=== PATIENT | female | born 1940 | race Caucasian/White ===

== ENCOUNTER 2017-12-04 13:19 | Inpatient (IN) ==
--- NOTE | 2017-12-04 13:42 | Emergency Department Note ---
SOB HPI - General Chief Complaint: Shortness of Breath/Dyspnea Stated Complaint: sob, htn Time Seen by Provider: 12/04/17 13:39 Source: patient, EMS Mode of arrival: EMS Limitations: no limitations - History of Present Illness This pleasant 77-year-old female comes emergency room with difficulty breathing for a couple of days that got worse. She lives in her own home with her oldest son and a significant other, Vipul Pinto, . Home health advised patient that patient be brought in after they were contacted by a friend or the patient's daughter in describing her shortness of breath. She has had some feverishness yesterday as well as some chills but no sweats. She has had a little chest pain for couple of days but has a history of palpitations. She has been coughing some. She has difficulty getting her air and feeling tight in her chest. She has a history of multiple medical illnesses and a fairly long list of medications. She has not been in the hospital for her lungs. She is not on any nebulizers at home. She is unaware of pulmonary fibrosis specifically as past history. She is a fairly good historian overall. REVIEW OF SYSTEMS: Has had some mild abdominal discomforts. No nausea or vomiting or diarrhea. She has some constipation. No hematochezia or melena. No dysuria. She has some frequency chronically. She is just getting over a recent UTI. Has chronic back pain as well as leg pains. She has a history of fibromyalgia for which she takes hydrocodone 5 or 6 pills per day she believes they are 5 mg tablets. She uses a walker and has been able to get around with her walker as normal. Has had some recent headaches and weakness. No dizziness. Has significant anxiety but no depression. Some of her concerns are regarding her home situation. Has felt quite fatigued. - Related Data Home Medications Medication Instructions Recorded Confirmed Aspirin [Adult Low Dose Aspirin EC] 81 mg PO DAILY 10/24/17 12/04/17 Levothyroxine [Synthroid] 100 mcg PO DAILY 10/24/17 12/04/17 Losartan [Cozaar] 100 mg PO DAILY 10/24/17 12/04/17 Pantoprazole Sodium 40 mg PO DAILY 10/24/17 12/04/17 Potassium Chloride [Klor-Con 10 meq PO DAILY 10/24/17 12/04/17 Sprinkle] Pravastatin [Pravachol] 20 mg PO DAILY 10/24/17 12/04/17 Propranolol [Inderal LA] 80 mg PO BID 10/24/17 12/04/17 amLODIPine [Norvasc] 10 mg PO DAILY 10/24/17 12/04/17 Apixaban [Eliquis] 2.5 mg PO BID 12/04/17 12/04/17 Cilostazol [Pletal] 50 mg PO BIDAC 12/04/17 12/04/17 HYDROcodone/ACETAMINOPHEN 1 - 2 each PO Q6HP PRN 12/04/17 12/04/17 [Hydrocodon-Acetaminophn 10-325] Torsemide [Demadex] 20 mg PO DAILY 12/04/17 12/04/17 Allergies Allergy/AdvReac Type Severity Reaction Status Date / Time levofloxacin [LEVOFLOXACIN] Allergy Unknown RASH Verified 08/26/17 11:58 Past Medical History - Past Medical History Medical history: Reports: atrial fibrillation (RECENT FLUTTER.), cancer (Breast (left-mastectomy). Skin on the left neck and skin of the left chest that was non -melanotic.), CHF, COPD (EMPHYSEMA.), coronary artery disease, fibromyalgia, hyperlipidemia, hypertension, hypothyroidism, peripheral artery disease ( ), PID, valvular heart disease (Aortic valve - replaced bovine 2003.), other ( Rheumatic fever. Atherosclerosis. CHRONIC ANTICOAGULATION. Pulmonary fibrosis. CHRONIC NARCOTICS for FM/severe MSK pains. TREMORS - on primidone.) . Denies: CVA, DM, myocardial infarction, TIA Psychiatric history: Reports: anxiety. Denies: depression Surgical history ED: Reports: angioplasty/stent (left femoral.), appendectomy, coronary bypass (CABG) (2 vessels in 2003), heart valve replacement (Aortic, TRESSA, 2004 at the same time as the CABG.), hysterectomy, tonsillectomy, other ( Right mastectomy.) Family history: Reports: other (ASHD in multiple - both parents, sister, children.) - Social History smoking status: Former smoker Exposure to secondhand smoke: Yes Alcohol use: Reports: None Drug use: Reports: none Physical Exam Limitations: no limitations General appearance: alert, in distress (mild tachypneic stress.), in no apparent distress, malaise (moderate) Head: atraumatic, normocephalic Eye: Present: EOMI ENT: normal oropharynx, mucous membranes moist Neck: Present: trachea midline. Absent: lymphadenopathy, thyromegaly Respiratory: Present: respiratory distress (RR 25-28 with some prolonged expiratory phase; 3-5 word dyspnea (due to exacerbation; or partially due to voice tremor).), accessory muscle use (mild supraclavicular and intercostal.), prolonged expiratory phase (mildly.), other (Mild crackles in bases faint, left more than right; VERY DISTANT breath sounds.) Cardiovascular: Present: regular rate, normal rhythm. Absent: systolic murmur ( history of 1/ per assistant professor of chemistry's notes.), diastolic murmur Abdominal: Present: soft, tenderness (upper abd tender multiple areas.). Absent : distention, guarding, rebound, rigidity, organomegaly, mass Extremities: Absent: pedal edema, pretibial edema, calf tenderness Neurological: Present: alert, oriented X3 Psychiatric: Present: flat affect (serious and concerned facies.) Skin: Present: warm, dry Course Vital Signs Temperature 99.5 F H 12/04/17 13:20 Pulse Rate 74 12/04/17 13:20 Respiratory Rate 27 H 12/04/17 13:20 Blood Pressure 146/99 12/04/17 13:20 Pulse Oximetry (%) 100 12/04/17 13:20 Temperature 99.5 F H 12/04/17 13:20 Pulse Rate 80 12/04/17 15:31 Respiratory Rate 21 12/04/17 15:47 Blood Pressure 180/87 12/04/17 15:31 Pulse Oximetry (%) 99 12/04/17 15:31 Shortness of Breath/Dyspnea - [facility] Narrative Medical decision making narrative: 13:23 PM Patient came in with significant shortness of breath and work of breathing. Was given a DuoNeb here which helped her quite a bit. She was able to be on room air. Labs ordered, chest x-ray, EKG, lactate, cardiac enzymes. 3:30 PM Labs came back fairly unremarkable with not an elevated white count and a normal lactate. Pro-calcitonin was also negative. Chest x-ray showed worsening pulmonary fibrosis and worsening of emphysema. Blood pressure remained in the ranges of 170-190 systolic. She became tight again with sensation of shortness of breath and was given a second albuterol. With her having tachypnea is still in the 28 range, and requiring additional nebulization , low-grade temperature, on a background of emphysema/COPD and pulmonary fibrosis, additional treatment includes Solu-Medrol IV and doxycycline IV ( azithromycin has a severe interaction with her cilostazol for QT prolongation) and likely needs admission. Will do an ABG to quantify some of her factors there. She is also on chronic narcotics for her musculoskeletal complaints which could compromise her respiratory drive significantly as well. Discussed with Dr. Taylor. Will be admitted for additional intervention/ treatment. - Lab Data Result diagrams: 12/04/17 13:46 12/04/17 13:46 Lab Results 12/04/17 12/04/17 12/04/17 Range/Units 13:46 13:46 13:46 WBC 10.8 (4.5-11.0) K/mcL RBC 4.12 (4.00-5.20) M/mcL Hgb 12.9 (12.0-15.0) g/dL Hct 39.2 (36.0-48.0) % MCV 95.1 (80.0-100.0) fL MCH 31.4 (26.0-34.0) pg MCHC 33.0 (31.0-36.0) g/dL RDW 16.2 H (11.5-14.5) % Plt Count 272 (140-440) K/mcL MPV 7.6 (7.4-10.4) fL Total Counted 100 Seg Neutrophils % 80 H (38-78) % Band Neutrophils % Not Reportable Lymphocytes % 6 L (15-49) % Monocytes % (Manual) 4 (1-12) % Eosinophils % (Manual) 10 H (0-7) % Platelet Estimate Normal (NORMAL) RBC Morphology Abnorm A (NORMAL) Anisocytosis 1+ A (NONE SEEN) D-Dimer (0.00-0.40) ug/ml VBG Lactic Acid (0.5-2.2) mmol/L Sodium 138 (133-145) mmol/L Potassium 3.8 (3.3-5.1) mmol/L Chloride 95 L (96-108) mmol/L Carbon Dioxide 28 (22-30) mmol/L Anion Gap 15.0 (8-16) BUN 10 (8-23) mg/dl Creatinine 0.8 (0.6-1.1) mg/dl GFR Calculation 71 Glucose 98 (70-105) mg/dL Calcium 9.0 (8.6-10.4) mg/dl Magnesium 2.2 (1.6-2.5) mg/dL Total Bilirubin 0.6 (0.0-1.0) mg/dL AST 12 (0-37) U/l ALT 5 (0-40) U/l Alkaline Phosphatase 209 H (39-117) U/L Total Creatine Kinase 44 (24-170) IU/L CK-MB (CK-2) 1.9 (0-2.9) ng/ml Troponin T (0-0.03) ng/ml Total Protein 7.9 (5.9-8.4) gm/dL Albumin 4.3 (3.2-5.2) gm/dL Globulin 3.6 (2.2-3.7) gm/dL Albumin/Globulin Ratio 1.2 (1.0-2.3) Procalcitonin < 0.05 (<0.10) ng/mL 12/04/17 12/04/17 12/04/17 Range/Units 13:46 13:46 14:36 WBC (4.5-11.0) K/mcL RBC (4.00-5.20) M/mcL Hgb (12.0-15.0) g/dL Hct (36.0-48.0) % MCV (80.0-100.0) fL MCH (26.0-34.0) pg MCHC (31.0-36.0) g/dL RDW (11.5-14.5) % Plt Count (140-440) K/mcL MPV (7.4-10.4) fL Total Counted Seg Neutrophils % (38-78) % Band Neutrophils % Lymphocytes % (15-49) % Monocytes % (Manual) (1-12) % Eosinophils % (Manual) (0-7) % Platelet Estimate (NORMAL) RBC Morphology (NORMAL) Anisocytosis (NONE SEEN) D-Dimer 0.74 H (0.00-0.40) ug/ml VBG Lactic Acid 1.0 (0.5-2.2) mmol/L Sodium (133-145) mmol/L Potassium (3.3-5.1) mmol/L Chloride (96-108) mmol/L Carbon Dioxide (22-30) mmol/L Anion Gap (8-16) BUN (8-23) mg/dl Creatinine (0.6-1.1) mg/dl GFR Calculation Glucose (70-105) mg/dL Calcium (8.6-10.4) mg/dl Magnesium (1.6-2.5) mg/dL Total Bilirubin (0.0-1.0) mg/dL AST (0-37) U/l ALT (0-40) U/l Alkaline Phosphatase (39-117) U/L Total Creatine Kinase (24-170) IU/L CK-MB (CK-2) (0-2.9) ng/ml Troponin T < 0.01 (0-0.03) ng/ml Total Protein (5.9-8.4) gm/dL Albumin (3.2-5.2) gm/dL Globulin (2.2-3.7) gm/dL Albumin/Globulin Ratio (1.0-2.3) Procalcitonin (<0.10) ng/mL Disposition Pt seen by EMERGENCY VETERINARY TECHNICIAN/PA only: No Clinical Impression: COPD with exacerbation, Respiratory distress, Tachypnea, Hypertension, essential, benign, DNR no code (do not resuscitate), Pulmonary fibrosis, H/O aortic valve replacement, History of atrial flutter, History of coronary artery disease, History of CHF (congestive heart failure) Fever Qualifiers: Fever type: unspecified Qualified Code(s): R50.9 - Fever, unspecified Disposition: Xfer As Outpt/Obs ([facility]) Condition: Fair Referrals: Rea Sethi MD [Primary Care Provider] -
--- NOTE | 2017-12-04 13:58 | XRay Report ---
HISTORY: Reason for Exam:sob and hypertension FINDINGS: The lungs are hyperinflated and there is pulmonary fibrosis. The fibrosis is most apparent in the lung apices. There is upward retraction of the ruby. The air trapping has become worse since 10/24/17. There is no evidence of pneumonia, mass or congestive heart failure. The heart size is normal and there is a prosthetic aortic valve. There are also clips in the left anterior mediastinum. IMPRESSION: Pulmonary fibrosis and worsening emphysema Interpreted and Authenticated by: Josh Kwon 12/04/17
[2017-12-04 14:17] LABS: Mean Cell Volume 95.1 fL (80.0-100.0); Mean Corpuscular Hemoglobin 31.4 pg (26.0-34.0); Platelet Count 272 K/mcL (140-440); RBC 4.12 M/mcL (4.00-5.20); Red Cell Distribution Width 16.2 % (11.5-14.5)
[2017-12-04 14:40] LABS: ALT/SGPT 5 U/l (0-40); Albumin 4.3 gm/dL (3.2-5.2); Albumin/Globulin Ratio 1.2 (1.0-2.3); Alkaline Phosphatase 209 U/L (39-117); Blood Urea Nitrogen 10 mg/dl (8-23); Creatine Kinase 44 IU/L (24-170); Creatine Kinase MB 1.9 ng/ml (0-2.9)
[2017-12-04 14:41] LABS: Anisocytosis 1+ (NONE SEEN); Eosinophils % (Manual) 10 % (0-7); Lymphocytes % 6 % (15-49); Monocytes % (Manual) 4 % (1-12); Platelet Estimate NORMAL (NORMAL); RBC Morphology ABNORM (NORMAL); Segmented Neutrophils % 80 % (38-78)
[2017-12-04] MEDS ORDERED: ALBUTEROL SULFATE 2.5 MG/3 ML NEBULIZER NEB ONE (15:11)
[2017-12-04] MEDS ORDERED: methylPREDNISolone SOD SUCC 125 MG/2 ML VIAL IV ONE (15:36)
[2017-12-04] MEDS ORDERED: DOXYCYCLINE 100 MG in DEXTROSE 5% IN WATER 100 ML IV ONE (15:40)
[2017-12-04] MEDS ORDERED: ACETAMINOPHEN 325 MG TABLET PO PRN (18:18)
[2017-12-04] MEDS ORDERED: NALOXONE HCL 0.4 MG/ML VIAL IV PRN (18:18)
[2017-12-04] MEDS ORDERED: ONDANSETRON 4 MG/2 ML VIAL IV PRN (18:18)
[2017-12-04] MEDS: IPRATROPIUM/ALBUTEROL 3 ML AMPUL.NEB NEB SCH ×2 (19:32→22:27)
[2017-12-04] MEDS: HYDROcodone/APAP 10/325MG TABLET PO PRN (20:06)
[2017-12-04] MEDS: DOXYCYCLINE HYCLATE 100 MG TABLET.ORL PO SCH (20:07)
[2017-12-04] MEDS: SIMVASTATIN 10 MG TABLET PO SCH (20:07)
[2017-12-04] MEDS: APIXABAN 5 MG TABLET PO SCH (20:07)
[2017-12-04] MEDS ORDERED: hydrALAZINE 20 MG/ML VIAL IV PRN (20:27)
[2017-12-04] MEDS ORDERED: PROPRANOLOL 80 MG CAP.XL.24H PO SCH (21:00)
[2017-12-04] MEDS ORDERED: METOPROLOL TARTRATE 50 MG TABLET PO SCH (21:00)
--- NOTE | 2017-12-04 21:17 | Internal Med History&Physical ---
Medical - H&P: HPI Patient information: Note initiated : 12/04/17 at 9:14 pm Service Date, if different from initiated Date: [] Patient: Valeria Negron a 77 y/o F admitted on 12/04/17 for sob, htn. Chief Complaint: [] History of present illness: Ms. Negron is a 77 year old Femael with severe empysema presents to the ER today with complaints of shortness of breath x 2 days she has cough, with very scant sputum production, she has significantly decreased effort tolerance, while at baseline she is able to walk a block with her walker. The patient notes she feels weak and tired. Her symptoms have progressed over the last 2 days. She therefore presented to the hospital for further management. The patient denies any leg swelling, usually lives in the house, patient denies any hemoptysis, denies any sick contacts, denies any runny nose or watery eyes. She has no headache, no visual changes, no changes in hearing, no difficulty in swallowing ability. she has some chest pain with deep inspiration. no nausea, no vomiting, chr abdominal discomfort, she has no bowel bladder complaints, chr gen aches from fibromyalgia, no new joint pain or skin rashes, no bleeding issues, no acute psychiatric complaints. patient in the ER was noted to be having stable vitals, but was in mild resp distress, afebrile , rr 24-28, oxygen sat dropped to 856 on minimal ambulation, c xr shows emphysema and pulmonary fibrosis, pt not aware of fibrosis. labs unremarkable Pt being admitted to the hospital for acute copd exacerbation. given steroids, duonebs and doxycycline in the er she has an extensive cardiac history, last cardiac note by dr ricks reviewed, All systems: reviewed and no additional remarkable complaints except as stated ( as per HPI) Medical - H&P: PMH Medical history: CAD s/p aortic valve replacement s/p cag HTN Atrial flutter copd/ emphysema hld PVD Family history: reviewed and not pertinent Social history: smoker, lives with significant other, 60 pack yr history ,notes quit 2 days ago no etoh reported, no recreational drug use. Medical - H&P: Meds Home Medications Medication Instructions Recorded Confirmed Type Aspirin [Adult Low Dose Aspirin EC] 81 mg PO DAILY 10/24/17 12/04/17 History Levothyroxine [Synthroid] 100 mcg PO DAILY 10/24/17 12/04/17 History Losartan [Cozaar] 100 mg PO DAILY 10/24/17 12/04/17 History Pantoprazole Sodium 40 mg PO DAILY 10/24/17 12/04/17 History Potassium Chloride [Klor-Con 10 meq PO DAILY 10/24/17 12/04/17 History Sprinkle] Pravastatin [Pravachol] 20 mg PO DAILY 10/24/17 12/04/17 History Propranolol [Inderal LA] 80 mg PO BID 10/24/17 12/04/17 History amLODIPine [Norvasc] 10 mg PO DAILY 10/24/17 12/04/17 History Apixaban [Eliquis] 2.5 mg PO BID 12/04/17 12/04/17 History Cilostazol [Pletal] 50 mg PO BIDAC 12/04/17 12/04/17 History HYDROcodone/ACETAMINOPHEN 1 - 2 each PO Q6HP PRN 12/04/17 12/04/17 History [Hydrocodon-Acetaminophn 10-325] Torsemide [Demadex] 20 mg PO DAILY 12/04/17 12/04/17 History Allergies Allergy/AdvReac Type Severity Reaction Status Date / Time levofloxacin [LEVOFLOXACIN] Allergy Mild RASH Verified 12/04/17 19:54 Medical - H&P: Exam - Constitutional Vitals: Temp Pulse Resp BP Pulse Ox 99.5 F H 82 24 H 176/79 98 12/04/17 18:20 12/04/17 19:33 12/04/17 19:33 12/04/17 18:20 12/04/17 19:33 Exam: GENERAL: in mild resp distress, Is alert and oriented x3. thin frail lady. VITAL SIGNS: Reviewed and as noted elsewhere. HEENT: Head is normocephalic and atraumatic. Extraocular muscles are intact. Pupils are equal, round, and reactive to light. Nares appeared normal. Mouth appears any without lesions. Mucous membranes are dry NECK: Normal to inspection, Supple, No lymphadenopathy or thyromegaly. LUNGS: Air entry equal on both sides, poor air entry bilaterally, yung exp wheezing, no crackles, no rhonchi noted. mild resp distress,no accessory muscle use, but unable to speak freely, HEART: Regular rate and rhythm normal, S1 and S2 heard, no Gallop, S3 or Rub Noted, No Gross murmur heard. ABDOMEN: Soft, nontender, and nondistended. Positive bowel sounds. No hepatosplenomegaly was noted. EXTREMITIES: No cyanosis, clubbing, rash, lesions or edema. NEUROLOGIC: Cranial nerves II through XII are grossly intact. Motor and Sensory System Grossly Intact PSYCHIATRIC: Normal affect, Normal Mood. Appropriate Behavior. SKIN: No ulceration or wounds noted, No jaundice, No rash noted. Medical - H&P: Reslt - Labs CBC & Chem 7: 12/04/17 13:46 12/04/17 13:46 Labs: Short CBC 12/04/17 Range/Units 13:46 WBC 10.8 (4.5-11.0) K/mcL Hgb 12.9 (12.0-15.0) g/dL Hct 39.2 (36.0-48.0) % Plt Count 272 (140-440) K/mcL BMP 12/04/17 13:46 Sodium 138 Potassium 3.8 Chloride 95 L Carbon Dioxide 28 BUN 10 Creatinine 0.8 Glucose 98 Calcium 9.0 Cardiac Enzymes 12/04/17 12/04/17 Range/Units 13:46 14:36 Total Creatine Kinase 44 (24-170) IU/L CK-MB (CK-2) 1.9 (0-2.9) ng/ml Troponin T < 0.01 (0-0.03) ng/ml Liver Function 12/04/17 Range/Units 13:46 Total Bilirubin 0.6 (0.0-1.0) mg/dL AST 12 (0-37) U/l ALT 5 (0-40) U/l Alkaline Phosphatase 209 H (39-117) U/L Albumin 4.3 (3.2-5.2) gm/dL Medical - H&P: A/P - Narrative A/P Narrative: a/P acute hypoxic hypercapenic resp failure Acute copd exacerbation. htn hld cad pvd atrial flutter tobacco abuse h/o systolic heart failure, mild lvef 52 on last echo hypothyroidism Plan admit to tele , IV steroids, duonebs, doxycyline monitor resp status, bipap if worsens pt is dnr dni Continue home medications for cardiac issues continue levothyroxine. Hold inderal for HTN, not sure if a good idea in patient with empysema, when a selective beta deion or coreg can be used. Will use coreg for now given h/o CHF dvt hep sq diet cardiac DNR/DNI code status. Medical - H&P: Qual - VTE Deep Vein Thrombosis/Pulmonary Embolism Present on Admission: No
[2017-12-04] MEDS ORDERED: CARVEDILOL 6.25 MG TABLET ONE (22:20)
[2017-12-04] MEDS: methylPREDNISolone SOD SUCC 125 MG/2 ML VIAL IV SCH (22:23)
[2017-12-04] MEDS: 0.9 % SODIUM CHLORIDE 10 ML SYRINGE IV SCH (22:23)
[2017-12-04] MEDS: CARVEDILOL 12.5 MG TABLET PO SCH (22:24)
[2017-12-05] MEDS: HYDROcodone/APAP 10/325MG TABLET PO PRN ×6 (00:09→21:13)
[2017-12-05] MEDS: IPRATROPIUM/ALBUTEROL 3 ML AMPUL.NEB NEB SCH ×5 (03:07→18:39)
[2017-12-05] MEDS: methylPREDNISolone SOD SUCC 125 MG/2 ML VIAL IV SCH ×3 (05:54→21:02)
[2017-12-05] MEDS: 0.9 % SODIUM CHLORIDE 10 ML SYRINGE IV SCH ×4 (05:54→21:03)
[2017-12-05] MEDS: PANTOPRAZOLE 40 MG TABLET PO SCH (07:06)
[2017-12-05] MEDS: CILOSTAZOL 100 MG TABLET PO SCH ×2 (07:09→17:19)
[2017-12-05] MEDS ORDERED: CARVEDILOL 12.5 MG TABLET PO SCH (08:00)
[2017-12-05] MEDS: LEVOTHYROXINE 100 MCG TABLET PO SCH (08:24)
[2017-12-05 08:38] LABS: Basophils # (Auto) 0 K/mcL (0.0-0.3); Basophils % (Auto) 0 % (0.0-2.0); Eosinophils # (Auto) 0.1 K/mcL (0.0-0.7); Eosinophils % (Auto) 1.6 % (0.0-7.0); Lymphocytes # (Auto) 0.7 K/mcL (1.5-4.8); Lymphocytes % (Auto) 8.4 % (15.5-49.0); Mean Cell Volume 95.1 fL (80.0-100.0); Mean Corpuscular Hemoglobin 31.4 pg (26.0-34.0); Monocytes # (Auto) 0.2 K/mcL (0.1-0.9); Platelet Count 252 K/mcL (140-440); RBC 3.72 M/mcL (4.00-5.20); Red Cell Distribution Width 15.7 % (11.5-14.5)
[2017-12-05 08:49] LABS: ALT/SGPT 6 U/l (0-40); Albumin 3.7 gm/dL (3.2-5.2); Albumin/Globulin Ratio 1.1 (1.0-2.3); Alkaline Phosphatase 183 U/L (39-117); Bilirubin,Direct < 0.2 mg/dL (0.0-0.3); Blood Urea Nitrogen 22 mg/dl (8-23); Gamma Glutamyl Transpeptidase 62 U/L (5-36)
[2017-12-05] MEDS: APIXABAN 5 MG TABLET PO SCH ×2 (09:03→21:02)
[2017-12-05] MEDS: ASPIRIN 81 MG TAB.CHEW PO SCH (09:04)
[2017-12-05] MEDS: POTASSIUM CHLORIDE 20 MEQ PACKET PO SCH (09:04)
[2017-12-05] MEDS: LOSARTAN 50 MG TABLET PO SCH (09:05)
[2017-12-05] MEDS: DOXYCYCLINE HYCLATE 100 MG TABLET.ORL PO SCH ×2 (09:05→21:02)
[2017-12-05] MEDS: amLODIPine 10 MG TABLET PO SCH (09:05)
[2017-12-05] MEDS: TORSEMIDE 10 MG TABLET PO SCH (09:06)
[2017-12-05] MEDS: CARVEDILOL 12.5 MG TABLET PO SCH (09:06)
[2017-12-05] MEDS ORDERED: NITROGLYCERIN 0.4 MG TAB.SUBL SL ONE ×2 (09:39→09:47)
[2017-12-05] MEDS ORDERED: NITROGLYCERIN 0.4 MG TAB.SUBL SL PRN (09:59)
[2017-12-05] MEDS ORDERED: PNEUMOCOCCAL 23-VAL P-SAC VAC 0.5 ML VIAL IM ONE (10:00)
--- NOTE | 2017-12-05 17:18 | Internal Med Progress Note ---
Medical - PN: Subj Patient information: Note initiated : 12/05/17 at 5:15 pm Service Date, if different from initiated Date: [] Patient: Valeria Negron a 77 y/o F admitted on 12/04/17 for SOB, Hypertension/ COPD Exacerbation. Chief Complaint: [] Interval history: Ms. Negron is a 77 year old Femael with severe empysema presents to the ER today with complaints of shortness of breath x 2 days she has cough, with very scant sputum production, she has significantly decreased effort tolerance, while at baseline she is able to walk a block with her walker. The patient notes she feels weak and tired. Her symptoms have progressed over the last 2 days. She therefore presented to the hospital for further management. The patient denies any leg swelling, usually lives in the house, patient denies any hemoptysis, denies any sick contacts, denies any runny nose or watery eyes. She has no headache, no visual changes, no changes in hearing, no difficulty in swallowing ability. she has some chest pain with deep inspiration. no nausea, no vomiting, chr abdominal discomfort, she has no bowel bladder complaints, chr gen aches from fibromyalgia, no new joint pain or skin rashes, no bleeding issues, no acute psychiatric complaints. patient in the ER was noted to be having stable vitals, but was in mild resp distress, afebrile , rr 24-28, oxygen sat dropped to 856 on minimal ambulation, c xr shows emphysema and pulmonary fibrosis, pt not aware of fibrosis. labs unremarkable Pt being admitted to the hospital for acute copd exacerbation. given steroids, duonebs and doxycycline in the er she has an extensive cardiac history, last cardiac note by dr rikcs reviewed, December 05 pt seen examined doing better of oxygen air entry much better left arm pain this AM ekg unchnaged trop x 2 neg Continue steroids and duoneb, doxy for now if continues to improve can d/c home in AM Pertinent ROS: Denies headache, dizziness Denies chest pain, palpitations improved shortness of breath Denies abdominal pain, nausea or vomiting. - Constitutional Vitals: Vital Signs Temp Pulse Resp BP Pulse Ox 98.9 F 82 18 104/52 92 12/05/17 16:00 12/05/17 15:40 12/05/17 16:00 12/05/17 16:00 12/05/17 16:00 Period Temp Pulse Resp BP Sys/Francisco Pulse Ox Last 24 Hr 97.8 F-99.5 F 58-100 16-27 99-210/52-99 92-100 Intake and Output 12/05/17 12/05/17 12/05/17 05:59 13:59 21:59 Intake Total 120 / 120 360 / 360 500 / 500 Balance 120 / 120 360 / 360 500 / 500 Weight 95 lb 8 oz Patient Weight 12/06/17 05:59 Weight 95 lb 8 oz Intake & Output: Intake & Output 12/05/17 12/05/17 12/05/17 05:59 13:59 21:59 Intake Total 120 / 120 360 / 360 500 / 500 Balance 120 / 120 360 / 360 500 / 500 Weight 95 lb 8 oz Intake: Oral 120 / 120 360 / 360 200 / 200 GI Tube Flush 300 / 300 Other: Meal Nourishment/Supplement Breakfast Lunch Percent of Meal Consumed 100% 100% 50% Feeding Ability Independent Assist with Tray Set Up Independent # Voids 1 1 Exam: Constitutional; Afebrile, cooperative, alert, not in distress. Eyes- No icterus, , No periorbital swelling Ears- Ext ear normal, hearing normal to conversation. Neck- Midline trachea, supple Respiratory system: Air Entry equal on both sides, No crackles, no rhonchi. poor air entry but wheezing resolved. CVS- Rate rhythm regular, S1,S2 heard, no gallop, no rub. Abdomen- Soft nontender abdomen, no organomegaly, no tenderness, no guarding or rigidity, ELECTRONICS PROCESSOR- AOOx3, moving all extremities, no gross focal deficit noted. Medical - PN: Obj Da - Labs CBC & Chem 7: 12/05/17 08:03 12/05/17 08:03 Labs: Abnormal Lab Results 12/05/17 12/05/17 12/04/17 08:03 08:03 13:46 RBC 3.72 L Hgb 11.7 L Hct 35.4 L RDW 15.7 H Gran % 88.0 H Lymph % (Auto) 8.4 L Lymph # (Auto) 0.7 L Seg Neutrophils % Lymphocytes % Eosinophils % (Manual) RBC Morphology Anisocytosis D-Dimer 0.74 H Chloride Glucose 119 H GGT 62 H Alkaline Phosphatase 183 H 03/08/18 03/08/18 13:46 13:46 RBC Hgb Hct RDW 16.2 H Gran % Lymph % (Auto) Lymph # (Auto) Seg Neutrophils % 80 H Lymphocytes % 6 L Eosinophils % (Manual) 10 H RBC Morphology Abnorm A Anisocytosis 1+ A D-Dimer Chloride 95 L Glucose GGT Alkaline Phosphatase 209 H Meds: Medications Acetaminophen (Tylenol) 650 mg PO Q6HP PRN PRN Reason: PAIN/FEVER > 101 Hydrocodone Bitart/Acetaminophen ([place] 10/325mg) 1 tab PO Q4HP PRN PRN Reason: Pain Last Admin: 12/05/17 14:16 Dose: 1 tab Albuterol/Ipratropium (Duoneb) 3 ml NEB Q4HRT [facility] Last Admin: 12/05/17 15:40 Dose: 3 ml Amlodipine Besylate (Norvasc) 10 mg PO DAILY [facility] Last Admin: 12/05/17 09:05 Dose: 10 mg Aspirin (Aspirin) 81 mg PO DAILY [facility] Last Admin: 12/05/17 09:04 Dose: 81 mg Carvedilol (Coreg) 6.25 mg PO BIDCC [facility] Cilostazol (Pletal) 50 mg PO BIDAC [facility] Last Admin: 12/05/17 07:09 Dose: 50 mg Doxycycline Hyclate (Doxycycline Hyclate) 100 mg PO BID [facility] Last Admin: 12/05/17 09:05 Dose: 100 mg Hydralazine HCl (Apresoline) 10 mg IV Q4-6HP PRN PRN Reason: Hypertension Levothyroxine [facility] ([facility]throid) [facility] Last Admin: 12/05/17 08:24 Dose: 100 mcg Losartan Potassium (Cozaar) 100 mg PO DAILY [facility] Last Admin: 12/05/17 09:05 Dose: 100 mg Methylprednisolone Sodium Succinate (Solu-Medrol) 62.5 mg IV Q8 [facility] Last Admin: 12/05/17 14:18 Dose: 62.5 mg Naloxone HCl (Narcan) 0.1 mg IV Q2MIN PRN PRN Reason: Opiate Reversal Nitroglycerin (Nitrostat) 0.4 mg SL Q5M PRN PRN Reason: Chest Pain Ondansetron HCl (Zofran) 4 mg IV Q4HP PRN PRN Reason: Nausea And Vomiting Pantoprazole Sodium (Protonix) 40 mg PO QAMAC [facility] Last Admin: 12/05/17 07:06 Dose: 40 mg Potassium Chloride (Klor-Con) 10 meq PO QAC [facility] Last Admin: 12/05/17 09:04 Dose: 10 meq Simvastatin (Zocor) 10 mg PO [facility] Last Admin: 12/04/17 20:07 Dose: 10 mg Sodium Chloride (Saline Flush) 10 ml IV Q8 [facility] Last Admin: 12/05/17 14:19 Dose: 10 ml Torsemide (Demadex) 20 mg PO DAILY [facility] Last Admin: 12/05/17 09:06 Dose: 20 mg Medical - PN: A/P - Time Spent With Patient Total time spent is greater than 50% in coordination of care (as documented) at patient's floor/unit and/or counseling patient: - Narrative A/P Narrative: a/P acute hypoxic hypercapenic resp failure Acute copd exacerbation. htn hld cad pvd atrial flutter tobacco abuse h/o systolic heart failure, mild lvef 52 on last echo hypothyroidism Plan monitor on tele IV steroids, duonebs, doxycyline to continue monitor resp status, bipap if worsens pt is dnr dni Continue home medications for cardiac issues has chr stable angina use ntg as need for chest pain and arm pain. continue levothyroxine. Hold inderal for HTN, not sure if a good idea in patient with empysema, when a selective beta deion or coreg can be used. Will use coreg for now given h/o CHF, dose of coreg was 12.5 yesteday, but pt bp responded bit too well, cut back dosing to 6.25 bid not sure why inderal is being used in this patient. but will hold off given poor pulmonary status, can consider switching to coreg at discharge. dvt hep sq diet cardiac DNR/DNI code status. Medical - PN: Qual - VTE Deep Vein Thrombosis/Pulmonary Embolism Present on Admission: No
[2017-12-05] MEDS: CARVEDILOL 6.25 MG TABLET PO SCH (17:19)
[2017-12-05] MEDS: SIMVASTATIN 10 MG TABLET PO SCH (21:02)
[2017-12-05] MEDS ORDERED: IPRATROPIUM/ALBUTEROL 3 ML AMPUL.NEB NEB ONE (23:32)
[2017-12-06] MEDS: HYDROcodone/APAP 10/325MG TABLET PO PRN ×4 (01:00→19:31)
[2017-12-06] MEDS: IPRATROPIUM/ALBUTEROL 3 ML AMPUL.NEB NEB SCH ×4 (01:18→19:23)
[2017-12-06 05:01] LABS: Basophils # (Auto) 0 K/mcL (0.0-0.3); Basophils % (Auto) 0 % (0.0-2.0); Eosinophils # (Auto) 0.2 K/mcL (0.0-0.7); Eosinophils % (Auto) 1.4 % (0.0-7.0); Granulocytes % (Auto) 91.4 % (38.0-78.0); Lymphocytes # (Auto) 0.9 K/mcL (1.5-4.8); Lymphocytes % (Auto) 5.1 % (15.5-49.0); Mean Cell Volume 96.4 fL (80.0-100.0); Mean Corpuscular HGB Conc 32.5 g/dL (31.0-36.0); Mean Corpuscular Hemoglobin 31.3 pg (26.0-34.0); Monocytes # (Auto) 0.3 K/mcL (0.1-0.9); Monocytes % (Auto) 2.1 % (1.0-12.0); Platelet Count 234 K/mcL (140-440); RBC 3.25 M/mcL (4.00-5.20); Red Cell Distribution Width 15.9 % (11.5-14.5)
[2017-12-06 05:07] LABS: ALT/SGPT < 5 U/l (0-40); Albumin 3.3 gm/dL (3.2-5.2); Albumin/Globulin Ratio 1.2 (1.0-2.3); Alkaline Phosphatase 142 U/L (39-117); Bilirubin,Direct < 0.2 mg/dL (0.0-0.3); Blood Urea Nitrogen 45 mg/dl (8-23); Gamma Glutamyl Transpeptidase 54 U/L (5-36); Uric Acid 6.4 mg/dL (2.5-8.0)
[2017-12-06] MEDS: methylPREDNISolone SOD SUCC 125 MG/2 ML VIAL IV SCH (05:35)
[2017-12-06] MEDS: 0.9 % SODIUM CHLORIDE 10 ML SYRINGE IV SCH ×3 (05:35→23:29)
[2017-12-06] MEDS: CILOSTAZOL 100 MG TABLET PO SCH ×2 (07:34→17:53)
[2017-12-06] MEDS: LEVOTHYROXINE 100 MCG TABLET PO SCH (07:34)
[2017-12-06] MEDS: CARVEDILOL 6.25 MG TABLET PO SCH ×2 (07:36→17:54)
[2017-12-06] MEDS: POTASSIUM CHLORIDE 20 MEQ PACKET PO SCH (07:36)
[2017-12-06] MEDS: PANTOPRAZOLE 40 MG TABLET PO SCH (07:36)
[2017-12-06] MEDS: LOSARTAN 50 MG TABLET PO SCH (08:29)
[2017-12-06] MEDS: DOXYCYCLINE HYCLATE 100 MG TABLET.ORL PO SCH ×2 (08:29→20:33)
[2017-12-06] MEDS: amLODIPine 10 MG TABLET PO SCH (08:30)
[2017-12-06] MEDS: TORSEMIDE 10 MG TABLET PO SCH (08:30)
[2017-12-06] MEDS: APIXABAN 5 MG TABLET PO SCH ×2 (08:30→20:34)
[2017-12-06] MEDS: ASPIRIN 81 MG TAB.CHEW PO SCH (08:30)
[2017-12-06] MEDS ORDERED: LACTATED RINGERS 1,000 ML IV SCH (09:15)
--- NOTE | 2017-12-06 09:17 | Internal Med Progress Note ---
Medical - PN: Subj Patient information: Note initiated : 12/06/17 at 9:14 am Service Date, if different from initiated Date: [] Patient: Valeria Negron a 77 y/o F admitted on 12/04/17 for SOB, Hypertension/ COPD Exacerbation. Chief Complaint: [] Interval history: Ms. Negron is a 77 year old Femael with severe empysema presents to the ER today with complaints of shortness of breath x 2 days she has cough, with very scant sputum production, she has significantly decreased effort tolerance, while at baseline she is able to walk a block with her walker. The patient notes she feels weak and tired. Her symptoms have progressed over the last 2 days. She therefore presented to the hospital for further management. The patient denies any leg swelling, usually lives in the house, patient denies any hemoptysis, denies any sick contacts, denies any runny nose or watery eyes. She has no headache, no visual changes, no changes in hearing, no difficulty in swallowing ability. she has some chest pain with deep inspiration. no nausea, no vomiting, chr abdominal discomfort, she has no bowel bladder complaints, chr gen aches from fibromyalgia, no new joint pain or skin rashes, no bleeding issues, no acute psychiatric complaints. patient in the ER was noted to be having stable vitals, but was in mild resp distress, afebrile , rr 24-28, oxygen sat dropped to 856 on minimal ambulation, c xr shows emphysema and pulmonary fibrosis, pt not aware of fibrosis. labs unremarkable Pt being admitted to the hospital for acute copd exacerbation. given steroids, duonebs and doxycycline in the er she has an extensive cardiac history, last cardiac note by dr ricks reviewed, December 05 pt seen examined doing better of oxygen air entry much better left arm pain this AM ekg unchnaged trop x 2 neg Continue steroids and duoneb, doxy for now if continues to improve can d/c home in AM 12/06- patient doing well. No overnight events. White count from 7.7-16.7. creatinine up at 1.4 from 1.1. Serial troponins negative. Patient does not quite feel at baseline. However improved shortness of breath. No overnight fever or chills. No concerns especially nursing staff. Transfer to medical floor. Possible discharge in 24-48 hours if clinically improved. Ongoing physical therapy. 1 L crystalloid. Hold Demadex today. - Constitutional Vitals: Vital Signs Temp Pulse Resp BP Pulse Ox 97.5 F 82 16 120/65 94 12/06/17 07:21 12/06/17 07:10 12/06/17 07:21 12/06/17 07:21 12/06/17 07:21 Period Temp Pulse Resp BP Sys/Francisco Pulse Ox Last 24 Hr 97.5 F-99.5 F 78-111 16-18 104-128/46-65 92-95 Intake and Output 12/05/17 12/06/17 12/06/17 21:59 05:59 13:59 Intake Total 560 / 560 50 / 50 320 / 320 Output Total 150 / 150 250 / 250 Balance 410 / 410 -200 / -200 320 / 320 Weight 101 lb 8 oz Intake & Output: Intake & Output 12/05/17 12/06/17 12/06/17 21:59 05:59 13:59 Intake Total 560 / 560 50 / 50 320 / 320 Output Total 150 / 150 250 / 250 Balance 410 / 410 -200 / -200 320 / 320 Weight 101 lb 8 oz Intake: Oral 200 / 200 50 / 50 320 / 320 GI Tube Flush 360 / 360 Output: Void Amount 150 / 150 250 / 250 Other: Meal Dinner Breakfast Percent of Meal Consumed 75% 100% Feeding Ability Independent General appearance: cooperative, no acute distress Exam: alert oriented nonlabored breathing Nondistended abdomen No anxiety Medical - PN: Obj Da - Labs CBC & Chem 7: 12/06/17 03:35 12/06/17 03:35 Labs: Abnormal Lab Results 12/06/17 12/06/17 12/05/17 03:35 03:35 08:03 WBC 16.7 H RBC 3.25 L Hgb 10.2 L Hct 31.3 L RDW 15.9 H Gran % 91.4 H Lymph % (Auto) 5.1 L Gran # 15.2 H Lymph # (Auto) 0.9 L Seg Neutrophils % Lymphocytes % Eosinophils % (Manual) RBC Morphology Anisocytosis D-Dimer Chloride BUN 45 H Creatinine 1.4 H Glucose 127 H 119 H Calcium 8.0 L GGT 54 H 62 H Alkaline Phosphatase 142 H 183 H 12/05/17 12/04/17 12/04/17 08:03 13:46 13:46 WBC RBC 3.72 L Hgb 11.7 L Hct 35.4 L RDW 15.7 H Gran % 88.0 H Lymph % (Auto) 8.4 L Gran # Lymph # (Auto) 0.7 L Seg Neutrophils % Lymphocytes % Eosinophils % (Manual) RBC Morphology Anisocytosis D-Dimer 0.74 H Chloride 95 L BUN Creatinine Glucose Calcium GGT Alkaline Phosphatase 209 H 12/04/17 13:46 WBC RBC Hgb Hct RDW 16.2 H Gran % Lymph % (Auto) Gran # Lymph # (Auto) Seg Neutrophils % 80 H Lymphocytes % 6 L Eosinophils % (Manual) 10 H RBC Morphology Abnorm A Anisocytosis 1+ A D-Dimer Chloride BUN Creatinine Glucose Calcium GGT Alkaline Phosphatase Meds: Medications Acetaminophen (Tylenol) 650 mg PO Q6HP PRN PRN Reason: PAIN/FEVER > 101 Hydrocodone Bitart/Acetaminophen ([place] 10/325mg) 1 tab PO Q4HP PRN PRN Reason: Pain Last Admin: 12/06/17 05:34 Dose: 1 tab Albuterol/Ipratropium (Duoneb) 3 ml NEB Q4HRT [facility] Last Admin: 12/06/17 07:05 Dose: 3 ml Amlodipine Besylate (Norvasc) 10 mg PO DAILY [facility] Last Admin: 12/06/17 08:30 Dose: 10 mg Aspirin (Aspirin) 81 mg PO DAILY [facility] Last Admin: 12/06/17 08:30 Dose: 81 mg Carvedilol (Coreg) 6.25 mg PO BIDCC [facility] Last Admin: 12/06/17 07:36 Dose: 6.25 mg Cilostazol (Pletal) 50 mg PO BIDAC [facility] Last Admin: 12/06/17 07:34 Dose: 50 mg Doxycycline Hyclate (Doxycycline Hyclate) 100 mg PO BID [facility] Last Admin: 12/06/17 08:29 Dose: 100 mg Hydralazine HCl (Apresoline) 10 mg IV Q4-6HP PRN PRN Reason: Hypertension Levothyroxine Sodium (Synthroid) 100 mcg PO QAMAC [facility] Last Admin: 12/06/17 07:34 Dose: 100 mcg Losartan Potassium (Cozaar) 100 mg PO DAILY [facility] Last Admin: 12/06/17 08:29 Dose: 100 mg Methylprednisolone Sodium Succinate (Solu-Medrol) 62.5 mg IV Q8 [facility] Last Admin: 12/06/17 05:35 Dose: 62.5 mg Naloxone HCl (Narcan) 0.1 mg IV Q2MIN PRN PRN Reason: Opiate Reversal Nitroglycerin (Nitrostat) 0.4 mg SL Q5M PRN PRN Reason: Chest Pain Ondansetron HCl (Zofran) 4 mg IV Q4HP PRN PRN Reason: Nausea And Vomiting Pantoprazole [facility] ([facility]ix) [facility] Last Admin: 12/06/17 07:36 Dose: 40 mg Potassium Chloride (Klor-Con) 10 meq PO QAC [facility] Last Admin: 12/06/17 07:36 Dose: 10 meq Simvastatin (Zocor) 10 mg PO HS [facility] Last Admin: 12/05/17 21:02 Dose: 10 mg Sodium Chloride (Saline Flush) 10 ml IV Q8 [facility] Last Admin: 12/06/17 05:35 Dose: 10 ml Torsemide (Demadex) 20 mg PO DAILY [facility] Last Admin: 12/06/17 08:30 Dose: 20 mg Medical - PN: A/P - Time Spent With Patient Total time spent is greater than 50% in coordination of care (as documented) at patient's floor/unit and/or counseling patient: 25 - 35 minutes - Narrative A/P Narrative: a/P * Acute hypoxic hypercapenic resp failure-clinically improved. Now on room air. * Acute copd exacerbation-On bronchodilators/IVsteroids. Switched to oral steroids.On doxycycline * Mild RAI- creatinine up from 1.1-1.4. Close monitoring of renal function * leukocytosis 16.7-possibly steroid response. continue monitoring * history of hypertension-continue amlodipine/PRN hydralazine/Coreg/losartan. Systolics at goal * Hypothyroidism on thyroxine * Degenerative joint disease of hydrocodone * GERD on PPI * Hyperlipidemia on statin * History of CAD on Coreg/aspirin/statin * a flutter-continue Apixiban * tobacco abuse * h/o systolic heart failure, mild lvef 52 on last echo Plan * admit as inpatient and transfer to medical floor * Continue bronchodilators * Switch to oral steroids * Pre-existing medical condition management as above * Hold inderal for HTN, not sure if a good idea in patient with empysema, when a selective beta deion or coreg can be used. Will use coreg for now given h/o CHF, dose of coreg was 12.5 yesteday, but pt bp responded bit too well, cut back dosing to 6.25 bid not sure why inderal is being used in this patient. but will hold off given poor pulmonary status, can consider switching to coreg at discharge. Medical - PN: Qual - VTE Deep Vein Thrombosis/Pulmonary Embolism Present on Admission: No
[2017-12-06] MEDS ORDERED: ONDANSETRON 4 MG/2 ML VIAL IV PRN (09:33)
[2017-12-06] MEDS ORDERED: ACETAMINOPHEN 325 MG TABLET PO PRN (09:33)
[2017-12-06] MEDS ORDERED: NITROGLYCERIN 0.4 MG TAB.SUBL SL PRN (09:33)
[2017-12-06] MEDS ORDERED: hydrALAZINE 20 MG/ML VIAL IV PRN (09:33)
[2017-12-06] MEDS ORDERED: NALOXONE HCL 0.4 MG/ML VIAL IV PRN (09:33)
[2017-12-06] MEDS ORDERED: IPRATROPIUM/ALBUTEROL 3 ML AMPUL.NEB NEB SCH (11:00)
[2017-12-06] MEDS: SIMVASTATIN 10 MG TABLET PO SCH (20:33)
[2017-12-06] MEDS ORDERED: HYDROcodone/APAP 10/325MG TABLET PO ONE (20:52)
[2017-12-07] MEDS: IPRATROPIUM/ALBUTEROL 3 ML AMPUL.NEB NEB SCH ×4 (04:23→20:13)
[2017-12-07] MEDS: 0.9 % SODIUM CHLORIDE 10 ML SYRINGE IV SCH ×3 (06:33→20:25)
[2017-12-07 06:47] LABS: Basophils # (Auto) 0 K/mcL (0.0-0.3); Basophils % (Auto) 0.3 % (0.0-2.0); Eosinophils # (Auto) 0.6 K/mcL (0.0-0.7); Eosinophils % (Auto) 4.9 % (0.0-7.0); Granulocytes % (Auto) 67.4 % (38.0-78.0); Lymphocytes # (Auto) 2.3 K/mcL (1.5-4.8); Lymphocytes % (Auto) 20.4 % (15.5-49.0); Mean Cell Volume 95.3 fL (80.0-100.0); Mean Corpuscular HGB Conc 33.7 g/dL (31.0-36.0); Mean Corpuscular Hemoglobin 32.1 pg (26.0-34.0); Monocytes # (Auto) 0.8 K/mcL (0.1-0.9); Platelet Count 229 K/mcL (140-440); RBC 3.33 M/mcL (4.00-5.20); Red Cell Distribution Width 15.6 % (11.5-14.5)
[2017-12-07 07:17] LABS: ALT/SGPT 8 U/l (0-40); Albumin 3.4 gm/dL (3.2-5.2); Albumin/Globulin Ratio 1.3 (1.0-2.3); Alkaline Phosphatase 130 U/L (39-117); Bilirubin,Direct < 0.2 mg/dL (0.0-0.3); Blood Urea Nitrogen 64 mg/dl (8-23); Gamma Glutamyl Transpeptidase 57 U/L (5-36); Uric Acid 7.2 mg/dL (2.5-8.0)
[2017-12-07] MEDS: predniSONE 20 MG TABLET PO SCH (07:36)
[2017-12-07] MEDS: CARVEDILOL 6.25 MG TABLET PO SCH ×2 (07:36→16:48)
[2017-12-07] MEDS: LEVOTHYROXINE 100 MCG TABLET PO SCH (07:36)
[2017-12-07] MEDS: PANTOPRAZOLE 40 MG TABLET PO SCH (07:36)
[2017-12-07] MEDS: CILOSTAZOL 100 MG TABLET PO SCH ×2 (07:36→16:48)
[2017-12-07] MEDS ORDERED: predniSONE 20 MG TABLET PO SCH (08:00)
[2017-12-07] MEDS: APIXABAN 5 MG TABLET PO SCH ×2 (09:30→20:25)
[2017-12-07] MEDS: TORSEMIDE 10 MG TABLET PO SCH (09:30)
[2017-12-07] MEDS: amLODIPine 10 MG TABLET PO SCH (09:30)
[2017-12-07] MEDS: LOSARTAN 50 MG TABLET PO SCH (09:30)
[2017-12-07] MEDS: ASPIRIN 81 MG TAB.CHEW PO SCH (09:30)
[2017-12-07] MEDS: POTASSIUM CHLORIDE 20 MEQ PACKET PO SCH (09:31)
[2017-12-07] MEDS: HYDROcodone/APAP 10/325MG TABLET PO PRN ×4 (09:31→20:24)
[2017-12-07] MEDS: DOXYCYCLINE HYCLATE 100 MG TABLET.ORL PO SCH ×2 (09:31→20:25)
[2017-12-07] MEDS: POLYETHYLENE GLYCOL 3350 17 GM PACKET PO PRN (16:48)
--- NOTE | 2017-12-07 17:00 | Internal Med Progress Note ---
Medical - PN: Subj Patient information: Note initiated : 12/07/17 at 4:58 pm Service Date, if different from initiated Date: [] Patient: Valeria Negron a 77 y/o F admitted on 12/06/17 for SOB, Hypertension/ COPD Exacerbation. Chief Complaint: [] Interval history: Ms. Negron is a 77 year old Femael with severe empysema presents to the ER today with complaints of shortness of breath x 2 days she has cough, with very scant sputum production, she has significantly decreased effort tolerance, while at baseline she is able to walk a block with her walker. The patient notes she feels weak and tired. Her symptoms have progressed over the last 2 days. She therefore presented to the hospital for further management. The patient denies any leg swelling, usually lives in the house, patient denies any hemoptysis, denies any sick contacts, denies any runny nose or watery eyes. She has no headache, no visual changes, no changes in hearing, no difficulty in swallowing ability. she has some chest pain with deep inspiration. no nausea, no vomiting, chr abdominal discomfort, she has no bowel bladder complaints, chr gen aches from fibromyalgia, no new joint pain or skin rashes, no bleeding issues, no acute psychiatric complaints. patient in the ER was noted to be having stable vitals, but was in mild resp distress, afebrile , rr 24-28, oxygen sat dropped to 856 on minimal ambulation, c xr shows emphysema and pulmonary fibrosis, pt not aware of fibrosis. labs unremarkable Pt being admitted to the hospital for acute copd exacerbation. given steroids, duonebs and doxycycline in the er she has an extensive cardiac history, last cardiac note by dr ricks reviewed, December 05 pt seen examined doing better of oxygen air entry much better left arm pain this AM ekg unchnaged trop x 2 neg Continue steroids and duoneb, doxy for now if continues to improve can d/c home in AM 12/06- patient doing well. No overnight events. White count from 7.7->16.7. creatinine up at 1.4 from 1.1. Serial troponins negative. Patient does not quite feel at baseline. However improved shortness of breath. No overnight fever or chills. No concerns especially nursing staff. Transfer to medical floor. Possible discharge in 24-48 hours if clinically improved. Ongoing physical therapy. 1 L crystalloid. Hold Demadex today. 12/07-patient still feels fatigued however white count downtrending. Creatinine and downtrending. improved shortness of breath. Tolerating physical therapy. Possible discharge in 24 hours if clinically continues to improve. No overnight fever chills or concerns per staff - Constitutional Vitals: Vital Signs Temp Pulse Resp BP Pulse Ox 97.8 F 76 16 120/64 96 12/07/17 15:49 12/07/17 15:49 12/07/17 15:49 12/07/17 15:49 12/07/17 15:49 Period Temp Pulse Resp BP Sys/Francisco Pulse Ox Last 24 Hr 97.6 F-99.0 F 69-90 11-20 97-148/50-90 94-97 Intake and Output 12/07/17 12/07/17 12/07/17 05:59 13:59 21:59 Intake Total 880 / 880 100 / 100 Output Total 225 / 225 300 / 300 Balance 655 / 655 -200 / -200 Intake & Output: Intake & Output 12/07/17 12/07/17 12/07/17 05:59 13:59 21:59 Intake Total 880 / 880 100 / 100 Output Total 225 / 225 300 / 300 Balance 655 / 655 -200 / -200 Intake: Oral 880 / 880 100 / 100 Output: Void Amount 225 / 225 300 / 300 Other: Meal Lunch Lunch Percent of Meal Consumed 100% 75% Feeding Ability # Voids 1 General appearance: no acute distress Exam: alert oriented nonlabored breathing Nondistended abdomen No anxiety Medical - PN: Obj Da - Labs CBC & Chem 7: 12/07/17 04:20 12/07/17 04:20 Labs: Abnormal Lab Results 12/07/17 12/07/17 12/06/17 04:20 04:20 03:35 WBC 11.3 H RBC 3.33 L Hgb 10.7 L Hct 31.7 L RDW 15.6 H Gran % Lymph % (Auto) Gran # Lymph # (Auto) D-Dimer BUN 64 H 45 H Creatinine 1.4 H Glucose 127 H Calcium 7.9 L 8.0 L GGT 57 H 54 H Alkaline Phosphatase 130 H 142 H 03/10/18 03/09/18 03/09/18 03:35 08:03 08:03 WBC 16.7 H RBC 3.25 L 3.72 L Hgb 10.2 L 11.7 L Hct 31.3 L 35.4 L RDW 15.9 H 15.7 H Gran % 91.4 H 88.0 H Lymph % (Auto) 5.1 L 8.4 L Gran # 15.2 H Lymph # (Auto) 0.9 L 0.7 L D-Dimer BUN Creatinine Glucose 119 H Calcium GGT 62 H Alkaline Phosphatase 183 H 12/04/17 13:46 WBC RBC Hgb Hct RDW Gran % Lymph % (Auto) Gran # Lymph # (Auto) D-Dimer 0.74 H BUN Creatinine Glucose Calcium GGT Alkaline Phosphatase Meds: Medications Acetaminophen (Tylenol) 650 mg PO Q6HP PRN PRN Reason: PAIN/FEVER > 101 Hydrocodone Bitart/Acetaminophen ([place] 10/325mg) 0 tab PO Q4HP PRN PRN Reason: Pain Last Admin: 12/07/17 13:32 Dose: 1 tab Albuterol/Ipratropium (Duoneb) 3 ml NEB Q6HRT [facility] Last Admin: 12/07/17 13:44 Dose: 3 ml Amlodipine Besylate (Norvasc) 10 mg PO DAILY [facility] Last Admin: 12/07/17 09:30 Dose: 10 mg Aspirin (Aspirin) 81 mg PO DAILY [facility] Last Admin: 12/07/17 09:30 Dose: 81 mg Carvedilol (Coreg) 6.25 mg PO BIDCC [facility] Last Admin: 12/07/17 16:48 Dose: 6.25 mg Cilostazol (Pletal) 50 mg PO BIDAC [facility] Last Admin: 12/07/17 16:48 Dose: 50 mg Doxycycline Hyclate (Doxycycline Hyclate) 100 mg PO BID [facility] Last Admin: 12/07/17 09:31 Dose: 100 mg Hydralazine HCl (Apresoline) 10 mg IV Q4-6HP PRN PRN Reason: Hypertension Levothyroxine Sodium (Synthroid) 100 mcg PO QAMAC [facility] Last Admin: 12/07/17 07:36 Dose: 100 mcg Losartan Potassium (Cozaar) 100 mg PO DAILY [facility] Last Admin: 12/07/17 09:30 Dose: 100 mg Naloxone HCl (Narcan) 0.1 mg IV Q2MIN PRN PRN Reason: Opiate Reversal Nitroglycerin (Nitrostat) 0.4 mg SL Q5M PRN PRN Reason: Chest Pain Ondansetron HCl (Zofran) 4 mg IV Q4HP PRN PRN Reason: Nausea And Vomiting [facility] Last Admin: 12/07/17 07:36 Dose: 40 mg Polyethylene Glycol (Miralax) 17 gm PO DAILYP PRN PRN Reason: Constipation Last Admin: 12/07/17 16:48 Dose: 17 gm Potassium Chloride (Klor-Con) 10 meq PO [facility] Last Admin: 12/07/17 09:31 Dose: 10 meq Prednisone (Prednisone) 40 mg PO [facility] Last Admin: 12/07/17 07:36 Dose: 40 mg Simvastatin (Zocor) 10 mg PO [facility] Last Admin: 12/06/17 20:33 Dose: 10 mg Sodium Chloride (Saline Flush) 10 ml IV Q8 [facility] Last Admin: 12/07/17 13:26 Dose: 10 ml Torsemide (Demadex) 20 mg PO DAILY [facility] Last Admin: 12/07/17 09:30 Dose: 20 mg Medical - PN: A/P - Time Spent With Patient Total time spent is greater than 50% in coordination of care (as documented) at patient's floor/unit and/or counseling patient: 15 - 24 minutes - Narrative A/P Narrative: a/P * Copd exacerbation-On bronchodilators/IVsteroids. Switched to oral steroids.On doxycycline * Acute hypoxic hypercapenic resp failure-clinically improved. Now on room air. * Mild RAI- creatinine up from 1.1-1.4. Close monitoring of renal function * leukocytosis 16.7- Clinically improving * history of hypertension-continue amlodipine/PRN hydralazine/Coreg/losartan. Systolics at goal * Hypothyroidism on thyroxine * Degenerative joint disease of hydrocodone * GERD on PPI * Hyperlipidemia on statin * History of CAD on Coreg/aspirin/statin * a flutter-continue Apixiban * tobacco abuse * h/o systolic heart failure, mild lvef 52 on last echo Plan * possible discharge in 24 hours * Continue bronchodilators/oral steroids * Pre-existing medical condition management as above * Hold inderal for HTN, not sure if a good idea in patient with empysema, when a selective beta deion or coreg can be used. Will use coreg for now given h/o CHF, dose of coreg was 12.5 yesteday, but pt bp responded bit too well, cut back dosing to 6.25 bid not sure why inderal is being used in this patient. but will hold off given poor pulmonary status, can consider switching to coreg at discharge. Medical - PN: Qual - VTE Deep Vein Thrombosis/Pulmonary Embolism Present on Admission: No
[2017-12-07] MEDS: SIMVASTATIN 10 MG TABLET PO SCH (20:25)
[2017-12-08] MEDS: HYDROcodone/APAP 10/325MG TABLET PO PRN ×3 (00:26→16:00)
[2017-12-08] MEDS: IPRATROPIUM/ALBUTEROL 3 ML AMPUL.NEB NEB SCH ×2 (00:44→07:43)
[2017-12-08] MEDS: 0.9 % SODIUM CHLORIDE 10 ML SYRINGE IV SCH (04:31)
[2017-12-08 05:26] LABS: Basophils # (Auto) 0 K/mcL (0.0-0.3); Basophils % (Auto) 0.4 % (0.0-2.0); Eosinophils # (Auto) 0.6 K/mcL (0.0-0.7); Eosinophils % (Auto) 5.7 % (0.0-7.0); Granulocytes % (Auto) 58.8 % (38.0-78.0); Lymphocytes # (Auto) 2.7 K/mcL (1.5-4.8); Lymphocytes % (Auto) 26.2 % (15.5-49.0); Mean Cell Volume 95.3 fL (80.0-100.0); Mean Corpuscular HGB Conc 33.7 g/dL (31.0-36.0); Mean Corpuscular Hemoglobin 32.1 pg (26.0-34.0); Monocytes # (Auto) 0.9 K/mcL (0.1-0.9); Monocytes % (Auto) 8.9 % (1.0-12.0); Platelet Count 245 K/mcL (140-440); RBC 3.44 M/mcL (4.00-5.20); Red Cell Distribution Width 16.3 % (11.5-14.5)
[2017-12-08 05:55] LABS: ALT/SGPT 12 U/l (0-40); Albumin 3.3 gm/dL (3.2-5.2); Albumin/Globulin Ratio 1.1 (1.0-2.3); Alkaline Phosphatase 135 U/L (39-117); Bilirubin,Direct < 0.2 mg/dL (0.0-0.3); Blood Urea Nitrogen 72 mg/dl (8-23); Gamma Glutamyl Transpeptidase 65 U/L (5-36); Uric Acid 8.2 mg/dL (2.5-8.0)
[2017-12-08] MEDS: POLYETHYLENE GLYCOL 3350 17 GM PACKET PO PRN (07:51)
[2017-12-08] MEDS: LEVOTHYROXINE 100 MCG TABLET PO SCH (07:51)
[2017-12-08] MEDS: POTASSIUM CHLORIDE 20 MEQ PACKET PO SCH (07:51)
[2017-12-08] MEDS: PANTOPRAZOLE 40 MG TABLET PO SCH (07:51)
[2017-12-08] MEDS: predniSONE 20 MG TABLET PO SCH (07:51)
[2017-12-08] MEDS: CILOSTAZOL 100 MG TABLET PO SCH (07:52)
[2017-12-08] MEDS: LOSARTAN 50 MG TABLET PO SCH (08:12)
[2017-12-08] MEDS: DOXYCYCLINE HYCLATE 100 MG TABLET.ORL PO SCH (08:12)
[2017-12-08] MEDS: TORSEMIDE 10 MG TABLET PO SCH (08:12)
[2017-12-08] MEDS: ASPIRIN 81 MG TAB.CHEW PO SCH (08:12)
[2017-12-08] MEDS: APIXABAN 5 MG TABLET PO SCH (08:13)
[2017-12-08] MEDS: CARVEDILOL 6.25 MG TABLET PO SCH (08:16)
[2017-12-08] MEDS: amLODIPine 10 MG TABLET PO SCH (08:20)
--- NOTE | 2017-12-08 10:24 | Discharge Summary ---
Medical - DS: Prov Patient information: Note initiated : 12/08/17 at 10:21 am Service Date, if different from initiated Date: [] Patient: Valeria Negron 77 y/o F admitted on 12/06/17 for SOB, Hypertension/ COPD Exacerbation. Chief Complaint: [] Date of admission: 12/06/17 09:23 Discharge date: 12/08/17 Primary care physician: Rea Sethi Consults: 12/04/17 15:31 Consult to Physician [CONS] Stat Comment: Consulting Provider: Kg Taylor Reason For Exam: Physician to Consult Medical - DS: Meds - Discharge Medications Active and Home Medications: Home Medications Aspirin [Adult Low Dose Aspirin EC] 81 mg PO DAILY 10/24/17 [History Confirmed 12/04/17 Last Taken Unknown] Levothyroxine [Synthroid] 100 mcg PO DAILY 10/24/17 [History Confirmed 12/04/17 Last Taken Unknown] Losartan [Cozaar] 100 mg PO DAILY 10/24/17 [History Confirmed 12/04/17 Last Taken Unknown] Pantoprazole Sodium 40 mg PO DAILY 10/24/17 [History Confirmed 12/04/17 Last Taken Unknown] Potassium Chloride [Klor-Con Sprinkle] 10 meq PO DAILY 10/24/17 [History Confirmed 12/04/17 Last Taken Unknown] Pravastatin [Pravachol] 20 mg PO DAILY 10/24/17 [History Confirmed 12/04/17 Last Taken Unknown] Propranolol [Inderal LA] 80 mg PO BID 10/24/17 [History Confirmed 12/04/17 Last Taken Unknown] amLODIPine [Norvasc] 10 mg PO DAILY 10/24/17 [History Confirmed 12/04/17 Last Taken Unknown] Apixaban [Eliquis] 2.5 mg PO BID 12/04/17 [History Confirmed 12/04/17 Last Taken Unknown] Cilostazol [Pletal] 50 mg PO BIDAC 12/04/17 [History Confirmed 12/04/17 Last Taken Unknown] HYDROcodone/ACETAMINOPHEN [Hydrocodon-Acetaminophn 10-325] 1 - 2 each PO Q6HP PRN 12/04/17 [History Confirmed 12/04/17 Last Taken Unknown] Torsemide [Demadex] 20 mg PO DAILY 12/04/17 [History Confirmed 12/04/17 Last Taken Unknown] Doxycycline Hyclate 100 mg PO BID #6 tablet.orl 12/08/17 [Rx Last Taken Unknown] predniSONE [Prednisone] 40 mg PO [facility] #8 tablet 12/08/17 [Rx Last Taken Unknown ] Medical - DS: Hosp Hospital course: DISCHARGE DIAGNOSIS * Copd exacerbation-clinically improved on bronchodilators/IVsteroids. discharging oral d[place] Mynor for additional 3 days and oral prednisone for 4 days * Acute hypoxic hypercapenic resp failure-clinically resolved * Mild RAI- creatinine up from 1.1-1.4. clinically resolved * leukocytosis 16.7-clinically resolved * history of hypertension-continue amlodipine/PRN hydralazine/Coreg/losartan. Systolics at goal * Hypothyroidism on thyroxine * Degenerative joint disease of hydrocodone * GERD on PPI * Hyperlipidemia on statin * History of CAD on Coreg/aspirin/statin * a flutter-continue Apixiban * tobacco abuse * h/o systolic heart failure, mild lvef 52 on last echo [facility] Ms. Negorn is a 77 year old Femael with severe empysema presents to the ER today with complaints of shortness of breath x 2 days she has cough, with very scant sputum production, she has significantly decreased effort tolerance, while at baseline she is able to walk a block with her walker. The patient notes she feels weak and tired. Her symptoms have progressed over the last 2 days. She therefore presented to the hospital for further management. The patient denies any leg swelling, usually lives in the house, patient denies any hemoptysis, denies any sick contacts, denies any runny nose or watery eyes. She has no headache, no visual changes, no changes in hearing, no difficulty in swallowing ability. she has some chest pain with deep inspiration. no nausea, no vomiting, chr abdominal discomfort, she has no bowel bladder complaints, chr gen aches from fibromyalgia, no new joint pain or skin rashes, no bleeding issues, no acute psychiatric complaints. patient in the ER was noted to be having stable vitals, but was in mild resp distress, afebrile , rr 24-28, oxygen sat dropped to 856 on minimal ambulation, c xr shows emphysema and pulmonary fibrosis, pt not aware of fibrosis. labs unremarkable Pt being admitted to the hospital for acute copd exacerbation. given steroids, duonebs and doxycycline in the er she has an extensive cardiac history, last cardiac note by dr ricks reviewed, December 05 pt seen examined doing better of oxygen air entry much better left arm pain this AM ekg unchnaged trop x 2 neg Continue steroids and duoneb, doxy for now if continues to improve can d/c home in AM 12/06- patient doing well. No overnight events. White count from 7.7->16.7. creatinine up at 1.4 from 1.1. Serial troponins negative. Patient does not quite feel at baseline. However improved shortness of breath. No overnight fever or chills. No concerns especially nursing staff. Transfer to medical floor. Possible discharge in 24-48 hours if clinically improved. Ongoing physical therapy. 1 L crystalloid. Hold Demadex today. 12/07-patient still feels fatigued however white count downtrending. Creatinine and downtrending. improved shortness of breath. Tolerating physical therapy. Possible discharge in 24 hours if clinically continues to improve. No overnight fever chills or concerns per staff 12/08- patient seen in room. Ambulating with physical therapy using a walker. Bowel movements today. No chest pain shortness of breath overnight fever chills or concerns per staff. Stable transition to oral steroids without any worsening symptoms. ischarging with detailed instructions as below. Continue follow-up with primary care physician Discharge diagnosis: . - Time Spent with Patient Total time spent providing and/or coordinating discharge services: Greater than 30 minutes Medical - DS: Exam - Constitutional Vitals: Vital Signs Temp Pulse Pulse Resp BP Pulse Ox 12/08/17 07:45 77 18 12/08/17 03:39 98.1 F 73 18 99/60 96 12/08/17 00:48 102 H 21 12/07/17 23:31 98.6 F 89 14 135/78 95 12/07/17 20:13 79 13 12/07/17 19:54 97.9 F 88 16 148/65 95 12/07/17 15:49 97.8 F 76 16 120/64 96 12/07/17 13:49 97 12/07/17 13:47 77 11 L 12/07/17 11:47 98.9 F 69 20 99/50 95 Intake and Output 12/07/17 12/08/17 12/08/17 21:59 05:59 13:59 Intake Total 100 / 100 425 / 425 Output Total 525 / 525 600 / 600 Balance -425 / -425 -175 / -175 Intake: Oral 100 / 100 425 / 425 Output: Void Amount 525 / 525 600 / 600 Other: Meal Dinner Percent of Meal Consumed 50% # Voids 1 1 Weight 98 lb 8 oz Medical - DS: Data Labs on day of discharge: Labs from last 24 hours 12/08/17 12/08/17 04:15 04:15 WBC 10.4 RBC 3.44 L Hgb 11.1 L Hct 32.8 L MCV 95.3 MCH 32.1 MCHC 33.7 RDW 16.3 H Plt Count 245 MPV 8.0 Gran % 58.8 Lymph % (Auto) 26.2 [place] % (Auto) 8.9 Eos % (Auto) 5.7 Baso % (Auto) 0.4 Gran # 6.1 Lymph # (Auto) 2.7 [place] # (Auto) 0.9 Eos # (Auto) 0.6 Baso # (Auto) 0 Sodium 140 Potassium 4.4 Chloride 100 Carbon Dioxide 23 Anion Gap 17.0 H BUN 72 H Creatinine 1.2 H GFR Calculation 43 Glucose 84 Uric Acid 8.2 H Calcium 7.8 L Phosphorus 5.3 H Magnesium 1.9 Total Bilirubin < 0.2 Direct Bilirubin < 0.2 GGT 65 H AST 17 ALT 12 Alkaline Phosphatase 135 H Lactate Dehydrogenase 270 H Total Protein 6.3 Albumin 3.3 Globulin 3.0 Albumin/Globulin Ratio 1.1 Triglycerides 328 H Medical - DS: A/P - Patient/Caregiver Discharge Instructions Activity: increase activity as tolerated Diet: Regular Diet Additional Instructions: Follow-up PCP in 5 days I recommend PCP to check INR, CBC BMP UA as a posthospital follow-up and Chest x -ray in 1 week. Antibiotics for 3 days prednisone for 4 days Please schedule pulmonary function test as outpatient in 3 weeks Continue aggressive bowel regimen to prevent constipation Continue fall precautions All meals on chair sitting upright at 90 degrees to prevent aspiration Return to ER if worsening fever chills shortness of breath, diarrhea, bleeding Review risk and side effect profile of medications including antibiotics. Side effect may include mild to severe reaction including rash, diarrhea, cdiff and even which can be prevented by close follow-up with PCP and monitoring for side effects Refrain from smoking and alcohol Continue diet and activity as advised Discussed importance of medication adherence Please review medication list with patient prior to discharge Please schedule follow-up with PCP/Providers prior to discharge and provide printouts Portions of this chart may have been created with olook voice recognition software. Occasional wrong-word or ?sound-like? substitutions may have occurred due to the inherent limitations of voice recognition software. Please read the chart carefully and recognize, using context, where the substitutions have occurred. CC- PCP - Follow up Plan Follow up with: Rea Sethi MD [Primary Care Provider] - Disposition: Home, Self-Care Prognosis: Fair Rehab Potential: Fair I certify that the patient requires SNF services: No Overall status at discharge: patient is progressing back to baseline Medical - DS: Qual - VTE Deep Vein Thrombosis/Pulmonary Embolism Present on Admission: No
== END 2017-12-08 18:20 | disposition home or self-care (01) | DRG 190 ==
LOC: ED 13:19 → ICU 13:19 → MEDSUR 12-06 18:45
PROVIDERS: ADMIT Internal Medicine; ATTEND Internal Medicine

== ENCOUNTER 2017-12-23 06:43 | Inpatient (IN) ==
[2017-12-23] MEDS ORDERED: ONDANSETRON 4 MG/2 ML VIAL IV ONE (06:52)
[2017-12-23] MEDS ORDERED: 0.9 % SODIUM CHLORIDE 1,000 ML IV ONE (06:52)
[2017-12-23] MEDS ORDERED: NITROGLYCERIN 0.4 MG TAB.SUBL SL ONE ×2 (07:09→07:22)
--- NOTE | 2017-12-23 07:10 | Emergency Department Note ---
Chest Pain HPI - General Chief Complaint: Chest Pain Stated Complaint: chest pain Time Seen by Provider: 12/23/17 07:05 Mode of arrival: EMS - History of Present Illness HPI Narrative: This 77-year-old female comes to the emergency room by ambulance. She reports a 2 day history of cough and a week history to the nursing staff of being ill but is here or called ambulance because of significant chest pain that has been going on during this time. She was found to be working very hard to breathe and was given a nebulizer treatment while in route. She describes substernal and lower substernal area chest discomforts and has a history of coronary artery bypass, aortic valve repair and congestive heart failure as well as COPD. She is unable to respond well to other questions due to her efforts of breathing. - Related Data Home Medications Medication Instructions Recorded Confirmed Aspirin [Adult Low Dose Aspirin EC] 81 mg PO DAILY 10/24/17 12/04/17 Levothyroxine [Synthroid] 100 mcg PO DAILY 10/24/17 12/04/17 Losartan [Cozaar] 100 mg PO DAILY 10/24/17 12/04/17 Pantoprazole Sodium 40 mg PO DAILY 10/24/17 12/04/17 Potassium Chloride [Klor-Con 10 meq PO DAILY 10/24/17 12/04/17 Sprinkle] Pravastatin [Pravachol] 20 mg PO DAILY 10/24/17 12/04/17 Propranolol [Inderal LA] 80 mg PO BID 10/24/17 12/04/17 amLODIPine [Norvasc] 10 mg PO DAILY 10/24/17 12/04/17 Apixaban [Eliquis] 2.5 mg PO BID 12/04/17 12/04/17 Cilostazol [Pletal] 50 mg PO BIDAC 12/04/17 12/04/17 HYDROcodone/ACETAMINOPHEN 1 - 2 each PO Q6HP PRN 12/04/17 12/04/17 [Hydrocodon-Acetaminophn 10-325] Torsemide [Demadex] 20 mg PO DAILY 12/04/17 12/04/17 Previous Rx's Medication Instructions Recorded Doxycycline Hyclate 100 mg PO BID #6 tablet.orl 12/08/17 Ipratropium/Albuterol Sulfate 2 puff INH TID PRN #1 inhaler 03/12/18 [Combivent] predniSONE [Prednisone] 40 mg PO [facility] #8 tablet 12/08/17 Allergies Allergy/AdvReac Type Severity Reaction Status Date / Time levofloxacin [LEVOFLOXACIN] Allergy Mild RASH Verified 12/04/17 19:54 Chest Pain PMH - Past Medical History Medical history: Reports: atrial fibrillation (RECENT FLUTTER.), cancer (Breast (left-mastectomy). Skin on the left neck and skin of the left chest that was non -melanotic.), CHF, COPD (EMPHYSEMA.), coronary artery disease (s/p CABGX2 vessel.), fibromyalgia, hyperlipidemia, hypertension, hypothyroidism, peripheral artery disease ( ), PID, valvular heart disease (Aortic valve - replaced bovine 2004.), other (Rheumatic fever. Atherosclerosis. CHRONIC ANTICOAGULATION. Pulmonary fibrosis. CHRONIC NARCOTICS for FM/severe MSK pains. TREMORS - on primidone.). Denies: CVA, DM, myocardial infarction, TIA Surgical history ED: Reports: coronary bypass (CABG) Psychiatric history: Reports: anxiety. Denies: depression - Social History smoking status: Former smoker Alcohol use: Reports: None Drug use: Reports: none Physical Exam Limitations: physical limitation General appearance: cachectic, in distress, lethargic, other (very short of breath) Course Vital Signs Pulse Rate 84 12/23/17 06:44 Respiratory Rate 25 H 12/23/17 06:44 Blood Pressure 199/101 12/23/17 06:44 Pulse Oximetry (%) 94 12/23/17 06:44 Temperature 96.5 F L 12/23/17 07:08 Pulse Rate 59 L 12/23/17 08:46 Respiratory Rate 19 12/23/17 08:46 Blood Pressure 119/59 12/23/17 08:46 Pulse Oximetry (%) 97 12/23/17 08:46 Chest Pain - [facility] Narrative Medical decision making narrative: 0653 AM - cachectic female in respiratory distress with respiratory effort with quick inspirations, longer expirations, wheeziness, chest pain for several days , and CAD and CHF and COPD history; poorly able to respond - only occasional one word response, eyes mostly closed. ACS and sepsis workup. Oxygen on mask at 7 L. Took 4 aspirin at home. Is on Eliquis and Pletal. DNR note handed to paramedics and is in chart; contact with POA - "CPR only". 0711AM - ABG with pH 7.19 and pCO2 78 - O2 decreased to 3 L. Lactate 1.2. HCO3 27.8. Patient same as above. BIPAP ordered. Additional nebulizer ordered. 07:34 AM - after DuoNeb some better and a little more alert but still sleepy lethargic. 08:00 AM - daughter, Lizbeth, confirms DNR and after discussing CPR concludes NO CPR as well as no intubation, no defib. She reports patient was in for COPD exacerbation and admitted a couple of weeks ago. Seems to be breathing a whole lot better with less effort and slower rate. Is more alert (quicker eye opening , more head / facial expression movements) but still resting with eyes closed. Reported to tax staff accountant that is feeling a lot better. Repeat ABG still pending. 08:31 AM - Adjustment in BiPap frp, 12 to 10 (cm H20 pressure). FiO2 is at 30% and maintaining well. Now able to converse alertly and ineractively with 6-8 words at a time. 09:07 AM - Chest reviewed - volume overload/CHF - more than previous. Will add lasix 20 mg and put in castro. Can get off BiPAP soon. Waiting for bed/ hospitalist disposition. 9:19 AM - I spoke with Dr. Cerda who kindly accepted care for this patient. Will be transferred to in patient ICU. - Lab Data Result diagrams: 12/23/17 07:00 12/23/17 07:00 Lab Results 12/23/17 12/23/17 12/23/17 Range/Units 07:00 07:00 07:00 WBC 16.7 H (4.5-11.0) K/mcL RBC 3.78 L (4.00-5.20) M/mcL Hgb 11.6 L (12.0-15.0) g/dL Hct 35.7 L (36.0-48.0) % POC Hct 38.0 (36.0-48.0) % MCV 94.5 (80.0-100.0) fL MCH 30.8 (26.0-34.0) pg MCHC 32.6 (31.0-36.0) g/dL RDW 14.9 H (11.5-14.5) % Plt Count 276 (140-440) K/mcL MPV 8.4 (7.4-10.4) fL Gran % 76.5 (38.0-78.0) % Lymph % (Auto) 13.1 L (15.5-49.0) % [place] % (Auto) 6.2 (1.0-12.0) % Eos % (Auto) 4.0 (0.0-7.0) % Baso % (Auto) 0.2 (0.0-2.0) % Gran # 12.8 H (1.8-8.0) K/mcL Lymph # (Auto) 2.2 (1.5-4.8) K/mcL [place] # (Auto) 1.0 H (0.1-0.9) K/mcL Eos # (Auto) 0.7 (0.0-0.7) K/mcL Baso # (Auto) 0 (0.0-0.3) K/mcL VBG Lactic Acid (0.5-2.2) mmol/L POC Sodium 139 (133-145) mmol/L Sodium 138 (133-145) mmol/L POC Potassium 4.9 (3.3-5.1) mmol/L Potassium 5.1 (3.3-5.1) mmol/L POC Chloride 105 (96-108) mmol/L Chloride 102 (96-108) mmol/L Carbon Dioxide 23 (22-30) mmol/L POC Total CO2 26 (22-30) mmol/L Anion Gap 13.0 (8-16) POC BUN 18 (8-23) mg/dl BUN 17 (8-23) mg/dl Creatinine 1.0 (0.6-1.1) mg/dl POC Creatinine 1.0 (0.6-1.1) mg/dl GFR Calculation 54 Glucose 175 H (70-105) mg/dL POC Glucose 177 H (70-105) mg/dL Calcium 8.8 (8.6-10.4) mg/dl POC WB Ioniz Calcium 1.19 (1.16-1.32) mmol/L Total Bilirubin 0.3 (0.0-1.0) mg/dL AST 17 (0-37) U/l ALT 14 (0-40) U/l Alkaline Phosphatase 212 H (39-117) U/L Total Creatine Kinase 29 (24-170) IU/L CK-MB (CK-2) 1.4 (0-2.9) ng/ml Myoglobin 27 (25-58) ng/ml Troponin T < 0.01 (0-0.03) ng/ml Total Protein 7.2 (5.9-8.4) gm/dL Albumin 3.7 (3.2-5.2) gm/dL Globulin 3.5 (2.2-3.7) gm/dL Albumin/Globulin Ratio 1.1 (1.0-2.3) 12/23/17 Range/Units 07:00 WBC (4.5-11.0) K/mcL RBC (4.00-5.20) M/mcL Hgb (12.0-15.0) g/dL Hct (36.0-48.0) % POC Hct (36.0-48.0) % MCV (80.0-100.0) fL MCH (26.0-34.0) pg MCHC (31.0-36.0) g/dL RDW (11.5-14.5) % Plt Count (140-440) K/mcL MPV (7.4-10.4) fL Gran % (38.0-78.0) % Lymph % (Auto) (15.5-49.0) % [place] % (Auto) (1.0-12.0) % Eos % (Auto) (0.0-7.0) % Baso % (Auto) (0.0-2.0) % Gran # (1.8-8.0) K/mcL Lymph # (Auto) (1.5-4.8) K/mcL [place] # (Auto) (0.1-0.9) K/mcL Eos # (Auto) (0.0-0.7) K/mcL Baso # (Auto) (0.0-0.3) K/mcL VBG Lactic Acid 1.4 (0.5-2.2) mmol/L POC Sodium (133-145) mmol/L Sodium (133-145) mmol/L POC Potassium (3.3-5.1) mmol/L Potassium (3.3-5.1) mmol/L POC Chloride (96-108) mmol/L Chloride (96-108) mmol/L Carbon Dioxide (22-30) mmol/L POC Total CO2 (22-30) mmol/L Anion Gap (8-16) POC BUN (8-23) mg/dl BUN (8-23) mg/dl Creatinine (0.6-1.1) mg/dl POC Creatinine (0.6-1.1) mg/dl GFR Calculation Glucose (70-105) mg/dL POC Glucose (70-105) mg/dL Calcium (8.6-10.4) mg/dl POC WB Ioniz Calcium (1.16-1.32) mmol/L Total Bilirubin (0.0-1.0) mg/dL AST (0-37) U/l ALT (0-40) U/l Alkaline Phosphatase (39-117) U/L Total Creatine Kinase (24-170) IU/L CK-MB (CK-2) (0-2.9) ng/ml Myoglobin (25-58) ng/ml Troponin T (0-0.03) ng/ml Total Protein (5.9-8.4) gm/dL Albumin (3.2-5.2) gm/dL Globulin (2.2-3.7) gm/dL Albumin/Globulin Ratio (1.0-2.3) Disposition Pt seen by LEATHER STITCHER/PA only: No Clinical Impression: Respiratory acidosis, DNR no code (do not resuscitate), History of CHF ( congestive heart failure), History of coronary artery disease, History of aortic valve replacement, Chronic anticoagulation Respiratory failure Qualifiers: Chronicity: acute on chronic Respiratory failure complication: hypoxia and hypercapnia Qualified Code(s): J96.21 - Acute and chronic respiratory failure with hypoxia COPD (chronic obstructive pulmonary disease) Qualifiers: COPD type: emphysema Emphysema type: unspecified Qualified Code(s): J43.9 - Emphysema, unspecified Anemia Qualifiers: Anemia type: unspecified type Qualified Code(s): D64.9 - Anemia, unspecified Leukocytosis, unspecified Qualifiers: Leukocytosis type: unspecified Qualified Code(s): D72.829 - Elevated white blood cell count, unspecified Disposition: Xfer As Inpt ([facility]) Condition: Serious Referrals: Rea Sethi MD [Primary Care Provider] -
[2017-12-23] MEDS ORDERED: IPRATROPIUM/ALBUTEROL 3 ML AMPUL.NEB NEB ONE (07:15)
[2017-12-23 07:42] LABS: Basophils # (Auto) 0 K/mcL (0.0-0.3); Basophils % (Auto) 0.2 % (0.0-2.0); Eosinophils # (Auto) 0.7 K/mcL (0.0-0.7); Granulocytes % (Auto) 76.5 % (38.0-78.0); Lymphocytes # (Auto) 2.2 K/mcL (1.5-4.8); Lymphocytes % (Auto) 13.1 % (15.5-49.0); Mean Cell Volume 94.5 fL (80.0-100.0); Mean Corpuscular HGB Conc 32.6 g/dL (31.0-36.0); Mean Corpuscular Hemoglobin 30.8 pg (26.0-34.0); Monocytes % (Auto) 6.2 % (1.0-12.0); Platelet Count 276 K/mcL (140-440); RBC 3.78 M/mcL (4.00-5.20); Red Cell Distribution Width 14.9 % (11.5-14.5)
[2017-12-23 08:03] LABS: ALT/SGPT 14 U/l (0-40); Albumin 3.7 gm/dL (3.2-5.2); Albumin/Globulin Ratio 1.1 (1.0-2.3); Alkaline Phosphatase 212 U/L (39-117); Blood Urea Nitrogen 17 mg/dl (8-23); Creatine Kinase 29 IU/L (24-170); Creatine Kinase MB 1.4 ng/ml (0-2.9); Myoglobin 27 ng/ml (25-58)
--- NOTE | 2017-12-23 08:35 | XRay Report ---
CLINICAL INFORMATION: Chest pain COMPARISON: 12/04/2017 and 10/24/2017 FINDINGS: The heart is mildly enlarged. Mediastinum is unremarkable. Pulmonary vessels are now mildly distended and there is moderate interstitial edema throughout both lungs which is new. Underlying COPD noted. No infiltrates. No definite effusions. Right mastectomy changes noted IMPRESSION: Moderate CHF or volume overload Underlying COPD Interpreted and Authenticated by: Steven Springer 12/23/17
[2017-12-23] MEDS ORDERED: PIPERACILLIN SODIUM/TAZOBACTAM 3.375 GM in DEXTROSE 5% IN WATER 50 ML IV ONE (08:43)
[2017-12-23] MEDS ORDERED: methylPREDNISolone SOD SUCC 125 MG/2 ML VIAL IV ONE (08:43)
[2017-12-23] MEDS ORDERED: FUROSEMIDE 20 MG/2 ML VIAL IV ONE (09:07)
[2017-12-23] MEDS ORDERED: ACETAMINOPHEN 325 MG TABLET PO PRN (11:18)
[2017-12-23] MEDS ORDERED: cefTRIAXone 1 GM in DEXTROSE 5% IN WATER 50 ML IV SCH (11:18)
[2017-12-23] MEDS ORDERED: ONDANSETRON 4 MG/2 ML VIAL IV PRN (11:18)
[2017-12-23] MEDS ORDERED: NITROGLYCERIN 0.4 MG TAB.SUBL SL PRN (11:18)
[2017-12-23] MEDS ORDERED: HYDROcodone/APAP 10/325MG TABLET PO PRN (12:15)
[2017-12-23] MEDS: LOSARTAN 50 MG TABLET PO SCH (12:23)
[2017-12-23] MEDS: 0.9 % SODIUM CHLORIDE 10 ML SYRINGE IV SCH ×2 (12:24→21:19)
[2017-12-23] MEDS: methylPREDNISolone SOD SUCC 40 MG/ML VIAL IV SCH ×2 (12:28→17:49)
[2017-12-23] MEDS: cefTRIAXone 1 GM VIAL IV SCH (12:28)
[2017-12-23 16:47] LABS: Appearance,Urine CLEAR; Bacteria,Urine 0 /hpf (0); Bilirubin,Urine NEG (NEG); Color,Urine YELLOW; Glucose,Urine (UA) NEGATIVE (NEG); Leukocyte Esterase,Urine NEG /uL (NEG); Mucus,Urine FEW /hpf (0); Protein,Urine NEG (NEG); Specific Gravity,Urine 1.011 (1.000-1.035); Urine Blood >=1.0 mg/dL (<0.03); Urine Hyaline Cast 11 /lpf (0-2); Urine RBC 85 /hpf (0-1); Urine Squamous Epithelial Cell 1 /hpf (0-4); Urine WBC 2 /hpf (0-4); Urobilinogen,Urine NEG (NEG)
[2017-12-23] MEDS: CILOSTAZOL 100 MG TABLET PO SCH (17:54)
--- NOTE | 2017-12-23 19:35 | Internal Med History&Physical ---
Medical - H&P: [facility] Patient information: Note initiated : 12/23/17 at 7:06 pm Service Date, if different from initiated Date: [] Patient: Valeria Negron a 77 y/o F admitted on 12/23/17 for Chest pain. Chief Complaint: CP and SOB History of present illness: Ms. Negron is a 77 year old F with chronic respiratory failure, severe COPD, cachexia and CAD presented to the ED, by way of EMS, with CP and increased SOB since this am. She denies any fever and chills. Patient has not been feeling well for the last few weeks. She was recently admitted to [facility] 12/04 - 12/08 with 'COPD exacerbation' and discharged on Doxycycline and prednisone. Patient took a NTG and 4 baby ASA at home. In ER patient was severely dyspneic, only able to respond with yes and no. ABG on 7 L: pH 7.19 and pCO2 78 - O2 decreased to 3 L. Lactate 1.2. HCO3 27.8. Patient was started on BiPAP ventilator support, given Neb treatment, Solumedrol 125 mg and ZOsyn. Lasix 20 mg IV was given too based on CXR report. ROS: generalized weakness, but independent in ADL. Taking care of handicapped son at home. Chronic SOB with poor exercise tolerance. The patient denies any leg swelling, usually lives in the house, patient denies any hemoptysis, denies any sick contacts, denies any runny nose or watery eyes. She has no headache, no visual changes, no changes in hearing, no difficulty in swallowing ability. she has some chest pain with deep inspiration. no nausea, no vomiting, chr abdominal discomfort, she has no bowel bladder complaints, chr gen aches from fibromyalgia, no new joint pain or skin rashes, no bleeding issues, no acute psychiatric complaints. Medical - H&P: PMH Medical history: atrial fibrillation (RECENT FLUTTER.), cancer (Breast (left-mastectomy). Skin on the left neck and skin of the left chest that was non-melanotic.), CHF, COPD (EMPHYSEMA.), coronary artery disease (s/p CABGX2 vessel.), fibromyalgia, hyperlipidemia, hypertension, hypothyroidism, peripheral artery disease, PID, valvular heart disease (Aortic valve - replaced bovine 2004.), other (Rheumatic fever. Atherosclerosis. CHRONIC ANTICOAGULATION. Pulmonary fibrosis. CHRONIC NARCOTICS for FM/severe MSK pains. TREMORS - on primidone.). Surgical history: CABG AVR (2003) S/P Left mastectomy for ca Social history: Lives at home with wheelchair bound son who is mentally disabled (but able to do ADL) Functional capacity: independent ambulation Smoking status: Former smoker Drug use: none Alcohol use: none Medical - H&P: Meds Home Medications Medication Instructions Recorded Confirmed Type Aspirin [Adult Low Dose Aspirin EC] 81 mg PO DAILY 10/24/17 12/23/17 History Levothyroxine [Synthroid] 100 mcg PO QAMAC 10/24/17 12/23/17 History Losartan [Cozaar] 100 mg PO DAILY 10/24/17 12/23/17 History Pantoprazole Sodium 40 mg PO QAMAC 10/24/17 12/23/17 History Pravastatin [Pravachol] 20 mg PO HS 10/24/17 12/23/17 History Propranolol [Inderal LA] 80 mg PO BID 10/24/17 12/23/17 History amLODIPine [Norvasc] 10 mg PO DAILY 10/24/17 12/23/17 History Apixaban [Eliquis] 2.5 mg PO BID 12/04/17 12/23/17 History Cilostazol [Pletal] 50 mg PO BIDAC 12/04/17 12/23/17 History HYDROcodone/ACETAMINOPHEN 1 - 2 tab PO TIDP PRN 12/04/17 12/23/17 History [Hydrocodon-Acetaminophn 10-325] Torsemide [Demadex] 20 mg PO DAILY 12/04/17 12/23/17 History Ipratropium/Albuterol Sulfate 2 puff INH TIDP PRN 12/23/17 12/23/17 History [Combivent] Primidone [Mysoline] 200 mg PO BID 12/23/17 12/23/17 History Allergies Allergy/AdvReac Type Severity Reaction Status Date / Time levofloxacin [LEVOFLOXACIN] Allergy Mild RASH Verified 12/04/17 19:54 Medical - H&P: Exam - Constitutional Vitals: Temp Pulse Resp BP Pulse Ox 97.8 F 68 20 128/69 100 12/23/17 16:01 12/23/17 16:19 12/23/17 16:01 12/23/17 16:01 12/23/17 16:19 General appearance: thin - Head Head exam: Present: normal inspection - Respiratory Respiratory exam: Present: decreased breath sounds - Cardiovascular Cardiovascular exam: Present: irregular rhythm - GI/Abdominal GI/Abdominal exam: Present: normal bowel sounds, soft - Extremities Exam Extremities exam: Present: normal inspection Medical - H&P: Reslt - Labs CBC & Chem 7: 12/23/17 07:00 12/23/17 07:00 Labs: Short CBC 12/23/17 Range/Units 07:00 WBC 16.7 H (4.5-11.0) K/mcL Hgb 11.6 L (12.0-15.0) g/dL Hct 35.7 L (36.0-48.0) % Plt Count 276 (140-440) K/mcL BMP 12/23/17 07:00 Sodium 138 Potassium 5.1 Chloride 102 Carbon Dioxide 23 BUN 17 Creatinine 1.0 Glucose 175 H Calcium 8.8 Cardiac Enzymes 12/23/17 12/23/17 Range/Units 07:00 07:00 Total Creatine Kinase 29 (24-170) IU/L CK-MB (CK-2) 1.4 (0-2.9) ng/ml Troponin T < 0.01 (0-0.03) ng/ml Liver Function 12/23/17 Range/Units 07:00 Total Bilirubin 0.3 (0.0-1.0) mg/dL AST 17 (0-37) U/l ALT 14 (0-40) U/l Alkaline Phosphatase 212 H (39-117) U/L Albumin 3.7 (3.2-5.2) gm/dL Urine 12/23/17 Range/Units 16:14 Urine Color Yellow Urine Appearance Clear Urine pH 5.0 (5.0-9.0) Ur Specific [place] 1.011 (1.000-1.035) Urine Protein Neg (NEG) mg/dL Urine Glucose (UA) Negative (NEG) mg/dL - ABG Interpretation Interpretation: respiratory acidosis - EKG Data EKG shows normal: sinus rhythm - Imaging and Cardiology Chest x-ray Additional comments: IMPRESSION: Moderate CHF or volume overload Medical - H&P: A/P (1) Chest pain at rest Current visit: No Status: Acute ECG without ischemic changes. Troponin wnl. Has had history of CP, recent admission to [facility]. Plan is symptomatic treatment with NTG and morphine as needed. Con Eliquis and ASA. (2) Respiratory failure Current visit: Yes Status: Acute Acute on chronic respiratory failure due to COPD exacerbation and CHF. Plan: diuretics, Duoneb, steroids, BiPAP support as needed and Morphine for air hunger. (3) Congestive heart failure Current visit: Yes Status: Acute CXR with bilateral infiltrates and elevated pro-BNP. Pro-calcitonin marginally elevated. Lasix 20 mg IV q 12h. (4) COPD with exacerbation Current visit: No Status: Acute PLAN: Duoneb, steroids. BiPAP and morphine as needed for increased work of breathing resp. air hunger. Empiric ceftraxone. Doubt active infection present. (5) History of atrial flutter Current visit: No Status: Inactive cont Eliquis (6) History of coronary artery bypass graft x 2 Current visit: No Status: Inactive Continue ASA and Cilostazol (7) H/O aortic valve replacement Current visit: Yes Status: Chronic (8) Chronic anticoagulation Current visit: Yes Status: Chronic (9) Hypertension, essential, benign Current visit: No Status: Acute Continue home regimen (10) Pulmonary cachexia due to chronic obstructive pulmonary disease Current visit: Yes Status: Acute due to endstage COPD. Will obtain nutritional consultation - Narrative A/P Narrative: See above. Code status: DNR Medical - H&P: Qual - VTE Deep Vein Thrombosis/Pulmonary Embolism Present on Admission: No
[2017-12-23] MEDS: IPRATROPIUM/ALBUTEROL 3 ML AMPUL.NEB NEB PRN (20:09)
[2017-12-23] MEDS: BUDESONIDE 0.5 MG/2 ML AMPUL.NEB NEB SCH (20:09)
[2017-12-23] MEDS: FUROSEMIDE 20 MG/2 ML VIAL IV SCH (20:09)
[2017-12-23] MEDS ORDERED: SIMVASTATIN 10 MG TABLET PO SCH (21:00)
[2017-12-23] MEDS: PROPRANOLOL 80 MG CAP.XL.24H PO SCH (21:16)
[2017-12-23] MEDS: DOCUSATE SODIUM 100 MG CAPSULE PO SCH (21:17)
[2017-12-23] MEDS: APIXABAN 5 MG TABLET PO SCH (21:17)
[2017-12-23] MEDS: PRIMIDONE 50 MG TABLET PO SCH (21:17)
[2017-12-24] MEDS: methylPREDNISolone SOD SUCC 40 MG/ML VIAL IV SCH ×2 (00:39→05:38)
[2017-12-24] MEDS: 0.9 % SODIUM CHLORIDE 10 ML SYRINGE IV SCH ×3 (05:37→20:32)
[2017-12-24] MEDS ORDERED: LEVOTHYROXINE 100 MCG TABLET PO SCH (07:30)
[2017-12-24] MEDS ORDERED: PANTOPRAZOLE 40 MG TABLET PO SCH ×2 (07:30)
[2017-12-24 08:00] LABS: Basophils # (Auto) 0 K/mcL (0.0-0.3); Basophils % (Auto) 0.2 % (0.0-2.0); Eosinophils # (Auto) 0.4 K/mcL (0.0-0.7); Eosinophils % (Auto) 2.5 % (0.0-7.0); Granulocytes % (Auto) 90.9 % (38.0-78.0); Lymphocytes # (Auto) 0.6 K/mcL (1.5-4.8); Lymphocytes % (Auto) 4.5 % (15.5-49.0); Mean Corpuscular HGB Conc 32.9 g/dL (31.0-36.0); Monocytes # (Auto) 0.3 K/mcL (0.1-0.9); Monocytes % (Auto) 1.9 % (1.0-12.0); Platelet Count 218 K/mcL (140-440); RBC 3.04 M/mcL (4.00-5.20); Red Cell Distribution Width 15.1 % (11.5-14.5)
[2017-12-24 08:19] LABS: ALT/SGPT 12 U/l (0-40); Albumin 2.9 gm/dL (3.2-5.2); Albumin/Globulin Ratio 0.8 (1.0-2.3); Alkaline Phosphatase 157 U/L (39-117); Bilirubin,Direct < 0.2 mg/dL (0.0-0.3); Blood Urea Nitrogen 30 mg/dl (8-23); Gamma Glutamyl Transpeptidase 73 U/L (5-36); Uric Acid 7.1 mg/dL (2.5-8.0)
[2017-12-24] MEDS: APIXABAN 5 MG TABLET PO SCH ×2 (08:29→20:15)
[2017-12-24] MEDS: LOSARTAN 50 MG TABLET PO SCH (08:29)
[2017-12-24] MEDS: CILOSTAZOL 100 MG TABLET PO SCH (08:29)
[2017-12-24] MEDS: DOCUSATE SODIUM 100 MG CAPSULE PO SCH ×2 (08:30→20:15)
[2017-12-24] MEDS: FUROSEMIDE 20 MG/2 ML VIAL IV SCH (08:30)
[2017-12-24] MEDS: PROPRANOLOL 80 MG CAP.XL.24H PO SCH ×2 (08:30→20:16)
[2017-12-24] MEDS: cefTRIAXone 1 GM VIAL IV SCH (08:34)
[2017-12-24] MEDS ORDERED: ASPIRIN 81 MG TAB.CHEW PO SCH (09:00)
[2017-12-24] MEDS ORDERED: NON FORMULARY MEDICATION 1 DOSE MISCELL (Losartan 100 MG) PO SCH (09:00)
[2017-12-24] MEDS ORDERED: amLODIPine 10 MG TABLET PO SCH (09:00)
[2017-12-24] MEDS ORDERED: ISOSORBIDE MONONITRATE 30 MG TAB.XL.24H PO SCH (09:00)
[2017-12-24] MEDS: PRIMIDONE 50 MG TABLET PO SCH ×2 (09:44→20:14)
[2017-12-24] MEDS: IPRATROPIUM/ALBUTEROL 3 ML AMPUL.NEB NEB PRN (09:55)
[2017-12-24] MEDS ORDERED: NITROGLYCERIN 0.4 MG TAB.SUBL SL PRN (10:37)
[2017-12-24] MEDS ORDERED: ACETAMINOPHEN 325 MG TABLET PO PRN (10:37)
[2017-12-24] MEDS: BUDESONIDE 0.5 MG/2 ML AMPUL.NEB NEB SCH ×2 (13:32→21:21)
[2017-12-24] MEDS: HYDROcodone/APAP 10/325MG TABLET PO PRN ×2 (15:07→20:31)
[2017-12-24] MEDS: CEFUROXIME 500 MG TABLET PO SCH (16:19)
[2017-12-24] MEDS ORDERED: CILOSTAZOL 100 MG TABLET PO SCH (17:00)
[2017-12-24] MEDS ORDERED: CEFUROXIME 500 MG TABLET PO SCH (17:30)
[2017-12-24] MEDS: SIMVASTATIN 10 MG TABLET PO SCH (20:14)
--- NOTE | 2017-12-24 23:55 | Internal Med Progress Note ---
Medical - PN: Subj Patient information: Note initiated : 12/24/17 at 11:49 pm Service Date, if different from initiated Date: [] Patient: Valeria Negron a 77 y/o F admitted on 12/23/17 for Respiratory Failure due to COPD Exacerbation & CHF. Interval history: Ms. Negron is a 77 year old F with chronic respiratory failure, severe COPD, cachexia and CAD presented to the ED, by way of EMS, with CP and increased SOB since this am. She denies any fever and chills. Patient has not been feeling well for the last few weeks. She was recently admitted to [facility] 12/04 - 12/08 with 'COPD exacerbation' and discharged on Doxycycline and prednisone. Patient took a NTG and 4 baby ASA at home. In ER patient was severely dyspneic, only able to respond with yes and no. ABG on 7 L: pH 7.19 and pCO2 78 - O2 decreased to 3 L. Lactate 1.2. HCO3 27.8. Patient was started on BiPAP ventilator support, given Neb treatment, Solumedrol 125 mg and ZOsyn. Lasix 20 mg IV was given too based on CXR report. ROS: generalized weakness, but independent in ADL. Taking care of handicapped son at home. Chronic SOB with poor exercise tolerance. The patient denies any leg swelling, usually lives in the house, patient denies any hemoptysis, denies any sick contacts, denies any runny nose or watery eyes. She has no headache, no visual changes, no changes in hearing, no difficulty in swallowing ability. she has some chest pain with deep inspiration. no nausea, no vomiting, chr abdominal discomfort, she has no bowel bladder complaints, chr gen aches from fibromyalgia, no new joint pain or skin rashes, no bleeding issues, no acute psychiatric complaints. 12/23 Admitted with exacerbation of SOB. Most likely multifactorial: COPD, CHF, declining overall health 12/24 Has not required BiPAP support overnight or supplemental oxygen. Breathing better, but has very poor exercise tolerance. Had long discussion with patient, her significant other and sister. Patient with progressive respiratory insufficiency, will need help at home, or placement. - Constitutional Vitals: Vital Signs Temp Pulse Resp BP Pulse Ox 97.6 F 94 H 11 L 111/57 98 12/24/17 20:00 12/24/17 21:21 12/24/17 21:21 12/24/17 20:00 12/24/17 21:23 Period Temp Pulse Resp BP Sys/Francisco Pulse Ox Last 24 Hr 97.6 F-98.9 F 65-99 11-24 111-174/57-92 92-100 Intake and Output 12/24/17 12/24/17 12/25/17 13:59 21:59 05:59 Intake Total 540 / 540 Output Total 700 / 700 550 / 550 Balance -160 / -160 -550 / -550 Weight 103 lb Patient Weight 12/25/17 05:59 Weight 103 lb Intake & Output: Intake & Output 12/24/17 12/24/17 12/25/17 13:59 21:59 05:59 Intake Total 540 / 540 Output Total 700 / 700 550 / 550 Balance -160 / -160 -550 / -550 Weight 103 lb Intake: Oral 540 / 540 Output: Urine Catheter Amount 700 / 700 Void Amount 550 / 550 Other: Meal Lunch Dinner Percent of Meal Consumed 100% 50% Feeding Ability Assist with Tray Set Up Assist with Tray Set Up # Voids 1 General appearance: thin - Head Head exam: Present: normal inspection - Respiratory Respiratory exam: Present: decreased breath sounds - Cardiovascular Cardiovascular exam: Present: normal rate and rhythm - GI/Abdominal GI/Abdominal exam: Present: normal bowel sounds, soft - Extremities Exam Extremities exam: Present: normal inspection Medical - PN: Obj Da - Labs CBC & Chem 7: 12/24/17 07:20 12/24/17 07:20 Labs: Abnormal Lab Results 12/24/17 12/24/17 12/23/17 07:20 07:20 16:14 WBC 14.2 H RBC 3.04 L Hgb 9.4 L Hct 28.6 L RDW 15.1 H Gran % 90.9 H Lymph % (Auto) 4.5 L Gran # 12.9 H Lymph # (Auto) 0.6 L [place] # (Auto) BUN 30 H Creatinine 1.2 H Glucose 122 H POC Glucose Calcium 8.4 L GGT 73 H Alkaline Phosphatase 157 H NT-Pro-B Natriuret Pep Albumin 2.9 L Albumin/Globulin Ratio 0.8 L Urine Occult Blood >=1.0 A Urine RBC 85 H Hyaline Casts 11 H 12/23/17 12/23/17 12/23/17 11:38 07:00 07:00 WBC 16.7 H RBC 3.78 L Hgb 11.6 L Hct 35.7 L RDW 14.9 H Gran % Lymph % (Auto) 13.1 L Gran # 12.8 H Lymph # (Auto) [place] # (Auto) 1.0 H BUN Creatinine Glucose 175 H POC Glucose 177 H Calcium GGT Alkaline Phosphatase 212 H NT-Pro-B Natriuret Pep 95818.0 H Albumin Albumin/Globulin Ratio Urine Occult Blood Urine RBC Hyaline Casts Meds: Medications Acetaminophen (Tylenol) 650 mg PO Q6HP PRN PRN Reason: PAIN/FEVER > 101 Hydrocodone Bitart/Acetaminophen ([place] 10/325mg) 1 - 2 tab PO TIDP PRN PRN Reason: PAIN LEVEL 3-6 Last Admin: 12/24/17 20:31 Dose: 1 tab Albuterol/Ipratropium (Duoneb) 3 ml NEB Q4HP PRN PRN Reason: Dyspnea Amlodipine Besylate (Norvasc) 10 mg PO DAILY [facility] Aspirin (Aspirin) 81 mg PO DAILY [facility] Budesonide (Pulmicort) 0.5 mg NEB Q12 [facility] Last Admin: 12/24/17 21:21 Dose: 0.5 mg Cefuroxime Axetil (Ceftin) 250 mg PO BIDCC [facility] Last Admin: 12/24/17 16:19 Dose: 250 mg Cilostazol (Pletal) 50 mg PO BIDAC [facility] Last Admin: 12/24/17 16:19 Dose: 50 mg Docusate Sodium (Colace) 100 mg PO BID [facility] Last Admin: 12/24/17 20:15 Dose: 100 mg Isosorbide Mononitrate (Imdur) 30 mg PO DAILY [facility] Levothyroxine Sodium (Synthroid) 100 mcg PO QAMAC [facility] Losartan Potassium (Cozaar) 100 mg PO DAILY [facility] Morphine Sulfate (Morphine) 1 - 2 mg IV Q4HP PRN PRN Reason: Dyspnea Nitroglycerin (Nitrostat) 0.4 mg SL Q5M PRN PRN Reason: Chest Pain Pantoprazole Sodium (Protonix) 40 mg PO QAMAC [facility] Prednisone (Prednisone) 20 mg PO DAILY [facility] Primidone (Mysoline) 200 mg PO BID [facility] Last Admin: 12/24/17 20:14 Dose: 200 mg Propranolol HCl (Inderal La) 80 mg PO BID [facility] Last Admin: 12/24/17 20:16 Dose: 80 mg Simvastatin (Zocor) 10 mg PO HS [facility] Last Admin: 12/24/17 20:14 Dose: 10 mg Sodium Chloride (Saline Flush) 10 ml IV Q8 [facility] Last Admin: 12/24/17 20:32 Dose: 10 ml Torsemide (Demadex) 20 mg PO DAILY [facility] Medical - PN: A/P - Time Spent With Patient Total time spent is greater than 50% in coordination of care (as documented) at patient's floor/unit and/or counseling patient: 25 - 35 minutes (1) Chest pain at rest Status: Resolved Current Visit: No (2) Respiratory failure Status: Chronic Current Visit: Yes (3) Congestive heart failure Status: Resolved Current Visit: Yes (4) COPD with exacerbation Status: Chronic Current Visit: No (5) History of atrial flutter Status: Inactive Current Visit: No (6) History of coronary artery bypass graft x 2 Status: Inactive Current Visit: No (7) H/O aortic valve replacement Status: Chronic Current Visit: Yes (8) Chronic anticoagulation Status: Chronic Current Visit: Yes (9) Hypertension, essential, benign Status: Chronic Current Visit: No (10) Pulmonary cachexia due to chronic obstructive pulmonary disease Status: Chronic Current Visit: Yes - Narrative A/P Narrative: Acute on Chronic respiratory failure. Treatment for CHF, exacerbation of COPD Back to baseline Guarded prognosis due to cachexia and endstage COPD. Medical - PN: Qual - VTE Deep Vein Thrombosis/Pulmonary Embolism Present on Admission: No
[2017-12-25] MEDS: HYDROcodone/APAP 10/325MG TABLET PO PRN ×4 (00:06→19:27)
[2017-12-25] MEDS: 0.9 % SODIUM CHLORIDE 10 ML SYRINGE IV SCH ×3 (05:54→21:06)
[2017-12-25 06:28] LABS: Basophils # (Auto) 0 K/mcL (0.0-0.3); Basophils % (Auto) 0 % (0.0-2.0); Eosinophils # (Auto) 0.4 K/mcL (0.0-0.7); Eosinophils % (Auto) 2.9 % (0.0-7.0); Granulocytes % (Auto) 78.2 % (38.0-78.0); Lymphocytes # (Auto) 1.9 K/mcL (1.5-4.8); Lymphocytes % (Auto) 14.1 % (15.5-49.0); Mean Cell Volume 95.1 fL (80.0-100.0); Mean Corpuscular HGB Conc 32.7 g/dL (31.0-36.0); Mean Corpuscular Hemoglobin 31.1 pg (26.0-34.0); Monocytes # (Auto) 0.7 K/mcL (0.1-0.9); Monocytes % (Auto) 4.8 % (1.0-12.0); Platelet Count 207 K/mcL (140-440)
[2017-12-25] MEDS: PANTOPRAZOLE 40 MG TABLET PO SCH (06:51)
[2017-12-25] MEDS: LEVOTHYROXINE 100 MCG TABLET PO SCH (06:51)
[2017-12-25 06:53] LABS: Albumin 2.9 gm/dL (3.2-5.2); Blood Urea Nitrogen 34 mg/dl (8-23)
[2017-12-25] MEDS: IPRATROPIUM/ALBUTEROL 3 ML AMPUL.NEB NEB PRN ×2 (06:56→19:39)
[2017-12-25] MEDS ORDERED: TORSEMIDE 10 MG TABLET PO SCH (09:00)
[2017-12-25] MEDS: BUDESONIDE 0.5 MG/2 ML AMPUL.NEB NEB SCH ×2 (09:14→20:45)
[2017-12-25] MEDS: PRIMIDONE 50 MG TABLET PO SCH ×2 (09:32→21:03)
[2017-12-25] MEDS: APIXABAN 5 MG TABLET PO SCH ×2 (09:33→21:03)
[2017-12-25] MEDS: amLODIPine 10 MG TABLET PO SCH (09:33)
[2017-12-25] MEDS: predniSONE 20 MG TABLET PO SCH (09:33)
[2017-12-25] MEDS: LOSARTAN 50 MG TABLET PO SCH (09:33)
[2017-12-25] MEDS: DOCUSATE SODIUM 100 MG CAPSULE PO SCH ×2 (09:33→21:03)
[2017-12-25] MEDS: CEFUROXIME 500 MG TABLET PO SCH ×2 (09:33→17:14)
[2017-12-25] MEDS: ASPIRIN 81 MG TAB.CHEW PO SCH (09:34)
[2017-12-25] MEDS: ISOSORBIDE MONONITRATE 30 MG TAB.XL.24H PO SCH (09:34)
[2017-12-25] MEDS: PROPRANOLOL 80 MG CAP.XL.24H PO SCH ×2 (09:34→21:03)
--- NOTE | 2017-12-25 18:48 | Internal Med Progress Note ---
Medical - PN: Subj Patient information: Note initiated : 12/25/17 at 6:38 pm Service Date, if different from initiated Date: [] Patient: Valeria Negron a 77 y/o F admitted on 12/23/17 for Respiratory Failure due to COPD Exacerbation & CHF. Interval history: Ms. Negron is a 77 year old F with chronic respiratory failure, severe COPD, cachexia and CAD presented to the ED, by way of EMS, with CP and increased SOB since this am. She denies any fever and chills. Patient has not been feeling well for the last few weeks. She was recently admitted to [facility] 12/04 - 12/08 with 'COPD exacerbation' and discharged on Doxycycline and prednisone. Patient took a NTG and 4 baby ASA at home. In ER patient was severely dyspneic, only able to respond with yes and no. ABG on 7 L: pH 7.19 and pCO2 78 - O2 decreased to 3 L. Lactate 1.2. HCO3 27.8. Patient was started on BiPAP ventilator support, given Neb treatment, Solumedrol 125 mg and ZOsyn. Lasix 20 mg IV was given too based on CXR report. ROS: generalized weakness, but independent in ADL. Taking care of handicapped son at home. Chronic SOB with poor exercise tolerance. The patient denies any leg swelling, usually lives in the house, patient denies any hemoptysis, denies any sick contacts, denies any runny nose or watery eyes. She has no headache, no visual changes, no changes in hearing, no difficulty in swallowing ability. she has some chest pain with deep inspiration. no nausea, no vomiting, chr abdominal discomfort, she has no bowel bladder complaints, chr gen aches from fibromyalgia, no new joint pain or skin rashes, no bleeding issues, no acute psychiatric complaints. 12/23 Admitted with exacerbation of SOB. Most likely multifactorial: COPD, CHF, declining overall health 12/24 Has not required BiPAP support overnight or supplemental oxygen. Breathing better, but has very poor exercise tolerance. Had long discussion with patient, her significant other and sister. Patient with progressive respiratory insufficiency, will need help at home, or placement. 12/25: Patient is SOB and fatigued. No coughing or CP VSS, afebrile - Constitutional Vitals: Vital Signs Temp Pulse Resp BP Pulse Ox 98.6 F 82 16 136/71 96 12/25/17 16:00 12/25/17 16:00 12/25/17 16:00 12/25/17 16:00 12/25/17 16:00 Period Temp Pulse Resp BP Sys/Francisco Pulse Ox Last 24 Hr 97.0 F-98.6 F 69-97 11-18 111-145/57-89 92-98 Intake and Output 12/25/17 12/25/17 12/25/17 05:59 13:59 21:59 Intake Total 600 / 600 Output Total 100 / 100 200 / 200 200 / 200 Balance 500 / 500 -200 / -200 -200 / -200 Intake & Output: Intake & Output 12/25/17 12/25/17 12/25/17 05:59 13:59 21:59 Intake Total 600 / 600 Output Total 100 / 100 200 / 200 200 / 200 Balance 500 / 500 -200 / -200 -200 / -200 Intake: Oral 600 / 600 Output: Void Amount 100 / 100 200 / 200 200 / 200 Other: Meal Breakfast Percent of Meal Consumed 100% # Voids 1 General appearance: no acute distress, thin - Head Head exam: Present: normal inspection - Respiratory Respiratory exam: Present: decreased breath sounds - Cardiovascular Cardiovascular exam: Present: normal rate and rhythm - GI/Abdominal GI/Abdominal exam: Present: normal bowel sounds - Extremities Exam Extremities exam: Absent: pedal edema Medical - PN: Obj Da - Labs CBC & Chem 7: 12/25/17 05:00 12/25/17 05:00 Labs: Abnormal Lab Results 12/25/17 12/25/17 12/24/17 05:00 05:00 07:20 WBC 13.8 H 14.2 H RBC 2.80 L 3.04 L Hgb 8.7 L 9.4 L Hct 26.7 L 28.6 L RDW 15.0 H 15.1 H Gran % 78.2 H 90.9 H Lymph % (Auto) 14.1 L 4.5 L Gran # 10.8 H 12.9 H Lymph # (Auto) 0.6 L [place] # (Auto) BUN 34 H Creatinine Glucose POC Glucose Calcium 7.7 L GGT Alkaline Phosphatase NT-Pro-B Natriuret Pep Albumin 2.9 L Albumin/Globulin Ratio Urine Occult Blood Urine RBC Hyaline Casts 12/24/17 12/23/17 12/23/17 07:20 16:14 11:38 WBC RBC Hgb Hct RDW Gran % Lymph % (Auto) Gran # Lymph # (Auto) [place] # (Auto) BUN 30 H Creatinine 1.2 H Glucose 122 H POC Glucose Calcium 8.4 L GGT 73 H Alkaline Phosphatase 157 H NT-Pro-B Natriuret Pep 81898.0 H Albumin 2.9 L Albumin/Globulin Ratio 0.8 L Urine Occult Blood >=1.0 A Urine RBC 85 H Hyaline Casts 11 H 12/23/17 12/23/17 07:00 07:00 WBC 16.7 H RBC 3.78 L Hgb 11.6 L Hct 35.7 L RDW 14.9 H Gran % Lymph % (Auto) 13.1 L Gran # 12.8 H Lymph # (Auto) [place] # (Auto) 1.0 H BUN Creatinine Glucose 175 H POC Glucose 177 H Calcium GGT Alkaline Phosphatase 212 H NT-Pro-B Natriuret Pep Albumin Albumin/Globulin Ratio Urine Occult Blood Urine RBC Hyaline Casts Meds: Medications Acetaminophen (Tylenol) 650 mg PO Q6HP PRN PRN Reason: PAIN/FEVER > 101 Hydrocodone Bitart/Acetaminophen ([place] 10/325mg) 1 - 2 tab PO TIDP PRN PRN Reason: PAIN LEVEL 3-6 Last Admin: 12/25/17 10:49 Dose: 2 tab Albuterol/Ipratropium (Duoneb) 3 ml NEB Q4HP PRN PRN Reason: Dyspnea Last Admin: 12/25/17 06:56 Dose: 3 ml Amlodipine Besylate (Norvasc) 10 mg PO DAILY [facility] Last Admin: 12/25/17 09:33 Dose: 10 mg Aspirin (Aspirin) 81 mg PO DAILY [facility] Last Admin: 12/25/17 09:34 Dose: 81 mg Budesonide (Pulmicort) 0.5 mg NEB Q12 [facility] Last Admin: 12/25/17 09:14 Dose: 0.5 mg [facility] Last Admin: 12/25/17 17:14 Dose: 250 mg Docusate Sodium (Colace) 100 mg PO BID [facility] Last Admin: 12/25/17 09:33 Dose: 100 mg Isosorbide Mononitrate (Imdur) 30 mg PO DAILY [facility] Last Admin: 12/25/17 09:34 Dose: 30 mg Levothyroxine Sodium (Synthroid) 100 mcg PO QAMAC [facility] Last Admin: 12/25/17 06:51 Dose: 100 mcg Losartan Potassium (Cozaar) 100 mg PO DAILY [facility] Last Admin: 12/25/17 09:33 Dose: 100 mg Morphine Sulfate (Morphine) 1 - 2 mg IV Q4HP PRN PRN Reason: Dyspnea Nitroglycerin (Nitrostat) 0.4 mg SL Q5M PRN PRN Reason: Chest Pain Pantoprazole Sodium (Protonix) 40 mg PO QAMAC [facility] Last Admin: 12/25/17 06:51 Dose: 40 mg Prednisone (Prednisone) 20 mg PO DAILY [facility] Last Admin: 12/25/17 09:33 Dose: 20 mg Primidone (Mysoline) 200 mg PO BID [facility] Last Admin: 12/25/17 09:32 Dose: 200 mg Propranolol HCl (Inderal La) 80 mg PO BID [facility] Last Admin: 12/25/17 09:34 Dose: 80 mg Simvastatin (Zocor) 10 mg PO HS [facility] Last Admin: 12/24/17 20:14 Dose: 10 mg Sodium Chloride (Saline Flush) 10 ml IV Q8 [facility] Last Admin: 12/25/17 15:10 Dose: 10 ml Medical - PN: A/P - Time Spent With Patient Total time spent is greater than 50% in coordination of care (as documented) at patient's floor/unit and/or counseling patient: 15 - 24 minutes (1) Chest pain at rest Status: Resolved Current Visit: No (2) Respiratory failure Status: Chronic Current Visit: Yes (3) Congestive heart failure Status: Resolved Current Visit: Yes (4) COPD with exacerbation Status: Chronic Current Visit: No (5) History of atrial flutter Status: Inactive Current Visit: No (6) History of coronary artery bypass graft x 2 Status: Inactive Current Visit: No (7) H/O aortic valve replacement Status: Chronic Current Visit: Yes (8) Chronic anticoagulation Status: Chronic Current Visit: Yes (9) Hypertension, essential, benign Status: Chronic Current Visit: No (10) Pulmonary cachexia due to chronic obstructive pulmonary disease Status: Chronic Current Visit: Yes - Narrative A/P Narrative: Acute on Chronic respiratory failure. Treatment for CHF, exacerbation of COPD Chronic respiratory failure and sob Guarded prognosis due to cachexia and endstage COPD. D/C home in am tentatively Medical - PN: Qual - VTE Deep Vein Thrombosis/Pulmonary Embolism Present on Admission: No
[2017-12-25] MEDS: SIMVASTATIN 10 MG TABLET PO SCH (21:02)
[2017-12-26] MEDS: HYDROcodone/APAP 10/325MG TABLET PO PRN ×2 (02:28→06:50)
[2017-12-26] MEDS: 0.9 % SODIUM CHLORIDE 10 ML SYRINGE IV SCH (06:14)
[2017-12-26] MEDS: PANTOPRAZOLE 40 MG TABLET PO SCH (06:50)
[2017-12-26] MEDS: LEVOTHYROXINE 100 MCG TABLET PO SCH (06:50)
[2017-12-26] MEDS: amLODIPine 10 MG TABLET PO SCH (07:02)
[2017-12-26] MEDS: ISOSORBIDE MONONITRATE 30 MG TAB.XL.24H PO SCH (07:03)
[2017-12-26] MEDS: LOSARTAN 50 MG TABLET PO SCH (07:03)
[2017-12-26] MEDS: BUDESONIDE 0.5 MG/2 ML AMPUL.NEB NEB SCH (07:39)
[2017-12-26] MEDS: IPRATROPIUM/ALBUTEROL 3 ML AMPUL.NEB NEB PRN (07:39)
--- NOTE | 2017-12-26 09:51 | Discharge Summary ---
Medical - DS: Prov Patient information: Note initiated : 12/26/17 at 9:39 am Service Date, if different from initiated Date: [] Patient: Valeria Negron 77 y/o F admitted on 12/23/17 for Respiratory Failure due to COPD Exacerbation & CHF. Date of admission: 12/23/17 11:15 Discharge date: 12/26/17 Primary care physician: Rea Sethi Consults: 12/23/17 09:28 Consult to Physician [CONS] Stat Comment: Consulting Provider: Valentino Cerda Reason For Exam: Physician to Consult Medical - DS: Meds - Discharge Medications Prescriptions: Fluticasone/Salmeterol [Advair 250-50 Diskus] 1 puff INH BID #3 inhaler Ipratropium/Albuterol [Duoneb] 3 ml NEB Q4HP PRN #90 ampul.neb PRN Reason: Dyspnea Isosorbide Mononitrate [Imdur] 30 mg PO DAILY #90 tab.xl.24h predniSONE [Prednisone] 20 mg PO DAILY #30 tablet Active and Home Medications: Home Medications Aspirin [Adult Low Dose Aspirin EC] 81 mg PO DAILY 10/24/17 [History Confirmed 12/23/17 Last Taken Unknown] Levothyroxine [Synthroid] 100 mcg PO QAMAC 10/24/17 [History Confirmed 12/23/17 Last Taken Unknown] Losartan [Cozaar] 100 mg PO DAILY 10/24/17 [History Confirmed 12/23/17 Last Taken Unknown] Pantoprazole Sodium 40 mg PO QAMAC 10/24/17 [History Confirmed 12/23/17 Last Taken Unknown] Pravastatin [Pravachol] 20 mg PO HS 10/24/17 [History Confirmed 12/23/17 Last Taken Unknown] Propranolol [Inderal LA] 80 mg PO BID 10/24/17 [History Confirmed 12/23/17 Last Taken Unknown] amLODIPine [Norvasc] 10 mg PO DAILY 10/24/17 [History Confirmed 12/23/17 Last Taken Unknown] Apixaban [Eliquis] 2.5 mg PO BID 12/04/17 [History Confirmed 12/23/17 Last Taken Unknown] Cilostazol [Pletal] 50 mg PO BIDAC 12/04/17 [History Confirmed 12/23/17 Last Taken Unknown] HYDROcodone/ACETAMINOPHEN [Hydrocodon-Acetaminophn 10-325] 1 - 2 tab PO TIDP PRN 12/04/17 [History Confirmed 12/23/17 Last Taken Unknown] Torsemide [Demadex] 20 mg PO DAILY 12/04/17 [History Confirmed 12/23/17 Last Taken Unknown] Ipratropium/Albuterol Sulfate [Combivent] 2 puff INH TIDP PRN 12/23/17 [History Confirmed 12/23/17 Last Taken Unknown] Primidone [Mysoline] 200 mg PO BID 12/23/17 [History Confirmed 12/23/17 Last Taken Unknown] Medical - DS: Hosp Hospital course: Ms. Negron is a 77 year old F with chronic respiratory failure, severe COPD, cachexia and CAD presented to the ED, by way of EMS, with CP and increased SOB since this am. She denies any fever and chills. Patient has not been feeling well for the last few weeks. She was recently admitted to [facility] 12/04 - 12/08 with 'COPD exacerbation' and discharged on Doxycycline and prednisone. Patient took a NTG and 4 baby ASA at home. In ER patient was severely dyspneic, only able to respond with yes and no. ABG on 7 L: pH 7.19 and pCO2 78 - O2 decreased to 3 L. Lactate 1.2. HCO3 27.8. Patient was started on BiPAP ventilator support, given Neb treatment, Solumedrol 125 mg and ZOsyn. Lasix 20 mg IV was given too based on CXR report. ROS: generalized weakness, but independent in ADL. Taking care of handicapped son at home. Chronic SOB with poor exercise tolerance. The patient denies any leg swelling, usually lives in the house, patient denies any hemoptysis, denies any sick contacts, denies any runny nose or watery eyes. She has no headache, no visual changes, no changes in hearing, no difficulty in swallowing ability. she has some chest pain with deep inspiration. no nausea, no vomiting, chr abdominal discomfort, she has no bowel bladder complaints, chr gen aches from fibromyalgia, no new joint pain or skin rashes, no bleeding issues, no acute psychiatric complaints. 12/23 Admitted with exacerbation of SOB. Most likely multifactorial: COPD, CHF, declining overall health 12/24 Has not required BiPAP support overnight or supplemental oxygen. Breathing better, but has very poor exercise tolerance. Had long discussion with patient, her significant other and sister. Patient with progressive respiratory insufficiency, will need help at home, or placement. 12/25: Patient is SOB and fatigued. No coughing or CP VSS, afebrile 12/26: Back to baseline: dyspnea on minimal exertion. No wheezing or crackles on exam. Patient will be discharged home with home health. Medication reconciliation done: Will get nebulizer for home Imdur added to regimen Discontinue Budesonide. Replace with Advair Prednisone 20 mg x 5 days as needed for COPD exacerbation Discontinue Pletal, continue Eliquis and ASA Discharge diagnosis: Acute on chronic respiratory failure Secondary discharge diagnosis: Cachexia COPD Diastolic dysfunction Atrial fibrillation, on anticoagulation CAD, S/P CABG AVR, bovine Hypothyroidism Fibromyalgia, chronic pain Reason for admission: exacerbation of SOB - Time Spent with Patient Total time spent providing and/or coordinating discharge services: Greater than 30 minutes Medical - DS: Exam - Constitutional Vitals: Vital Signs Temp Pulse Pulse Resp BP Pulse Ox 12/26/17 06:59 98 F 16 174/94 95 12/26/17 04:00 97.8 F 68 18 139/72 95 12/26/17 00:00 97.4 F 65 16 129/67 94 12/25/17 20:50 98 12/25/17 20:47 70 18 12/25/17 19:44 97.7 F 74 18 115/66 95 12/25/17 19:40 68 18 12/25/17 19:39 95 12/25/17 16:00 98.6 F 82 16 136/71 96 12/25/17 12:00 97.0 F 87 16 141/87 96 Intake and Output 12/25/17 12/26/17 12/26/17 21:59 05:59 13:59 Intake Total 800 / 800 150 / 150 Output Total 200 / 200 275 / 275 200 / 200 Balance 600 / 600 -125 / -125 -200 / -200 Intake: Oral 800 / 800 150 / 150 Output: Void Amount 200 / 200 275 / 275 200 / 200 Other: Meal Dinner Percent of Meal Consumed 100% # Voids 150 Weight 104 lb 8 oz General appearance: thin - Respiratory Respiratory exam: Present: decreased breath sounds - Cardiovascular Cardiovascular exam: Present: normal rate and rhythm - GI/Abdominal GI/Abdominal exam: Present: normal bowel sounds, soft - Extremities Exam Extremities exam: Absent: pedal edema Medical - DS: Data Labs on day of discharge: Preliminary micro results at discharge 12/23/17 08:07 Blood Culture - Preliminary Blood 12/23/17 07:55 Blood Culture - Preliminary Blood Medical - DS: A/P - Patient/Caregiver Discharge Instructions Activity: increase activity as tolerated Diet: Regular Diet Additional Instructions: Recommend smaller meals more frequently to maintain weight Home with home health Medication changes: Will get nebulizer for home Imdur added to regimen to better control high bloodpressure Discontinue Budesonide. Replace with Advair for COPD Prednisone 20 mg x 5 days as needed for COPD exacerbation Discontinue Pletal, continue Eliquis and ASA - Problem Maintenance (1) Chest pain at rest Status: Resolved (2) Respiratory failure Status: Chronic Qualifiers: Chronicity: acute on chronic Respiratory failure complication: hypoxia and hypercapnia Qualified Code(s): J96.21 - Acute and chronic respiratory failure with hypoxia; J96.22 - Acute and chronic respiratory failure with hypercapnia (3) Congestive heart failure Status: Resolved (4) COPD with exacerbation Status: Chronic (5) History of atrial flutter Status: Inactive (6) History of coronary artery bypass graft x 2 Status: Inactive (7) H/O aortic valve replacement Status: Chronic (8) Chronic anticoagulation Status: Chronic (9) Hypertension, essential, benign Status: Chronic (10) Pulmonary cachexia due to chronic obstructive pulmonary disease Status: Chronic - Follow up Plan Follow up with: Rea Sethi MD [Primary Care Provider] - Disposition: Home Health Service Prognosis: Fair Rehab Potential: Fair Overall status at discharge: patient is back to baseline Medical - DS: Qual - VTE Deep Vein Thrombosis/Pulmonary Embolism Present on Admission: No
[2017-12-26] MEDS: DOCUSATE SODIUM 100 MG CAPSULE PO SCH (10:00)
[2017-12-26] MEDS: ASPIRIN 81 MG TAB.CHEW PO SCH (10:02)
[2017-12-26] MEDS: predniSONE 20 MG TABLET PO SCH (10:03)
[2017-12-26] MEDS: PROPRANOLOL 80 MG CAP.XL.24H PO SCH (10:04)
[2017-12-26] MEDS: PRIMIDONE 50 MG TABLET PO SCH (10:04)
[2017-12-26] MEDS: APIXABAN 5 MG TABLET PO SCH (10:05)
[2017-12-26] MEDS: CEFUROXIME 500 MG TABLET PO SCH (10:13)
== END 2017-12-26 11:23 | disposition home health service (06) | DRG 190 ==
LOC: ED 06:43 → ICU 11:15 → MEDSUR 12-24 13:21
PROVIDERS: ADMIT Specialist; ATTEND Specialist

== ENCOUNTER 2018-08-20 11:46 | Inpatient (IN) ==
[2018-08-20] MEDS ORDERED: CELECOXIB 200 MG CAPSULE PO ONE (12:00)
--- NOTE | 2018-08-20 12:03 | Emergency Department Note ---
Fall HPI - General Chief Complaint: Fall Stated Complaint: fall hit head Time Seen by Provider: 08/20/18 11:56 Source: EMS Mode of arrival: EMS - History of Present Illness HPI Narrative: History of fall this morning at the detention and. Patient is able to give a history, she does have a slight headache, does have some bruising to the left forehead, per EMS report was complaining of left-sided rib pain, there was a history of hypoxia, O2 sats 80% on room air, she is also complaining of left- sided hip pain. No history of nausea vomiting. She has been given Ativan recently, states she was using her walker to get into the bathroom and fell, unknown down time. She was laying on the floor, she was calling the call davis repeatedly, when she was found by one of the nursing attendants. She does have a DNR order with limited additional interventions. Denies abdominal pain, does have chest pain left-sided, denies neck pain, she states she has chronic neck pain nothing new, she was not placed in a neck collar. - Related Data Home Medications Medication Instructions Recorded Confirmed Levothyroxine [Synthroid] 100 mcg PO QAMAC 10/24/17 03/16/18 Losartan [Cozaar] 100 mg PO DAILY 10/24/17 03/16/18 Pravastatin [Pravachol] 20 mg PO HS 10/24/17 03/16/18 Propranolol [Inderal LA] 80 mg PO BID 10/24/17 03/16/18 amLODIPine [Norvasc] 5 mg PO DAILY 10/24/17 03/16/18 Apixaban [Eliquis] 2.5 mg PO BID 12/04/17 03/16/18 HYDROcodone/ACETAMINOPHEN 1 - 2 tab PO TIDP PRN 12/04/17 03/16/18 [Hydrocodon-Acetaminophn 10-325] Torsemide [Demadex] 20 mg PO DAILY 12/04/17 03/16/18 Ipratropium/Albuterol Sulfate 2 puff INH TIDP PRN 12/23/17 03/16/18 [Combivent] Primidone [Mysoline] 200 mg PO BID 12/23/17 03/16/18 Cilostazol [Pletal] 50 mg PO BIDAC 03/16/18 03/16/18 Isosorbide Mononitrate [Imdur] 30 mg PO BID 03/16/18 03/16/18 Pantoprazole [Protonix] 40 mg PO QAMAC 03/16/18 03/16/18 Potassium Chloride 10 meq PO QAMCC 03/16/18 03/16/18 Previous Rx's Medication Instructions Recorded Fluticasone/Salmeterol [Advair 1 puff INH BID #3 inhaler 12/26/17 250-50 Diskus] Ipratropium/Albuterol [Duoneb] 3 ml NEB Q4HP PRN #90 ampul.neb 12/26/17 Allergies Allergy/AdvReac Type Severity Reaction Status Date / Time levofloxacin [LEVOFLOXACIN] Allergy Mild RASH Verified 12/04/17 19:54 Review of Systems All systems ED: reviewed and negative except as stated. Fall PMH - Past Medical History Attestation: Yes: The following information was validated with the patient. Medical history: Reports: atrial fibrillation (RECENT FLUTTER.), cancer (Breast (left-mastectomy). Skin on the left neck and skin of the left chest that was non -melanotic.), CHF (Long-standing plus episodes of exacerbation.), COPD ( EMPHYSEMA.), coronary artery disease (s/p CABGX2 vessel.), fibromyalgia, hyperlipidemia, hypertension, hypothyroidism, peripheral artery disease ( ), PID, valvular heart disease (Aortic valve - replaced bovine 2003.), other ( Rheumatic fever. Atherosclerosis. CHRONIC ANTICOAGULATION. Pulmonary fibrosis. CHRONIC NARCOTICS for FM/severe MSK pains. TREMORS - on primidone.) . Denies: CVA, DM, myocardial infarction, TIA Reports: Recurrent Falls Psychiatric history: Reports: anxiety (Today he is denied but past history included this.), depression - Social History smoking status: Former smoker Alcohol use: Reports: None Drug use: Reports: none Physical Exam Limitations: no limitations General appearance: alert, in distress Head: other (bruising to left forehead about 3 x 2 cm, about 1/2 cm raised without obvious bony deformity.) Eye: Present: normal appearance, PERRL, EOMI. Absent: conjunctival injection, nystagmus ENT: normal exam, normal oropharynx, mucous membranes moist, TM's normal bilaterally Neck: Present: normal inspection, full ROM. Absent: trachea midline, tenderness Chest: Present: normal inspection, symmetric chest wall rise, tenderness, other (tenderness left lateral ribs, anteroaxillary line) Respiratory: Present: rales/crackles, accessory muscle use. Absent: respiratory distress Cardiovascular: Present: regular rate, normal rhythm Abdominal: Present: soft, normal bowel sounds. Absent: distention, tenderness, guarding Extremities: Present: normal inspection, pedal edema, other (tender left trochanter to palpation without obvious bruising or deformity). Absent: joint swelling, calf tenderness Back: Present: normal inspection, full ROM. Absent: CVA tenderness (R), CVA tenderness (L) Neurological: Present: alert, oriented X3, CN II-XII intact, reflexes normal. Absent: normal gait, motor sensory deficit Psychiatric: Present: depressed, flat affect Skin: Present: warm, dry, intact, pallor Course Vital Signs Temperature 97.7 F 08/20/18 11:48 Pulse Rate 74 08/20/18 11:48 Respiratory Rate 18 08/20/18 11:48 Blood Pressure 125/65 08/20/18 11:48 Pulse Oximetry (%) 94 08/20/18 11:48 Temperature 97.7 F 08/20/18 11:48 Pulse Rate 86 08/20/18 13:03 Respiratory Rate 18 08/20/18 12:16 Blood Pressure 155/80 08/20/18 13:03 Pulse Oximetry (%) 91 08/20/18 13:03 Fall - MDM Narrative Medical decision making narrative: X-rays reviewed. She does have left intertrochanteric fracture. Dr. Soler notified. Also our hospitalist consulted regarding hospital admission. Head CT was negative regarding intracranial hemorrhage. She does have a left forehead area of swelling without associated fracture. Left ribs and PA chest without infiltrates, however she was hypoxic raising concern about pulmonary contusion. At this point she will need to be hospitalized. Did discuss with her hospitalist. Final diagnosis is left hip fracture, intertrochanteric #2 left forehead contusion. Negative head CT #3 left chest wall contusion. Laboratory studies still pending. - Lab Data Result diagrams: 08/20/18 12:06 08/20/18 12:06 Lab Results 08/20/18 08/20/18 Range/Units 12:06 12:06 WBC 10.6 (4.5-11.0) K/mcL RBC 3.47 L (4.00-5.20) M/mcL Hgb 10.5 L (12.0-15.0) g/dL Hct 31.7 L (36.0-48.0) % MCV 91.2 (80.0-100.0) fL MCH 30.3 (26.0-34.0) pg MCHC 33.2 (31.0-36.0) g/dL RDW 14.1 (11.5-14.5) % Plt Count 240 (140-440) K/mcL MPV 7.9 (7.4-10.4) fL Gran % 78.8 H (38.0-78.0) % Lymph % (Auto) 14.2 L (15.5-49.0) % [place] % (Auto) 4.5 (1.0-12.0) % Eos % (Auto) 2.5 (0.0-7.0) % Baso % (Auto) 0 (0.0-2.0) % Gran # 8.3 H (1.8-8.0) K/mcL Lymph # (Auto) 1.5 (1.5-4.8) K/mcL [place] # (Auto) 0.5 (0.1-0.9) K/mcL Eos # (Auto) 0.3 (0.0-0.7) K/mcL Baso # (Auto) 0 (0.0-0.3) K/mcL Sodium 138 (133-145) mmol/L Potassium 4.3 (3.3-5.1) mmol/L Chloride 98 (96-108) mmol/L Carbon Dioxide 28 (22-30) mmol/L Anion Gap 12.0 (8-16) BUN 43 H (8-23) mg/dl Creatinine 1.9 H (0.6-1.1) mg/dl GFR Calculation 25 Glucose 96 (70-105) mg/dL Calcium 8.6 (8.6-10.4) mg/dl Total Bilirubin 0.2 (0.0-1.0) mg/dL AST 20 (0-37) U/l ALT 17 (0-40) U/l Alkaline Phosphatase 222 H (39-117) U/L Total Protein 7.1 (5.9-8.4) gm/dL Albumin 3.8 (3.2-5.2) gm/dL Globulin 3.3 (2.2-3.7) gm/dL Albumin/Globulin Ratio 1.2 (1.0-2.3) Disposition Pt seen by [employer]/PA only: No Clinical Impression: Hip fracture, left Disposition: Xfer As Inpt ([facility]) Condition: Fair Referrals: Rea Sethi MD [Primary Care Provider] -
[2018-08-20] MEDS ORDERED: ONDANSETRON 4 MG/2 ML VIAL IV ONE (12:07)
[2018-08-20] MEDS: ONDANSETRON ODT 4 MG TABLET SL ONE ×2 (12:16→12:20)
[2018-08-20 12:27] LABS: Basophils # (Auto) 0 K/mcL (0.0-0.3); Basophils % (Auto) 0 % (0.0-2.0); Eosinophils # (Auto) 0.3 K/mcL (0.0-0.7); Eosinophils % (Auto) 2.5 % (0.0-7.0); Granulocytes % (Auto) 78.8 % (38.0-78.0); Lymphocytes # (Auto) 1.5 K/mcL (1.5-4.8); Lymphocytes % (Auto) 14.2 % (15.5-49.0); Mean Cell Volume 91.2 fL (80.0-100.0); Mean Corpuscular HGB Conc 33.2 g/dL (31.0-36.0); Mean Corpuscular Hemoglobin 30.3 pg (26.0-34.0); Monocytes # (Auto) 0.5 K/mcL (0.1-0.9); Monocytes % (Auto) 4.5 % (1.0-12.0); Platelet Count 240 K/mcL (140-440); RBC 3.47 M/mcL (4.00-5.20); Red Cell Distribution Width 14.1 % (11.5-14.5)
[2018-08-20 12:50] LABS: ALT/SGPT 17 U/l (0-40); Albumin 3.8 gm/dL (3.2-5.2); Albumin/Globulin Ratio 1.2 (1.0-2.3); Alkaline Phosphatase 222 U/L (39-117); Blood Urea Nitrogen 43 mg/dl (8-23)
--- NOTE | 2018-08-20 13:51 | Cat Scan Report ---
History: Fell and hit head TECHNIQUE: The brain was imaged without contrast at 2.5 mm intervals. The radiation exposure was limited using dose reduction technology. FINDINGS: A small scalp hematoma is seen adjacent to the left parietal bone. No skull fracture is present. There is no intracranial hemorrhage or cerebral edema. There is mild/moderate generalized atrophy both above and below the tentorium. Mild white matter disease is seen in a patchy distribution, involving the centrum semiovale within the frontal and parietal lobes. No mass is seen on this nonenhanced study. The ventricles are normal in size line for atrophy. Comparison with the prior exam from 03/29/10 shows the degenerative changes have progressed significantly. IMPRESSION: Moderate age-related degenerative changes with cerebral atrophy and white matter ischemia or degeneration. No acute abnormality except for small scalp hematoma Dr. Vidales was called with the results Interpreted and Authenticated by: Josh Kwon 08/20/18
--- NOTE | 2018-08-20 13:52 | XRay Report ---
HISTORY: Fell FINDINGS: There is an acute transverse fracture at the base of the left femoral neck where it joins with the trochanters. There is varus angulation. The head remains normally aligned with the acetabulum. No other fracture is present. The bones are osteoporotic. There is moderate degenerative disc disease in the scoliosis in the lumbar spine. There is no significant arthritis within the hip joints. IMPRESSION: Acute left femoral neck fracture Interpreted and Authenticated by: Josh Kwon 08/20/18
--- NOTE | 2018-08-20 13:56 | XRay Report ---
HISTORY: Fell with left rib injury and fractured left hip FINDINGS: Transverse fracture is present laterally in the left fifth rib. There is a 3 mm separation. Callus is forming on the fracture line. The fracture was not seen on the prior chest x-ray done on 03/16/18. No other fracture is identified. There is no pneumothorax or pleural effusion. Lungs are clear but mildly hyperinflated. There is pulmonary fibrosis in both lung apices. The heart size is normal. There has been prior coronary bypass surgery and the patient has a prosthetic aortic valve. The right breast has been removed and there are clips in the right axilla. No metastasis are identified. IMPRESSION: Healing fracture laterally in the left fifth rib Pulmonary fibrosis No evidence of metastasis Interpreted and Authenticated by: Josh Kwon 08/20/18
--- NOTE | 2018-08-20 15:32 | Internal Med History&Physical ---
Medical - H&P: HPI Patient information: Note initiated : 08/20/18 at 3:29 pm Service Date, if different from initiated Date: [] Patient: Valeria Negron a 78 y/o F admitted on for Fall, Hit Head. Chief Complaint: [] History of present illness: Ms. Negron is a 78 year old F with multiple medical issues, feel in the bathroom this AM, some [facility] to her [facility], but not witnessed, denies any loss of consciousness. The patient was found 1 hr later as per ER staff and then brought to the hospital for further management. Daughter was present at the bedside at the time of evaluation. The patient was not feeling well since yesterday according to the daughter. Her son 2 days ago who is also living in the same skilled nursing as the patient. She has not been eating well since. The patient had been living at [facility], she was admitted last in this facility I believe in February. The patient denies any headache changes in vision difficulty in swallowing chest pain shortness of breath cough no abdominal pain no nausea no vomiting no urinary complaints she has severe pain in the left hip region. Denies any other acute complaints or concerns. Her main concern was pain. The patient usually uses a walker to ambulate or a wheelchair. MET would be less than 4 She has a history of congestive heart failure, but preserved ejection fraction, she has grade 3 diastolic dysfunction. She has COPD, coronary artery disease paroxysmal atrial flutter on anticoagulation, by prostatic aortic valve. She has chronic kidney disease, baseline creatinine is around 1.5, although there is no mention about TIA or stroke, the past medical history reveals occlusion and stenosis of bilateral carotid arteries( prob list from pcp 02/17/18) . I would at least infer from this that the patient had significant carotid artery disease. On presentation to the emergency room patient was afebrile heart rate 72 blood pressure 125/65 saturating 99% on room air respirations 18. Labs showed WBC count of 10.6 hemoglobin 10.5 platelets 240 sodium 138 potassium 4.3 bicarbonate 28 creatinine 1.9 baseline around 1.5 BUN 43 glucose 96 X-ray of the hip shows left intertrochanteric hip fracture acute, Chest x-ray is negative for acute infiltrates or heart failure. EKG shows sinus rhythm T wave flattening in the lateral leads nonspecific ST-T wave changes, QS pattern in V1 to V3 indicative of old anteroseptal AL. I reviewed the echocardiogram done during the previous visit as well as earlier this year, shows patient has normal ejection fraction and grade 3 diastolic dysfunction. All systems: reviewed and no additional remarkable complaints except as stated ( As per HPI is negative) Medical - H&P: PMH Medical history: Atrial fibrillation-flutter paroxysmal Coronary artery disease COPD Hypertension Hyperlipidemia Peripheral vascular disease Ovarian cyst Peripheral neuropathy Chronic back pain Stage III chronic kidney disease Carotid artery disease Aortic stenosis Aortic valve replacement Essential tremor Depression Anemia B12 deficiency History of malignant breast cancer Surgical history: Patient had mastectomy right breast 2007 Left lower extremity femoral artery angiogram and stent placed by Dr. Astudillo in May 2017. Family history: reviewed and not pertinent Social history: Lives at a skilled nursing, Ex-smoker quit a few months ago Rare EtOH Denies any recreational substance use. Medical - H&P: Meds Home Medications Medication Instructions Recorded Confirmed Type Levothyroxine [Synthroid] 100 mcg PO QAMAC 10/24/17 08/20/18 History Losartan [Cozaar] 25 mg PO DAILY 10/24/17 08/20/18 History Apixaban [Eliquis] 2.5 mg PO BID 12/04/17 08/20/18 History HYDROcodone/ACETAMINOPHEN 1 - 2 tab PO TIDP PRN 12/04/17 08/20/18 History [Hydrocodon-Acetaminophn 10-325] Torsemide [Demadex] 20 mg PO DAILY 12/04/17 08/20/18 History Ipratropium/Albuterol Sulfate 2 puff INH TIDP PRN 12/23/17 08/20/18 History [Combivent] Primidone [Mysoline] 200 mg PO BID 12/23/17 08/20/18 History Fluticasone/Salmeterol [Advair 1 puff INH BID #3 inhaler 12/26/17 08/20/18 Rx 250-50 Diskus] Ipratropium/Albuterol [Duoneb] 3 ml NEB Q4HP PRN #90 ampul.neb 12/26/17 Rx Cilostazol [Pletal] 50 mg PO BIDAC 03/16/18 08/20/18 History Isosorbide Mononitrate [Imdur] 30 mg PO BID 03/16/18 08/20/18 History Pantoprazole [Protonix] 40 mg PO QAMAC 03/16/18 08/20/18 History Potassium Chloride 10 meq PO QAMCC 03/16/18 08/20/18 History LORazepam [Ativan] 0.5 mg PO Q6HP PRN 08/20/18 08/20/18 History Metoprolol Succinate [Kapspargo 100 mg PO DAILY 08/20/18 08/20/18 History Sprinkle] Mirtazapine [Remeron] 7.5 mg PO HS 08/20/18 08/20/18 History Sertraline HCl [Zoloft] 50 mg PO DAILY 08/20/18 08/20/18 History Allergies Allergy/AdvReac Type Severity Reaction Status Date / Time levofloxacin [LEVOFLOXACIN] Allergy Mild RASH Verified 12/04/17 19:54 Medical - H&P: Exam - Constitutional Vitals: Temp Pulse Resp BP Pulse Ox 97.7 F 84 23 H 120/60 92 08/20/18 11:48 08/20/18 14:55 08/20/18 14:55 08/20/18 14:55 08/20/18 14:55 Exam: GENERAL: The patient is a think frail old lady, in distress from pain . Is alert and oriented x3. VITAL SIGNS: Reviewed and as noted elsewhere. HEENT: Head is normocephalic and atraumatic. Extraocular muscles are intact. Pupils are equal, round, and reactive to light. Nares appeared normal. Mouth appears any without lesions. Mucous membranes are dry. NECK: Normal to inspection, Supple, No lymphadenopathy or thyromegaly. LUNGS: Air entry equal on both sides, no wheezing, crackles or rhonchi noted. No accessory muscles of respiration HEART: Regular rate and rhythm normal, S1 and S2 heard, no Gallop, S3 or Rub Noted, No Gross murmur heard. ABDOMEN: Soft, nontender, and nondistended. Positive bowel sounds. No hepatosplenomegaly was noted. EXTREMITIES: No cyanosis, clubbing, rash, lesions or edema. NEUROLOGIC: Cranial nerves II through XII are grossly intact. Motor and Sensory System Grossly Intact PSYCHIATRIC: Normal affect, Normal Mood. Appropriate Behavior. SKIN: No ulceration or wounds noted, No jaundice, No rash noted. Medical - H&P: Reslt - Labs CBC & Chem 7: 08/20/18 12:06 08/20/18 12:06 Labs: Short CBC 08/20/18 Range/Units 12:06 WBC 10.6 (4.5-11.0) K/mcL Hgb 10.5 L (12.0-15.0) g/dL Hct 31.7 L (36.0-48.0) % Plt Count 240 (140-440) K/mcL BMP 08/20/18 12:06 Sodium 138 Potassium 4.3 Chloride 98 Carbon Dioxide 28 BUN 43 H Creatinine 1.9 H Glucose 96 Calcium 8.6 Liver Function 08/20/18 Range/Units 12:06 Total Bilirubin 0.2 (0.0-1.0) mg/dL AST 20 (0-37) U/l ALT 17 (0-40) U/l Alkaline Phosphatase 222 H (39-117) U/L Albumin 3.8 (3.2-5.2) gm/dL Medical - H&P: A/P - Narrative A/P Narrative: A/P Left Hip Fracture- Ortho consulted by ER, Surgery likely tomorrow in AM Preop Eval- High risk for surgery given poor functional status, RCRI score of 2 , but has also has had creat of 1.9, and significant carotid artery disease, h/ o resp failure during last admit and has copd. Although her medical issues are stable and her risks are non modifiable there acute contraindication for surgery , but she would remain high risk for complications in the kj op period. Patient daugther and patient has been educated about this. They have verbalized understanding. CHF-with preserved ejection fraction, grade 3 diastolic dysfunction. Chest x- ray is negative for acute pulmonary edema. No crackles on examination. Monitor continue home medications. Hold diuretics Atrial fibrillation atrial flutter-this is paroxysmal in nature EKG shows sinus rhythm. Patient is on chronic anticoagulation with Eliquis 2.5 mg twice a day. Last dose was this morning. Rate is well controlled at this time. Patient is also on beta-deion for rate control patient is to continue this medication Hypertension-BP stable continue home medications hold losartan Hyperlipidemia-continue statin COPD-patient has history of COPD, she is not wheezing at present, air entry is good however we will use duo nebs every 6 hours scheduled for now and later transition her to as needed. CAD/Carotid artery disease/PVD- Stable at this time, pt on cilastazol ( antiplatlet), last dose this AM, hold for now, resume after surgery. Hypothyroidism- conintue home dose of levothyroxine Essential tremor- on primidone. DVT on eliqus DNR code status Cardiac diet for now, npo mn
[2018-08-20] MEDS: DEXTROSE 5%-LR W/20MEQ KCL 1,000 ML IV SCH (16:15)
[2018-08-20] MEDS ORDERED: ONDANSETRON 4 MG/2 ML VIAL IV PRN (16:30)
[2018-08-20] MEDS ORDERED: NALOXONE HCL 0.4 MG/ML VIAL IV PRN (16:30)
[2018-08-20] MEDS ORDERED: HYDROmorphone 2 MG TABLET PO PRN (16:30)
[2018-08-20] MEDS ORDERED: LORazepam 0.5 MG TABLET PO PRN (16:30)
[2018-08-20] MEDS ORDERED: ALBUTEROL SULFATE 2.5 MG/3 ML NEBULIZER NEB PRN (16:30)
[2018-08-20] MEDS: IPRATROPIUM/ALBUTEROL 3 ML AMPUL.NEB NEB SCH (19:24)
[2018-08-20] MEDS ORDERED: PRIMIDONE 50 MG TABLET PO SCH (21:00)
[2018-08-20] MEDS ORDERED: THIAMINE 100 MG TABLET PO SCH (21:00)
[2018-08-20] MEDS ORDERED: ISOSORBIDE MONONITRATE 30 MG TAB.XL.24H PO SCH (21:00)
[2018-08-20] MEDS ORDERED: ACETAMINOPHEN 325 MG TABLET PO SCH (21:00)
[2018-08-20] MEDS ORDERED: SENNOSIDES 1 TABLET PO SCH (21:00)
[2018-08-20] MEDS ORDERED: FLUTICASONE/SALMETEROL 250/50 INHALER #14 INH SCH (21:00)
[2018-08-20] MEDS ORDERED: MIRTAZAPINE 15 MG TABLET PO SCH (21:00)
[2018-08-20] MEDS: HYDROmorphone 2 MG/ML VIAL IV PRN (21:41)
[2018-08-20] MEDS: 0.9 % SODIUM CHLORIDE 10 ML SYRINGE IV SCH (21:44)
[2018-08-20] MEDS ORDERED: ACETAMINOPHEN 500 MG TABLET PO SCH (22:00)
[2018-08-20 22:41] LABS: Appearance,Urine CLEAR; Bacteria,Urine 0 /hpf (0); Bilirubin,Urine NEG (NEG); Color,Urine YELLOW; Glucose,Urine (UA) NEGATIVE (NEG); Leukocyte Esterase,Urine 75 /uL (NEG); Mucus,Urine FEW /hpf (0); Protein,Urine NEG (NEG); Specific Gravity,Urine 1.013 (1.000-1.035); Urine Blood NEG mg/dL (<0.03); Urine Hyaline Cast 10 /lpf (0-2); Urine RBC 1 /hpf (0-1); Urine Squamous Epithelial Cell < 1 /hpf (0-4); Urine WBC 3 /hpf (0-4); Urobilinogen,Urine NEG (NEG)
[2018-08-21] MEDS: IPRATROPIUM/ALBUTEROL 3 ML AMPUL.NEB NEB SCH ×4 (01:21→19:12)
[2018-08-21] MEDS: HYDROmorphone 2 MG/ML VIAL IV PRN (02:28)
[2018-08-21] MEDS ORDERED: HYDROmorphone 2 MG/ML VIAL IV ONE (03:24)
[2018-08-21] MEDS ORDERED: ACETAMINOPHEN 1,000 MG/100 ML BOTTLE IV ONE (03:24)
[2018-08-21] MEDS ORDERED: HYDROmorphone 2 MG/ML VIAL ONE ×2 (03:44→22:45)
[2018-08-21] MEDS: DEXTROSE 5%-LR W/20MEQ KCL 1,000 ML IV SCH (05:36)
[2018-08-21] MEDS: 0.9 % SODIUM CHLORIDE 10 ML SYRINGE IV SCH ×3 (05:36→21:48)
[2018-08-21] MEDS ORDERED: ceFAZolin 1 GM VIAL IV SCH ×3 (06:00→14:00)
[2018-08-21] MEDS ORDERED: ceFAZolin 1 GM VIAL IV ONE (06:20)
[2018-08-21] MEDS ORDERED: PROPOFOL 200 MG/20 ML VIAL IV ONE (06:25)
[2018-08-21] MEDS ORDERED: MIDAZOLAM 2 MG/2 ML VIAL IV ONE (06:25)
[2018-08-21] MEDS ORDERED: DEXAMETHASONE 10 MG/ML VIAL IV ONE (06:25)
[2018-08-21] MEDS ORDERED: LIDOCAINE HCL/PF 100 MG/5 ML SYRINGE IV ONE (06:25)
[2018-08-21] MEDS ORDERED: ONDANSETRON 4 MG/2 ML VIAL IV ONE (06:25)
[2018-08-21] MEDS ORDERED: PHENYLEPHRINE 10 MG/ML VIAL IV ONE (06:25)
[2018-08-21] MEDS ORDERED: TRANEXAMIC ACID 1,000 MG/10 ML VIAL IV ONE (06:25)
[2018-08-21 06:53] LABS: Basophils # (Auto) 0 K/mcL (0.0-0.3); Basophils % (Auto) 0.2 % (0.0-2.0); Eosinophils # (Auto) 0.3 K/mcL (0.0-0.7); Eosinophils % (Auto) 2.5 % (0.0-7.0); Granulocytes % (Auto) 86.7 % (38.0-78.0); Lymphocytes # (Auto) 0.9 K/mcL (1.5-4.8); Lymphocytes % (Auto) 6.7 % (15.5-49.0); Mean Cell Volume 91.7 fL (80.0-100.0); Mean Corpuscular HGB Conc 32.4 g/dL (31.0-36.0); Mean Corpuscular Hemoglobin 29.7 pg (26.0-34.0); Monocytes # (Auto) 0.5 K/mcL (0.1-0.9); Monocytes % (Auto) 3.9 % (1.0-12.0); Platelet Count 166 K/mcL (140-440); RBC 2.83 M/mcL (4.00-5.20); Red Cell Distribution Width 14.1 % (11.5-14.5)
[2018-08-21 06:54] LABS: ALT/SGPT 13 U/l (0-40); Albumin 3.1 gm/dL (3.2-5.2); Albumin/Globulin Ratio 1.1 (1.0-2.3); Alkaline Phosphatase 159 U/L (39-117); Bilirubin,Direct < 0.2 mg/dL (0.0-0.3); Blood Urea Nitrogen 43 mg/dl (8-23); Gamma Glutamyl Transpeptidase 186 U/L (5-36); Uric Acid 10.7 mg/dL (2.5-8.0)
[2018-08-21] MEDS ORDERED: FLUMAZENIL 0.1 MG/ML ML IV PRN (07:07)
[2018-08-21] MEDS ORDERED: ACETAMINOPHEN 800 MG/80 ML BOTTLE IV ONE (07:07)
[2018-08-21] MEDS ORDERED: MEPERIDINE 25 MG/ML SYRINGE IV PRN (07:07)
[2018-08-21] MEDS ORDERED: PROMETHAZINE 25 MG/ML VIAL IV PRN (07:07)
[2018-08-21] MEDS ORDERED: IPRATROPIUM/ALBUTEROL 3 ML AMPUL.NEB NEB PRN (07:07)
[2018-08-21] MEDS ORDERED: NALOXONE HCL 0.4 MG/ML VIAL IV PRN ×2 (07:07→08:33)
[2018-08-21] MEDS ORDERED: METOPROLOL TARTRATE 5 MG/5 ML VIAL IV PRN (07:07)
[2018-08-21] MEDS ORDERED: METHOCARBAMOL 1,000 MG/10 ML VIAL IV PRN (07:07)
[2018-08-21] MEDS ORDERED: ONDANSETRON 4 MG/2 ML VIAL IV PRN ×2 (07:07→08:33)
[2018-08-21] MEDS ORDERED: ePHEDrine 50 MG/ML AMPUL IV PRN (07:07)
[2018-08-21] MEDS ORDERED: diphenhydrAMINE 50 MG/ML VIAL IV PRN (07:07)
[2018-08-21] MEDS ORDERED: HYDROmorphone 2 MG/ML VIAL IV PRN ×2 (07:07→08:33)
[2018-08-21] MEDS ORDERED: ATROPINE SULFATE 0.4 MG/ML VIAL IV PRN (07:07)
[2018-08-21] MEDS ORDERED: LACTATED RINGERS 1,000 ML IV SCH ×3 (07:15→08:33)
[2018-08-21] MEDS ORDERED: LEVOTHYROXINE 100 MCG TABLET PO SCH (07:30)
[2018-08-21] MEDS ORDERED: PANTOPRAZOLE 40 MG TABLET PO SCH (07:30)
--- NOTE | 2018-08-21 07:33 | Brief Operative Note ---
Date of procedure: 08/21/18 Pre-op diagnosis: left hip basicervical femoral neck fracture Post-op diagnosis: same Procedure: left hip gamma nail Grafts/Implants: Yes Anesthesia: GETA Complications: none Surgeon: Steven Soler Android Software Engineer: Ana Travis Estimated blood loss (cc): 100 Specimens Removed/Pathology: none sent Condition: stable Disposition: PACU
[2018-08-21] MEDS ORDERED: BENZOCAINE/MENTHOL 1 LOZENGE PO PRN ×2 (07:35→08:33)
[2018-08-21] MEDS ORDERED: HYDROcodone/APAP 5/325MG TABLET PO PRN (07:35)
[2018-08-21] MEDS ORDERED: MAGNESIUM HYDROXIDE 30 ML ORAL.SUSP PO PRN ×2 (07:35→08:33)
[2018-08-21] MEDS ORDERED: BISACODYL 10 MG SUPP.RECT PR PRN ×2 (07:35→08:33)
[2018-08-21] MEDS ORDERED: POLYETHYLENE GLYCOL 3350 17 GM PACKET PO PRN ×2 (07:35→08:33)
[2018-08-21] MEDS ORDERED: METHOCARBAMOL 750 MG TABLET PO PRN (07:35)
[2018-08-21] MEDS ORDERED: 0.9 % SODIUM CHLORIDE 10 ML SYRINGE IV PRN ×2 (07:35→08:33)
[2018-08-21] MEDS ORDERED: FLEETS ADULT ENEMA PR PRN ×2 (07:35→08:33)
[2018-08-21] MEDS: fentaNYL 100 MCG/2 ML VIAL IV PRN ×4 (07:39→08:05)
[2018-08-21] MEDS ORDERED: HYDROmorphone 2 MG TABLET PO PRN (08:33)
[2018-08-21] MEDS ORDERED: ALBUTEROL SULFATE 2.5 MG/3 ML NEBULIZER NEB PRN (08:33)
[2018-08-21] MEDS ORDERED: DEXTROSE 5%-LR W/20MEQ KCL 1,000 ML IV SCH (08:33)
[2018-08-21] MEDS ORDERED: LORazepam 0.5 MG TABLET PO PRN (08:33)
--- NOTE | 2018-08-21 08:54 | XRay Report ---
HISTORY: Post repair of a left hip fracture. FINDINGS: There is good alignment following open reduction internal fixation of the fractured left femoral neck. A any is been inserted through the top of the greater trochanter into the shaft of the femur. There is a crossing any which extends through the femoral neck into the head. The varus angulation seen preoperatively has been corrected. No new fracture has developed. IMPRESSION: good alignment following internal fixation of the fractured proximal left femur Interpreted and Authenticated by: Josh Kwon 08/21/18
[2018-08-21] MEDS ORDERED: SERTRALINE 50 MG TABLET PO SCH (09:00)
[2018-08-21] MEDS ORDERED: ACETAMINOPHEN 500 MG TABLET PO SCH (09:00)
[2018-08-21] MEDS ORDERED: METOPROLOL SUCCINATE 50 MG TAB.XL.24H PO SCH (09:00)
[2018-08-21] MEDS ORDERED: DOCUSATE SODIUM 100 MG CAPSULE PO SCH (09:00)
[2018-08-21] MEDS ORDERED: ACETAMINOPHEN 500 MG TABLET PO PRN ×2 (09:15→16:40)
--- NOTE | 2018-08-21 09:27 | History and Physical Report ---
DATE OF ADMISSION: 08/20/2018 HISTORY OF PRESENT ILLNESS: The patient is a 78-year-old female who had a fall yesterday injuring her left hip and hitting her head. She was found by her care facility and presented to the Emergency Room where she was found to have a left hip fracture by the emergency room, causing orthopedic consultation. Otherwise, she denies any other acute symptoms or complaints including chest pain, neck pain, nausea or vomiting. PAST MEDICAL HISTORY: AFib; coronary artery disease; COPD; hypertension; hyperlipidemia; peripheral vascular disease; peripheral neuropathy; chronic back pain; stage III, kidney disease; carotid artery disease; aortic stenosis; aortic valve replacement; essential tremor; depression; anemia; B12 deficiency; and history of malignant breast cancer. PAST SURGICAL HISTORY: Mastectomy of the right breast in 2006 and an aortic valve replacement as well as a left lower femoral artery angiogram stent placed in 2017. FAMILY HISTORY: Not pertinent. SOCIAL HISTORY: [facility]. She is an ex-smoker. She quit recently. MEDICATIONS: Levothyroxine, losartan, Eliquis, hydrocodone, torsemide, ipratropium, albuterol sulfate, primidone, fluticasone, salmeterol, ipratropium/albuterol inhaler, cilostazol, isosorbide mononitrate, pantoprazole, potassium chloride, lorazepam, metoprolol succinate, mirtazapine, and sertraline. ALLERGIES: LEVOFLOXACIN. Review of Systems: 10 point system was reviewed and is negative except as documented in HPI PHYSICAL EXAMINATION: VITAL SIGNS: Heart rate of 98.1, respirations of 18, blood pressure 99/52, oxygen 95 on 3 liters. GENERAL: The patient is frail, but does not appear in distress and is resting comfortably in the bed and is alert and oriented x3. HEAD, EYES, EARS, NOSE, AND THROAT: Head is atraumatic and normocephalic. Cranial nerves grossly intact. Mouth: Mucous membranes are moist. No lesions are noted. NECK: Normal inspection. No tenderness. The neck is supple. No lymphadenopathy. CHEST: Clear to auscultation bilaterally besides rhonchi occasionally noted throughout both lung sosa. No tenderness to palpation throughout the chest. CARDIOVASCULAR: Regular rate and rhythm. There is a systolic ejection murmur approximately grade III/. ABDOMEN: Soft, nontender, no distension, no hepatosplenomegaly noted. EXTREMITIES: She is neurovascularly intact in all extremities. She has a shortened left lower extremity that is externally rotated and extreme tenderness with palpation or movement of the left lower extremity. NEUROLOGIC: Other than stated earlier cranial nerves II-XII are grossly intact. PSYCHIATRIC: Normal affect, normal mood, appropriate behavior. SKIN: No ulceration or wounds noted or abrasions or lacerations. No rash noted. Imaging of the left hip shows a left fracture of the base of the cervical neck of the femur that is closed and minimally displaced. PLAN: The patient will be followed for her medical needs with the hospitalist and orthopedics will plan on an open reduction and internal fixation of the left femur fracture via cephalomedullary nailing with Dr. Soler. Plan will be to admit for the and discharge on Friday back to her care facility. KT:hn Job ID: [id number] Doc ID: [id number] Андрей PALMER
[2018-08-21] MEDS: PRIMIDONE 50 MG TABLET PO SCH ×2 (11:06→21:47)
[2018-08-21] MEDS: DOCUSATE SODIUM 100 MG CAPSULE PO SCH ×2 (11:06→21:47)
[2018-08-21] MEDS: SERTRALINE 50 MG TABLET PO SCH (11:06)
[2018-08-21] MEDS: ISOSORBIDE MONONITRATE 30 MG TAB.XL.24H PO SCH ×2 (11:07→21:45)
[2018-08-21] MEDS: METOPROLOL SUCCINATE 50 MG TAB.XL.24H PO SCH (11:07)
[2018-08-21] MEDS: HYDROcodone/APAP 5/325MG TABLET PO PRN ×3 (12:11→21:50)
[2018-08-21] MEDS: FLUTICASONE/SALMETEROL 250/50 INHALER #14 INH SCH ×2 (14:09→21:47)
--- NOTE | 2018-08-21 14:35 | Internal Med Progress Note ---
Medical - PN: Subj Patient information: Note initiated : 08/21/18 at 2:32 pm Service Date, if different from initiated Date: [] Patient: Valeria Negron a 78 y/o F admitted on 08/20/18 for Fall, Hit Head. Chief Complaint: [] Interval history: Ms. Negron is a 78 year old F with multiple medical issues, feel in the bathroom this AM, some [facility] to her head[facility], but not witnessed, denies any loss of consciousness. The patient was found 1 hr later as per ER staff and then brought to the hospital for further management. Daughter was present at the bedside at the time of evaluation. The patient was not feeling well since yesterday according to the daughter. Her son 2 days ago who is also living in the same shelter as the patient. She has not been eating well since. The patient had been living at [facility], she was admitted last in this facility I believe in February. The patient denies any headache changes in vision difficulty in swallowing chest pain shortness of breath cough no abdominal pain no nausea no vomiting no urinary complaints she has severe pain in the left hip region. Denies any other acute complaints or concerns. Her main concern was pain. The patient usually uses a walker to ambulate or a wheelchair. MET would be less than 4 She has a history of congestive heart failure, but preserved ejection fraction, she has grade 3 diastolic dysfunction. She has COPD, coronary artery disease paroxysmal atrial flutter on anticoagulation, by prostatic aortic valve. She has chronic kidney disease, baseline creatinine is around 1.5, although there is no mention about TIA or stroke, the past medical history reveals occlusion and stenosis of bilateral carotid arteries( prob list from pcp 02/17/18) . I would at least infer from this that the patient had significant carotid artery disease. On presentation to the emergency room patient was afebrile heart rate 72 blood pressure 125/65 saturating 99% on room air respirations 18. Labs showed WBC count of 10.6 hemoglobin 10.5 platelets 240 sodium 138 potassium 4.3 bicarbonate 28 creatinine 1.9 baseline around 1.5 BUN 43 glucose 96 X-ray of the hip shows left intertrochanteric hip fracture acute, Chest x-ray is negative for acute infiltrates or heart failure. EKG shows sinus rhythm T wave flattening in the lateral leads nonspecific ST-T wave changes, QS pattern in V1 to V3 indicative of old anteroseptal [place]. I reviewed the echocardiogram done during the previous visit as well as earlier this year, shows patient has normal ejection fraction and grade 3 diastolic dysfunction. 08/21 Pt seen examined, no acute overnight issues, seen post op, was drowsy, had no complaints was on oxygen. It seems surgery went well daughter by bed side Pertinent ROS: Denies headache, dizziness Denies chest pain, palpitations Denies cough or shortness of breath Denies abdominal pain, nausea or vomiting. Pt was quite drowsy, and denied any complaints - Constitutional Vitals: Vital Signs Temp Pulse Resp BP Pulse Ox 98.4 F 88 16 132/72 94 08/21/18 12:18 08/21/18 13:28 08/21/18 13:28 08/21/18 11:30 08/21/18 13:28 Period Temp Pulse Resp BP Sys/Francisco Pulse Ox Last 24 Hr 97.6 F-99.1 F 71-98 10-23 95-169/49-87 90-100 Intake and Output 08/21/18 08/21/18 08/21/18 05:59 13:59 21:59 Intake Total 1100 / 1100 770 / 770 Output Total 300 / 300 225 / 225 Balance 800 / 800 545 / 545 Weight 124 lb 5 oz Patient Weight 08/22/18 05:59 Weight 124 lb 5 oz Intake & Output: Intake & Output 08/21/18 08/21/18 08/21/18 05:59 13:59 21:59 Intake Total 1100 / 1100 770 / 770 Output Total 300 / 300 225 / 225 Balance 800 / 800 545 / 545 Weight 124 lb 5 oz Intake: IV 1100 / 1100 Dextrose 5%-Lr W/20Meq KCl 1, 1000 / 1000 000 ml @ 75 mls/hr IV .[id number] [facility] Rx#:[id number] Oral 120 / 120 IV - Manual Only 650 / 650 Output: Urine Catheter Amount 300 / 300 125 / 125 Estimated Blood Loss 100 / 100 Other: Urine Appearance Clear Urine Color Bright Yellow Straw Urine Odor Normal Exam: Constitutional; Afebrile, cooperative, drowsy Eyes- No icterus, , No periorbital swelling Ears- Ext ear normal, hearing normal to conversation. Neck- Midline trachea, supple Respiratory system: Air Entry equal on both sides, No crackles or wheezing, no rhonchi. CVS- Rate rhythm regular, S1,S2 heard, no gallop, no rub. Abdomen- Soft nontender abdomen, no organomegaly, no tenderness, no guarding or rigidity, MEDIA RECONCILIATION SPECIALIST- AOOx3, moving all extremities, no gross focal deficit noted. Medical - PN: Obj Da - Labs CBC & Chem 7: 08/21/18 04:20 08/21/18 04:20 Labs: Abnormal Lab Results 08/21/18 08/21/18 08/20/18 04:20 04:20 21:30 WBC 12.8 H RBC 2.83 L Hgb 8.4 L Hct 25.9 L Gran % 86.7 H Lymph % (Auto) 6.7 L Gran # 11.1 H Lymph # (Auto) 0.9 L POC PT POC INR BUN 43 H Creatinine 2.0 H Glucose 138 H Uric Acid 10.7 H Calcium 8.0 L Magnesium 2.6 H GGT 186 H Alkaline Phosphatase 159 H Lactate Dehydrogenase 328 H Albumin 3.1 L Ur Leukocyte Esterase 75 A Hyaline Casts 10 H 08/20/18 08/20/18 08/20/18 13:37 12:06 12:06 WBC RBC 3.47 L Hgb 10.5 L Hct 31.7 L Gran % 78.8 H Lymph % (Auto) 14.2 L Gran # 8.3 H Lymph # (Auto) POC PT 17.3 H POC INR 1.5 H BUN 43 H Creatinine 1.9 H Glucose Uric Acid Calcium Magnesium GGT Alkaline Phosphatase 222 H Lactate Dehydrogenase Albumin Ur Leukocyte Esterase Hyaline Casts Meds: Medications Acetaminophen (Tylenol) 1,000 mg PO TIDP PRN PRN Reason: PAIN/FEVER > 101 Hydrocodone Bitart/Acetaminophen ([place] 5/325mg) 0 tab PO Q4HP PRN PRN Reason: PAIN LEVEL 3-6 Last Admin: 08/21/18 12:11 Dose: 1 tab Albuterol Sulfate (Ventolin) 2.5 mg NEB Q2HP PRN PRN Reason: Shortness Of Breath Albuterol/Ipratropium (Duoneb) 3 ml NEB Q6HRT [facility] Stop: 08/22/18 01:01 Last Admin: 08/21/18 13:27 Dose: 3 ml Apixaban (Eliquis) 2.5 mg PO BID [facility] Bisacodyl (Dulcolax) [address] Q2-3DAYS PRN PRN Reason: Constipation Cefazolin Sodium (Ancef) 1 gm IV Q8H [facility] Stop: 08/22/18 00:01 Docusate Sodium (Colace) 100 mg PO BID [facility] Last Admin: 08/21/18 11:06 Dose: 100 mg Hydromorphone HCl (Dilaudid) 0.5 mg IV Q2HP PRN PRN Reason: PAIN LEVEL > 6 Potassium Cl/Dextrose/Lact Ringer's (Dextrose 5%-Lr W/20meq Kcl) 1,000 mls @ 75 mls/hr IV .[id number] [facility] Stop: 08/21/18 19:09 Last Admin: 08/21/18 10:19 Dose: Not Given Isosorbide Mononitrate (Imdur) 30 mg PO BID [facility] Last Admin: 08/21/18 11:07 Dose: 30 mg Levothyroxine Sodium (Synthroid) 100 mcg PO QAMAC [facility] Lorazepam (Ativan) 0.5 mg PO Q6HP PRN PRN Reason: Anxiety Magnesium Hydroxide (Milk Of Magnesia) 30 ml PO BIDP PRN PRN Reason: Constipation Methocarbamol (Robaxin) 750 mg PO Q6HP PRN PRN Reason: Muscle Spasm Metoprolol Succinate (Toprol Xl) 100 mg PO DAILY [facility] Last Admin: 08/21/18 11:07 Dose: 100 mg Mirtazapine (Remeron) 7.5 mg PO HS [facility] Naloxone HCl (Narcan) 0.1 mg IV Q2MIN PRN PRN Reason: Opiate Reversal Ondansetron HCl (Zofran) 4 mg IV Q6HP PRN PRN Reason: Nausea And Vomiting Pantoprazole Sodium (Protonix) 40 mg PO QAMAC [facility] Polyethylene Glycol (Miralax) 17 gm PO DAILYP PRN PRN Reason: Constipation Primidone (Mysoline) 100 mg PO BID [facility] Last Admin: 08/21/18 11:06 Dose: 100 mg Fluticasone/Salmeterol (Advair 250-50 Diskus) 1 puff INH BID [facility] Last Admin: 08/21/18 14:09 Dose: 1 puff Senna (Senokot) 2 tab PO HS [facility] Sertraline HCl (Zoloft) 50 mg PO DAILY [facility] Last Admin: 08/21/18 11:06 Dose: 50 mg Sodium Biphosphate/Sodium Phosphate (Fleets Adult) [address] Q3-4DAYS PRN PRN Reason: Constipation Sodium Chloride (Saline Flush) 10 ml IV Q8 [facility] Last Admin: 08/21/18 14:09 Dose: 10 ml Sodium Chloride (Saline Flush) 10 ml IV Q1H PRN PRN Reason: To maintain patency Thiamine HCl (Vitamin B1) 100 mg PO HS [facility] Throat Lozenges (Cepacol) 1 lozenge PO PRN PRN PRN Reason: Sore Throat Medical - PN: A/P - Time Spent With Patient Total time spent is greater than 50% in coordination of care (as documented) at patient's floor/unit and/or counseling patient: - Narrative A/P Narrative: A/P Left Hip Fracture- Ortho consulted by ER, s/p surgery today. Preop Eval- high risk for kj mortality and morbidity. CHF-with preserved ejection fraction, grade 3 diastolic dysfunction. Chest x- ray is negative for acute pulmonary edema. No crackles on examination. Monitor continue home medications. resume home diuretic regime from tomorrow. Atrial fibrillation atrial flutter-this is paroxysmal in nature EKG shows sinus rhythm. Patient is on chronic anticoagulation with Eliquis 2.5 mg twice a day. resumed beta deion and eliquis post surgery. Hypertension-BP stable continue home medications hold losartan, can resume from tomorrow. Hyperlipidemia-continue statin COPD-patient has history of COPD, she is not wheezing at present, air entry is good however we will use duo nebs every 6 hours scheduled for now and later transition her to as needed. CAD/Carotid artery disease/PVD- Stable at this time, pt on cilastazol ( antiplatlet), resume from tomorrow. Hypothyroidism- continue home dose of levothyroxine Essential tremor- on primidone. DVT on eliqus DNR code status Cardiac diet to resume Medical - PN: Qual - Stroke Symptom Onset Unknown: No - VTE Deep Vein Thrombosis/Pulmonary Embolism Present on Admission: No
--- NOTE | 2018-08-21 14:58 | Internal Med Progress Note ---
Medical - PN: Subj Patient information: Note initiated : 08/21/18 at 2:49 pm Service Date, if different from initiated Date: [] Patient: Valeria Negron a 78 y/o F admitted on 08/20/18 for Fall, Hit Head. Chief Complaint: [] Interval history: Ms. Negron is a 78 year old F with multiple medical issues, feel in the bathroom this AM, some injury to her head, [facility] as per patient, but not witnessed, denies any loss of consciousness. The patient was found 1 hr later as per ER staff and then brought to the hospital for further management. Daughter was present at the bedside at the time of evaluation. The patient was not feeling well since yesterday according to the daughter. Her son 2 days ago who is also living in the same snf as the patient. She has not been eating well since. The patient had been living at [facility], she was admitted last in this facility I believe in February. The patient denies any headache changes in vision difficulty in swallowing chest pain shortness of breath cough no abdominal pain no nausea no vomiting no urinary complaints she has severe pain in the left hip region. Denies any other acute complaints or concerns. Her main concern was pain. The patient usually uses a walker to ambulate or a wheelchair. MET would be less than 4 She has a history of congestive heart failure, but preserved ejection fraction, she has grade 3 diastolic dysfunction. She has COPD, coronary artery disease paroxysmal atrial flutter on anticoagulation, by prostatic aortic valve. She has chronic kidney disease, baseline creatinine is around 1.5, although there is no mention about TIA or stroke, the past medical history reveals occlusion and stenosis of bilateral carotid arteries( prob list from pcp 02/17/18) . I would at least infer from this that the patient had significant carotid artery disease. On presentation to the emergency room patient was afebrile heart rate 72 blood pressure 125/65 saturating 99% on room air respirations 18. Labs showed WBC count of 10.6 hemoglobin 10.5 platelets 240 sodium 138 potassium 4.3 bicarbonate 28 creatinine 1.9 baseline around 1.5 BUN 43 glucose 96 X-ray of the hip shows left intertrochanteric hip fracture acute, Chest x-ray is negative for acute infiltrates or heart failure. EKG shows sinus rhythm T wave flattening in the lateral leads nonspecific ST-T wave changes, QS pattern in V1 to V3 indicative of old anteroseptal [place]. I reviewed the echocardiogram done during the previous visit as well as earlier this year, shows patient has normal ejection fraction and grade 3 diastolic dysfunction. 08/21 Pt seen examined, no acute overnight issues, seen post op, was drowsy, had no complaints was on oxygen. It seems surgery went well daughter by bed side 08/22 - Constitutional Vitals: Vital Signs Temp Pulse Resp BP Pulse Ox 98.4 F 88 16 132/72 94 08/21/18 12:18 08/21/18 13:28 08/21/18 13:28 08/21/18 11:30 08/21/18 13:28 Period Temp Pulse Resp BP Sys/Francisco Pulse Ox Last 24 Hr 97.6 F-99.1 F 71-98 07-21 95-169/49-87 90-100 Intake and Output 08/21/18 08/21/18 08/21/18 05:59 13:59 21:59 Intake Total 1100 / 1100 770 / 770 Output Total 300 / 300 225 / 225 Balance 800 / 800 545 / 545 Weight 56.387 kg Patient Weight 08/22/18 05:59 Weight 56.387 kg Intake & Output: Intake & Output 08/21/18 08/21/18 08/21/18 05:59 13:59 21:59 Intake Total 1100 / 1100 770 / 770 Output Total 300 / 300 225 / 225 Balance 800 / 800 545 / 545 Weight 56.387 kg Intake: IV 1100 / 1100 Dextrose 5%-Lr W/20Meq KCl 1, 1000 / 1000 000 ml @ 75 mls/hr IV .[id number] [facility] Rx#:[id number] Oral 120 / 120 IV - Manual Only 650 / 650 Output: Urine Catheter Amount 300 / 300 125 / 125 Estimated Blood Loss 100 / 100 Other: Urine Appearance Clear Urine Color Bright Yellow Straw Urine Odor Normal Exam: General: Alert, Awake, No acute Distress Eyes/N/T: EOMI Head/Neck: neck supple, CV: No murmurs, Pulm: Clear b/l, no wheezing/rhonchi/rales Abd: soft, nontender, +BS x4 Ext: no clubbing/cyanosis/edema Neuro: Alert, no focal deficits, moves all extremities Skin: warm/dry Medical - PN: Obj Da - Labs CBC & Chem 7: 08/21/18 04:20 08/21/18 04:20 Labs: Abnormal Lab Results 08/21/18 08/21/18 08/20/18 04:20 04:20 21:30 WBC 12.8 H RBC 2.83 L Hgb 8.4 L Hct 25.9 L Gran % 86.7 H Lymph % (Auto) 6.7 L Gran # 11.1 H Lymph # (Auto) 0.9 L POC PT POC INR BUN 43 H Creatinine 2.0 H Glucose 138 H Uric Acid 10.7 H Calcium 8.0 L Magnesium 2.6 H GGT 186 H Alkaline Phosphatase 159 H Lactate Dehydrogenase 328 H Albumin 3.1 L Ur Leukocyte Esterase 75 A Hyaline Casts 10 H 08/20/18 08/20/18 08/20/18 13:37 12:06 12:06 WBC RBC 3.47 L Hgb 10.5 L Hct 31.7 L Gran % 78.8 H Lymph % (Auto) 14.2 L Gran # 8.3 H Lymph # (Auto) POC PT 17.3 H POC INR 1.5 H BUN 43 H Creatinine 1.9 H Glucose Uric Acid Calcium Magnesium GGT Alkaline Phosphatase 222 H Lactate Dehydrogenase Albumin Ur Leukocyte Esterase Hyaline Casts Meds: Medications Acetaminophen (Tylenol) 1,000 mg PO TIDP PRN PRN Reason: PAIN/FEVER > 101 Hydrocodone Bitart/Acetaminophen ([place] 5/325mg) 0 tab PO Q4HP PRN PRN Reason: PAIN LEVEL 3-6 Last Admin: 08/21/18 12:11 Dose: 1 tab Albuterol Sulfate (Ventolin) 2.5 mg NEB Q2HP PRN PRN Reason: Shortness Of Breath Albuterol/Ipratropium (Duoneb) 3 ml NEB Q6HRT [facility] Stop: 08/22/18 01:01 Last Admin: 08/21/18 13:27 Dose: 3 ml Apixaban (Eliquis) 2.5 mg PO BID [facility] Bisacodyl (Dulcolax) 10 mg DE Q2-3DAYS PRN PRN Reason: Constipation Cefazolin Sodium (Ancef) 1 gm IV Q8H [facility] Stop: 08/22/18 00:01 Cilostazol (Pletal) 50 mg PO BIDAC [facility] Docusate Sodium (Colace) 100 mg PO BID [facility] Last Admin: 08/21/18 11:06 Dose: 100 mg Hydromorphone HCl (Dilaudid) 0.5 mg IV Q2HP PRN PRN Reason: PAIN LEVEL > 6 Potassium Cl/Dextrose/Lact Ringer's (Dextrose 5%-Lr W/20meq Kcl) 1,000 mls @ 75 mls/hr IV .[id number] [facility] Stop: 08/21/18 19:09 Last Admin: 08/21/18 10:19 Dose: Not Given Isosorbide Mononitrate (Imdur) 30 mg PO BID [facility] Last Admin: 08/21/18 11:07 Dose: 30 mg Levothyroxine Sodium (Synthroid) 100 mcg PO QAMAC [facility] Lorazepam (Ativan) 0.5 mg PO Q6HP PRN PRN Reason: Anxiety Losartan Potassium (Cozaar) 25 mg PO DAILY [facility] Magnesium Hydroxide (Milk Of Magnesia) 30 ml PO BIDP PRN PRN Reason: Constipation Methocarbamol (Robaxin) 750 mg PO Q6HP PRN PRN Reason: Muscle Spasm Metoprolol Succinate (Toprol Xl) 100 mg PO DAILY [facility] Last Admin: 08/21/18 11:07 Dose: 100 mg Mirtazapine (Remeron) 7.5 mg PO HS [facility] Naloxone HCl (Narcan) 0.1 mg IV Q2MIN PRN PRN Reason: Opiate Reversal Ondansetron HCl (Zofran) 4 mg IV Q6HP PRN PRN Reason: Nausea And Vomiting Pantoprazole Sodium (Protonix) 40 mg PO QAMAC [facility] Polyethylene Glycol (Miralax) 17 gm PO DAILYP PRN PRN Reason: Constipation Potassium [facility] ([facility]) [facility] Primidone (Mysoline) 100 mg PO BID [facility] Last Admin: 08/21/18 11:06 Dose: 100 mg Fluticasone/Salmeterol (Advair 250-50 Diskus) 1 puff INH BID [facility] Last Admin: 08/21/18 14:09 Dose: 1 puff Senna (Senokot) 2 tab PO HS [facility] Sertraline HCl (Zoloft) 50 mg PO DAILY [facility] Last Admin: 08/21/18 11:06 Dose: 50 mg Sodium Biphosphate/Sodium Phosphate (Fleets Adult) 1 dose DE Q3-4DAYS PRN PRN Reason: Constipation Sodium Chloride (Saline Flush) 10 ml IV Q8 [facility] Last Admin: 08/21/18 14:09 Dose: 10 ml Sodium Chloride (Saline Flush) 10 ml IV Q1H PRN PRN Reason: To maintain patency Thiamine HCl (Vitamin B1) 100 mg PO HS [facility] Throat Lozenges (Cepacol) 1 lozenge PO PRN PRN PRN Reason: Sore Throat Torsemide (Demadex) 20 mg PO DAILY [facility] Medical - PN: A/P - Time Spent With Patient Total time spent is greater than 50% in coordination of care (as documented) at patient's floor/unit and/or counseling patient: - Narrative A/P Narrative: A: *Left Hip Fracture: s/p ORIF (08/21) -Preop Eval: high risk for kj mortality and morbidity. *h/o diastolic(III) CHF: stable at this time *PAF/flutter: Patient is on chronic anticoagulation with Eliquis 2.5 mg twice a day. *HTN/HLD: *COPD(): *CAD/PVD: pt on cilastazol *Hypothyroidism: continue home levothyroxine *Essential tremor: on primidone. *FTT: ?related to recent passing of her son * P: -Ortho following -pain control -PT/OT -resume home diuretic regimen tomorrow -cont home BB, resume ARB in AM - - -CM for placement -ppx: eliquis No Code Medical - PN: Qual - Stroke Symptom Onset Unknown: No - VTE Deep Vein Thrombosis/Pulmonary Embolism Present on Admission: No
[2018-08-21] MEDS: ceFAZolin 1 GM VIAL IV SCH (15:31)
[2018-08-21] MEDS: CILOSTAZOL 100 MG TABLET PO SCH (16:22)
[2018-08-21] MEDS: METHOCARBAMOL 750 MG TABLET PO PRN (18:59)
--- NOTE | 2018-08-21 19:42 | Cat Scan Report ---
History: Anticoagulated, fell, hit head and headaches TECHNIQUE: The brain was imaged without contrast at 2.5 mm intervals. Radiation exposure was limited using dose reduction technology. FINDINGS: Generalized cerebral atrophy is present. There is white matter disease in the frontal and parietal lobes. No infarct or mass are detected. There is no hemorrhage or cerebral edema. No abnormal extra-axial fluid collection has formed. There has been no change from the prior exam done yesterday. The bone windows show no skull fracture. IMPRESSION: stable age-related degenerative changes and no acute abnormality. Dr. Costello was called with the results Interpreted and Authenticated by: Josh Kwon 08/21/18
[2018-08-21] MEDS ORDERED: SENNOSIDES 1 TABLET PO SCH (21:00)
[2018-08-21] MEDS: SENNOSIDES 1 TABLET PO SCH (21:46)
[2018-08-21] MEDS: THIAMINE 100 MG TABLET PO SCH (21:46)
[2018-08-21] MEDS: APIXABAN 2.5 MG TABLET PO SCH (21:46)
[2018-08-21] MEDS: MIRTAZAPINE 15 MG TABLET PO SCH (21:47)
[2018-08-22] MEDS: ceFAZolin 1 GM VIAL IV SCH (00:03)
[2018-08-22] MEDS: IPRATROPIUM/ALBUTEROL 3 ML AMPUL.NEB NEB SCH (00:07)
[2018-08-22] MEDS: HYDROcodone/APAP 5/325MG TABLET PO PRN ×4 (03:28→21:40)
[2018-08-22] MEDS: 0.9 % SODIUM CHLORIDE 10 ML SYRINGE IV SCH ×3 (05:09→21:43)
[2018-08-22] MEDS: HYDROmorphone 2 MG/ML VIAL IV PRN ×4 (05:10→21:56)
[2018-08-22 06:54] LABS: Basophils # (Auto) 0 K/mcL (0.0-0.3); Basophils % (Auto) 0.2 % (0.0-2.0); Eosinophils # (Auto) 1.4 K/mcL (0.0-0.7); Eosinophils % (Auto) 11.4 % (0.0-7.0); Granulocytes % (Auto) 75.2 % (38.0-78.0); Lymphocytes # (Auto) 0.9 K/mcL (1.5-4.8); Lymphocytes % (Auto) 7.8 % (15.5-49.0); Mean Cell Volume 93.4 fL (80.0-100.0); Mean Corpuscular HGB Conc 32.4 g/dL (31.0-36.0); Mean Corpuscular Hemoglobin 30.2 pg (26.0-34.0); Monocytes # (Auto) 0.6 K/mcL (0.1-0.9); Monocytes % (Auto) 5.4 % (1.0-12.0); Platelet Count 129 K/mcL (140-440); RBC 2.84 M/mcL (4.00-5.20); Red Cell Distribution Width 14.7 % (11.5-14.5)
--- NOTE | 2018-08-22 07:03 | Internal Med Progress Note ---
Medical - PN: Subj Patient information: Note initiated : 08/22/18 at 6:53 am Service Date, if different from initiated Date: [] Patient: Valeria Negron a 78 y/o F admitted on 08/20/18 for Fall, Hit Head. Chief Complaint: [] Interval history: Ms. Negron is a 78 year old F with multiple medical issues, feel in the bathroom this AM, some injury to her head, [facility] fall as per patient, but not witnessed, denies any loss of consciousness. The patient was found 1 hr later as per ER staff and then brought to the hospital for further management. Daughter was present at the bedside at the time of evaluation. The patient was not feeling well since yesterday according to the daughter. Her son 2 days ago who is also living in the same alf as the patient. She has not been eating well since. The patient had been living at [facility], she was admitted last in this facility I believe in February. The patient denies any headache changes in vision difficulty in swallowing chest pain shortness of breath cough no abdominal pain no nausea no vomiting no urinary complaints she has severe pain in the left hip region. Denies any other acute complaints or concerns. Her main concern was pain. The patient usually uses a walker to ambulate or a wheelchair. MET would be less than 4 She has a history of congestive heart failure, but preserved ejection fraction, she has grade 3 diastolic dysfunction. She has COPD, coronary artery disease paroxysmal atrial flutter on anticoagulation, by prostatic aortic valve. She has chronic kidney disease, baseline creatinine is around 1.5, although there is no mention about TIA or stroke, the past medical history reveals occlusion and stenosis of bilateral carotid arteries( prob list from pcp 02/17/18) . I would at least infer from this that the patient had significant carotid artery disease. On presentation to the emergency room patient was afebrile heart rate 72 blood pressure 125/65 saturating 99% on room air respirations 18. Labs showed WBC count of 10.6 hemoglobin 10.5 platelets 240 sodium 138 potassium 4.3 bicarbonate 28 creatinine 1.9 baseline around 1.5 BUN 43 glucose 96 X-ray of the hip shows left intertrochanteric hip fracture acute, Chest x-ray is negative for acute infiltrates or heart failure. EKG shows sinus rhythm T wave flattening in the lateral leads nonspecific ST-T wave changes, QS pattern in V1 to V3 indicative of old anteroseptal [place]. I reviewed the echocardiogram done during the previous visit as well as earlier this year, shows patient has normal ejection fraction and grade 3 diastolic dysfunction. 08/21 Pt seen examined, no acute overnight issues, seen post op, was drowsy, had no complaints was on oxygen. It seems surgery went well daughter by bed side 08/22 Was in a lot of pain yesterday evening after surgery, pain regimen was adjusted with better control. Says she had a little sleep last night. She denies any coughing or shortness of breath, hip pain better controlled. Review of Systems: denies headache/fever/chills/nausea/vomiting/chest or abdominal pain/cough/ dyspnea/diarrhea. Otherwise see above. - Constitutional Vitals: Vital Signs Temp Pulse Resp BP Pulse Ox 98.3 F 85 18 129/58 100 08/22/18 03:19 08/22/18 03:19 08/22/18 03:19 08/22/18 03:19 08/22/18 03:19 Period Temp Pulse Resp BP Sys/Francisco Pulse Ox Last 24 Hr 97.6 F-98.9 F 74-98 10-20 90-169/45-87 88-100 Intake and Output 08/21/18 08/22/18 08/22/18 21:59 05:59 13:59 Intake Total 1500 / 1500 Output Total 350 / 350 425 / 425 Balance -350 / -350 1075 / 1075 Weight 56.699 kg Intake & Output: Intake & Output 08/21/18 08/22/18 08/22/18 21:59 05:59 13:59 Intake Total 1500 / 1500 Output Total 350 / 350 425 / 425 Balance -350 / -350 1075 / 1075 Weight 56.699 kg Intake: IV 1000 / 1000 Oral 500 / 500 Output: Urine Catheter Amount 350 / 350 425 / 425 Other: Meal Dinner Percent of Meal Consumed 25% Feeding Ability Assist with Tray Set Up Urine Appearance Clear Urine Color Bright Yellow Dark Yellow Urine Odor Normal Normal Exam: General: Alert, Awake, No acute Distress Eyes/N/T: EOMI Head/Neck: neck supple, CV: regular at this time, 2/6 SM, Pulm: mild left base rales, no wheezing Abd: soft, nontender, +BS x4 Ext: no clubbing/cyanosis/edema Neuro: Alert, no focal deficits, moves all extremities Skin: warm/dry Medical - PN: Obj Da - Labs CBC & Chem 7: 08/22/18 04:41 08/22/18 04:41 Labs: Abnormal Lab Results 08/21/18 08/21/18 08/20/18 04:20 04:20 21:30 WBC 12.8 H RBC 2.83 L Hgb 8.4 L Hct 25.9 L Gran % 86.7 H Lymph % (Auto) 6.7 L Gran # 11.1 H Lymph # (Auto) 0.9 L POC PT POC INR BUN 43 H Creatinine 2.0 H Glucose 138 H Uric Acid 10.7 H Calcium 8.0 L Magnesium 2.6 H GGT 186 H Alkaline Phosphatase 159 H Lactate Dehydrogenase 328 H Albumin 3.1 L Ur Leukocyte Esterase 75 A Hyaline Casts 10 H 08/20/18 08/20/18 08/20/18 13:37 12:06 12:06 WBC RBC 3.47 L Hgb 10.5 L Hct 31.7 L Gran % 78.8 H Lymph % (Auto) 14.2 L Gran # 8.3 H Lymph # (Auto) POC PT 17.3 H POC INR 1.5 H BUN 43 H Creatinine 1.9 H Glucose Uric Acid Calcium Magnesium GGT Alkaline Phosphatase 222 H Lactate Dehydrogenase Albumin Ur Leukocyte Esterase Hyaline Casts Meds: Medications Acetaminophen (Tylenol) 500 mg PO Q6HP PRN PRN Reason: PAIN/FEVER > 101 Hydrocodone Bitart/Acetaminophen ([place] 5/325mg) 0 tab PO Q4HP PRN PRN Reason: PAIN LEVEL 3-6 Last Admin: 08/22/18 03:28 Dose: 2 tab Albuterol Sulfate (Ventolin) 2.5 mg NEB Q2HP PRN PRN Reason: Shortness Of Breath Apixaban (Eliquis) 2.5 mg PO BID [facility] Last Admin: 08/21/18 21:46 Dose: 2.5 mg Bisacodyl (Dulcolax) 10 mg [place] Q2-3DAYS PRN PRN Reason: Constipation [facility] Last Admin: 08/21/18 16:22 Dose: 50 mg Docusate Sodium (Colace) 100 mg PO BID [facility] Last Admin: 08/21/18 21:47 Dose: 100 mg Hydromorphone HCl (Dilaudid) 0 mg IV Q2HP PRN PRN Reason: PAIN LEVEL > 6 Last Admin: 08/22/18 05:10 Dose: 1 mg Isosorbide Mononitrate (Imdur) 30 mg PO BID [facility] Last Admin: 08/21/18 21:45 Dose: 30 mg Levothyroxine Sodium (Synthroid) 100 mcg PO QAMAC [facility] Lorazepam (Ativan) 0.5 mg PO Q6HP PRN PRN Reason: Anxiety Losartan Potassium (Cozaar) 25 mg PO DAILY [facility] Magnesium Hydroxide (Milk Of Magnesia) 30 ml PO BIDP PRN PRN Reason: Constipation Methocarbamol (Robaxin) 750 mg PO Q6HP PRN PRN Reason: Muscle Spasm Last Admin: 08/21/18 18:59 Dose: 750 mg Metoprolol Succinate (Toprol Xl) 100 mg PO DAILY [facility] Last Admin: 08/21/18 11:07 Dose: 100 mg Mirtazapine (Remeron) 7.5 mg PO [facility] Last Admin: 08/21/18 21:47 Dose: 7.5 mg Naloxone HCl (Narcan) 0.1 mg IV Q2MIN PRN PRN Reason: Opiate Reversal Ondansetron HCl (Zofran) 4 mg IV Q6HP PRN PRN Reason: Nausea And Vomiting Pantoprazole Sodium (Protonix) 40 mg PO QAMAC [facility] Polyethylene Glycol (Miralax) 17 gm PO DAILYP PRN PRN Reason: Constipation Potassium Chloride (Kdur) [facility] Primidone (Mysoline) 100 mg PO BID [facility] Last Admin: 08/21/18 21:47 Dose: 100 mg Fluticasone/Salmeterol (Advair 250-50 Diskus) 1 puff INH BID [facility] Last Admin: 08/21/18 21:47 Dose: 1 puff Senna (Senokot) 2 tab PO HS [facility] Last Admin: 08/21/18 21:46 Dose: 2 tab Sertraline HCl (Zoloft) 50 mg PO DAILY [facility] Last Admin: 08/21/18 11:06 Dose: 50 mg Sodium Biphosphate/Sodium Phosphate (Fleets Adult) 1 dose OK Q3-4DAYS PRN PRN Reason: Constipation Sodium Chloride (Saline Flush) 10 ml IV Q8 [facility] Last Admin: 08/22/18 05:09 Dose: 10 ml Sodium Chloride (Saline Flush) 10 ml IV Q1H PRN PRN Reason: To maintain patency Thiamine HCl (Vitamin B1) 100 mg PO HS [facility] Last Admin: 08/21/18 21:46 Dose: 100 mg Throat Lozenges (Cepacol) 1 lozenge PO PRN PRN PRN Reason: Sore Throat Torsemide (Demadex) 20 mg PO DAILY [facility] Medical - PN: A/P - Time Spent With Patient Total time spent is greater than 50% in coordination of care (as documented) at patient's floor/unit and/or counseling patient: - Narrative A/P Narrative: A: *Left Hip Fracture: s/p ORIF (08/21) -Preop Eval: high risk for kj mortality and morbidity. *h/o diastolic(III) CHF: stable at this time *RICKY on CKD III (base Cr~1.4-1.6): -1.4<2.0 *PAF/flutter: Patient is on chronic anticoagulation with Eliquis 2.5 mg twice a day. *HTN/HLD: *COPD/pulmonary fibrosis(she states she is not on O2@home): *Hypoxia: likely from atelectasis/pain meds/pulm fibrosis -CXR *CAD/PVD: pt on cilastazol *Hypothyroidism: continue home levothyroxine *Essential tremor: on primidone. *FTT: ?related to recent passing of her son *?mild dementia P: -Ortho following -pain control -PT/OT -cont home BB, hold ARB for low bp and RICKY -hold torsemide for ricky and low bp -IS, CXR for desats likely from pain med/atelectasis/pulm fibrosis -s/p IVF's -CM for placement back to SNF -ppx: eliquis No Code Medical - PN: Qual - Stroke Symptom Onset Unknown: No - VTE Deep Vein Thrombosis/Pulmonary Embolism Present on Admission: No
[2018-08-22 07:09] LABS: ALT/SGPT 10 U/l (0-40); Albumin 2.9 gm/dL (3.2-5.2); Albumin/Globulin Ratio 0.9 (1.0-2.3); Alkaline Phosphatase 149 U/L (39-117); Bilirubin,Direct < 0.2 mg/dL (0.0-0.3); Blood Urea Nitrogen 33 mg/dl (8-23); Gamma Glutamyl Transpeptidase 188 U/L (5-36); Uric Acid 8.6 mg/dL (2.5-8.0)
[2018-08-22] MEDS: PANTOPRAZOLE 40 MG TABLET PO SCH (07:26)
[2018-08-22] MEDS: LEVOTHYROXINE 100 MCG TABLET PO SCH (07:27)
[2018-08-22] MEDS: CILOSTAZOL 100 MG TABLET PO SCH ×2 (07:27→17:27)
[2018-08-22] MEDS ORDERED: POTASSIUM CHLORIDE 10 MEQ TABLET PO SCH (08:00)
[2018-08-22] MEDS ORDERED: SODIUM POLYSTYRENE SULFONATE 15 GM/60 ML SUSPENSION PO ONE (08:01)
[2018-08-22] MEDS: PRIMIDONE 50 MG TABLET PO SCH ×3 (08:14→22:13)
[2018-08-22] MEDS: SERTRALINE 50 MG TABLET PO SCH (08:14)
[2018-08-22] MEDS: APIXABAN 2.5 MG TABLET PO SCH ×3 (08:14→22:12)
[2018-08-22] MEDS: DOCUSATE SODIUM 100 MG CAPSULE PO SCH ×3 (08:14→22:12)
[2018-08-22] MEDS: METOPROLOL SUCCINATE 50 MG TAB.XL.24H PO SCH (08:14)
[2018-08-22] MEDS: FLUTICASONE/SALMETEROL 250/50 INHALER #14 INH SCH ×3 (08:27→22:11)
--- NOTE | 2018-08-22 08:36 | XRay Report ---
CLINICAL INFORMATION: hypoxia. ?atlectasis vs other COMPARISON: 03/16/2018 FINDINGS: Mild cardiomegaly is unchanged. Aortic valve prosthesis remain in stable satisfactory position. Moderate hiatal hernia again noted. Mediastinum and pulmonary vessels are, otherwise, normal. COPD changes with scattered scarring both lungs seen, as before. Minimal airspace disease in both lower lobes is likely atelectasis rather than developing infiltrate. No effusions. Right mastectomy changes again noted IMPRESSION: Minor bibasilar airspace disease - likely atelectasis. Moderate COPD Moderate size hiatal hernia - stable Interpreted and Authenticated by: Steven Springer 08/22/18
[2018-08-22 08:41] LABS: Band Neutrophils % 2 % (0-10); Eosinophils % (Manual) 4 % (0-7); Lymphocytes % 12 % (15-49); Monocytes % (Manual) 7 % (1-12); Platelet Estimate NORMAL (NORMAL); RBC Morphology NORMAL (NORMAL); Segmented Neutrophils % 75 % (38-78)
[2018-08-22] MEDS ORDERED: TORSEMIDE 10 MG TABLET PO SCH (09:00)
[2018-08-22] MEDS ORDERED: LOSARTAN 25 MG TABLET PO SCH (09:00)
--- NOTE | 2018-08-22 12:26 | Orthopedic Progress Note ---
Subjective Patient information: Note initiated : 08/22/18 at 12:24 pm Service Date, if different from initiated Date: [] Patient: Valeria Negron 78 y/o F admitted on 08/20/18 for Fall, Hit Head. Chief Complaint: [] Interval history: Patient is recovering from surgery yesterday and has had some pain control issues along with some post operative delirium but is participating in PT. She is currently very tired and has a hard time answering any questions. Objective Vital signs: Vital Signs Temp Pulse Pulse Resp BP BP Pulse Ox 08/22/18 08:00 95 08/22/18 07:40 88 20 98 08/22/18 07:19 98.3 F 18 114/57 99 08/22/18 03:19 98.3 F 85 18 129/58 100 08/22/18 00:10 78 17 08/21/18 23:34 98.9 F 74 14 90/45 99 08/21/18 20:00 98.2 F 76 18 104/56 99 08/21/18 19:13 88 16 08/21/18 16:39 88 99 08/21/18 16:19 98.3 F 91 H 20 139/68 88 L 08/21/18 13:28 88 16 94 Intake and Output 08/21/18 08/22/18 08/22/18 21:59 05:59 13:59 Intake Total 1500 / 1500 Output Total 350 / 350 425 / 425 Balance -350 / -350 1075 / 1075 Intake: IV 1000 / 1000 Oral 500 / 500 Output: Urine Catheter Amount 350 / 350 425 / 425 Other: Meal Dinner Percent of Meal Consumed 25% Feeding Ability Assist with Tray Set Up Assist with Tray Set Up Urine Appearance Clear Urine Color Bright Yellow Dark Yellow Urine Odor Normal Normal Stool Size Large Stool Color Brown Stool Consistency Soft Formed # Bowel Movements 1 Weight 125 lb Intake & Output: Intake & Output 08/21/18 08/22/18 08/22/18 21:59 05:59 13:59 Intake Total 1500 / 1500 Output Total 350 / 350 425 / 425 Balance -350 / -350 1075 / 1075 Weight 125 lb Intake: IV 1000 / 1000 Oral 500 / 500 Output: Urine Catheter Amount 350 / 350 425 / 425 Other: Meal Dinner Percent of Meal Consumed 25% Feeding Ability Assist with Tray Set Up Assist with Tray Set Up Urine Appearance Clear Urine Color Bright Yellow Dark Yellow Urine Odor Normal Normal Stool Size Large Stool Color Brown Stool Consistency Soft Formed # Bowel Movements 1 Incision: Yes healing, No draining Incision clean and dry: Yes Dressing: Yes clean, Yes dry, Yes intact Weight bearing status: partial (50-100% as tolerated) Extremities exam IM: No calf tenderness, Yes Foot pink and warm, Yes neurovascular intact - Labs CBC & BMP: 08/22/18 04:41 08/22/18 04:41 Labs: Orthopedic Labs 08/20/18 13:37 POC PT 17.3 H POC INR 1.5 H 08/22/18 08/21/18 08/20/18 04:41 04:20 12:06 Hgb 8.6 L 8.4 L 10.5 L Hct 26.5 L 25.9 L 31.7 L Assessment and Plan (1) Closed left hip fracture Patient is recovering from surgery and pain is being managed. Plan for discharge to SNF or swing bed in the upcoming days. Continue PT Continue pain protocol Reapply gauze dressing before discharge Status: Acute
--- NOTE | 2018-08-22 12:32 | Discharge Summary ---
Ortho Discharge Plan - General - Patient Instructions Diet: Regular Diet Activity: activity as tolerated, weight bearing as tolerated Dressing Care: May shower in 3 days Additional Instructions: Staple removal at 2 weeks at SNF, Dressing changes daily, call [facility] for any signs of redness or drainage. - Problem Maintenance (1) Closed left hip fracture Status: Acute - Follow Up Plan Follow Up Appointments: Rea Sethi MD [Primary Care Provider] - Disposition: [facility] Prognosis: Fair Rehab Potential: Fair Overall status at discharge: patient is not back to baseline
[2018-08-22] MEDS: METHOCARBAMOL 750 MG TABLET PO PRN (17:32)
[2018-08-22] MEDS: THIAMINE 100 MG TABLET PO SCH (21:38)
[2018-08-22] MEDS: SENNOSIDES 1 TABLET PO SCH (21:38)
[2018-08-22] MEDS: MIRTAZAPINE 15 MG TABLET PO SCH (21:38)
[2018-08-22] MEDS: ISOSORBIDE MONONITRATE 30 MG TAB.XL.24H PO SCH ×2 (21:38→22:14)
[2018-08-23] MEDS: METHOCARBAMOL 750 MG TABLET PO PRN ×3 (00:57→22:09)
[2018-08-23] MEDS: HYDROmorphone 2 MG/ML VIAL IV PRN ×5 (03:14→23:05)
[2018-08-23 05:14] LABS: Basophils # (Auto) 0.1 K/mcL (0.0-0.3); Basophils % (Auto) 0.6 % (0.0-2.0); Eosinophils # (Auto) 0.3 K/mcL (0.0-0.7); Eosinophils % (Auto) 3.4 % (0.0-7.0); Granulocytes % (Auto) 83.1 % (38.0-78.0); Lymphocytes # (Auto) 0.7 K/mcL (1.5-4.8); Lymphocytes % (Auto) 6.7 % (15.5-49.0); Mean Cell Volume 91.7 fL (80.0-100.0); Mean Corpuscular HGB Conc 32.9 g/dL (31.0-36.0); Mean Corpuscular Hemoglobin 30.2 pg (26.0-34.0); Monocytes # (Auto) 0.6 K/mcL (0.1-0.9); Monocytes % (Auto) 6.2 % (1.0-12.0); Platelet Count 141 K/mcL (140-440); RBC 2.76 M/mcL (4.00-5.20); Red Cell Distribution Width 14.6 % (11.5-14.5)
--- NOTE | 2018-08-23 05:18 | Internal Med Progress Note ---
Medical - PN: Subj Patient information: Note initiated : 08/23/18 at 5:13 am Service Date, if different from initiated Date: [] Patient: Valeria Negron a 78 y/o F admitted on 08/20/18 for Fall, Hit Head. Chief Complaint: [] Interval history: Ms. Negron is a 78 year old F with multiple medical issues, feel in the bathroom this AM, some injury to her head[facility], but not witnessed, denies any loss of consciousness. The patient was found 1 hr later as per ER staff and then brought to the hospital for further management. Daughter was present at the bedside at the time of evaluation. The patient was not feeling well since yesterday according to the daughter. Her son 2 days ago who is also living in the same fdc as the patient. She has not been eating well since. The patient had been living at [facility], she was admitted last in this facility I believe in February. The patient denies any headache changes in vision difficulty in swallowing chest pain shortness of breath cough no abdominal pain no nausea no vomiting no urinary complaints she has severe pain in the left hip region. Denies any other acute complaints or concerns. Her main concern was pain. The patient usually uses a walker to ambulate or a wheelchair. MET would be less than 4 She has a history of congestive heart failure, but preserved ejection fraction, she has grade 3 diastolic dysfunction. She has COPD, coronary artery disease paroxysmal atrial flutter on anticoagulation, by prostatic aortic valve. She has chronic kidney disease, baseline creatinine is around 1.5, although there is no mention about TIA or stroke, the past medical history reveals occlusion and stenosis of bilateral carotid arteries( prob list from pcp 02/17/18) . I would at least infer from this that the patient had significant carotid artery disease. On presentation to the emergency room patient was afebrile heart rate 72 blood pressure 125/65 saturating 99% on room air respirations 18. Labs showed WBC count of 10.6 hemoglobin 10.5 platelets 240 sodium 138 potassium 4.3 bicarbonate 28 creatinine 1.9 baseline around 1.5 BUN 43 glucose 96 X-ray of the hip shows left intertrochanteric hip fracture acute, Chest x-ray is negative for acute infiltrates or heart failure. EKG shows sinus rhythm T wave flattening in the lateral leads nonspecific ST-T wave changes, QS pattern in V1 to V3 indicative of old anteroseptal RI. I reviewed the echocardiogram done during the previous visit as well as earlier this year, shows patient has normal ejection fraction and grade 3 diastolic dysfunction. 08/21 Pt seen examined, no acute overnight issues, seen post op, was drowsy, had no complaints was on oxygen. It seems surgery went well daughter by bed side 08/22 Was in a lot of pain yesterday evening after surgery, pain regimen was adjusted with better control. Says she had a little sleep last night. She denies any coughing or shortness of breath, hip pain better controlled. 08/23 Has confusion at night per nursing, removed pulse ox at time. Otherwise no overnight events Review of Systems: denies headache/fever/chills/nausea/vomiting/chest or abdominal pain/cough/ dyspnea/diarrhea. Otherwise see above. - Constitutional Vitals: Vital Signs Temp Pulse Resp BP Pulse Ox 99.1 F H 114 H 16 149/72 93 08/23/18 02:20 08/23/18 02:20 08/23/18 02:20 08/23/18 02:20 08/23/18 02:20 Period Temp Pulse Resp BP Sys/Francisco Pulse Ox Last 24 Hr 98.3 F-99.1 F 87-114 16-20 114-149/57-72 91-99 Intake and Output 08/22/18 08/22/18 08/23/18 13:59 21:59 05:59 Intake Total 250 / 250 Output Total 1650 / 1650 550 / 550 Balance 250 / 250 -1650 / -1650 -550 / -550 Weight 56.245 kg Patient Weight 08/23/18 05:59 Weight 56.245 kg Intake & Output: Intake & Output 08/22/18 08/22/18 08/23/18 13:59 21:59 05:59 Intake Total 250 / 250 Output Total 1650 / 1650 550 / 550 Balance 250 / 250 -1650 / -1650 -550 / -550 Weight 56.245 kg Intake: Oral 250 / 250 Output: Urine Catheter Amount 1650 / 1650 550 / 550 Other: Meal Lunch Percent of Meal Consumed 75% Feeding Ability Assist with Tray Set Up Urine Color Bright Yellow Urine Odor Normal Stool Size Large Stool Color Brown Stool Consistency Soft Formed # Bowel Movements 1 Exam: General: Alert, Awake, No acute Distress Eyes/N/T: EOMI Head/Neck: neck supple, CV: irreg, 2/6 SM, Pulm: mild left base rales, no wheezing Abd: soft, nontender, +BS x4 Ext: no clubbing/cyanosis/edema Neuro: Alert, no focal deficits, moves all extremities Skin: warm/dry Medical - PN: Obj Da - Labs CBC & Chem 7: 08/23/18 04:10 08/23/18 04:10 Labs: Abnormal Lab Results 08/22/18 08/22/18 08/22/18 07:39 04:41 04:41 WBC 12.0 H RBC 2.84 L Hgb 8.6 L Hct 26.5 L RDW 14.7 H Plt Count 129 L Gran % Lymph % (Auto) 7.8 L Eos % (Auto) 11.4 H Gran # 9.0 H Lymph # (Auto) 0.9 L Eos # (Auto) 1.4 H Lymphocytes % 12 L POC PT POC INR Potassium 5.6 H Carbon Dioxide 21 L BUN 33 H Creatinine 1.4 H Glucose Uric Acid 8.6 H Calcium 8.2 L Magnesium 2.8 H GGT 188 H Alkaline Phosphatase 149 H Lactate Dehydrogenase 384 H Albumin 2.9 L Albumin/Globulin Ratio 0.9 L Ur Leukocyte Esterase Hyaline Casts 08/21/18 08/21/18 08/20/18 04:20 04:20 21:30 WBC 12.8 H RBC 2.83 L Hgb 8.4 L Hct 25.9 L RDW Plt Count Gran % 86.7 H Lymph % (Auto) 6.7 L Eos % (Auto) Gran # 11.1 H Lymph # (Auto) 0.9 L Eos # (Auto) Lymphocytes % POC PT POC INR Potassium Carbon Dioxide BUN 43 H Creatinine 2.0 H Glucose 138 H Uric Acid 10.7 H Calcium 8.0 L Magnesium 2.6 H GGT 186 H Alkaline Phosphatase 159 H Lactate Dehydrogenase 328 H Albumin 3.1 L Albumin/Globulin Ratio Ur Leukocyte Esterase 75 A Hyaline Casts 10 H 08/20/18 08/20/18 08/20/18 13:37 12:06 12:06 WBC RBC 3.47 L Hgb 10.5 L Hct 31.7 L RDW Plt Count Gran % 78.8 H Lymph % (Auto) 14.2 L Eos % (Auto) Gran # 8.3 H Lymph # (Auto) Eos # (Auto) Lymphocytes % POC PT 17.3 H POC INR 1.5 H Potassium Carbon Dioxide BUN 43 H Creatinine 1.9 H Glucose Uric Acid Calcium Magnesium GGT Alkaline Phosphatase 222 H Lactate Dehydrogenase Albumin Albumin/Globulin Ratio Ur Leukocyte Esterase Hyaline Casts Meds: Medications Acetaminophen (Tylenol) 500 mg PO Q6HP PRN PRN Reason: PAIN/FEVER > 101 Hydrocodone Bitart/Acetaminophen ([place] 5/325mg) 0 tab PO Q4HP PRN PRN Reason: PAIN LEVEL 3-6 Last Admin: 08/22/18 13:46 Dose: 2 tab Albuterol Sulfate (Ventolin) 2.5 mg NEB Q2HP PRN PRN Reason: Shortness Of Breath Apixaban (Eliquis) 2.5 mg PO BID [facility] Last Admin: 08/22/18 22:12 Dose: Not Given Bisacodyl (Dulcolax) 10 mg SC Q2-3DAYS PRN PRN Reason: Constipation Cilostazol (Pletal) 50 mg PO [facility]ID[facility] Last Admin: 08/22/18 17:27 Dose: 50 mg Docusate Sodium (Colace) 100 mg PO BID [facility] Last Admin: 08/22/18 22:12 Dose: Not Given Hydromorphone HCl (Dilaudid) 0 mg IV Q2HP PRN PRN Reason: PAIN LEVEL > 6 Last Admin: 08/23/18 03:14 Dose: 1 mg Isosorbide Mononitrate (Imdur) 30 mg PO BID [facility] Last Admin: 08/22/18 22:14 Dose: Not Given Levothyroxine Sodium (Synthroid) 100 mcg PO QAMAC [facility] Last Admin: 08/22/18 07:27 Dose: 100 mcg Lorazepam (Ativan) 0.5 mg PO Q6HP PRN PRN Reason: Anxiety Magnesium Hydroxide (Milk Of Magnesia) 30 ml PO BIDP PRN PRN Reason: Constipation Methocarbamol (Robaxin) 750 mg PO Q6HP PRN PRN Reason: Muscle Spasm Last Admin: 08/23/18 00:57 Dose: 750 mg Metoprolol Succinate (Toprol Xl) 100 mg PO DAILY [facility] Last Admin: 08/22/18 08:14 Dose: 100 mg Mirtazapine (Remeron) 7.5 mg PO HS [facility] Last Admin: 08/22/18 21:38 Dose: 7.5 mg Naloxone HCl (Narcan) 0.1 mg IV Q2MIN PRN PRN Reason: Opiate Reversal Ondansetron HCl (Zofran) 4 mg IV Q6HP PRN PRN Reason: Nausea And Vomiting Pantoprazole Sodium (Protonix) 40 mg PO QAMAC [facility] Last Admin: 08/22/18 07:26 Dose: 40 mg Polyethylene Glycol (Miralax) 17 gm PO DAILYP PRN PRN Reason: Constipation Primidone (Mysoline) 100 mg PO BID [facility] Last Admin: 08/22/18 22:13 Dose: Not Given Fluticasone/Salmeterol (Advair 250-50 Diskus) 1 puff INH BID [facility] Last Admin: 08/22/18 22:11 Dose: Not Given Senna (Senokot) 2 tab PO [facility] Last Admin: 08/22/18 21:38 Dose: 2 tab Sertraline HCl (Zoloft) 50 mg PO DAILY [facility] Last Admin: 08/22/18 08:14 Dose: 50 mg Sodium Biphosphate/Sodium Phosphate (Fleets Adult) 1 dose SC Q3-4DAYS PRN PRN Reason: Constipation Sodium Chloride (Saline Flush) 10 ml IV Q8 [facility] Last Admin: 08/22/18 21:43 Dose: 10 ml Sodium Chloride (Saline Flush) 10 ml IV Q1H PRN PRN Reason: To maintain patency Thiamine HCl (Vitamin B1) 100 mg PO [facility] Last Admin: 08/22/18 21:38 Dose: 100 mg Throat Lozenges (Cepacol) 1 lozenge PO PRN PRN PRN Reason: Sore Throat Medical - PN: A/P - Time Spent With Patient Total time spent is greater than 50% in coordination of care (as documented) at patient's floor/unit and/or counseling patient: - Narrative A/P Narrative: A: *Left Hip Fracture: s/p ORIF (08/21) -Preop Eval: high risk for kj mortality and morbidity. *h/o diastolic(III) CHF: stable at this time *RICKY on CKD III (base Cr~1.4-1.6): resolved - *acute on chronic anemia: post-op *PAF/flutter: Patient is on chronic anticoagulation with Eliquis 2.5 mg twice a day. *HTN/HLD: *COPD/pulmonary fibrosis(she states she is not on O2@home): *Hypoxia: 2/2 atelectasis/pain meds/underlying pulm fibrosis -CXR with b/l atelectasis, copd changes -1-2L's oxymask *CAD/PVD: pt on cilastazol *Hypothyroidism: continue home levothyroxine *Essential tremor: on primidone. *FTT: ?related to recent passing of her son *mild dementia/sundowning: -CT brain generalized cerebral atrophy and ischemic white matter dz in frontal and parietal lobes P: -Ortho following -pain control -PT/OT -cont home BB, hold ARB for low bp and RICKY -hold torsemide for ricky and low bp -IS - -CM for placement back to SNF -ppx: eliquis No Code Medical - PN: Qual - Stroke Symptom Onset Unknown: No - VTE Deep Vein Thrombosis/Pulmonary Embolism Present on Admission: No
[2018-08-23 05:55] LABS: ALT/SGPT 5 U/l (0-40); Albumin/Globulin Ratio 0.9 (1.0-2.3); Alkaline Phosphatase 175 U/L (39-117); Bilirubin,Direct < 0.2 mg/dL (0.0-0.3); Blood Urea Nitrogen 26 mg/dl (8-23); Gamma Glutamyl Transpeptidase 233 U/L (5-36); Uric Acid 9.8 mg/dL (2.5-8.0)
[2018-08-23] MEDS: 0.9 % SODIUM CHLORIDE 10 ML SYRINGE IV SCH ×4 (06:41→20:27)
[2018-08-23] MEDS: PANTOPRAZOLE 40 MG TABLET PO SCH (07:50)
[2018-08-23] MEDS: LEVOTHYROXINE 100 MCG TABLET PO SCH (07:50)
[2018-08-23] MEDS: CILOSTAZOL 100 MG TABLET PO SCH ×2 (07:50→17:23)
[2018-08-23] MEDS: SERTRALINE 50 MG TABLET PO SCH (08:28)
[2018-08-23] MEDS: HYDROcodone/APAP 5/325MG TABLET PO PRN ×3 (08:29→19:06)
[2018-08-23] MEDS: ISOSORBIDE MONONITRATE 30 MG TAB.XL.24H PO SCH ×2 (08:29→19:06)
[2018-08-23] MEDS: APIXABAN 2.5 MG TABLET PO SCH ×2 (08:30→19:07)
[2018-08-23] MEDS: METOPROLOL SUCCINATE 50 MG TAB.XL.24H PO SCH (08:30)
[2018-08-23] MEDS: PRIMIDONE 50 MG TABLET PO SCH ×2 (08:30→19:06)
--- NOTE | 2018-08-23 08:54 | Discharge Summary ---
Medical - DS: Prov Patient information: Note initiated : 08/23/18 at 8:50 am Service Date, if different from initiated Date: [] Patient: Valeria Negron 78 y/o F admitted on 08/20/18 for Fall, Hit Head. Chief Complaint: [] Date of admission: 08/20/18 16:05 Discharge date: 08/24/18 Primary care physician: Rea Sethi Medical - DS: Meds - Discharge Medications Prescriptions: HYDROcodone/APAP 5/325MG [[place] 5-325Mg] 5 mg PO Q4HP PRN #30 tab PRN Reason: Pain Level 3-6 LORazepam [Ativan] 0.5 mg PO Q6HP PRN #20 tab PRN Reason: Anxiety Active and Home Medications: Home Medications Levothyroxine [Synthroid] 100 mcg PO QAMAC 10/24/17 [History Confirmed 08/20/18 Last Taken Unknown] Losartan [Cozaar] 25 mg PO DAILY 10/24/17 [History Confirmed 08/20/18 Last Taken Unknown] Apixaban [Eliquis] 2.5 mg PO BID 12/04/17 [History Confirmed 08/20/18 Last Taken Unknown] HYDROcodone/ACETAMINOPHEN [Hydrocodon-Acetaminophn 10-325] 1 - 2 tab PO TIDP PRN 12/04/17 [History Confirmed 08/20/18 Last Taken Unknown] Torsemide [Demadex] 20 mg PO DAILY 12/04/17 [History Confirmed 08/20/18 Last Taken Unknown] Ipratropium/Albuterol Sulfate [Combivent] 2 puff INH TIDP PRN 12/23/17 [History Confirmed 08/20/18 Last Taken Unknown] Primidone [Mysoline] 200 mg PO BID 12/23/17 [History Confirmed 08/20/18 Last Taken Unknown] Fluticasone/Salmeterol [Advair 250-50 Diskus] 1 puff INH BID #3 inhaler [Rx Confirmed 08/20/18 Last Taken Unknown] Ipratropium/Albuterol [Duoneb] 3 ml NEB Q4HP PRN #90 ampul.neb 12/26/17 [Rx Confirmed 08/20/18 Last Taken Unknown] Cilostazol [Pletal] 50 mg PO BIDAC 03/16/18 [History Confirmed 08/20/18 Last Taken Unknown] Isosorbide Mononitrate [Imdur] 30 mg PO BID 03/16/18 [History Confirmed Last Taken Unknown] Pantoprazole [Protonix] 40 mg PO QAMAC 03/16/18 [History Confirmed 08/20/18 Last Taken Unknown] Potassium Chloride 10 meq PO QAMCC 03/16/18 [History Confirmed 08/20/18 Last Taken Unknown] LORazepam [Ativan] 0.5 mg PO Q6HP PRN 08/20/18 [History Confirmed 08/20/18 Last Taken Unknown] Metoprolol Succinate [[place] Sprinkle] 100 mg PO DAILY 08/20/18 [History Confirmed 08/20/18 Last Taken Unknown] Mirtazapine [Remeron] 7.5 mg PO HS 08/20/18 [History Confirmed 08/20/18 Last Taken Unknown] Sertraline HCl [Zoloft] 50 mg PO DAILY 08/20/18 [History Confirmed 08/20/18 Last Taken Unknown] Home Medications Levothyroxine [Synthroid] 100 mcg PO QAMAC 10/24/17 [History Confirmed 08/20/18 Last Taken Unknown] Losartan [Cozaar] 25 mg PO DAILY 10/24/17 [History Confirmed 08/20/18 Last Taken Unknown] Apixaban [Eliquis] 2.5 mg PO BID 12/04/17 [History Confirmed 08/20/18 Last Taken Unknown] HYDROcodone/ACETAMINOPHEN [Hydrocodon-Acetaminophn 10-325] 1 - 2 tab PO TIDP PRN 12/04/17 [History Confirmed 08/20/18 Last Taken Unknown] Torsemide [Demadex] 20 mg PO DAILY 12/04/17 [History Confirmed 08/20/18 Last Taken Unknown] Ipratropium/Albuterol Sulfate [Combivent] 2 puff INH TIDP PRN 12/23/17 [History Confirmed 08/20/18 Last Taken Unknown] Primidone [Mysoline] 200 mg PO BID 12/23/17 [History Confirmed 08/20/18 Last Taken Unknown] Fluticasone/Salmeterol [Advair 250-50 Diskus] 1 puff INH BID #3 inhaler [Rx Confirmed 08/20/18 Last Taken Unknown] Ipratropium/Albuterol [Duoneb] 3 ml NEB Q4HP PRN #90 ampul.neb 12/26/17 [Rx Confirmed 08/20/18 Last Taken Unknown] Cilostazol [Pletal] 50 mg PO BIDAC 03/16/18 [History Confirmed 08/20/18 Last Taken Unknown] Isosorbide Mononitrate [Imdur] 30 mg PO BID 03/16/18 [History Confirmed Last Taken Unknown] Pantoprazole [Protonix] 40 mg PO QAMAC 03/16/18 [History Confirmed 08/20/18 Last Taken Unknown] Potassium Chloride 10 meq PO QAMCC 03/16/18 [History Confirmed 08/20/18 Last Taken Unknown] Metoprolol Succinate [[place] Sprinkle] 100 mg PO DAILY 08/20/18 [History Confirmed 08/20/18 Last Taken Unknown] Mirtazapine [Remeron] 7.5 mg PO HS 08/20/18 [History Confirmed 08/20/18 Last Taken Unknown] Sertraline HCl [Zoloft] 50 mg PO DAILY 08/20/18 [History Confirmed 08/20/18 Last Taken Unknown] HYDROcodone/APAP 5/325MG [[place] 5-325Mg] 5 mg PO Q4HP PRN #30 tab 08/23/18 [Rx Last Taken Unknown] LORazepam [Ativan] 0.5 mg PO Q6HP PRN #20 tab 08/23/18 [Rx Last Taken Unknown] Medical - DS: Hosp Hospital course: Ms. Negron is a 78 year old F with multiple medical issues, feel in the bathroom this AM, some injury to her head, mech fall as per patient, but not witnessed, denies any loss of consciousness. The patient was found 1 hr later as per ER staff and then brought to the hospital for further management. Daughter was present at the bedside at the time of evaluation. The patient was not feeling well since yesterday according to the daughter. Her son 2 days ago who is also living in the same correction as the patient. She has not been eating well since. The patient had been living at [facility], she was admitted last in this facility I believe in February. The patient denies any headache changes in vision difficulty in swallowing chest pain shortness of breath cough no abdominal pain no nausea no vomiting no urinary complaints she has severe pain in the left hip region. Denies any other acute complaints or concerns. Her main concern was pain. The patient usually uses a walker to ambulate or a wheelchair. MET would be less than 4 She has a history of congestive heart failure, but preserved ejection fraction, she has grade 3 diastolic dysfunction. She has COPD, coronary artery disease paroxysmal atrial flutter on anticoagulation, by prostatic aortic valve. She has chronic kidney disease, baseline creatinine is around 1.5, although there is no mention about TIA or stroke, the past medical history reveals occlusion and stenosis of bilateral carotid arteries( prob list from pcp 02/17/18) . I would at least infer from this that the patient had significant carotid artery disease. On presentation to the emergency room patient was afebrile heart rate 72 blood pressure 125/65 saturating 99% on room air respirations 18. Labs showed WBC count of 10.6 hemoglobin 10.5 platelets 240 sodium 138 potassium 4.3 bicarbonate 28 creatinine 1.9 baseline around 1.5 BUN 43 glucose 96 X-ray of the hip shows left intertrochanteric hip fracture acute, Chest x-ray is negative for acute infiltrates or heart failure. EKG shows sinus rhythm T wave flattening in the lateral leads nonspecific ST-T wave changes, QS pattern in V1 to V3 indicative of old anteroseptal SD. I reviewed the echocardiogram done during the previous visit as well as earlier this year, shows patient has normal ejection fraction and grade 3 diastolic dysfunction. 08/21 Pt seen examined, no acute overnight issues, seen post op, was drowsy, had no complaints was on oxygen. It seems surgery went well daughter by bed side 08/22 Was in a lot of pain yesterday evening after surgery, pain regimen was adjusted with better control. Says she had a little sleep last night. She denies any coughing or shortness of breath, hip pain better controlled. 08/23 Has confusion at night per nursing, removed pulse ox at time. Otherwise no overnight events 08/24 doing well, stable for discharge. No further issues. Discharge diagnosis: Left hip fracture RAI anemia atelectasis with hypoxia Secondary discharge diagnosis: History of diastolic heart failure chronic anemia paroxysmal H fibrillation flutter hypertension COPD with pulmonary fibrosis CAD and PVD hypothyroidism essential tremor failure to thrive mild dementia with sundowning while inpatient. - Time Spent with Patient Total time spent providing and/or coordinating discharge services: Greater than 30 minutes Medical - DS: Exam - Constitutional Vitals: Vital Signs Temp Pulse Resp BP BP Pulse Ox 08/23/18 06:51 98.6 F 20 157/74 96 08/23/18 02:20 99.1 F H 114 H 16 149/72 93 08/23/18 00:00 99.0 F 109 H 18 126/63 95 08/22/18 20:00 18 92 08/22/18 19:59 98.8 F 104 H 18 131/66 94 08/22/18 16:00 98.3 F 87 16 130/65 95 08/22/18 12:00 98.6 F 18 116/61 91 Intake and Output 08/22/18 08/23/18 08/23/18 21:59 05:59 13:59 Output Total 1650 / 1650 550 / 550 Balance -1650 / -1650 -550 / -550 Output: Urine Catheter Amount 1650 / 1650 550 / 550 Other: Urine Color Bright Yellow Urine Odor Normal Weight 56.245 kg Medical - DS: Data Labs on day of discharge: Labs from last 24 hours 08/23/18 08/23/18 04:10 04:10 WBC 9.9 RBC 2.76 L Hgb 8.3 L Hct 25.3 L MCV 91.7 MCH 30.2 MCHC 32.9 RDW 14.6 H Plt Count 141 MPV 8.4 Gran % 83.1 H Lymph % (Auto) 6.7 L [place] % (Auto) 6.2 Eos % (Auto) 3.4 Baso % (Auto) 0.6 Gran # 8.2 H Lymph # (Auto) 0.7 L [place] # (Auto) 0.6 Eos # (Auto) 0.3 Baso # (Auto) 0.1 Sodium 143 Potassium 4.6 Chloride 105 Carbon Dioxide 21 L Anion Gap 17.0 H BUN 26 H Creatinine 1.1 GFR Calculation 48 Glucose 99 Uric Acid 9.8 H Calcium 8.8 Phosphorus 2.8 Magnesium 2.7 H Total Bilirubin 0.5 Direct Bilirubin < 0.2 GGT 233 H AST 13 ALT 5 Alkaline Phosphatase 175 H Lactate Dehydrogenase 292 H Total Protein 6.5 Albumin 3.0 L Globulin 3.5 Albumin/Globulin Ratio 0.9 L Triglycerides 99 Medical - DS: A/P - Patient/Caregiver Discharge Instructions Activity: as per physical therapy Diet: Cardiac Additional Instructions: Staple removal at 2 weeks at SNF, Dressing changes daily, call [facility] for any signs of redness or drainage. Prescriptions: HYDROcodone/APAP 5/325MG [[place] 5-325Mg] 5 mg PO Q4HP PRN #30 tab PRN Reason: Pain Level 3-6 LORazepam [Ativan] 0.5 mg PO Q6HP PRN #20 tab PRN Reason: Anxiety Other Amb Orders: Hemoglobin and Hematocrit Time Frame: 08/26/18, Location: None Selected - Follow up Plan Follow up with: Rea Sethi MD [Primary Care Provider] - Disposition: Xfer SNF Prognosis: Fair Rehab Potential: Fair I certify that the patient requires SNF services: Yes Overall status at discharge: patient is progressing back to baseline Medical - DS: Qual - VTE Deep Vein Thrombosis/Pulmonary Embolism Present on Admission: No
[2018-08-23] MEDS: FLUTICASONE/SALMETEROL 250/50 INHALER #14 INH SCH ×2 (09:22→19:06)
[2018-08-23] MEDS: DOCUSATE SODIUM 100 MG CAPSULE PO SCH ×2 (09:22→19:07)
[2018-08-23] MEDS: SENNOSIDES 1 TABLET PO SCH (19:06)
[2018-08-23] MEDS: MIRTAZAPINE 15 MG TABLET PO SCH (19:07)
[2018-08-23] MEDS: THIAMINE 100 MG TABLET PO SCH (19:07)
[2018-08-24] MEDS: HYDROcodone/APAP 5/325MG TABLET PO PRN ×4 (02:21→10:22)
[2018-08-24] MEDS: 0.9 % SODIUM CHLORIDE 10 ML SYRINGE IV SCH (04:59)
[2018-08-24] MEDS: CILOSTAZOL 100 MG TABLET PO SCH (07:41)
[2018-08-24] MEDS: LEVOTHYROXINE 100 MCG TABLET PO SCH (07:43)
[2018-08-24] MEDS: PANTOPRAZOLE 40 MG TABLET PO SCH (07:43)
--- NOTE | 2018-08-24 08:48 | Operative Note ---
DATE OF OPERATION: 08/20/2018 PREOPERATIVE DIAGNOSIS: Intertrochanteric fracture/basicervical fracture, left hip. POSTOPERATIVE DIAGNOSIS: Intertrochanteric fracture/basicervical fracture, left hip. PROCEDURE: Left hip cephalomedullary nailing. SURGEON: Quincy Soler M.D. METALLURGICAL ENGINEER SURGEON: Андрей Markham PA-C ANESTHESIA: Spinal with LMA assist. ESTIMATED BLOOD LOSS: 100 mL COMPLICATIONS: None noted. SPECIMENS REMOVED: None. DRAINS: None. IMPLANTS: Titanium lag screw 10.5 x 85, gamma trochanteric nail titanium 11 x 180 x 125, fully threaded locking screw 5 x 32.5. INDICATIONS: The patient fell and was unable to ambulate. Radiographs have confirmed a displaced intertrochanteric fracture of the proximal femur. The patient was admitted to the hospital and underwent medical clearance. After a long discussion about treatment options, the patient elected to proceed with cephalomedullary nailing. The risks and benefits were discussed with the patient in detail including, but not limited to, the risks of anesthesia, problems with the heart or lungs related to anesthesia, infection, compromise or injury to the nerves and blood vessels, deep venous thrombosis, pulmonary embolism, pneumonia, continued pain after surgery, worsening pain or symptoms after surgery, swelling, loss of motion, malunion, non-union, leg length discrepancy, and need for repeat surgery. DESCRIPTION OF PROCEDURE: The patient was seen in pre-anesthesia waiting room where all questions were answered and the correct side and site were identified and marked. The patient was then brought to the operating room and administered the anesthetic and given preoperative antibiotics. A timeout was then called. The patient was placed on the fracture table with all prominences well padded. The leg was brought into traction, adduction, and slight internal rotation. We used C-arm with orthogonal views to confirm anatomic reduction of the fracture. The extremity was prepped and draped in the usual sterile fashion. C-arm was again used to confirm landmarks. A percutaneous incision was created about 4 centimeters proximal to the greater trochanter. A guide pin was placed into the femoral canal under fluoroscopy after we found the appropriate starting position along the medial boarder of the trochanter and just anterior to the center position laterally. We placed a protector sleeve proximally and over-reamed with the 17 mm proximal reamer. Next, we changed out the guide pin for a ball-tipped guide any and placed it into the femoral canal. Position was confirmed with the C-arm. The 180 mm [place] Gamma nail was then placed with appropriate depth and version using the percutaneous targeting guide. The lateral lag screw sleeve was placed in the targeting guide and a second small percutaneous incision was made to allow the sleeve access to the lateral cortex of the femur. We drilled the guide pin into the center position of the femoral head confirmed with fluoroscopy. We measured and drilled over the guide pin. The lag screw was then inserted and we compressed the fracture then placed the proximal screw. The targeting sleeve was again used to place a percutaneous 5.0 mm screw distally in the static hole. It was drilled, measured, and placed using C-arm guidance. Traction was removed on the hip. The targeting device was then removed and final radiographs were taken confirming reduction of the fracture and adequate placement of all hardware. We thoroughly irrigated the three percutaneous incisions and closed the deep fascia with #0 Vicryl. We closed the subcutaneous tissue and skin in layers out to pierce in the skin. A sterile pressure dressing was applied. All needle and sponge counts were correct. The patient was transferred to the recovery room in stable condition. LILY:pradeep Job ID: [id number] Doc ID: [id number] Quincy Soler MD
[2018-08-24] MEDS: ISOSORBIDE MONONITRATE 30 MG TAB.XL.24H PO SCH (10:09)
[2018-08-24] MEDS: DOCUSATE SODIUM 100 MG CAPSULE PO SCH (10:10)
[2018-08-24] MEDS: APIXABAN 2.5 MG TABLET PO SCH (10:10)
[2018-08-24] MEDS: PRIMIDONE 50 MG TABLET PO SCH (10:13)
[2018-08-24] MEDS: SERTRALINE 50 MG TABLET PO SCH (10:14)
[2018-08-24] MEDS: METOPROLOL SUCCINATE 50 MG TAB.XL.24H PO SCH (10:14)
[2018-08-24] MEDS: FLUTICASONE/SALMETEROL 250/50 INHALER #14 INH SCH (10:15)
[2018-08-24] MEDS ORDERED: LOSARTAN 50 MG TABLET PO ONE (12:04)
[2018-08-24] MEDS ORDERED: LABETALOL HCL 20 MG/4 ML SYRINGE IV ONE (12:08)
== END 2018-08-24 13:03 | DRG 481 ==
LOC: ED 11:46 → ICU 16:05 → MEDSUR 08-21 17:55
PROVIDERS: ADMIT Internal Medicine; ATTEND Internal Medicine
CPT/HCPCS: 73502; 97161; 97167; 99223; 99231; A6248; A9270; C1713; C1769; J0131; J0690; J1100; J1170; J2001; J2250; J2370; J2405; J3010; J7120; J7620; J7620-GY

== ENCOUNTER 2018-12-22 04:32 | Inpatient (IN) ==
--- NOTE | 2018-12-22 06:24 | Emergency Department Note ---
General Adult HPI - General Chief complaint: Cold/Flu Symptoms Stated complaint: Weakness Time Seen by Provider: 12/22/18 06:18 Mode of arrival: wheelchair - History of Present Illness HPI Narrative: This pleasant 78-year-old female comes emergency room feeling weak. She feels like she sometimes is dizzy and like she could pass out. She was seen here in the emergency room4 days ago and diagnosed with influenza a. She has been coughing rather significantly with some phlegm. She has not taken any cough suppressants. She states she has been eating normal but may be not drinking as normal or well. REVIEW OF SYSTEMS: Patient describes off-and-on feeling warm or feverish. She has not had sweats nor chills. Has had a little anterior chest discomfort. Has coughed up a little phlegm. No nausea or vomiting. Has chronic low back pain but no change. No headaches but has felt generally weak and lightheaded/dizzy. No anxiety or depression. - Related Data Home Medications Medication Instructions Recorded Confirmed Levothyroxine [Synthroid] 100 mcg PO QAMAC 10/24/17 12/10/18 Apixaban [Eliquis] 2.5 mg PO BID 12/04/17 12/10/18 Torsemide [Demadex] 20 mg PO DAILY 12/04/17 12/10/18 Ipratropium/Albuterol Sulfate 2 puff INH TIDP PRN 12/23/17 12/10/18 [Combivent] Primidone [Mysoline] 200 mg PO BID 12/23/17 12/10/18 Cilostazol [Pletal] 50 mg PO BIDAC 03/16/18 12/10/18 Potassium Chloride 10 meq PO QAMCC 03/16/18 12/10/18 Metoprolol Succinate [Kapspargo 100 mg PO DAILY 08/20/18 12/10/18 Sprinkle] Sertraline HCl [Zoloft] 50 mg PO DAILY 08/20/18 12/10/18 Abilify 2 mg PO QHS 12/10/18 12/10/18 Bactrim Ds 160 - 800 mg PO BID 12/10/18 12/10/18 Gabapentin 100 mg PO BID 12/10/18 12/10/18 HYDROcodone/APAP 5/325MG [Elim 10 - 325 mg PO Q4HP PRN 12/10/18 12/10/18 5-325Mg] amLODIPine 5 mg PO PRN 12/10/18 Previous Rx's Medication Instructions Recorded Fluticasone/Salmeterol [Advair 1 puff INH BID #3 inhaler 12/26/17 250-50 Diskus] Ipratropium/Albuterol [Duoneb] 3 ml NEB Q4HP PRN #90 ampul.neb 12/26/17 LORazepam [Ativan] 0.5 mg PO Q6HP PRN #20 tab 08/23/18 Allergies Allergy/AdvReac Type Severity Reaction Status Date / Time levofloxacin [LEVOFLOXACIN] Allergy Mild RASH Verified 12/17/18 20:09 Past Medical History - Past Medical History [facility] Narrative: Medical History (Last Updated 12/22/18 @ 06:58 by Oracio Andres DO) DNR no code (do not resuscitate) (Chronic) Chronic anticoagulation (Chronic) Diabetes mellitus type 2, controlled (Chronic) Peripheral arterial disease (Chronic) Hyperlipidemia (Chronic) History of CHF (congestive heart failure) (Chronic) COPD (chronic obstructive pulmonary disease) (Chronic) Pulmonary fibrosis (Chronic) Hypertension, essential, benign (Chronic) Abnormal ECG (Chronic) Hypothyroidism (acquired) (Chronic) History of atrial flutter (Chronic) History of coronary artery disease (Chronic) CHF (congestive heart failure) (Chronic) Anemia (Chronic) Anxiety and depression (Chronic) Essential tremor (Chronic) 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) History of rheumatic fever (Chronic) Elevated alkaline phosphatase level (Chronic) Influenza A (Acute) Fibromyalgia (Chronic) History of peptic ulcer disease (Chronic) History of breast cancer in female (Chronic) History of recurrent UTI (urinary tract infection) (Chronic) Abdominal pain (Resolved) Acute respiratory acidosis (Resolved) COPD with exacerbation (Resolved) Chest pain at rest (Resolved) Cigarette smoker one half pack a day or less (Resolved) Congestive heart failure (Resolved) Hip fracture, left (Resolved) Hypercapnic respiratory failure (Resolved) Leukocytosis, unspecified (Resolved) Respiratory acidosis (Resolved) Respiratory distress (Resolved) Respiratory failure (Resolved) Respiratory failure (Resolved) Tachypnea (Resolved) Past Surgical History (Last Updated 12/22/18 @ 06:58 by Oracio Andres DO) 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 Skin on the left neck and skin of the left chest that was non-melanotic.), CHF (Long-standing plus episodes of exacerbation.), COPD (EMPHYSEMA.), coronary artery disease (s/p CABGX2 vessel.), fibromyalgia, hyperlipidemia, hypertension, hypothyroidism, peripheral artery disease ( ), PID, valvular heart disease (Aortic valve - replaced bovine 2003.), other (Rheumatic fever. Atherosclerosis. CHRONIC ANTICOAGULATION. Pulmonary fibrosis. CHRONIC NARCOTICS for FM/severe MSK pains. TREMORS - on primidone.). Denies: CVA, DM, myocardial infarction, TIA Psychiatric history: Reports: anxiety (Today he is denied but past history included this.), depression Surgical history ED: Reports: breast surgery (Mastectomy right.), coronary bypass (CABG) - Social History smoking status: Former smoker Alcohol use: Reports: None Drug use: Reports: none. Denies: marijuana Physical Exam Limitations: no limitations General appearance: alert, in no apparent distress, malaise, sleepy Head: atraumatic, normocephalic Eye: Present: EOMI Neck: Present: trachea midline. Absent: lymphadenopathy, thyromegaly Chest: Present: symmetric chest wall rise Respiratory: Present: normal lung sounds bilaterally. Absent: respiratory distress, wheezes, stridor, accessory muscle use, prolonged expiratory phase Cardiovascular: Present: tachycardia, irregular rhythm. Absent: systolic murmur, diastolic murmur Abdominal: Present: soft. Absent: distention, tenderness, guarding, rebound, rigidity, organomegaly, mass Extremities: Absent: pedal edema, pretibial edema, calf tenderness Back: Absent: CVA tenderness (R), CVA tenderness (L) Neurological: Present: alert, oriented X3 Psychiatric: Present: normal affect, normal mood Skin: Present: warm, dry Course Vital Signs Temperature 98.7 F 12/22/18 04:32 Pulse Rate 60 12/22/18 04:32 Respiratory Rate 18 12/22/18 04:32 Blood Pressure 132/95 12/22/18 04:32 Pulse Oximetry (%) 91 12/22/18 04:32 Temperature 98.8 F 12/22/18 04:45 Pulse Rate 150 H 12/22/18 09:23 Respiratory Rate 17 12/22/18 09:23 Blood Pressure 118/76 12/22/18 09:16 Pulse Oximetry (%) 94 12/22/18 09:23 Medical Decision Making - [facility] Narrative Medical decision making narrative: 6:26 AM Patient with weakness and recent diagnosis of influenza. She is a little tachycardic on exam with crackles anteriorly but a history of pulmonary fibrosis. Heart is irregular. She is probably in atrial fibrillation. We will do some basic labs and chest x-ray as she is running 92% on room air as well. 7:00 AM EKG demonstrates inverted T waves that are new in V4 through V6 and inferior leads and lead I. Adding troponin to labs. 7:20 AM Troponin came back 0.12. I had recently discussed with Dr. Muñoz cardioversion versus medical management with diltiazem and he encouraged medical management. Patient had requested that I discussed this with him. He recommended reviewing the echocardiogram to make sure that her ejection fraction is satisfactory for use of the calcium channel deion and that this would be more easily titratable than metoprolol. With the 0.12 troponin, he suggest that this still could be primarily due to her tachycardia. He suggests that aggressive intervention with an angiogram and possible stenting would not be that useful or beneficial for this patient based on age, severe COPD, etc., but could be entertained after a serial troponin. We will do a 4-hour troponin. Patient seems to understand and be in agreement. Patient reconfirmed her DNR status. Her general level of quality is not terminal but certainly is not active. - Medical Records Medical records reviewed: Yes I reviewed the patient's medical records. - Lab Data Lab results reviewed: Yes I reviewed the patient's lab results. Result diagrams: 12/22/18 06:50 12/22/18 06:50 Lab Results 12/22/18 12/22/18 12/22/18 Range/Units 06:50 06:50 06:50 WBC 10.1 (4.5-11.0) K/mcL RBC 3.69 L (4.00-5.20) M/mcL Hgb 10.9 L (12.0-15.0) g/dL Hct 33.0 L (36.0-48.0) % MCV 89.4 (80.0-100.0) fL MCH 29.4 (26.0-34.0) pg MCHC 32.8 (31.0-36.0) g/dL RDW 17.9 H (11.5-14.5) % Plt Count 160 (140-440) K/mcL MPV 8.2 (7.4-10.4) fL Gran % 82.5 H (38.0-78.0) % Lymph % (Auto) 11.5 L (15.5-49.0) % [place] % (Auto) 5.8 (1.0-12.0) % Eos % (Auto) 0.1 (0.0-7.0) % Baso % (Auto) 0.1 (0.0-2.0) % Gran # 8.3 H (1.8-8.0) K/mcL Lymph # (Auto) 1.2 L (1.5-4.8) K/mcL [place] # (Auto) 0.6 (0.1-0.9) K/mcL Eos # (Auto) 0 (0.0-0.7) K/mcL Baso # (Auto) 0 (0.0-0.3) K/mcL VBG Lactic Acid (0.5-2.0) mmol/L Sodium 139 (133-145) mmol/L Potassium 3.6 (3.3-5.1) mmol/L Chloride 98 (96-108) mmol/L Carbon Dioxide 25 (22-30) mmol/L Anion Gap 16.0 (8-16) BUN 49 H (8-23) mg/dl Creatinine 1.7 H (0.6-1.1) mg/dl GFR Calculation 28 Glucose 87 (70-105) mg/dL Calcium 7.9 L (8.6-10.4) mg/dl Magnesium (1.6-2.5) mg/dL Total Bilirubin 0.4 (0.0-1.0) mg/dL AST 36 (0-37) U/l ALT 23 (0-40) U/l Alkaline Phosphatase 151 H (39-117) U/L Troponin T (0-0.03) ng/ml NT-Pro-B Natriuret Pep 7970.0 H (0-450) pg/ml Total Protein 7.1 (5.9-8.4) gm/dL Albumin 3.4 (3.2-5.2) gm/dL Globulin 3.7 (2.2-3.7) gm/dL Albumin/Globulin Ratio 0.9 L (1.0-2.3) Procalcitonin 0.34 (<0.10) ng/mL 12/22/18 12/22/18 12/22/18 Range/Units 06:50 07:05 07:05 WBC (4.5-11.0) K/mcL RBC (4.00-5.20) M/mcL Hgb (12.0-15.0) g/dL Hct (36.0-48.0) % MCV (80.0-100.0) fL MCH (26.0-34.0) pg MCHC (31.0-36.0) g/dL RDW (11.5-14.5) % Plt Count (140-440) K/mcL MPV (7.4-10.4) fL Gran % (38.0-78.0) % Lymph % (Auto) (15.5-49.0) % [place] % (Auto) (1.0-12.0) % Eos % (Auto) (0.0-7.0) % Baso % (Auto) (0.0-2.0) % Gran # (1.8-8.0) K/mcL Lymph # (Auto) (1.5-4.8) K/mcL [place] # (Auto) (0.1-0.9) K/mcL Eos # (Auto) (0.0-0.7) K/mcL Baso # (Auto) (0.0-0.3) K/mcL VBG Lactic Acid 0.9 (0.5-2.0) mmol/L Sodium (133-145) mmol/L Potassium (3.3-5.1) mmol/L Chloride (96-108) mmol/L Carbon Dioxide (22-30) mmol/L Anion Gap (8-16) BUN (8-23) mg/dl Creatinine (0.6-1.1) mg/dl GFR Calculation Glucose (70-105) mg/dL Calcium (8.6-10.4) mg/dl Magnesium 2.2 (1.6-2.5) mg/dL Total Bilirubin (0.0-1.0) mg/dL AST (0-37) U/l ALT (0-40) U/l Alkaline Phosphatase (39-117) U/L Troponin T 0.12 H* (0-0.03) ng/ml NT-Pro-B Natriuret Pep (0-450) pg/ml Total Protein (5.9-8.4) gm/dL Albumin (3.2-5.2) gm/dL Globulin (2.2-3.7) gm/dL Albumin/Globulin Ratio (1.0-2.3) Procalcitonin (<0.10) ng/mL - Radiology Data Radiology results reviewed: Yes I reviewed the patient's radiology results. Disposition Pt seen by RN LAB/PA only: No Clinical Impression: Weakness, Atrial fibrillation with rapid ventricular response, Atrial flutter with rapid ventricular response, Inverted T wave, Elevated troponin level, DNR no code (do not resuscitate) Summary: See MEDICAL DECISION MAKING above. With a serial troponin pending at around 11 AM, patient's care will be transf erred to Dr. Vidales, who will be coming on shift at 9 AM. I also spoke with Dr. Magen Madden, 9:28 AM, to simply apprise him of patient's circumstance. Decision point will be after the troponin comes back as to whether it is elevating or not and whether such an elevation would warrant aggressive additional workup and intervention, possible heart cath and/or stent versus medical therapy. This will be decided between Dr. Vidales, patient, cardiology after this result. Disposition: Still a Patient Condition: Fair Referrals: Rea Sethi MD [Primary Care Provider] -
[2018-12-22] MEDS ORDERED: IPRATROPIUM/ALBUTEROL 3 ML AMPUL.NEB NEB ONE (06:34)
[2018-12-22] MEDS ORDERED: LACTATED RINGERS 500 ML IV ONE (06:40)
[2018-12-22 07:17] LABS: Basophils # (Auto) 0 K/mcL (0.0-0.3); Basophils % (Auto) 0.1 % (0.0-2.0); Eosinophils # (Auto) 0 K/mcL (0.0-0.7); Eosinophils % (Auto) 0.1 % (0.0-7.0); Granulocytes % (Auto) 82.5 % (38.0-78.0); Lymphocytes # (Auto) 1.2 K/mcL (1.5-4.8); Lymphocytes % (Auto) 11.5 % (15.5-49.0); Mean Cell Volume 89.4 fL (80.0-100.0); Mean Corpuscular HGB Conc 32.8 g/dL (31.0-36.0); Monocytes # (Auto) 0.6 K/mcL (0.1-0.9); Monocytes % (Auto) 5.8 % (1.0-12.0); Platelet Count 160 K/mcL (140-440); RBC 3.69 M/mcL (4.00-5.20); Red Cell Distribution Width 17.9 % (11.5-14.5)
[2018-12-22] MEDS ORDERED: DILTIAZEM 25 MG/5 ML VIAL IV ONE ×2 (07:24→08:24)
[2018-12-22] MEDS ORDERED: DILTIAZEM 125 MG in DEXTROSE 5% IN WATER 100 ML IV SCH ×2 (07:30→20:00)
[2018-12-22 07:37] LABS: ALT/SGPT 23 U/l (0-40); Albumin 3.4 gm/dL (3.2-5.2); Albumin/Globulin Ratio 0.9 (1.0-2.3); Alkaline Phosphatase 151 U/L (39-117); Blood Urea Nitrogen 49 mg/dl (8-23)
--- NOTE | 2018-12-22 07:41 | XRay Report ---
INDICATION: Weakness. Dyspnea. TECHNIQUE: AP chest x-ray,portable upright COMPARISON: Previous chest x-rays dated 08/22/2018, 03/16/2018, 12/23/2017 FINDINGS:Previous median sternotomy. There is a prosthetic aortic valve. Findings are consistent with previous right mastectomy and right axillary node dissection. Interstitial markings are prominent bilaterally and there is hyperinflation. No acute or focal pulmonary parenchymal infiltrate. No acute abnormality. No significant interval change. Heart size is within normal limits. No pulmonary edema or pulmonary congestion IMPRESSION: 1. No acute or focal pulmonary parenchymal infiltrate. 2. No significant interval change since 08/22/2018 Interpreted and Authenticated by: Steven Peacock 12/22/18
[2018-12-22] MEDS ORDERED: 0.9 % SODIUM CHLORIDE 1,000 ML IV ONE (07:59)
[2018-12-22] MEDS ORDERED: ASPIRIN 81 MG TAB.CHEW CHEWED ONE (10:39)
[2018-12-22 10:41] LABS: Appearance,Urine CLEAR; Bacteria,Urine 0 /hpf (0); Bilirubin,Urine NEG (NEG); Color,Urine STRAW; Glucose,Urine (UA) NEGATIVE (NEG); Leukocyte Esterase,Urine NEG /uL (NEG); Mucus,Urine FEW /hpf (0); Protein,Urine 30 mg/dL (NEG); Specific Gravity,Urine 1.011 (1.000-1.035); Urine Blood NEG mg/dL (<0.03); Urine Hyaline Cast 15 /lpf (0-2); Urine RBC < 1 /hpf (0-1); Urine Squamous Epithelial Cell 1 /hpf (0-4); Urine WBC 1 /hpf (0-4); Urobilinogen,Urine NEG (NEG)
[2018-12-22] MEDS ORDERED: DILTIAZEM 120 MG CAP.XL.24H PO ONE (10:43)
--- NOTE | 2018-12-22 12:34 | Emergency Department Note ---
SOB HPI - General Chief Complaint: Shortness of Breath/Dyspnea Stated Complaint: Weakness Time Seen by Provider: 12/22/18 06:18 Mode of arrival: wheelchair Limitations: no limitations - History of Present Illness MD Complaint: shortness of breath - Related Data Home Medications Medication Instructions Recorded Confirmed Levothyroxine [Synthroid] 100 mcg PO QAMAC 10/24/17 12/10/18 Apixaban [Eliquis] 2.5 mg PO BID 12/04/17 12/10/18 Torsemide [Demadex] 20 mg PO DAILY 12/04/17 12/10/18 Ipratropium/Albuterol Sulfate 2 puff INH TIDP PRN 12/23/17 12/10/18 [Combivent] Primidone [Mysoline] 200 mg PO BID 12/23/17 12/10/18 Cilostazol [Pletal] 50 mg PO BIDAC 03/16/18 12/10/18 Potassium Chloride 10 meq PO QAMCC 03/16/18 12/10/18 Metoprolol Succinate [Kapspargo 100 mg PO DAILY 08/20/18 12/10/18 Sprinkle] Sertraline HCl [Zoloft] 50 mg PO DAILY 08/20/18 12/10/18 Abilify 2 mg PO QHS 12/10/18 12/10/18 Bactrim Ds 160 - 800 mg PO BID 12/10/18 12/10/18 Gabapentin 100 mg PO BID 12/10/18 12/10/18 HYDROcodone/APAP 5/325MG [[place]ell 10 - 325 mg PO Q4HP PRN 12/10/18 12/10/18 5-325Mg] amLODIPine 5 mg PO PRN 12/10/18 Previous Rx's Medication Instructions Recorded Fluticasone/Salmeterol [Advair 1 puff INH BID #3 inhaler 12/26/17 250-50 Diskus] Ipratropium/Albuterol [Duoneb] 3 ml NEB Q4HP PRN #90 ampul.neb 12/26/17 LORazepam [Ativan] 0.5 mg PO Q6HP PRN #20 tab 08/23/18 Allergies Allergy/AdvReac Type Severity Reaction Status Date / Time levofloxacin [LEVOFLOXACIN] Allergy Mild RASH Verified 12/17/18 20:09 Past Medical History - Past Medical History Medical history: Reports: atrial fibrillation (RECENT FLUTTER.), cancer (Breast (left-mastectomy). Skin on the left neck and skin of the left chest that was non-melanotic.), CHF (Long-standing plus episodes of exacerbation.), COPD (EMPHYSEMA.), coronary artery disease (s/p CABGX2 vessel.), fibromyalgia, hyperlipidemia, hypertension, hypothyroidism, peripheral artery disease ( ), PID, valvular heart disease (Aortic valve - replaced bovine 2004.), other (Rheumatic fever. Atherosclerosis. CHRONIC ANTICOAGULATION. Pulmonary fibrosis. CHRONIC NARCOTICS for FM/severe MSK pains. TREMORS - on primidone.). Denies: CVA, DM, myocardial infarction, TIA Psychiatric history: Reports: anxiety (Today he is denied but past history included this.), depression Surgical history ED: Reports: breast surgery (Mastectomy right.), coronary bypass (CABG) - Social History smoking status: Former smoker Alcohol use: Reports: None Drug use: Reports: none. Denies: marijuana Physical Exam Limitations: no limitations General appearance: alert, in no apparent distress, malaise, sleepy Course Vital Signs Temperature 98.7 F 12/22/18 04:32 Pulse Rate 60 12/22/18 04:32 Respiratory Rate 18 12/22/18 04:32 Blood Pressure 132/95 12/22/18 04:32 Pulse Oximetry (%) 91 12/22/18 04:32 Temperature 97.9 F 12/22/18 11:52 Pulse Rate 90 12/22/18 11:52 Respiratory Rate 17 12/22/18 11:52 Blood Pressure 111/67 12/22/18 11:46 Pulse Oximetry (%) 98 12/22/18 11:52 Shortness of Breath/Dyspnea - [facility] Narrative Medical decision making narrative: Please see initial history and physical as well as laboratory review by Dr. Andres. Her second troponin came back negative. Her heart rate did improve on the by mouth Cardizem as well as the diltiazem drip. Final diagnosis is atrial flutter with rapid ventricular rate. History of elevated troponin, stable on repeat study. Plan is hospital admission at this point, discussed with Dr. Hess. - Lab Data Lab results reviewed: Yes I reviewed the patient's lab results. Result diagrams: 12/22/18 06:50 12/22/18 06:50 Lab Results 12/22/18 12/22/18 12/22/18 Range/Units 06:50 06:50 06:50 WBC 10.1 (4.5-11.0) K/mcL RBC 3.69 L (4.00-5.20) M/mcL Hgb 10.9 L (12.0-15.0) g/dL Hct 33.0 L (36.0-48.0) % MCV 89.4 (80.0-100.0) fL MCH 29.4 (26.0-34.0) pg MCHC 32.8 (31.0-36.0) g/dL RDW 17.9 H (11.5-14.5) % Plt Count 160 (140-440) K/mcL MPV 8.2 (7.4-10.4) fL Gran % 82.5 H (38.0-78.0) % Lymph % (Auto) 11.5 L (15.5-49.0) % [place] % (Auto) 5.8 (1.0-12.0) % Eos % (Auto) 0.1 (0.0-7.0) % Baso % (Auto) 0.1 (0.0-2.0) % Gran # 8.3 H (1.8-8.0) K/mcL Lymph # (Auto) 1.2 L (1.5-4.8) K/mcL [place] # (Auto) 0.6 (0.1-0.9) K/mcL Eos # (Auto) 0 (0.0-0.7) K/mcL Baso # (Auto) 0 (0.0-0.3) K/mcL VBG Lactic Acid (0.5-2.0) mmol/L Sodium 139 (133-145) mmol/L Potassium 3.6 (3.3-5.1) mmol/L Chloride 98 (96-108) mmol/L Carbon Dioxide 25 (22-30) mmol/L Anion Gap 16.0 (8-16) BUN 49 H (8-23) mg/dl Creatinine 1.7 H (0.6-1.1) mg/dl GFR Calculation 28 Glucose 87 (70-105) mg/dL Calcium 7.9 L (8.6-10.4) mg/dl Magnesium (1.6-2.5) mg/dL Total Bilirubin 0.4 (0.0-1.0) mg/dL AST 36 (0-37) U/l ALT 23 (0-40) U/l Alkaline Phosphatase 151 H (39-117) U/L Troponin T (0-0.03) ng/ml NT-Pro-B Natriuret Pep 7970.0 H (0-450) pg/ml Total Protein 7.1 (5.9-8.4) gm/dL Albumin 3.4 (3.2-5.2) gm/dL Globulin 3.7 (2.2-3.7) gm/dL Albumin/Globulin Ratio 0.9 L (1.0-2.3) Procalcitonin 0.34 (<0.10) ng/mL Urine Color Urine Appearance Urine pH (5.0-9.0) Ur Specific [place] (1.000-1.035) Urine Protein (NEG) mg/dL Urine Glucose (UA) (NEG) mg/dL Urine Ketones (NEG) mg/dL Urine Occult Blood (<0.03) mg/dL Urine Nitrate (NEG) Urine Bilirubin (NEG) mg/dL Urine Urobilinogen (NEG) mg/dL Ur Leukocyte Esterase (NEG) /uL Urine RBC (0-1) /hpf Urine WBC (0-4) /hpf Ur Squamous Epith Cells (0-4) /hpf Urine Bacteria (0) /hpf Hyaline Casts (0-2) /lpf Urine Mucus (0) /hpf Ur Culture Indicated? 12/22/18 12/22/18 12/22/18 Range/Units 06:50 07:05 07:05 WBC (4.5-11.0) K/mcL RBC (4.00-5.20) M/mcL Hgb (12.0-15.0) g/dL Hct (36.0-48.0) % MCV (80.0-100.0) fL MCH (26.0-34.0) pg MCHC (31.0-36.0) g/dL RDW (11.5-14.5) % Plt Count (140-440) K/mcL MPV (7.4-10.4) fL Gran % (38.0-78.0) % Lymph % (Auto) (15.5-49.0) % [place] % (Auto) (1.0-12.0) % Eos % (Auto) (0.0-7.0) % Baso % (Auto) (0.0-2.0) % Gran # (1.8-8.0) K/mcL Lymph # (Auto) (1.5-4.8) K/mcL [place] # (Auto) (0.1-0.9) K/mcL Eos # (Auto) (0.0-0.7) K/mcL Baso # (Auto) (0.0-0.3) K/mcL VBG Lactic Acid 0.9 (0.5-2.0) mmol/L Sodium (133-145) mmol/L Potassium (3.3-5.1) mmol/L Chloride (96-108) mmol/L Carbon Dioxide (22-30) mmol/L Anion Gap (8-16) BUN (8-23) mg/dl Creatinine (0.6-1.1) mg/dl GFR Calculation Glucose (70-105) mg/dL Calcium (8.6-10.4) mg/dl Magnesium 2.2 (1.6-2.5) mg/dL Total Bilirubin (0.0-1.0) mg/dL AST (0-37) U/l ALT (0-40) U/l Alkaline Phosphatase (39-117) U/L Troponin T 0.12 H* (0-0.03) ng/ml NT-Pro-B Natriuret Pep (0-450) pg/ml Total Protein (5.9-8.4) gm/dL Albumin (3.2-5.2) gm/dL Globulin (2.2-3.7) gm/dL Albumin/Globulin Ratio (1.0-2.3) Procalcitonin (<0.10) ng/mL Urine Color Urine Appearance Urine pH (5.0-9.0) Ur Specific [place] (1.000-1.035) Urine Protein (NEG) mg/dL Urine Glucose (UA) (NEG) mg/dL Urine Ketones (NEG) mg/dL Urine Occult Blood (<0.03) mg/dL Urine Nitrate (NEG) Urine Bilirubin (NEG) mg/dL Urine Urobilinogen (NEG) mg/dL Ur Leukocyte Esterase (NEG) /uL Urine RBC (0-1) /hpf Urine WBC (0-4) /hpf Ur Squamous Epith Cells (0-4) /hpf Urine Bacteria (0) /hpf Hyaline Casts (0-2) /lpf Urine Mucus (0) /hpf Ur Culture Indicated? 12/22/18 12/22/18 Range/Units 10:03 11:13 WBC (4.5-11.0) K/mcL RBC (4.00-5.20) M/mcL Hgb (12.0-15.0) g/dL Hct (36.0-48.0) % MCV (80.0-100.0) fL MCH (26.0-34.0) pg MCHC (31.0-36.0) g/dL RDW (11.5-14.5) % Plt Count (140-440) K/mcL MPV (7.4-10.4) fL Gran % (38.0-78.0) % Lymph % (Auto) (15.5-49.0) % [place] % (Auto) (1.0-12.0) % Eos % (Auto) (0.0-7.0) % Baso % (Auto) (0.0-2.0) % Gran # (1.8-8.0) K/mcL Lymph # (Auto) (1.5-4.8) K/mcL [place] # (Auto) (0.1-0.9) K/mcL Eos # (Auto) (0.0-0.7) K/mcL Baso # (Auto) (0.0-0.3) K/mcL VBG Lactic Acid (0.5-2.0) mmol/L Sodium (133-145) mmol/L Potassium (3.3-5.1) mmol/L Chloride (96-108) mmol/L Carbon Dioxide (22-30) mmol/L Anion Gap (8-16) BUN (8-23) mg/dl Creatinine (0.6-1.1) mg/dl GFR Calculation Glucose (70-105) mg/dL Calcium (8.6-10.4) mg/dl Magnesium (1.6-2.5) mg/dL Total Bilirubin (0.0-1.0) mg/dL AST (0-37) U/l ALT (0-40) U/l Alkaline Phosphatase (39-117) U/L Troponin T 0.10 H* (0-0.03) ng/ml NT-Pro-B Natriuret Pep (0-450) pg/ml Total Protein (5.9-8.4) gm/dL Albumin (3.2-5.2) gm/dL Globulin (2.2-3.7) gm/dL Albumin/Globulin Ratio (1.0-2.3) Procalcitonin (<0.10) ng/mL Urine Color Straw Urine Appearance Clear Urine pH 6.0 (5.0-9.0) Ur Specific [place] 1.011 (1.000-1.035) Urine Protein 30 A (NEG) mg/dL Urine Glucose (UA) Negative (NEG) mg/dL Urine Ketones Neg (NEG) mg/dL Urine Occult Blood Neg (<0.03) mg/dL Urine Nitrate Neg (NEG) Urine Bilirubin Neg (NEG) mg/dL Urine Urobilinogen Neg (NEG) mg/dL Ur Leukocyte Esterase Neg (NEG) /uL Urine RBC < 1 (0-1) /hpf Urine WBC 1 (0-4) /hpf Ur Squamous Epith Cells 1 (0-4) /hpf Urine Bacteria 0 (0) /hpf Hyaline Casts 15 H (0-2) /lpf Urine Mucus Few (0) /hpf Ur Culture Indicated? No - Radiology Data Radiology results reviewed: Yes I reviewed the patient's radiology results. - EKG Data EKG attestation: Yes I reviewed and interpreted this EKG. Rate: Reports: tachycardia Rhythm: Reports: A. flutter, with a 2:1 block Interpretation: Reports: nonspecific ST-T wave changes, other (atrial flutter) Disposition Pt seen by VEHICLE MAINTENANCE TECHNICIAN/PA only: No Clinical Impression: Weakness, Atrial fibrillation with rapid ventricular response, Atrial flutter with rapid ventricular response, Inverted T wave, Elevated troponin level, DNR no code (do not resuscitate) Disposition: Xfer As Inpt ([facility]) Condition: Fair Referrals: Rea Sethi MD [Primary Care Provider] -
--- NOTE | 2018-12-22 13:14 | Internal Med History&Physical ---
Medical - H&P: [facility] Patient information: Note initiated : 12/22/18 at 1:11 pm Service Date, if different from initiated Date: [] Patient: Valeria Negron a 78 y/o F admitted on for Weakness. Chief Complaint: [] History of present illness: Ms. Negron is a 78 year old F Presents the ED from [facility] living side secondary to severe weakness and lightheadedness. She recently was diagnosed with influenza started on Tamiflu she has had a cough occasionally productive since then the cough she says remained about the same however she continues to be weak and has lately felt very lightheaded like she could pass out. In the ED she was found to be in flutter with a rate around 150 she had some initially normal blood pressures but dropped into the low 80s suspect after the diltiazem drip might of been started. She was given 2 L IV fluid she had good blood pressure since then. She also had some T wave inversions in anterolateral leads and a troponin bump 0.12. Case was discussed with Dr. Muñoz who recommended repeating troponin as this patient is not an ideal candidate for intervention and would prefer to treat her medically. Repeat troponin started trending down. She denies any chest pain other than some associated with her productive cough with the chest wall. Her lactate was within normal limits. She is also found to have a little bit of an elevated creatinine and urinalysis with hyaline casts. Rate came down to 90s with the drip and as well as p.o. diltiazem. She denies any fevers or chills or shortness of breath. She did have a nuclear stress test a year ago which was unremarkable with Dr. Caraballo. She finally stopped smoking last year as well. Review of Systems: Pertinent positives as above. Denies headache/fever/chills/nausea/vomiting/chest or abdominal pain/dyspnea/diarrhea. Otherwise see above. Medical - H&P: [facility] Medical history: Medical History (Last Updated 12/22/18 @ 06:58 by Oracio Andres DO) DNR no code (do not resuscitate) (Chronic) Chronic anticoagulation (Chronic) Diabetes mellitus type 2, controlled (Chronic) Peripheral arterial disease (Chronic) Hyperlipidemia (Chronic) History of CHF (congestive heart failure) (Chronic) COPD (chronic obstructive pulmonary disease) (Chronic) Pulmonary fibrosis (Chronic) Hypertension, essential, benign (Chronic) Abnormal ECG (Chronic) Hypothyroidism (acquired) (Chronic) History of atrial flutter (Chronic) History of coronary artery disease (Chronic) CHF (congestive heart failure) (Chronic) Anemia (Chronic) Anxiety and depression (Chronic) Essential tremor (Chronic) 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) History of rheumatic fever (Chronic) Elevated alkaline phosphatase level (Chronic) Influenza A (Acute) Fibromyalgia (Chronic) History of peptic ulcer disease (Chronic) History of breast cancer in female (Chronic) History of recurrent UTI (urinary tract infection) (Chronic) Abdominal pain (Resolved) Acute respiratory acidosis (Resolved) COPD with exacerbation (Resolved) Chest pain at rest (Resolved) Cigarette smoker one half pack a day or less (Resolved) Congestive heart failure (Resolved) Hip fracture, left (Resolved) Hypercapnic respiratory failure (Resolved) Leukocytosis, unspecified (Resolved) Respiratory acidosis (Resolved) Respiratory distress (Resolved) Respiratory failure (Resolved) Respiratory failure (Resolved) Tachypnea (Resolved) Past Surgical History (Last Updated 12/22/18 @ 06:58 by Oracio Andres DO) 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) H/O aortic valve replacement (Chronic) H/O local excision of skin lesion (Acute) S/P appendectomy (Acute) S/P cataract surgery (Acute) S/P hysterectomy (Acute) S/P mastectomy (Acute) Past Surgical History (Last Updated 12/22/18 @ 06:58 by Oracio Andres DO) 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) H/O aortic valve replacement (Chronic) H/O local excision of skin lesion (Acute) S/P appendectomy (Acute) S/P cataract surgery (Acute) S/P hysterectomy (Acute) S/P mastectomy (Acute) Family history: States her mother and father both had cardiac issues Social history: Patient quit smoking February 2018 She is wheelchair-bound, and is only able to ambulate with 2 person assist, she is went been wheelchair-bound since breaking her hip last July She resides at his assisted living facility after recently being discharged from the [facility] facility Medical - H&P: Meds Home Medications Medication Instructions Recorded Confirmed Type Levothyroxine [Synthroid] 100 mcg PO QAMAC 10/24/17 12/10/18 History Apixaban [Eliquis] 2.5 mg PO BID 12/04/17 12/10/18 History Torsemide [Demadex] 20 mg PO DAILY 12/04/17 12/10/18 History Ipratropium/Albuterol Sulfate 2 puff INH TIDP PRN 12/23/17 12/10/18 History [Combivent] Primidone [Mysoline] 200 mg PO BID 12/23/17 12/10/18 History Fluticasone/Salmeterol [Advair 1 puff INH BID #3 inhaler 12/26/17 12/10/18 Rx 250-50 Diskus] Ipratropium/Albuterol [Duoneb] 3 ml NEB Q4HP PRN #90 ampul.neb 12/26/17 12/10/18 Rx Cilostazol [Pletal] 50 mg PO BIDAC 03/16/18 12/10/18 History Potassium Chloride 10 meq PO QAMCC 03/16/18 12/10/18 History Metoprolol Succinate [Kapspargo 100 mg PO DAILY 08/20/18 12/10/18 History Sprinkle] Sertraline HCl [Zoloft] 50 mg PO DAILY 08/20/18 12/10/18 History LORazepam [Ativan] 0.5 mg PO Q6HP PRN #20 tab 08/23/18 12/10/18 Rx Abilify 2 mg PO QHS 12/10/18 12/10/18 History Bactrim Ds 160 - 800 mg PO BID 12/10/18 12/10/18 History Gabapentin 100 mg PO BID 12/10/18 12/10/18 History HYDROcodone/APAP 5/325MG [[place] 10 - 325 mg PO Q4HP PRN 12/10/18 12/10/18 History 5-325Mg] amLODIPine 5 mg PO PRN 12/10/18 History Allergies Allergy/AdvReac Type Severity Reaction Status Date / Time levofloxacin [LEVOFLOXACIN] Allergy Mild RASH Verified 12/17/18 20:09 Medical - H&P: Exam - Constitutional Vitals: Temp Pulse Resp BP Pulse Ox 98.3 F 94 H 20 116/62 96 12/22/18 12:58 12/22/18 12:58 12/22/18 12:58 12/22/18 12:46 12/22/18 12:58 Exam: General: Alert, Awake, No acute Distress Eyes/N/T: EOMI, PEERL, DMM Head/Neck: neck supple, normocephalic atraumatic CV: Irregular mildly tacky No murmurs, normal s1/s2 Pulm: Prolonged expiratory phase, clear b/l, no wheezing/rhonchi/rales Abd: soft, nontender, +BS x4 Ext: no clubbing/cyanosis/edema Neuro: Alert, no focal deficits, moves all extremities, CN 2-12 grossly intact, symmetrical strength b/l upper/lower, sensations intact b/l upper/lower Skin: warm/dry Medical - H&P: Reslt - Labs CBC & Chem 7: 12/22/18 06:50 12/22/18 06:50 Labs: Short CBC 12/22/18 Range/Units 06:50 WBC 10.1 (4.5-11.0) K/mcL Hgb 10.9 L (12.0-15.0) g/dL Hct 33.0 L (36.0-48.0) % Plt Count 160 (140-440) K/mcL BMP 12/22/18 06:50 Sodium 139 Potassium 3.6 Chloride 98 Carbon Dioxide 25 BUN 49 H Creatinine 1.7 H Glucose 87 Calcium 7.9 L Cardiac Enzymes 12/22/18 12/22/18 Range/Units 07:05 11:13 Troponin T 0.12 H* 0.10 H* (0-0.03) ng/ml Liver Function 12/22/18 Range/Units 06:50 Total Bilirubin 0.4 (0.0-1.0) mg/dL AST 36 (0-37) U/l ALT 23 (0-40) U/l Alkaline Phosphatase 151 H (39-117) U/L Albumin 3.4 (3.2-5.2) gm/dL Urine 12/22/18 Range/Units 10:03 Urine Color Straw Urine Appearance Clear Urine pH 6.0 (5.0-9.0) Ur Specific [place] 1.011 (1.000-1.035) Urine Protein 30 A (NEG) mg/dL Urine Glucose (UA) Negative (NEG) mg/dL - Impressions Chest x-ray no acute, COPD changes Medical - H&P: A/P - Narrative A/P Narrative: A: *A flutter/fib w/RVR: *Demand ischemia: Troponin downtrending *Influenza A: recent diagnosis at end of treatment course -PCT was elevated, and would be concerning for secondary bacterial infection in this high risk pt and who is baseline very tenuous state *h/o diastolic(III) CHF: *RAI on CKD III: *Anemia, chronic *COPD/pulmonary fibrosis(not on home oxygen): *CAD/PVD: Patient on cilostazol *Hypothyroidism: *Central tremor *Failure to thrive: *Mild dementia: * P: -Wean off diltiazem drip to home p.o. beta-deion -IV fluids -Follow-up chest x-ray after IV fluids given her elevated pro-calcitonin; antibi otics and we will trend PCT -echo pending -f/u EKG -Hold torsemide for now - -ppx: Rashawn DNR
[2018-12-22] MEDS ORDERED: POTASSIUM CHLORIDE 40 MEQ in DEXTROSE 5% IN WATER 500 ML IV PRN (15:04)
[2018-12-22] MEDS ORDERED: MAGNESIUM SULFATE 2 GM/50 ML BAG IV PRN (15:04)
[2018-12-22] MEDS ORDERED: LACTULOSE 20 GM/30 ML ORAL.SOL PO PRN (15:04)
[2018-12-22] MEDS ORDERED: POLYETHYLENE GLYCOL 3350 17 GM PACKET PO PRN (15:04)
[2018-12-22] MEDS ORDERED: IPRATROPIUM/ALBUTEROL 3 ML AMPUL.NEB NEB PRN (15:04)
[2018-12-22] MEDS ORDERED: ACETAMINOPHEN 325 MG TABLET PO PRN (15:04)
[2018-12-22] MEDS ORDERED: ONDANSETRON 4 MG/2 ML VIAL IV PRN (15:04)
[2018-12-22] MEDS ORDERED: cefTRIAXone 1 GM in DEXTROSE 5% IN WATER 50 ML IV SCH (15:04)
[2018-12-22] MEDS ORDERED: 0.9 % SODIUM CHLORIDE 500 ML IV SCH (15:04)
[2018-12-22] MEDS ORDERED: POTASSIUM CHLORIDE 20 MEQ TABLET PO PRN ×2 (15:04)
[2018-12-22] MEDS: 0.9 % SODIUM CHLORIDE 10 ML SYRINGE IV SCH ×2 (15:37→20:40)
[2018-12-22] MEDS ORDERED: ACETAMINOPHEN 500 MG TABLET PO PRN (15:59)
[2018-12-22] MEDS: cefTRIAXone 1 GM VIAL IV SCH (16:02)
[2018-12-22] MEDS: AZITHROMYCIN 500 MG in DEXTROSE 5% IN WATER 250 ML IV SCH (16:14)
[2018-12-22] MEDS: METOPROLOL SUCCINATE 50 MG TAB.XL.24H PO SCH ×2 (17:34→20:39)
[2018-12-22] MEDS: CILOSTAZOL 100 MG TABLET PO SCH (17:34)
[2018-12-22] MEDS: APIXABAN 2.5 MG TABLET PO SCH (20:25)
[2018-12-22] MEDS: HYDROcodone/APAP 10/325MG TABLET PO PRN (20:25)
[2018-12-22] MEDS: PRIMIDONE 50 MG TABLET PO SCH (20:25)
[2018-12-22] MEDS: FAMOTIDINE 20 MG TABLET PO SCH (20:25)
[2018-12-22] MEDS: GABAPENTIN 100 MG CAPSULE PO SCH (20:25)
[2018-12-22] MEDS: DOCUSATE SODIUM 100 MG CAPSULE PO SCH ×2 (20:25→20:47)
[2018-12-22] MEDS: ARIPIPRAZOLE 5 MG TABLET PO SCH (20:25)
[2018-12-22] MEDS: FLUTICASONE/SALMETEROL 250/50 INHALER #14 INH SCH (20:39)
[2018-12-22] MEDS ORDERED: SENNOSIDES 1 TABLET PO PRN (21:00)
[2018-12-23] MEDS: 0.9 % SODIUM CHLORIDE 10 ML SYRINGE IV SCH ×3 (05:47→21:25)
[2018-12-23 06:36] LABS: Basophils # (Auto) 0 K/mcL (0.0-0.3); Basophils % (Auto) 0.4 % (0.0-2.0); Eosinophils # (Auto) 0.1 K/mcL (0.0-0.7); Granulocytes % (Auto) 69.6 % (38.0-78.0); Lymphocytes # (Auto) 1.5 K/mcL (1.5-4.8); Mean Cell Volume 90.6 fL (80.0-100.0); Mean Corpuscular HGB Conc 32.7 g/dL (31.0-36.0); Monocytes # (Auto) 0.6 K/mcL (0.1-0.9); Platelet Count 167 K/mcL (140-440); RBC 3.58 M/mcL (4.00-5.20); Red Cell Distribution Width 18.3 % (11.5-14.5)
[2018-12-23 07:13] LABS: ALT/SGPT 20 U/l (0-40); Albumin/Globulin Ratio 0.9 (1.0-2.3); Alkaline Phosphatase 134 U/L (39-117); Bilirubin,Direct < 0.2 mg/dL (0.0-0.3); Blood Urea Nitrogen 31 mg/dl (8-23); Gamma Glutamyl Transpeptidase 134 U/L (5-36); Uric Acid 11.4 mg/dL (2.5-8.0)
--- NOTE | 2018-12-23 07:20 | Internal Med Progress Note ---
Medical - PN: Subj Patient information: Note initiated : 12/23/18 at 7:14 am Service Date, if different from initiated Date: [] Patient: Valeria Negron a 78 y/o F admitted on 12/22/18 for Weakness. Chief Complaint: [] Interval history: Ms. Negron is a 78 year old F Presents the ED from [facility] assisted living side secondary to severe weakness and lightheadedness. She recently was diagnosed with influenza started on Tamiflu she has had a cough occasionally productive since then the cough she says remained about the same however she continues to be weak and has lately felt very lightheaded like she c ould pass out. In the ED she was found to be in flutter with a rate around 150 she had some initially normal blood pressures but dropped into the low 80s suspect after the diltiazem drip might of been started. She was given 2 L IV fluid she had good blood pressure since then. She also had some T wave inversions in anterolateral leads and a troponin bump 0.12. Case was discussed with Dr. Muñoz who recommended repeating troponin as this patient is not an ideal candidate for intervention and would prefer to treat her medically. Repeat troponin started trending down. She denies any chest pain other than some associated with her productive cough with the chest wall. Her lactate was within normal limits. She is also found to have a little bit of an elevated creatinine and urinalysis with hyaline casts. Rate came down to 90s with the drip and as well as p.o. diltiazem. She denies any fevers or chills or shortness of breath. She did have a nuclear stress test a year ago which was unremarkable with Dr. Caraballo. She finally stopped smoking last year as well. 12/23 Heart rate controlled overnight. Patient feels tired this morning which. She does have continued cough. Denies shortness of breath. She feels tired. Review of Systems: denies headache/fever/chills/nausea/vomiting/chest or abdominal pain/dyspnea/diarrhea. Otherwise see above. - Constitutional Vitals: Vital Signs Temp Pulse Resp BP Pulse Ox 98.9 F 80 16 109/60 95 12/23/18 04:00 12/23/18 04:00 12/23/18 04:00 12/23/18 04:00 12/23/18 04:00 Period Temp Pulse Resp BP Sys/Francisco Pulse Ox Last 24 Hr 97.7 F-98.9 F 50-150 13-22 85-172/56-141 90-99 Intake and Output 12/22/18 12/23/18 12/23/18 21:59 05:59 13:59 Intake Total 427 500 Output Total 500 Balance 427 0 Weight 54.522 kg Intake & Output: Intake & Output 12/22/18 12/23/18 12/23/18 21:59 05:59 13:59 Intake Total 427 500 Output Total 500 Balance 427 0 Weight 54.522 kg Intake: IV 327 500 Sodium Chloride 0.9% 500 ml @ 500 70 mls/hr IV .[id number] KAYLEY Rx#: [id number] Zithromax 500 mg In Dextrose 5% 250 in Water 250 ml @ 250 mls/hr IV DAILY [facility] Rx#:[id number] Cardizem 125 mg In Dextrose 5% 73 in Water 100 ml @ 5 MG/HR 5 mls /hr IV Q12H [facility] Rx#:[id number] Oral 100 Output: Void Amount 500 Other: Urine Appearance Clear Uretheral (Yuan) Clear Urine Color Bright Yellow Uretheral (Yuan) Pale Exam: General: Alert, Awake, No acute Distress Eyes/N/T: EOMI, Head/Neck: neck supple, CV: Irregular mildly tacky No murmurs, Pulm: Prolonged expiratory phase, clear b/l, no wheezing/rhonchi/rales Abd: soft, nontender, +BS x4 Ext: no clubbing/cyanosis/edema Neuro: Alert, no focal deficits, moves all extremities, Skin: warm/dry Medical - PN: Obj Da - Labs CBC & Chem 7: 12/23/18 03:20 12/23/18 03:20 Labs: Abnormal Lab Results 12/23/18 12/23/18 12/22/18 03:20 03:20 11:13 RBC 3.58 L Hgb 10.6 L Hct 32.4 L RDW 18.3 H Gran % Lymph % (Auto) Gran # Lymph # (Auto) BUN 31 H Creatinine 1.2 H Uric Acid 11.4 H Calcium 7.2 L Phosphorus 2.3 L GGT 134 H Alkaline Phosphatase 134 H Lactate Dehydrogenase 365 H Troponin T 0.10 H* NT-Pro-B Natriuret Pep Albumin 3.0 L Albumin/Globulin Ratio 0.9 L Urine Protein Hyaline Casts 12/22/18 12/22/18 12/22/18 10:03 07:05 06:50 RBC Hgb Hct RDW Gran % Lymph % (Auto) Gran # Lymph # (Auto) BUN 49 H Creatinine 1.7 H Uric Acid Calcium 7.9 L Phosphorus GGT Alkaline Phosphatase 151 H Lactate Dehydrogenase Troponin T 0.12 H* NT-Pro-B Natriuret Pep 7970.0 H Albumin Albumin/Globulin Ratio 0.9 L Urine Protein 30 A Hyaline Casts 15 H 12/22/18 06:50 RBC 3.69 L Hgb 10.9 L Hct 33.0 L RDW 17.9 H Gran % 82.5 H Lymph % (Auto) 11.5 L Gran # 8.3 H Lymph # (Auto) 1.2 L BUN Creatinine Uric Acid Calcium Phosphorus GGT Alkaline Phosphatase Lactate Dehydrogenase Troponin T NT-Pro-B Natriuret Pep Albumin Albumin/Globulin Ratio Urine Protein Hyaline Casts Meds: Medications Acetaminophen (Tylenol) 650 mg PO Q6HP PRN PRN Reason: PAIN/FEVER > 101 Hydrocodone Bitart/Acetaminophen ([place] 10/325mg) 2 tab PO Q6HP PRN PRN Reason: Pain Last Admin: 12/22/18 20:25 Dose: 2 tab Documented by: Albuterol/Ipratropium (Duoneb) 3 ml NEB Q4HP PRN PRN Reason: Shortness Of Breath Amlodipine Besylate (Norvasc) 5 mg PO DAILY [facility] Apixaban (Eliquis) 2.5 mg PO BID [facility] Last Admin: 12/22/18 20:25 Dose: 2.5 mg Documented by: Ceftriaxone Sodium (Rocephin) 1 gm IV DAILY [facility] Last Admin: 12/22/18 16:02 Dose: 1 gm Documented by: Cilostazol (Pletal) 50 mg PO BIDAC [facility] Last Admin: 12/22/18 17:34 Dose: 50 mg Documented by: Docusate Sodium (Colace) 100 mg PO BID [facility] Last Admin: 12/22/18 20:47 Dose: Not Given Documented by: Famotidine (Pepcid) 20 mg PO HS [facility] Last Admin: 12/22/18 20:25 Dose: 20 mg Documented by: Gabapentin (Neurontin) 100 mg PO BID [facility] Last Admin: 12/22/18 20:25 Dose: 100 mg Documented by: Diltiazem HCl 125 mg/ Dextrose 125 mls @ 5 mls/hr IV Q12H [facility]; Protocol Last Admin: 12/22/18 23:12 Dose: Not Given Documented by: Azithromycin 500 mg/ Dextrose 250 mls @ 250 mls/hr IV DAILY [facility] Stop: 12/24/18 09:59 Last Infusion: 12/22/18 19:43 Dose: Infused Documented by: Potassium Chloride 40 meq/ (Dextrose) 520 mls @ 130 mls/hr IV ONCE PRN PRN Reason: Potassium < 3 Magnesium Sulfate (Magnesium Sulfate) 2 gm in 50 mls @ 50 mls/hr IV ONCE PRN PRN Reason: Magnesium </= 1.6 Lactulose (Cephulac) 10 gm PO DAILYP PRN PRN Reason: Constipation Metoprolol Succinate (Toprol Xl) 100 mg PO BID [facility] Last Admin: 12/22/18 20:39 Dose: Not Given Documented by: Ondansetron HCl (Zofran) 4 mg IV Q4HP PRN PRN Reason: Nausea And Vomiting Polyethylene Glycol (Miralax) 17 gm PO DAILYP PRN PRN Reason: Constipation Potassium Chloride (Kdur) 40 meq PO ONCE PRN PRN Reason: Potassium is 3-3.5 Potassium Chloride (Kdur) 40 meq PO ONCE PRN PRN Reason: Potassium < 3 Potassium Chlor[facility] (Kdur) [facility] Primidone (Mysoline) 50 mg PO BID [facility] Last Admin: 12/22/18 20:25 Dose: 50 mg Documented by: Fluticasone/Salmeterol (Advair 250-50 Diskus) 1 puff INH BID [facility] Last Admin: 12/22/18 20:39 Dose: Not Given Documented by: Senna (Senokot) 2 tab PO HSP PRN PRN Reason: Constipation Sertraline HCl (Zoloft) 100 mg PO DAILY [facility] Sodium Chloride (Saline Flush) 10 ml IV Q8 [facility] Last Admin: 12/23/18 05:47 Dose: 10 ml Documented by: Torsemide (Demadex) 20 mg PO DAILY [facility] Medical - PN: A/P - Time Spent With Patient Total time spent is greater than 50% in coordination of care (as documented) at patient's floor/unit and/or counseling patient: - Narrative A/P Narrative: A: *A flutter/fib w/RVR: -dilt gtt off o/n *Demand ischemia: 2/2 above in setting of RAI. Troponin downtrending *Influenza A: recent diagnosis at end of treatment course -PCT was elevated, and would be concerning for secondary bacterial infection in this high risk pt and who is baseline a very tenuous state -CXR with retrocardiac atelectasis vs infiltrate *h/o diastolic(III) CHF: *RAI on CKD III: improved with IVF *Anemia, chronic: *COPD/pulmonary fibrosis(not on home oxygen): *CAD/PVD: Patient on cilostazol *Hypothyroidism: *Essential tremor: *Failure to thrive: *Mild dementia: * P: -cont PO BB -echo pending -Hold torsemide for now -pt/ot -ppx: Eliquis DNR Medical - PN: Qual - VTE Deep Vein Thrombosis/Pulmonary Embolism Present on Admission: No
[2018-12-23] MEDS: POTASSIUM CHLORIDE 10 MEQ TABLET PO SCH (07:28)
[2018-12-23] MEDS: CILOSTAZOL 100 MG TABLET PO SCH ×2 (07:28→16:41)
[2018-12-23] MEDS ORDERED: DILTIAZEM 125 MG in DEXTROSE 5% IN WATER 100 ML IV PRN (07:45)
--- NOTE | 2018-12-23 07:52 | XRay Report ---
INDICATION: Weakness TECHNIQUE: AP chest x-ray,portable COMPARISON: Previous examinations dated 12/22/2018, 08/22/2018, 03/16/2018 FINDINGS:Previous median sternotomy. There is a prosthetic aortic valve. Probable prior right mastectomy with surgical clips in the right axilla. There are also surgical clips in the mediastinum. Interstitial markings remain prominent. No definite pulmonary edema. There is increased density in the left retrocardiac region consistent with left lower lobe atelectasis or infiltrate. Continued follow-up recommended. IMPRESSION: Left retrocardiac density consistent with left lower lobe atelectasis or infiltrate Interpreted and Authenticated by: Steven Peacock 12/23/18
[2018-12-23] MEDS: METOPROLOL SUCCINATE 50 MG TAB.XL.24H PO SCH ×2 (08:22→21:23)
[2018-12-23] MEDS: GABAPENTIN 100 MG CAPSULE PO SCH ×2 (08:22→21:23)
[2018-12-23] MEDS: DOCUSATE SODIUM 100 MG CAPSULE PO SCH ×2 (08:23→21:23)
[2018-12-23] MEDS: FLUTICASONE/SALMETEROL 250/50 INHALER #14 INH SCH ×2 (08:23→21:24)
[2018-12-23] MEDS: TORSEMIDE 10 MG TABLET PO SCH (08:23)
[2018-12-23] MEDS: amLODIPine 5 MG TABLET PO SCH (08:23)
[2018-12-23] MEDS: HYDROcodone/APAP 10/325MG TABLET PO PRN ×2 (08:45→21:43)
[2018-12-23] MEDS: AZITHROMYCIN 500 MG in DEXTROSE 5% IN WATER 250 ML IV SCH (09:10)
[2018-12-23] MEDS: APIXABAN 2.5 MG TABLET PO SCH ×2 (09:20→21:24)
[2018-12-23] MEDS: PRIMIDONE 50 MG TABLET PO SCH ×2 (09:33→21:24)
[2018-12-23] MEDS: SERTRALINE 100 MG TABLET PO SCH (09:33)
[2018-12-23] MEDS: cefTRIAXone 1 GM VIAL IV SCH (10:37)
[2018-12-23] MEDS: FAMOTIDINE 20 MG TABLET PO SCH (21:23)
[2018-12-23] MEDS: ARIPIPRAZOLE 5 MG TABLET PO SCH (21:24)
[2018-12-24] MEDS: 0.9 % SODIUM CHLORIDE 10 ML SYRINGE IV SCH ×3 (05:36→21:22)
--- NOTE | 2018-12-24 07:19 | Internal Med Progress Note ---
Medical - PN: Subj Patient information: Note initiated : 12/24/18 at 7:16 am Service Date, if different from initiated Date: [] Patient: Valeria Negron a 78 y/o F admitted on 12/22/18 for Weakness. Chief Complaint: [] Interval history: Ms. Negron is a 78 year old F Presents the ED from [facility] assisted living side secondary to severe weakness and lightheadedness. She recently was diagnosed with influenza started on Tamiflu she has had a cough occasionally productive since then the cough she says remained about the same however she continues to be weak and has lately felt very lightheaded like she c ould pass out. In the ED she was found to be in flutter with a rate around 150 she had some initially normal blood pressures but dropped into the low 80s suspect after the diltiazem drip might of been started. She was given 2 L IV fluid she had good blood pressure since then. She also had some T wave inversions in anterolateral leads and a troponin bump 0.12. Case was discussed with Dr. Muñoz who recommended repeating troponin as this patient is not an ideal candidate for intervention and would prefer to treat her medically. Repeat troponin started trending down. She denies any chest pain other than some associated with her productive cough with the chest wall. Her lactate was within normal limits. She is also found to have a little bit of an elevated creatinine and urinalysis with hyaline casts. Rate came down to 90s with the drip and as well as p.o. diltiazem. She denies any fevers or chills or shortness of breath. She did have a nuclear stress test a year ago which was unremarkable with Dr. Caraballo. She finally stopped smoking last year as well. 12/23 Heart rate controlled overnight. Patient feels tired this morning which. She does have continued cough. Denies shortness of breath. She feels tired. 12/24 Nursing staff noticed concern with swallowing she coughs occasionally. Speech therapy evaluation ordered. Patient states her cough overall is improved and does not really notice much shortness of breath. Her heart rate has been controlled. Nursing weaning down oxygen. Review of Systems: denies headache/fever/chills/nausea/vomiting/chest or abdominal pain/dyspnea/diarrhea. Otherwise see above. - Constitutional Vitals: Vital Signs Temp Pulse Resp BP Pulse Ox 97.5 F 71 18 152/72 94 12/24/18 04:00 12/23/18 08:00 12/24/18 04:00 12/24/18 04:00 12/24/18 04:00 Period Temp Pulse Resp BP Sys/Francisco Pulse Ox Last 24 Hr 97.1 F-98.2 F 71-78 16-18 99-152/56-81 94-100 Intake and Output 12/23/18 12/24/18 12/24/18 21:59 05:59 13:59 Intake Total 390 250 Output Total 250 650 Balance 140 -400 Weight 55.338 kg Intake & Output: Intake & Output 12/23/18 12/24/18 12/24/18 21:59 05:59 13:59 Intake Total 390 250 Output Total 250 650 Balance 140 -400 Weight 55.338 kg Intake: IV 250 Zithromax 500 mg In Dextrose 5% 250 in Water 250 ml @ 250 mls/hr IV DAILY [facility] Rx#:[id number] Oral 390 Output: Urine Catheter Amount 250 650 Other: Meal Dinner Percent of Meal Consumed 25% Feeding Ability Assist with Tray Set Up Urine Appearance Clear Uretheral (Yuan) Clear Urine Color Pale Uretheral (Yuan) Pale Exam: General: Alert, Awake, No acute Distress Eyes/N/T: EOMI, Head/Neck: neck supple, CV: Irregular, No murmurs, Pulm: Prolonged expiratory phase, mild bibasilar rales, occasional wheeze Abd: soft, nontender, +BS x4 Ext: no clubbing/cyanosis/edema Neuro: Alert, no focal deficits, moves all extremities, Skin: warm/dry Medical - PN: Obj Da - Labs CBC & Chem 7: 12/23/18 03:20 12/24/18 03:19 Labs: Abnormal Lab Results 12/23/18 12/23/18 12/22/18 03:20 03:20 11:13 RBC 3.58 L Hgb 10.6 L Hct 32.4 L RDW 18.3 H Gran % Lymph % (Auto) Gran # Lymph # (Auto) BUN 31 H Creatinine 1.2 H Uric Acid 11.4 H Calcium 7.2 L Phosphorus 2.3 L GGT 134 H Alkaline Phosphatase 134 H Lactate Dehydrogenase 365 H Troponin T 0.10 H* NT-Pro-B Natriuret Pep Albumin 3.0 L Albumin/Globulin Ratio 0.9 L Urine Protein Hyaline Casts 12/22/18 12/22/18 12/22/18 10:03 07:05 06:50 RBC Hgb Hct RDW Gran % Lymph % (Auto) Gran # Lymph # (Auto) BUN 49 H Creatinine 1.7 H Uric Acid Calcium 7.9 L Phosphorus GGT Alkaline Phosphatase 151 H Lactate Dehydrogenase Troponin T 0.12 H* NT-Pro-B Natriuret Pep 7970.0 H Albumin Albumin/Globulin Ratio 0.9 L Urine Protein 30 A Hyaline Casts 15 H 12/22/18 06:50 RBC 3.69 L Hgb 10.9 L Hct 33.0 L RDW 17.9 H Gran % 82.5 H Lymph % (Auto) 11.5 L Gran # 8.3 H Lymph # (Auto) 1.2 L BUN Creatinine Uric Acid Calcium Phosphorus GGT Alkaline Phosphatase Lactate Dehydrogenase Troponin T NT-Pro-B Natriuret Pep Albumin Albumin/Globulin Ratio Urine Protein Hyaline Casts Meds: Medications Acetaminophen (Tylenol) 650 mg PO Q6HP PRN PRN Reason: PAIN/FEVER > 101 Hydrocodone Bitart/Acetaminophen ([place] 10/325mg) 2 tab PO Q6HP PRN PRN Reason: Pain Last Admin: 12/23/18 21:43 Dose: 2 tab Documented by: Albuterol/Ipratropium (Duoneb) 3 ml NEB Q4HP PRN PRN Reason: Shortness Of Breath Amlodipine Besylate (Norvasc) 5 mg PO DAILY [facility] Last Admin: 12/23/18 08:23 Dose: 5 mg Documented by: Apixaban (Eliquis) 2.5 mg PO BID [facility] Last Admin: 12/23/18 21:24 Dose: 2.5 mg Documented by: Ceftriaxone Sodium (Rocephin) 1 gm IV DAILY [facility] Last Admin: 12/23/18 10:37 Dose: 1 gm Documented by: Cilostazol (Pletal) 50 mg PO BIDAC [facility] Last Admin: 12/23/18 16:41 Dose: 50 mg Documented by: Docusate Sodium (Colace) 100 mg PO BID [facility] Last Admin: 12/23/18 21:23 Dose: 100 mg Documented by: Famotidine (Pepcid) 20 mg PO HS [facility] Last Admin: 12/23/18 21:23 Dose: 20 mg Documented by: Gabapentin (Neurontin) 100 mg PO BID [facility] Last Admin: 12/23/18 21:23 Dose: 100 mg Documented by: Azithromycin 500 mg/ Dextrose 250 mls @ 250 mls/hr IV DAILY [facility] Stop: 12/24/18 09:59 Last Infusion: 12/24/18 05:36 Dose: Infused Documented by: Potassium Chloride 40 meq/ (Dextrose) 520 mls @ 130 mls/hr IV ONCE PRN PRN Reason: Potassium < 3 Magnesium Sulfate (Magnesium Sulfate) 2 gm in 50 mls @ 50 mls/hr IV ONCE PRN PRN Reason: Magnesium </= 1.6 Diltiazem HCl 125 mg/ Dextrose 125 mls @ 5 mls/hr IV Q12HP PRN; Protocol PRN Reason: Tachyarrhythmias Lactulose (Cephulac) 10 gm PO DAILYP PRN PRN Reason: Constipation Metoprolol Succinate (Toprol Xl) 100 mg PO BID [facility] Last Admin: 12/23/18 21:23 Dose: 100 mg Documented by: Ondansetron HCl (Zofran) 4 mg IV Q4HP PRN PRN Reason: Nausea And Vomiting Polyethylene Glycol (Miralax) 17 gm PO DAILYP PRN PRN Reason: Constipation Potassium Chloride (Kdur) 40 meq PO ONCE PRN PRN Reason: Potassium is 3-3.5 Potassium Chloride (Kdur) 40 meq PO ONCE PRN PRN Reason: Potassium < 3 Potassium [facility] ([facility]ur) [facility] Last Admin: 12/23/18 07:28 Dose: 10 meq Documented by: Primidone (Mysoline) 50 mg PO BID [facility] Last Admin: 12/23/18 21:24 Dose: 50 mg Documented by: Fluticasone/Salmeterol (Advair 250-50 Diskus) 1 puff INH BID [facility] Last Admin: 12/23/18 21:24 Dose: Not Given Documented by: Senna (Senokot) 2 tab PO HSP PRN PRN Reason: Constipation Sertraline HCl (Zoloft) 100 mg PO DAILY [facility] Last Admin: 12/23/18 09:33 Dose: 100 mg Documented by: Sodium Chloride (Saline Flush) 10 ml IV Q8 [facility] Last Admin: 12/24/18 05:36 Dose: 10 ml Documented by: Torsemide (Demadex) 20 mg PO DAILY [facility] Last Admin: 12/23/18 08:23 Dose: 20 mg Documented by: Medical - PN: A/P - Time Spent With Patient Total time spent is greater than 50% in coordination of care (as documented) at patient's floor/unit and/or counseling patient: - Narrative A/P Narrative: A: *A flutter/fib w/RVR: now rate controlled -echo with normal EF, francisco *Demand ischemia: 2/2 above in setting of RAI. Troponin downtrending *Influenza A: recent diagnosis at end of treatment course -PCT was elevated, and would be concerning for secondary bacterial infection in this high risk pt and who is baseline a very tenuous state -CXR with retrocardiac atelectasis vs infiltrate *PNA: *h/o diastolic(III) CHF: *RAI on CKD III: improved with IVF *Anemia, chronic: *COPD/pulmonary fibrosis(not on home oxygen): *CAD/PVD: *Hypothyroidism: *Essential tremor: *Failure to thrive: *Mild dementia: * P: -cont PO BB -Rocephin/azithro -ST eval -tamiflu course finished at time of admission -wean off O2 -Hold torsemide for now -pt/ot -ppx: Rashawn DNR Medical - PN: Qual - VTE Deep Vein Thrombosis/Pulmonary Embolism Present on Admission: No
[2018-12-24 07:52] LABS: Blood Urea Nitrogen 29 mg/dl (8-23)
[2018-12-24] MEDS: CILOSTAZOL 100 MG TABLET PO SCH ×2 (07:57→18:11)
[2018-12-24] MEDS: POTASSIUM CHLORIDE 10 MEQ TABLET PO SCH (07:57)
[2018-12-24] MEDS: AZITHROMYCIN 500 MG in DEXTROSE 5% IN WATER 250 ML IV SCH (09:14)
[2018-12-24] MEDS: METOPROLOL SUCCINATE 50 MG TAB.XL.24H PO SCH ×2 (09:14→21:21)
[2018-12-24] MEDS: SERTRALINE 100 MG TABLET PO SCH (09:15)
[2018-12-24] MEDS: amLODIPine 5 MG TABLET PO SCH (09:15)
[2018-12-24] MEDS: cefTRIAXone 1 GM VIAL IV SCH (09:15)
[2018-12-24] MEDS: APIXABAN 2.5 MG TABLET PO SCH ×2 (09:15→21:15)
[2018-12-24] MEDS: PRIMIDONE 50 MG TABLET PO SCH ×2 (09:15→21:16)
[2018-12-24] MEDS: GABAPENTIN 100 MG CAPSULE PO SCH ×2 (09:15→21:21)
[2018-12-24] MEDS: TORSEMIDE 10 MG TABLET PO SCH (09:15)
[2018-12-24] MEDS: DOCUSATE SODIUM 100 MG CAPSULE PO SCH ×2 (09:16→21:21)
[2018-12-24] MEDS: FLUTICASONE/SALMETEROL 250/50 INHALER #14 INH SCH ×2 (09:16→21:22)
[2018-12-24] MEDS: HYDROcodone/APAP 10/325MG TABLET PO PRN ×2 (09:41→18:09)
--- NOTE | 2018-12-24 13:50 | Discharge Summary ---
Medical - DS: Prov Patient information: Note initiated : 12/24/18 at 1:48 pm Service Date, if different from initiated Date: [] Patient: Valeria Negron 78 y/o F admitted on 12/22/18 for Weakness. Chief Complaint: [] Date of admission: 12/22/18 14:41 Discharge date: 12/25/18 Primary care physician: Rea Sethi Consults: 12/22/18 07:22 Consult to Physician [CONS] Stat Comment: Consulting Provider: Moy Muñoz Reason For Exam: Physician to Consult 12/22/18 09:26 Consult to Physician [CONS] Stat Comment: Consulting Provider: Magen Costello Reason For Exam: Physician to Consult Medical - DS: Meds - Discharge Medications Prescriptions: Cefdinir 300 mg PO BID #4 cap Active and Home Medications: Home Medications Apixaban [Eliquis] 2.5 mg PO BID 12/04/17 [History Confirmed 12/22/18 Last Taken 12/09/18] Torsemide [Demadex] 20 mg PO DAILY 12/04/17 [History Confirmed 12/22/18 Last Taken Unknown] Primidone [Mysoline] 50 mg PO BID 12/23/17 [History Confirmed 12/22/18 Last Taken Unknown] Fluticasone/Salmeterol [Advair 250-50 Diskus] 1 puff INH BID #3 inhaler 12/26/17 [Rx Confirmed 12/22/18 Last Taken Unknown] Ipratropium/Albuterol [Duoneb] 3 ml NEB Q4HP PRN #90 ampul.neb 12/26/17 [Rx Confirmed 12/22/18 Last Taken Unknown] Potassium Chloride 10 meq PO QAMCC 03/16/18 [History Confirmed 12/22/18 Last Taken Unknown] Metoprolol Succinate [Kapspargo Sprinkle] 100 mg PO BID 08/20/18 [History Confirmed 12/22/18 Last Taken 12/10/18] Acetaminophen [Acetaminophen Extra Strength] 1,000 mg PO Q6-8HP PRN 12/22/18 [History Confirmed 12/22/18 Last Taken Unknown] Aripiprazole [Abilify] 2 mg PO HS 12/22/18 [History Confirmed 12/22/18 Last Taken Unknown] Benzonatate 100 mg PO TID 12/22/18 [History Confirmed 12/22/18 Last Taken Unknown] Cilostazol [Pletal] 50 mg PO BIDAC 12/22/18 [History Confirmed 12/22/18 Last Taken Unknown] Gabapentin [Neurontin] 100 mg PO BID 12/22/18 [History Confirmed 12/22/18 Last Taken Unknown] HYDROcodone/APAP 10/325MG [Gregory 10-325Mg] 2 tab PO Q6HP PRN 12/22/18 [History Confirmed 12/22/18 Last Taken Unknown] Ibuprofen 400 - 600 mg PO Q4-6HP PRN 12/22/18 [History Confirmed 12/22/18 Last Taken Unknown] Nitroglycerin [Nitro-Dur] 1 patch TOPICAL DAILY 12/22/18 [History Confirmed 12/22/18 Last Taken Unknown] Ondansetron [Zofran ODT] 4 mg SL DAILY 12/22/18 [History Confirmed 12/22/18 Last Taken Unknown] Oseltamivir Phosphate 75 mg PO BID 12/22/18 [History Confirmed 12/22/18 Last Taken Unknown] Sertraline [Zoloft] 100 mg PO DAILY 12/22/18 [History Confirmed 12/22/18 Last Taken Unknown] amLODIPine [Norvasc] 5 mg PO DAILY 12/22/18 [History Confirmed 12/22/18 Last Taken Unknown] Medical - DS: Hosp Hospital course: Ms. Negron is a 78 year old F Presents the ED from [facility] side secondary to severe weakness and lightheadedness. She recently was diagnosed with influenza started on Tamiflu she has had a cough occasionally productive since then the cough she says remained about the same however she continues to be weak and has lately felt very lightheaded like she could pass out. In the ED she was found to be in flutter with a rate around 150 she had some initially normal blood pressures but dropped into the low 80s suspect after the diltiazem drip might of been started. She was given 2 L IV fluid she had good blood pressure since then. She also had some T wave inversions in anterolateral leads and a troponin bump 0.12. Case was discussed with Dr. Muñoz who recommended repeating troponin as this patient is not an ideal candidate for intervention and would prefer to treat her medically. Repeat troponin started trending down. She denies any chest pain other than some associated with her productive cough with the chest wall. Her lactate was within normal limits. She is also found to have a little bit of an elevated creatinine and urinalysis with hyaline casts. Rate came down to 90s with the drip and as well as p.o. diltiazem. She denies any fevers or chills or shortness of breath. She did have a nuclear stress test a year ago which was unremarkable with Dr. Caraballo. She finally stopped smoking last year as well. 12/23 Heart rate controlled overnight. Patient feels tired this morning which. She does have continued cough. Denies shortness of breath. She feels tired. 12/24 Nursing staff noticed concern with swallowing she coughs occasionally. Speech therapy evaluation ordered. Patient states her cough overall is improved and does not really notice much shortness of breath. Her heart rate has been controlled. Nursing weaning down oxygen. 12/25 No issues overnight, oxygen saturation on room air low to mid 90s, good heart rate control. Stable for discharge Discharge diagnosis: A. fib RVR influenza pneumonia Secondary discharge diagnosis: CHF kidney injury anemia COPD pulmonary fibrosis CAD hypothyroidism essential tremor failure to thrive dementia - Time Spent with Patient Total time spent providing and/or coordinating discharge services: Greater than 30 minutes Medical - DS: Exam - Constitutional Vitals: Vital Signs Temp Resp BP Pulse Ox 12/24/18 11:38 97.3 F 18 101/55 90 12/24/18 10:02 18 135/81 93 12/24/18 08:00 93 12/24/18 07:57 98.1 F 18 159/86 95 12/24/18 04:00 97.5 F 18 152/72 94 12/24/18 00:00 98.2 F 18 99/56 94 12/23/18 20:00 97.1 F 18 133/78 94 12/23/18 16:00 98.1 F 18 139/78 96 Intake and Output 12/23/18 12/24/18 12/24/18 21:59 05:59 13:59 Intake Total 390 250 Output Total 250 650 Balance 140 -400 Intake: IV 250 Zithromax 500 mg In Dextrose 5% 250 in Water 250 ml @ 250 mls/hr IV DAILY [facility] Rx#:[id number] Oral 390 Output: Urine Catheter Amount 250 650 Other: Meal Dinner Percent of Meal Consumed 25% Feeding Ability Assist with Tray Set Up Urine Appearance Clear Uretheral (Yuan) Clear Clear Urine Color Pale Uretheral (Yuan) Pale Pale Weight 55.338 kg Medical - DS: Data Labs on day of discharge: Labs from last 24 hours 12/24/18 03:19 Sodium 138 Potassium 3.8 Chloride 99 Carbon Dioxide 26 Anion Gap 13.0 BUN 29 H Creatinine 1.2 H GFR Calculation 43 Glucose 68 L Calcium 7.7 L Medical - DS: A/P - Patient/Caregiver Discharge Instructions Activity: as per physical therapy Diet: Cardiac (Dysphagia mechanical - f/u with speech therapy) Additional Instructions: Follow-up with speech therapy outpatient Prescriptions: Cefdinir 300 mg PO BID #4 cap - Follow up Plan Follow up with: Rea Sethi MD [Primary Care Provider] - Disposition: Xfer Assisted Living Facility Prognosis: Fair Rehab Potential: Fair Overall status at discharge: patient is progressing back to baseline Medical - DS: Qual - VTE Deep Vein Thrombosis/Pulmonary Embolism Present on Admission: No
[2018-12-24] MEDS: ARIPIPRAZOLE 5 MG TABLET PO SCH (21:16)
[2018-12-24] MEDS: FAMOTIDINE 20 MG TABLET PO SCH (21:22)
[2018-12-25] MEDS: 0.9 % SODIUM CHLORIDE 10 ML SYRINGE IV SCH (05:49)
[2018-12-25] MEDS: PRIMIDONE 50 MG TABLET PO SCH (08:24)
[2018-12-25] MEDS: cefTRIAXone 1 GM VIAL IV SCH (08:24)
[2018-12-25] MEDS: METOPROLOL SUCCINATE 50 MG TAB.XL.24H PO SCH (08:24)
[2018-12-25] MEDS: APIXABAN 2.5 MG TABLET PO SCH (08:25)
[2018-12-25] MEDS: CILOSTAZOL 100 MG TABLET PO SCH (08:25)
[2018-12-25] MEDS: GABAPENTIN 100 MG CAPSULE PO SCH (08:25)
[2018-12-25] MEDS: amLODIPine 5 MG TABLET PO SCH (08:25)
[2018-12-25] MEDS: SERTRALINE 100 MG TABLET PO SCH (08:26)
[2018-12-25] MEDS: FLUTICASONE/SALMETEROL 250/50 INHALER #14 INH SCH (08:26)
[2018-12-25] MEDS: POTASSIUM CHLORIDE 10 MEQ TABLET PO SCH (08:26)
[2018-12-25] MEDS: DOCUSATE SODIUM 100 MG CAPSULE PO SCH (08:27)
--- NOTE | 2018-12-25 10:46 | Internal Med Progress Note ---
Medical - PN: Subj Patient information: Note initiated : 12/25/18 at 10:43 am Service Date, if different from initiated Date: [] Patient: Valeria Negron a 78 y/o F admitted on 12/22/18 for Weakness. Chief Complaint: [] Interval history: Ms. Negron is a 78 year old F Presents the ED from [facility] living side secondary to severe weakness and lightheadedness. She recently was diagnosed with influenza started on Tamiflu she has had a cough occasionally productive since then the cough she says remained about the same however she continues to be weak and has lately felt very lightheaded like she could pass out. In the ED she was found to be in flutter with a rate around 150 she had some initially normal blood pressures but dropped into the low 80s suspect after the diltiazem drip might of been started. She was given 2 L IV fluid she had good blood pressure since then. She also had some T wave inversions in anterolateral leads and a troponin bump 0.12. Case was discussed with Dr. Muñoz who recommended repeating troponin as this patient is not an ideal candidate for intervention and would prefer to treat her medically. Repeat troponin started trending down. She denies any chest pain other than some associated with her productive cough with the chest wall. Her lactate was within normal limits. She is also found to have a little bit of an elevated creatinine and urinalysis with hyaline casts. Rate came down to 90s with the drip and as well as p.o. diltiazem. She denies any fevers or chills or shortness of breath. She did have a nuclear stress test a year ago which was unremarkable with Dr. Caraballo. She finally stopped smoking last year as well. 12/23 Heart rate controlled overnight. Patient feels tired this morning which. She does have continued cough. Denies shortness of breath. She feels tired. 12/24 Nursing staff noticed concern with swallowing she coughs occasionally. Speech therapy evaluation ordered. Patient states her cough overall is improved and does not really notice much shortness of breath. Her heart rate has been controlled. Nursing weaning down oxygen. 12/25 No overnight events, slept most the night. Sats mid 90s on room air. Good heart rate control. Has cough nonproductive. Denies shortness of breath. Review of Systems: denies headache/fever/chills/nausea/vomiting/chest or abdominal pain/dyspnea/diarrhea. Otherwise see above. - Constitutional Vitals: Vital Signs Temp Pulse Resp BP Pulse Ox 97.7 F 74 16 152/83 92 12/25/18 08:00 12/25/18 04:00 12/25/18 04:00 12/25/18 08:00 12/25/18 08:00 Period Temp Pulse Resp BP Sys/Francisco Pulse Ox Last 24 Hr 97.0 F-97.7 F 71-74 16-18 101-154/55-89 90-94 Intake and Output 12/24/18 12/25/18 12/25/18 21:59 05:59 13:59 Intake Total 100 240 Output Total 800 350 Balance -700 -350 240 Weight 55.338 kg Intake & Output: Intake & Output 12/24/18 12/25/18 12/25/18 21:59 05:59 13:59 Intake Total 100 240 Output Total 800 350 Balance -700 -350 240 Weight 55.338 kg Intake: Oral 100 240 Output: Urine Catheter Amount 800 350 Other: Meal Nourishment/Supplement Breakfast Percent of Meal Consumed 25% 50% Feeding Ability Assist with Tray Set Up Urine Appearance Uretheral (Yaun) Clear Urine Color Bright Yellow Uretheral (Yuan) Pale Urine Odor Normal Exam: General: Alert, Awake, No acute Distress Eyes/N/T: EOMI, Head/Neck: neck supple, CV: Irregular, No murmurs, Pulm: Prolonged expiratory phase, mild rhonchi on left, no wheezing Abd: soft, nontender, +BS x4 Ext: no clubbing/cyanosis/edema Neuro: Alert, no focal deficits, moves all extremities, Skin: warm/dry Medical - PN: Obj Da - Labs CBC & Chem 7: 12/23/18 03:20 12/24/18 03:19 Labs: Abnormal Lab Results 12/24/18 12/23/18 12/23/18 03:19 03:20 03:20 RBC 3.58 L Hgb 10.6 L Hct 32.4 L RDW 18.3 H BUN 29 H 31 H Creatinine 1.2 H 1.2 H Glucose 68 L Uric Acid 11.4 H Calcium 7.7 L 7.2 L Phosphorus 2.3 L GGT 134 H Alkaline Phosphatase 134 H Lactate Dehydrogenase 365 H Troponin T Albumin 3.0 L Albumin/Globulin Ratio 0.9 L 12/22/18 11:13 RBC Hgb Hct RDW BUN Creatinine Glucose Uric Acid Calcium Phosphorus GGT Alkaline Phosphatase Lactate Dehydrogenase Troponin T 0.10 H* Albumin Albumin/Globulin Ratio Meds: Medications Acetaminophen (Tylenol) 650 mg PO Q6HP PRN PRN Reason: PAIN/FEVER > 101 Hydrocodone Bitart/Acetaminophen ([place] 10/325mg) 2 tab PO Q6HP PRN PRN Reason: Pain Last Admin: 12/24/18 18:09 Dose: 2 tab Documented by: Albuterol/Ipratropium (Duoneb) 3 ml NEB Q4HP PRN PRN Reason: Shortness Of Breath Amlodipine Besylate (Norvasc) 5 mg PO DAILY [facility] Last Admin: 12/25/18 08:25 Dose: 5 mg Documented by: Apixaban (Eliquis) 2.5 mg PO BID [facility] Last Admin: 12/25/18 08:25 Dose: 2.5 mg Documented by: Ceftriaxone Sodium (Rocephin) 1 gm IV DAILY [facility] Last Admin: 12/25/18 08:24 Dose: 1 gm Documented by: Cilostazol (Pletal) 50 mg PO BIDAC [facility] Last Admin: 12/25/18 08:25 Dose: 50 mg Documented by: Docusate Sodium (Colace) 100 mg PO BID [facility] Last Admin: 12/25/18 08:27 Dose: Not Given Documented by: Famotidine (Pepcid) 20 mg PO HS [facility] Last Admin: 12/24/18 21:22 Dose: 20 mg Documented by: Gabapentin (Neurontin) 100 mg PO BID [facility] Last Admin: 12/25/18 08:25 Dose: 100 mg Documented by: Potassium Chloride 40 meq/ (Dextrose) 520 mls @ 130 mls/hr IV ONCE PRN PRN Reason: Potassium < 3 Magnesium Sulfate (Magnesium Sulfate) 2 gm in 50 mls @ 50 mls/hr IV ONCE PRN PRN Reason: Magnesium </= 1.6 Diltiazem HCl 125 mg/ Dextrose 125 mls @ 5 mls/hr IV Q12HP PRN; Protocol PRN Reason: Tachyarrhythmias Lactulose (Cephulac) 10 gm PO DAILYP PRN PRN Reason: Constipation Metoprolol Succinate (Toprol Xl) 100 mg PO BID [facility] Last Admin: 12/25/18 08:24 Dose: 100 mg Documented by: Ondansetron HCl (Zofran) 4 mg IV Q4HP PRN PRN Reason: Nausea And Vomiting Polyethylene Glycol (Miralax) 17 gm PO DAILYP PRN PRN Reason: Constipation Potassium Chloride (Kdur) 40 meq PO ONCE PRN PRN Reason: Potassium is 3-3.5 Potassium Chloride (Kdur) 40 meq PO ONCE PRN PRN Reason: Potassium < 3 Potassium Chloride (Kdur) 10 meq PO QAC [facility] Last Admin: 12/25/18 08:26 Dose: Not Given Documented by: Primidone (Mysoline) 50 mg PO BID [facility] Last Admin: 12/25/18 08:24 Dose: 50 mg Documented by: Fluticasone/Salmeterol (Advair 250-50 Diskus) 1 puff INH BID [facility] Last Admin: 12/25/18 08:26 Dose: Not Given Documented by: Senna (Senokot) 2 tab PO HSP PRN PRN Reason: Constipation Sertraline HCl (Zoloft) 100 mg PO DAILY [facility] Last Admin: 12/25/18 08:26 Dose: 100 mg Documented by: Sodium Chloride (Saline Flush) 10 ml IV Q8 [facility] Last Admin: 12/25/18 05:49 Dose: 10 ml Documented by: Medical - PN: A/P - Time Spent With Patient Total time spent is greater than 50% in coordination of care (as documented) at patient's floor/unit and/or counseling patient: - Narrative A/P Narrative: A: *A flutter/fib w/RVR: now rate controlled -echo with normal EF, *Demand ischemia: 2/2 above in setting of RAI. Troponin downtrending *Influenza A: recent diagnosis at end of treatment course -PCT was elevated, and would be concerning for secondary bacterial infection in this high risk pt and who is baseline a very tenuous state -CXR with retrocardiac atelectasis vs infiltrate *PNA: *h/o diastolic(III) CHF: *RAI on CKD III: improved with IVF *Anemia, chronic: *COPD/pulmonary fibrosis(not on home oxygen): *CAD/PVD: *Hypothyroidism: *Essential tremor: *Failure to thrive: *Mild dementia: * P: -cont PO BB -Rocephin/azithro -ST eval -tamiflu course finished at time of admission -Hold torsemide for now -pt/ot -ppx: Eliquis d/c planning to SNF when available DNR Medical - PN: Qual - VTE Deep Vein Thrombosis/Pulmonary Embolism Present on Admission: No
[2018-12-25] MEDS ORDERED: PHENobarb/HYOSCY/ATROPINE/SCOP 1 DOSE BOTTLE PO ONE (13:26)
[2018-12-25] MEDS ORDERED: hydrOXYzine 25 MG TABLET PO STA (13:34)
== END 2018-12-25 13:49 | DRG 308 ==
LOC: ED 04:32 → ICU 14:41
PROVIDERS: ADMIT Internal Medicine; ATTEND Internal Medicine

== ENCOUNTER 2019-02-12 14:34 | Inpatient (IN) ==
--- NOTE | 2019-02-12 15:11 | Emergency Department Note ---
General Adult HPI - General Stated complaint: Vomiting blood Time Seen by Provider: 02/12/19 14:50 Source: EMS Mode of arrival: EMS Limitations: no limitations - History of Present Illness HPI Narrative: 78-year-old female in ED via EMS from [facility]. EMS advises they were c alled as patient was having coffee-ground emesis. Patient advises she is been feeling "crappy" for the last 2 days. She has been vomiting multiple episodes and having stomach pain. She does not have any fevers, appetite has not changed and she did eat breakfast this morning. She does not have diarrhea or blood in stool. She has had increased fatigue. Patient states she was on Elaquis for A. fib. Onset (ago): day(s) (2) Location: abdomen Radiation: non-radiation Severity: moderate Quality: aching Consistency: intermittent Worsens with: other (palpation) Associated symptoms: Reports: malaise. Denies: confusion, chest pain, cough, diaphoresis, fever/chills, headaches, loss of appetite, nausea/vomiting, shortness of breath Treatments Prior to Arrival: none - Related Data Home Medications Medication Instructions Recorded Confirmed Apixaban [Eliquis] 2.5 mg PO BID 12/04/17 02/12/19 Torsemide [Demadex] 30 mg PO DAILY 12/04/17 02/12/19 Primidone [Mysoline] 50 mg PO BID 12/23/17 02/12/19 Metoprolol Succinate [Kapspargo 100 mg PO BID 08/20/18 02/12/19 Sprinkle] Acetaminophen [Acetaminophen Extra 1,000 mg PO Q6-8HP PRN 12/22/18 02/12/19 Strength] Aripiprazole [Abilify] 2 mg PO HS 12/22/18 02/12/19 Benzonatate 100 mg PO TID 12/22/18 02/12/19 Cilostazol [Pletal] 50 mg PO BID 12/22/18 02/12/19 Gabapentin [Neurontin] 100 mg PO BID 12/22/18 02/12/19 HYDROcodone/APAP 10/325MG [[place] 2 tab PO Q6HP PRN 12/22/18 02/12/19 10-325Mg] Ibuprofen 400 - 600 mg PO Q4-6HP PRN 12/22/18 02/12/19 Nitroglycerin [Nitro-Dur] 1 patch TOPICAL BID 12/22/18 02/12/19 Ondansetron [Zofran ODT] 4 mg SL DAILY 12/22/18 02/12/19 Sertraline [Zoloft] 100 mg PO DAILY 12/22/18 02/12/19 amLODIPine [Norvasc] 5 mg PO DAILY 12/22/18 02/12/19 Bisacodyl [Dulcolax] 10 mg RC PRN PRN 02/12/19 02/12/19 Hydrochlorothiazide [Oretic] 12.5 mg PO 3XW 02/12/19 02/12/19 Magnesium Hydroxide [Milk of 400 mg PO PRN PRN 02/12/19 02/12/19 Magnesia] Na Phos,M-B/Na Phos,Di-Ba [Fleet 118 ml RC PRN PRN 02/12/19 02/12/19 Enema Extra] Ondansetron [Zofran ODT] 4 mg SL Q6H PRN 02/12/19 02/12/19 Phenylephrine HCl/Linn Butter 1 each RC BID 02/12/19 02/12/19 [Preparation H Suppository] Previous Rx's Medication Instructions Recorded Fluticasone/Salmeterol [Advair 1 puff INH BID #3 inhaler 12/26/17 250-50 Diskus] Ipratropium/Albuterol [Duoneb] 3 ml NEB Q4HP PRN #90 ampul.neb 12/26/17 Allergies Allergy/AdvReac Type Severity Reaction Status Date / Time levofloxacin [LEVOFLOXACIN] Allergy Mild RASH Verified 02/12/19 14:35 Review of Systems All systems ED: reviewed and negative except as stated. Past Medical History - Past Medical History [facility] Narrative: All Active Problems (Last Updated 12/22/18 @ 06:58 by Oracio Andres DO) Weakness (Acute) Atrial fibrillation with rapid ventricular response (Acute) Atrial flutter with rapid ventricular response (Acute) Inverted T wave (Acute) Elevated troponin level (Acute) DNR no code (do not resuscitate) (Chronic) Chronic anticoagulation (Chronic) Diabetes mellitus type 2, controlled (Chronic) Peripheral arterial disease (Chronic) Hyperlipidemia (Chronic) History of CHF (congestive heart failure) (Chronic) COPD (chronic obstructive pulmonary disease) (Chronic) Pulmonary fibrosis (Chronic) Hypertension, essential, benign (Chronic) Abnormal ECG (Chronic) Hypothyroidism (acquired) (Chronic) H/O aortic valve replacement (Chronic) History of atrial flutter (Chronic) History of coronary artery disease (Chronic) CHF (congestive heart failure) (Chronic) Anemia (Chronic) Anxiety and depression (Chronic) Essential tremor (Chronic) 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) History of rheumatic fever (Chronic) Elevated alkaline phosphatase level (Chronic) Influenza A (Acute) Fibromyalgia (Chronic) History of peptic ulcer disease (Chronic) History of breast cancer in female (Chronic) History of recurrent UTI (urinary tract infection) (Chronic) Past Surgical History (Last Updated 12/22/18 @ 06:58 by Oracio Andres DO) 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 Skin on the left neck and skin of the left chest that was non-melanotic.), CHF (Long-standing plus episodes of exacerbation.), COPD (EMPHYSEMA.), CAD (coronary artery disease) (s/p CABGX2 vessel.), fibromyalgia, hyperlipidemia, hypertension, hypothyroidism, peripheral artery disease ( ), PID, valvular heart disease (Aortic valve - replaced bovine 2003.), other (Rheumatic fever. Atherosclerosis. CHRONIC ANTICOAGULATION. Pulmonary fibrosis. CHRONIC NARCOTICS for FM/severe MSK pains. TREMORS - on primidone.). Denies: CVA, DM, myocardial infarction, TIA Psychiatric history: Reports: anxiety (Today he is denied but past history included this.), depression Surgical history ED: Reports: breast surgery (Mastectomy right.), coronary bypass (CABG) - Social History smoking status: Former smoker Alcohol use: Reports: None Drug use: Reports: none. Denies: marijuana Physical Exam Limitations: no limitations General appearance: alert, malaise Head: atraumatic, normocephalic, normal inspection, other (facial edema) Eye: Present: normal appearance, PERRL, EOMI. Absent: conjunctival injection ENT: normal oropharynx, mucous membranes dry, TM's normal bilaterally, normal external ear exam, other (pt tongue with fissures) Neck: Present: normal inspection, full ROM, trachea midline. Absent: tenderness, meningismus, lymphadenopathy Chest: Present: normal inspection, symmetric chest wall rise. Absent: tenderness Respiratory: Present: normal lung sounds bilaterally. Absent: respiratory distress, rales/crackles, wheezes Cardiovascular: Present: irregular rhythm. Absent: systolic murmur, diastolic murmur Abdominal: Present: distention, tenderness, normal bowel sounds. Absent: guard ing, rebound, rigidity Abdominal tenderness: Present: LUQ Extremities: Present: normal inspection. Absent: pedal edema Neurological: Present: alert, oriented X3 Psychiatric: Present: normal affect, normal mood. Absent: depressed, agitated, anxious, flat affect Skin: Present: warm, dry, intact, pallor. Absent: cool, diaphoretic, rash Course Vital Signs Temperature 98.4 F 02/12/19 14:36 Pulse Rate 71 02/12/19 14:36 Respiratory Rate 12 02/12/19 14:36 Blood Pressure 149/75 02/12/19 14:36 Pulse Oximetry (%) 90 02/12/19 14:36 Temperature 98.4 F 02/12/19 14:36 Pulse Rate 55 L 02/12/19 18:46 Respiratory Rate 16 02/12/19 18:46 Blood Pressure 97/59 02/12/19 18:46 Pulse Oximetry (%) 97 02/12/19 18:46 Medical Decision Making - [facility] Narrative Medical decision making narrative: Yuan catheter was placed and patient's urine showed high white blood cell counts with positive nitrates. Patient was provided 1 L fluid over an hour. She normally does not wear oxygen and this was placed due to saturations in the low 90s, nasal cannula on 1 L. Discussed with patient her lab work and current symptoms and possible need for admittance. Pt does have a DNR and advises she is okay with receiving blood, but will decide which procedures she is okay with. Pt was advised GI specialist is at [facility] and if he accepts she would need to be transferred over there. The patient advised she did not want to go to [facility] and would prefer to return to [facility] and follow-up with her GI specialist. Patients daughter is present in the room for this conversation. Discussed with about an EGD on the patient. He advised she should be admitted, the eliquis should be stopped and the scope can occur on Friday. She also needs a PPI started. He advised he would be the consult for the GI portion of the patients care. Consulted with Dr. Costello on patient history, assessment, and consult with . Dr. Costello accepted pt and advised 80mg bolus protonix and then start a drip. - Medical Records Medical records reviewed: Yes I reviewed the patient's medical records. Patient is wheelchair-bound and uses 2 person assist as needed. She has been depressed his care since July 2018 due to a broken hip - Lab Data Result diagrams: 02/12/19 15:54 02/12/19 14:56 Lab Results 02/12/19 02/12/19 02/12/19 Range/Units 14:47 14:56 15:54 WBC 11.7 H (4.5-11.0) K/mcL RBC 3.18 L (4.00-5.20) M/mcL Hgb 9.9 L (12.0-15.0) g/dL Hct 30.3 L (36.0-48.0) % POC Hct 26.0 L (36.0-48.0) % MCV 95.2 (80.0-100.0) fL MCH 31.2 (26.0-34.0) pg MCHC 32.8 (31.0-36.0) g/dL RDW 18.5 H (11.5-14.5) % Plt Count 287 (140-440) K/mcL MPV 7.6 (7.4-10.4) fL Gran % 84.7 H (38.0-78.0) % Lymph % (Auto) 8.7 L (15.5-49.0) % [place] % (Auto) 4.6 (1.0-12.0) % Eos % (Auto) 1.7 (0.0-7.0) % Baso % (Auto) 0.3 (0.0-2.0) % Gran # 9.9 H (1.8-8.0) K/mcL Lymph # (Auto) 1.0 L (1.5-4.8) K/mcL [place] # (Auto) 0.5 (0.1-0.9) K/mcL Eos # (Auto) 0.2 (0.0-0.7) K/mcL Baso # (Auto) 0 (0.0-0.3) K/mcL POC PT (11.9-14.5) sec PT POC INR (0.9-1.2) INR APTT VBG Lactic Acid (0.5-2.0) mmol/L POC Sodium 137 (133-145) mmol/L Sodium 136 (133-145) mmol/L POC Potassium 4.4 (3.3-5.1) mmol/L Potassium 4.3 (3.3-5.1) mmol/L POC Chloride 99 (96-108) mmol/L Chloride 96 (96-108) mmol/L Carbon Dioxide 27 (22-30) mmol/L POC Total CO2 31 H (22-30) mmol/L Anion Gap 13.0 (8-16) POC BUN 48 H (8-23) mg/dl BUN 40 H (8-23) mg/dl Creatinine 1.6 H (0.6-1.1) mg/dl POC Creatinine 1.8 H (0.6-1.1) mg/dl GFR Calculation 30 Glucose 99 (70-105) mg/dL POC Glucose 102 (70-105) mg/dL Calcium 8.7 (8.6-10.4) mg/dl POC WB Ioniz Calcium 0.98 L (1.16-1.32) mmol/L Total Bilirubin 0.3 (0.0-1.0) mg/dL AST 40 H (0-37) U/l ALT 14 (0-40) U/l Alkaline Phosphatase 159 H (39-117) U/L Total Protein 7.9 (5.9-8.4) gm/dL Albumin 3.7 (3.2-5.2) gm/dL Globulin 4.2 H (2.2-3.7) gm/dL Albumin/Globulin Ratio 0.9 L (1.0-2.3) Urine Color Yellow Urine Appearance Hazy Urine pH 6.0 (5.0-9.0) Ur Specific Clio 1.010 (1.000-1.035) Urine Protein Neg (NEG) mg/dL Urine Glucose (UA) Negative (NEG) mg/dL Urine Ketones Neg (NEG) mg/dL Urine Occult Blood Neg (<0.03) mg/dL Urine Nitrate Pos A (NEG) Urine Bilirubin Neg (NEG) mg/dL Urine Urobilinogen Neg (NEG) mg/dL Ur Leukocyte Esterase 500 A (NEG) /uL Urine RBC 15 H (0-1) /hpf Urine WBC 134 H (0-4) /hpf Ur Squamous Epith Cells 0 (0-4) /hpf Ur Transition Epith Cell < 1 (0-2) /hpf Urine Bacteria Mod A (0) /hpf Hyaline Casts 6 H (0-2) /lpf Urine Mucus Few (0) /hpf Ur Culture Indicated? Yes 02/12/19 02/12/19 02/12/19 Range/Units 15:54 15:54 17:05 WBC (4.5-11.0) K/mcL RBC (4.00-5.20) M/mcL Hgb (12.0-15.0) g/dL Hct (36.0-48.0) % POC Hct (36.0-48.0) % MCV (80.0-100.0) fL MCH (26.0-34.0) pg MCHC (31.0-36.0) g/dL RDW (11.5-14.5) % Plt Count (140-440) K/mcL MPV (7.4-10.4) fL Gran % (38.0-78.0) % Lymph % (Auto) (15.5-49.0) % [place] % (Auto) (1.0-12.0) % Eos % (Auto) (0.0-7.0) % Baso % (Auto) (0.0-2.0) % Gran # (1.8-8.0) K/mcL Lymph # (Auto) (1.5-4.8) K/mcL [place] # (Auto) (0.1-0.9) K/mcL Eos # (Auto) (0.0-0.7) K/mcL Baso # (Auto) (0.0-0.3) K/mcL POC PT (11.9-14.5) sec PT TNP POC INR (0.9-1.2) INR TNP APTT TNP 40 H VBG Lactic Acid 2.0 (0.5-2.0) mmol/L POC Sodium (133-145) mmol/L Sodium (133-145) mmol/L POC Potassium (3.3-5.1) mmol/L Potassium (3.3-5.1) mmol/L POC Chloride (96-108) mmol/L Chloride (96-108) mmol/L Carbon Dioxide (22-30) mmol/L POC Total CO2 (22-30) mmol/L Anion Gap (8-16) POC BUN (8-23) mg/dl BUN (8-23) mg/dl Creatinine (0.6-1.1) mg/dl POC Creatinine (0.6-1.1) mg/dl GFR Calculation Glucose (70-105) mg/dL POC Glucose (70-105) mg/dL Calcium (8.6-10.4) mg/dl POC WB Ioniz Calcium (1.16-1.32) mmol/L Total Bilirubin (0.0-1.0) mg/dL AST (0-37) U/l ALT (0-40) U/l Alkaline Phosphatase (39-117) U/L Total Protein (5.9-8.4) gm/dL Albumin (3.2-5.2) gm/dL Globulin (2.2-3.7) gm/dL Albumin/Globulin Ratio (1.0-2.3) Urine Color Urine Appearance Urine pH (5.0-9.0) Ur Specific Clio (1.000-1.035) Urine Protein (NEG) mg/dL Urine Glucose (UA) (NEG) mg/dL Urine Ketones (NEG) mg/dL Urine Occult Blood (<0.03) mg/dL Urine Nitrate (NEG) Urine Bilirubin (NEG) mg/dL Urine Urobilinogen (NEG) mg/dL Ur Leukocyte Esterase (NEG) /uL Urine RBC (0-1) /hpf Urine WBC (0-4) /hpf Ur Squamous Epith Cells (0-4) /hpf Ur Transition Epith Cell (0-2) /hpf Urine Bacteria (0) /hpf Hyaline Casts (0-2) /lpf Urine Mucus (0) /hpf Ur Culture Indicated? 02/12/19 Range/Units 17:05 WBC (4.5-11.0) K/mcL RBC (4.00-5.20) M/mcL Hgb (12.0-15.0) g/dL Hct (36.0-48.0) % POC Hct (36.0-48.0) % MCV (80.0-100.0) fL MCH (26.0-34.0) pg MCHC (31.0-36.0) g/dL RDW (11.5-14.5) % Plt Count (140-440) K/mcL MPV (7.4-10.4) fL Gran % (38.0-78.0) % Lymph % (Auto) (15.5-49.0) % [place] % (Auto) (1.0-12.0) % Eos % (Auto) (0.0-7.0) % Baso % (Auto) (0.0-2.0) % Gran # (1.8-8.0) K/mcL Lymph # (Auto) (1.5-4.8) K/mcL [place] # (Auto) (0.1-0.9) K/mcL Eos # (Auto) (0.0-0.7) K/mcL Baso # (Auto) (0.0-0.3) K/mcL POC PT 14.2 (11.9-14.5) sec PT POC INR 1.2 (0.9-1.2) INR APTT VBG Lactic Acid (0.5-2.0) mmol/L POC Sodium (133-145) mmol/L Sodium (133-145) mmol/L POC Potassium (3.3-5.1) mmol/L Potassium (3.3-5.1) mmol/L POC Chloride (96-108) mmol/L Chloride (96-108) mmol/L Carbon Dioxide (22-30) mmol/L POC Total CO2 (22-30) mmol/L Anion Gap (8-16) POC BUN (8-23) mg/dl BUN (8-23) mg/dl Creatinine (0.6-1.1) mg/dl POC Creatinine (0.6-1.1) mg/dl GFR Calculation Glucose (70-105) mg/dL POC Glucose (70-105) mg/dL Calcium (8.6-10.4) mg/dl POC WB Ioniz Calcium (1.16-1.32) mmol/L Total Bilirubin (0.0-1.0) mg/dL AST (0-37) U/l ALT (0-40) U/l Alkaline Phosphatase (39-117) U/L Total Protein (5.9-8.4) gm/dL Albumin (3.2-5.2) gm/dL Globulin (2.2-3.7) gm/dL Albumin/Globulin Ratio (1.0-2.3) Urine Color Urine Appearance Urine pH (5.0-9.0) Ur Specific Clio (1.000-1.035) Urine Protein (NEG) mg/dL Urine Glucose (UA) (NEG) mg/dL Urine Ketones (NEG) mg/dL Urine Occult Blood (<0.03) mg/dL Urine Nitrate (NEG) Urine Bilirubin (NEG) mg/dL Urine Urobilinogen (NEG) mg/dL Ur Leukocyte Esterase (NEG) /uL Urine RBC (0-1) /hpf Urine WBC (0-4) /hpf Ur Squamous Epith Cells (0-4) /hpf Ur Transition Epith Cell (0-2) /hpf Urine Bacteria (0) /hpf Hyaline Casts (0-2) /lpf Urine Mucus (0) /hpf Ur Culture Indicated? - Radiology Data Radiology results reviewed: Yes I reviewed the patient's radiology results. Chest x-ray: CLINICAL INFORMATION: increased fatigue /vomiting COMPARISON: 01/25/2019 FINDINGS: Mild cardiomegaly is unchanged. Moderate hiatal hernia is again noted - remaining mediastinum is normal. Pulmonary vessels are now mildly distended compared to a 01/04/2019 baseline study. There is minimal interstitial edema. Small left pleural effusion noted. Minor left basilar atelectasis noted. Right mastectomy changes noted IMPRESSION: Mild CHF Disposition Pt seen by G[employer]PARATION TEACHER/PA only: No (Mauro) Clinical Impression: CHF (congestive heart failure), Urinary tract infection, Vomiting of blood Disposition: Xfer As Inpt ([facility]) Condition: Fair Referrals: Rea Sethi MD [Primary Care Provider] - Time of Disposition: 19:09
[2019-02-12] MEDS ORDERED: 0.9 % SODIUM CHLORIDE 1,000 ML IV ONE ×2 (15:21→18:11)
[2019-02-12] MEDS ORDERED: PIPERACILLIN SODIUM/TAZOBACTAM 3.375 GM in DEXTROSE 5% IN WATER 50 ML IV ONE (15:22)
[2019-02-12 15:26] LABS: Appearance,Urine HAZY; Bacteria,Urine MOD /hpf (0); Bilirubin,Urine NEG (NEG); Color,Urine YELLOW; Glucose,Urine (UA) NEGATIVE (NEG); Leukocyte Esterase,Urine 500 /uL (NEG); Mucus,Urine FEW /hpf (0); Protein,Urine NEG (NEG); Urine Blood NEG mg/dL (<0.03); Urine Hyaline Cast 6 /lpf (0-2); Urine RBC 15 /hpf (0-1); Urine Squamous Epithelial Cell 0 /hpf (0-4); Urine Transitional Epi Cells < 1 /hpf (0-2); Urine WBC 134 /hpf (0-4); Urobilinogen,Urine NEG (NEG)
[2019-02-12 15:55] LABS: ALT/SGPT 14 U/l (0-40); Albumin 3.7 gm/dL (3.2-5.2); Albumin/Globulin Ratio 0.9 (1.0-2.3); Alkaline Phosphatase 159 U/L (39-117); Blood Urea Nitrogen 40 mg/dl (8-23)
--- NOTE | 2019-02-12 16:24 | XRay Report ---
CLINICAL INFORMATION: increased fatigue /vomiting COMPARISON: 01/25/2019 FINDINGS: Mild cardiomegaly is unchanged. Moderate hiatal hernia is again noted - remaining mediastinum is normal. Pulmonary vessels are now mildly distended compared to a 01/04/2019 baseline study. There is minimal interstitial edema. Small left pleural effusion noted. Minor left basilar atelectasis noted. Right mastectomy changes noted IMPRESSION: Mild CHF Interpreted and Authenticated by: Steven Springer 02/12/19
[2019-02-12 16:40] LABS: Basophils # (Auto) 0 K/mcL (0.0-0.3); Basophils % (Auto) 0.3 % (0.0-2.0); Eosinophils # (Auto) 0.2 K/mcL (0.0-0.7); Eosinophils % (Auto) 1.7 % (0.0-7.0); Granulocytes % (Auto) 84.7 % (38.0-78.0); Lymphocytes % (Auto) 8.7 % (15.5-49.0); Mean Cell Volume 95.2 fL (80.0-100.0); Mean Corpuscular HGB Conc 32.8 g/dL (31.0-36.0); Monocytes # (Auto) 0.5 K/mcL (0.1-0.9); Monocytes % (Auto) 4.6 % (1.0-12.0); Platelet Count 287 K/mcL (140-440); RBC 3.18 M/mcL (4.00-5.20); Red Cell Distribution Width 18.5 % (11.5-14.5)
[2019-02-12] MEDS ORDERED: HYDROcodone/APAP 5/325MG TABLET PO ONE (16:49)
[2019-02-12] MEDS ORDERED: PANTOPRAZOLE 40 MG VIAL IV ONE ×2 (18:00→18:28)
[2019-02-12] MEDS ORDERED: PANTOPRAZOLE 80 MG in 0.9 % SODIUM CHLORIDE 100 ML IV SCH (18:30)
--- NOTE | 2019-02-12 18:31 | Internal Med History&Physical ---
Medical - H&P: HPI Patient information: Note initiated : 02/12/19 at 6:29 pm Service Date, if different from initiated Date: [] Patient: Valeria Negron a 78 y/o F admitted on for Vomiting Blood. Chief Complaint: [] History of present illness: Ms. Negron is a 78 year old F who presents from [facility] for 2 days of coffee-ground emesis. She reports that she is feeling fine Friday. sometime in the morning she vomited and report was that it was coffee-ground emesis patient reports that it was quite explosive and quite a bit. She did not have any further episodes that day. And then today she had another episode of coffee- ground emesis. Patient states that she felt weaker more tired the past couple days with some lightheadedness. Denies headache but has some chills she has some constipation denies melena. She has not occasional cough which is much improved from the past she is got chronic shortness of breath she has what she calls pleurisy for the past week where she has some chest wall discomfort when she coughs or sneezes. She feels a little lightheaded. Having some little bit of stomach discomfort in the left upper quadrant. She has extensive medical history including A. fib on Eliquis and Toprol with history of chronic kidney disease diastolic heart failure she had failure to thrive dementia COPD with pulmonary fibrosis coronary artery disease peripheral vascular disease hypothyroidism. She was told in the ER that she would likely need to go to [facility] because GI is not available at this time. But patient adamantly refused. At that time ED contacted Dr. Sepulveda who said he would be willing to perform endoscopy, on Friday likely. Review of Systems: Pertinent positives as above. Denies headache/fever/diarrhea. Remaining 10 point review of systems reviewed negative Medical - H&P: PMH Medical history: Medical History (Last Updated 12/22/18 @ 06:58 by Oracoi Andres DO) DNR no code (do not resuscitate) (Chronic) Chronic anticoagulation (Chronic) Diabetes mellitus type 2, controlled (Chronic) Peripheral arterial disease (Chronic) Hyperlipidemia (Chronic) History of CHF (congestive heart failure) (Chronic) COPD (chronic obstructive pulmonary disease) (Chronic) Pulmonary fibrosis (Chronic) Hypertension, essential, benign (Chronic) Abnormal ECG (Chronic) Hypothyroidism (acquired) (Chronic) History of atrial flutter (Chronic) History of coronary artery disease (Chronic) CHF (congestive heart failure) (Chronic) Anemia (Chronic) Anxiety and depression (Chronic) Essential tremor (Chronic) 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) History of rheumatic fever (Chronic) Elevated alkaline phosphatase level (Chronic) Influenza A (Acute) Fibromyalgia (Chronic) History of peptic ulcer disease (Chronic) History of breast cancer in female (Chronic) History of recurrent UTI (urinary tract infection) (Chronic) Abdominal pain (Resolved) Acute respiratory acidosis (Resolved) COPD with exacerbation (Resolved) Chest pain at rest (Resolved) Cigarette smoker one half pack a day or less (Resolved) Congestive heart failure (Resolved) Hip fracture, left (Resolved) Hypercapnic respiratory failure (Resolved) Leukocytosis, unspecified (Resolved) Respiratory acidosis (Resolved) Respiratory distress (Resolved) Respiratory failure (Resolved) Respiratory failure (Resolved) Tachypnea (Resolved) Past Surgical History (Last Updated 12/22/18 @ 06:58 by Oracio Andres DO) 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) H/O aortic valve replacement (Chronic) H/O local excision of skin lesion (Acute) S/P appendectomy (Acute) S/P cataract surgery (Acute) S/P hysterectomy (Acute) S/P mastectomy (Acute) Past Surgical History (Last Updated 12/22/18 @ 06:58 by Oracio Andres DO) 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) H/O aortic valve replacement (Chronic) H/O local excision of skin lesion (Acute) S/P appendectomy (Acute) S/P cataract surgery (Acute) S/P hysterectomy (Acute) S/P mastectomy (Acute) Family history: States her mother and father both had cardiac issues Social history: Patient quit smoking February 2018 She is wheelchair-bound, and is only able to ambulate with 2 person assist, she has been wheelchair-bound since breaking her hip last July She has been residing at [facility] nursing [facility] Medical - H&P: Meds Home Medications Medication Instructions Recorded Confirmed Type Apixaban [Eliquis] 2.5 mg PO BID 12/04/17 02/12/19 History Torsemide [Demadex] 30 mg PO DAILY 12/04/17 02/12/19 History Primidone [Mysoline] 50 mg PO BID 12/23/17 02/12/19 History Fluticasone/Salmeterol [Advair 1 puff INH BID #3 inhaler 12/26/17 02/12/19 Rx 250-50 Diskus] Ipratropium/Albuterol [Duoneb] 3 ml NEB Q4HP PRN #90 ampul.neb 12/26/17 02/12/19 Rx Metoprolol Succinate [Kapspargo 100 mg PO BID 08/20/18 02/12/19 History Sprinkle] Acetaminophen [Acetaminophen Extra 1,000 mg PO Q6-8HP PRN 12/22/18 02/12/19 History Strength] Aripiprazole [Abilify] 2 mg PO HS 12/22/18 02/12/19 History Benzonatate 100 mg PO TID 12/22/18 02/12/19 History Cilostazol [Pletal] 50 mg PO BID 12/22/18 02/12/19 History Gabapentin [Neurontin] 100 mg PO BID 12/22/18 02/12/19 History HYDROcodone/APAP 10/325MG [[place] 2 tab PO Q6HP PRN 12/22/18 02/12/19 History 10-325Mg] Ibuprofen 400 - 600 mg PO Q4-6HP PRN 12/22/18 02/12/19 History Nitroglycerin [Nitro-Dur] 1 patch TOPICAL BID 12/22/18 02/12/19 History Ondansetron [Zofran ODT] 4 mg SL DAILY 12/22/18 02/12/19 History Sertraline [Zoloft] 100 mg PO DAILY 12/22/18 02/12/19 History amLODIPine [Norvasc] 5 mg PO DAILY 12/22/18 02/12/19 History Bisacodyl [Dulcolax] 10 mg RC PRN PRN 02/12/19 02/12/19 History Hydrochlorothiazide [Oretic] 12.5 mg PO 3XW 02/12/19 02/12/19 History Magnesium Hydroxide [Milk of 400 mg PO PRN PRN 02/12/19 02/12/19 History Magnesia] Na Phos,M-B/Na Phos,Di-Ba [Fleet 118 ml RC PRN PRN 02/12/19 02/12/19 History Enema Extra] Ondansetron [Zofran ODT] 4 mg SL Q6H PRN 02/12/19 02/12/19 History Phenylephrine HCl/[place] Butter 1 each RC BID 02/12/19 02/12/19 History [Preparation H Suppository] Allergies Allergy/AdvReac Type Severity Reaction Status Date / Time levofloxacin [LEVOFLOXACIN] Allergy Mild RASH Verified 02/12/19 14:35 Medical - H&P: Exam - Constitutional Vitals: Temp Pulse Resp BP Pulse Ox 98.4 F 56 L 18 149/75 100 02/12/19 14:36 02/12/19 17:44 02/12/19 17:44 02/12/19 14:48 02/12/19 17:44 Exam: General: Alert, Awake, No acute Distress Eyes/N/T: EOMI, PEERL, DMM Head/Neck: neck supple, normocephalic atraumatic CV: Irregular, No murmurs, Pulm: diminished b/l, mild b/l fine rales Abd: soft, minimal TTP upper abd, +BS x4 Ext: no clubbing/cyanosis/edema Neuro: Alert, no focal deficits, moves all extremities, CN 2-12 grossly intact, symmetrical strength b/l upper/lower, sensations intact b/l upper/lower Skin: warm/dry, pale Medical - H&P: Reslt - Labs CBC & Chem 7: 02/12/19 15:54 02/12/19 14:56 Labs: Short CBC 02/12/19 Range/Units 15:54 WBC 11.7 H (4.5-11.0) K/mcL Hgb 9.9 L (12.0-15.0) g/dL Hct 30.3 L (36.0-48.0) % Plt Count 287 (140-440) K/mcL BMP 02/12/19 14:56 Sodium 136 Potassium 4.3 Chloride 96 Carbon Dioxide 27 BUN 40 H Creatinine 1.6 H Glucose 99 Calcium 8.7 Liver Function 02/12/19 Range/Units 14:56 Total Bilirubin 0.3 (0.0-1.0) mg/dL AST 40 H (0-37) U/l ALT 14 (0-40) U/l Alkaline Phosphatase 159 H (39-117) U/L Albumin 3.7 (3.2-5.2) gm/dL Urine 02/12/19 Range/Units 14:47 Urine Color Yellow Urine Appearance Hazy Urine pH 6.0 (5.0-9.0) Ur Specific [place] 1.010 (1.000-1.035) Urine Protein Neg (NEG) mg/dL Urine Glucose (UA) Negative (NEG) mg/dL Medical - H&P: A/P - Narrative A/P Narrative: A: *GI bleed with hematemesis: *Anemia, acute on chronic from blood loss anemia: *UTI: *A flutter/fib: has been on eliquis/BB *h/o diastolic(III) CHF: *CKD III: *COPD/pulmonary fibrosis( not on home oxygen): *CAD/PVD: on ASA/statin *Hypothyroidism: *Essential tremor *Failure to thrive: *Mild dementia: *Depression: *chronic pain w/neuropathy: on yvon/norco P: -Dr. Sepulveda consulted for endoscopy -ppi gtt -eliquis/ASA held -Jarret, pending UC -cont other home cardiac meds -pt/ot -will return to SNF when medically cleared -ppx: SCD DNR
--- NOTE | 2019-02-12 19:11 | Emergency Department Note ---
ED Note Addendum Note Addendum: I reviewed this case of Elvie CHET Whitaker. I agree with her evaluation management documentation. I also briefly looked at the patient and discussed the situation with the patient's daughter. Patient is quite pale but has been at this level of anemia before. She is on Eliquis. Hospitalist will admit. Dr. Sepulveda general surgeon is consulted for upper endoscopy.
[2019-02-12] MEDS: 0.9 % SODIUM CHLORIDE 250 ML IV SCH (20:15)
[2019-02-12] MEDS ORDERED: POTASSIUM CHLORIDE 20 MEQ TABLET PO PRN ×2 (20:24)
[2019-02-12] MEDS ORDERED: IPRATROPIUM/ALBUTEROL 3 ML AMPUL.NEB NEB PRN (20:24)
[2019-02-12] MEDS ORDERED: cefTRIAXone 1 GM VIAL IV SCH (20:24)
[2019-02-12] MEDS ORDERED: LACTULOSE 20 GM/30 ML ORAL.SOL PO PRN (20:24)
[2019-02-12] MEDS ORDERED: NA PHOS M B RC PRN (20:24)
[2019-02-12] MEDS ORDERED: MAGNESIUM HYDROXIDE 30 ML ORAL.SUSP PO PRN (20:24)
[2019-02-12] MEDS ORDERED: PROMETHAZINE 25 MG TABLET PO PRN (20:24)
[2019-02-12] MEDS ORDERED: METOPROLOL TARTRATE 5 MG/5 ML VIAL IV PRN (20:24)
[2019-02-12] MEDS ORDERED: SENNOSIDES 1 TABLET PO PRN (20:24)
[2019-02-12] MEDS ORDERED: POLYETHYLENE GLYCOL 3350 17 GM PACKET PO PRN (20:24)
[2019-02-12] MEDS ORDERED: POTASSIUM CHLORIDE 40 MEQ in DEXTROSE 5% IN WATER 500 ML IV PRN (20:24)
[2019-02-12] MEDS ORDERED: MAGNESIUM SULFATE 2 GM/50 ML BAG IV PRN (20:24)
[2019-02-12] MEDS ORDERED: ACETAMINOPHEN 500 MG TABLET PO PRN (20:24)
[2019-02-12] MEDS ORDERED: ONDANSETRON 4 MG/2 ML VIAL IV PRN (20:24)
[2019-02-12] MEDS ORDERED: [UNRECOGNIZED DRUG - OTHER] RC PRN (20:24)
[2019-02-12] MEDS ORDERED: NA PHOS DI BA RC PRN (20:24)
[2019-02-12] MEDS ORDERED: FLEETS ADULT ENEMA PR PRN (20:46)
[2019-02-12] MEDS: METOPROLOL SUCCINATE 100 MG PO SCH (21:08)
[2019-02-12] MEDS: DOCUSATE SODIUM 100 MG CAPSULE PO SCH (21:09)
[2019-02-12] MEDS: GABAPENTIN 100 MG CAPSULE PO SCH (21:15)
[2019-02-12] MEDS: ARIPIPRAZOLE 5 MG TABLET PO SCH (21:15)
[2019-02-12] MEDS: cefTRIAXone 1 GM VIAL IV SCH (21:15)
[2019-02-12] MEDS: FLUTICASONE/SALMETEROL 250/50 INHALER #14 INH SCH (21:16)
[2019-02-12] MEDS: PRIMIDONE 50 MG TABLET PO SCH (21:16)
[2019-02-12] MEDS: 0.9 % SODIUM CHLORIDE 10 ML SYRINGE IV SCH (21:16)
[2019-02-12] MEDS: HYDROcodone/APAP 10/325MG TABLET PO PRN (21:16)
[2019-02-13] MEDS ORDERED: PANTOPRAZOLE 40 MG VIAL IV ONE (03:07)
[2019-02-13] MEDS: PANTOPRAZOLE 80 MG in 0.9 % SODIUM CHLORIDE 100 ML IV SCH ×2 (03:14→14:11)
[2019-02-13] MEDS: 0.9 % SODIUM CHLORIDE 10 ML SYRINGE IV SCH ×3 (05:07→21:06)
[2019-02-13 05:49] LABS: ALT/SGPT 9 U/l (0-40); Albumin 2.9 gm/dL (3.2-5.2); Albumin/Globulin Ratio 0.9 (1.0-2.3); Alkaline Phosphatase 123 U/L (39-117); Bilirubin,Direct < 0.2 mg/dL (0.0-0.3); Blood Urea Nitrogen 38 mg/dl (8-23); Gamma Glutamyl Transpeptidase 41 U/L (5-36); Uric Acid 11.6 mg/dL (2.5-8.0)
[2019-02-13 05:56] LABS: Basophils # (Auto) 0.1 K/mcL (0.0-0.3); Basophils % (Auto) 0.7 % (0.0-2.0); Eosinophils # (Auto) 0.2 K/mcL (0.0-0.7); Lymphocytes # (Auto) 1.2 K/mcL (1.5-4.8); Lymphocytes % (Auto) 16.2 % (15.5-49.0); Mean Cell Volume 96.6 fL (80.0-100.0); Mean Corpuscular HGB Conc 32.7 g/dL (31.0-36.0); Monocytes # (Auto) 0.5 K/mcL (0.1-0.9); Monocytes % (Auto) 7.1 % (1.0-12.0); Platelet Count 245 K/mcL (140-440); RBC 2.02 M/mcL (4.00-5.20); Red Cell Distribution Width 18.2 % (11.5-14.5)
[2019-02-13] MEDS ORDERED: 0.9 % SODIUM CHLORIDE 250 ML IV SCH (06:30)
[2019-02-13] MEDS: HYDROcodone/APAP 10/325MG TABLET PO PRN (07:13)
--- NOTE | 2019-02-13 07:44 | Internal Med Progress Note ---
Medical - PN: Subj Patient information: Note initiated : 02/13/19 at 7:41 am Service Date, if different from initiated Date: [] Patient: Valeria Negron a 78 y/o F admitted on 02/12/19 for Vomiting Blood. Chief Complaint: [] Interval history: Ms. Negron is a 78 year old F who presents from [facility] for 2 days of coffee-ground emesis. She reports that she is feeling fine Friday. sometime in the morning she vomited and report was that it was coffee-ground emesis patient reports that it was quite explosive and quite a bit. She did not have any further episodes that day. And then today she had another episode of coffee- ground emesis. Patient states that she felt weaker more tired the past couple days with some lightheadedness. Denies headache but has some chills she has some constipation denies melena. She has not occasional cough which is much improved from the past she is got chronic shortness of breath she has what she calls pleurisy for the past week where she has some chest wall discomfort when she coughs or sneezes. She feels a little lightheaded. Having some little bit of stomach discomfort in the left upper quadrant. She has extensive medical history including A. fib on Eliquis and Toprol with history of chronic kidney disease diastolic heart failure she had failure to thrive dementia COPD with pulmonary fibrosis coronary artery disease peripheral vascular disease hypothyroidism. She was told in the ER that she would likely need to go to [facility] because GI is not available at this time. But patient adamantly refused. At that time ED contacted Dr. Sepulveda who said he would be willing to perform endoscopy, on Friday likely. 02/13 No events overnight. Hemoglobin dropped overnight. No new complaints. Still feeling tired and weak. Review of Systems: denies headache/fever/chills/nausea/vomiting/chest or abdominal pain/cough/dyspnea/diarrhea. Otherwise see above. - Constitutional Vitals: Vital Signs Temp Pulse Resp BP Pulse Ox 97.8 F 50 L 16 112/59 95 02/13/19 07:34 02/12/19 23:55 02/13/19 07:34 02/13/19 07:34 02/13/19 07:34 Period Temp Pulse Resp BP Sys/Francisco Pulse Ox Last 24 Hr 97.8 F-98.4 F 50-71 12-18 94-149/56-75 90-100 Intake and Output 02/12/19 02/13/19 02/13/19 21:59 05:59 13:59 Intake Total 2066 118 Output Total 250 Balance 2066 Weight 58.513 kg Intake & Output: Intake & Output 02/12/19 02/13/19 02/13/19 21:59 05:59 13:59 Intake Total 2066 118 Output Total 250 Balance 2066 Weight 58.513 kg Intake: IV 2066 Sodium Chloride 0.9% 1,000 ml @ 2000 250 mls/hr IV .Q4H ONE Rx#: [id number] Protonix 80 mg In Sodium 17 Chloride 0.9% 100 ml @ 8 MG/HR 10 mls/hr IV Q10H [facility] Rx#: [id number] Zosyn 3.375 gm In Dextrose 5% 50 in Water 50 ml @ 100 mls/hr IV ONCE ONE Rx#:[id number] Oral 50 Output: Urine Catheter Amount 250 Other: Urine Appearance Cloudy Uretheral (Yuan) Clear Urine Color Dark Yellow Uretheral (Yuan) Pale Urine Odor Strong Uretheral (Yuan) Ammonia Exam: General: Alert, Awake, No acute Distress Eyes/N/T: EOMI, DMM Head/Neck: neck supple, CV: Irregular, No murmurs, Pulm: diminished b/l, mild b/l fine rales Abd: soft, minimal TTP upper abd, +BS x4 Ext: no clubbing/cyanosis/edema Neuro: Alert, no focal deficits, moves all extremities, Skin: warm/dry, pale Medical - PN: Obj Da - Labs CBC & Chem 7: 02/13/19 04:00 02/13/19 04:00 Labs: Abnormal Lab Results 02/13/19 02/13/19 02/13/19 04:00 04:00 04:00 WBC RBC 2.02 L Hgb 6.4 L* Hct 19.5 L* POC Hct RDW 18.2 H MPV 7.3 L Gran % Lymph % (Auto) Gran # Lymph # (Auto) 1.2 L PT 16.0 H INR 1.3 H APTT POC Total CO2 POC BUN BUN 38 H Creatinine 1.6 H POC Creatinine Glucose 69 L Uric Acid 11.6 H Calcium 7.4 L POC WB Ioniz Calcium GGT 41 H AST Alkaline Phosphatase 123 H Lactate Dehydrogenase 322 H Albumin 2.9 L Globulin Albumin/Globulin Ratio 0.9 L Urine Nitrate Ur Leukocyte Esterase Urine RBC Urine WBC Urine Bacteria Hyaline Casts 02/12/19 02/12/19 02/12/19 17:05 15:54 14:56 WBC 11.7 H RBC 3.18 L Hgb 9.9 L Hct 30.3 L POC Hct 26.0 L RDW 18.5 H MPV Gran % 84.7 H Lymph % (Auto) 8.7 L Gran # 9.9 H Lymph # (Auto) 1.0 L PT INR APTT 40 H POC Total CO2 31 H POC BUN 48 H BUN 40 H Creatinine 1.6 H POC Creatinine 1.8 H Glucose Uric Acid Calcium POC WB Ioniz Calcium 0.98 L GGT AST 40 H Alkaline Phosphatase 159 H Lactate Dehydrogenase Albumin Globulin 4.2 H Albumin/Globulin Ratio 0.9 L Urine Nitrate Ur Leukocyte Esterase Urine RBC Urine WBC Urine Bacteria Hyaline Casts 02/12/19 14:47 WBC RBC Hgb Hct POC Hct RDW MPV Gran % Lymph % (Auto) Gran # Lymph # (Auto) PT INR APTT POC Total CO2 POC BUN BUN Creatinine POC Creatinine Glucose Uric Acid Calcium POC WB Ioniz Calcium GGT AST Alkaline Phosphatase Lactate Dehydrogenase Albumin Globulin Albumin/Globulin Ratio Urine Nitrate Pos A Ur Leukocyte Esterase 500 A Urine RBC 15 H Urine WBC 134 H Urine Bacteria Mod A Hyaline Casts 6 H Meds: Medications Acetaminophen (Tylenol) 1,000 mg PO Q6-8HP PRN PRN Reason: PAIN/FEVER > 101 Hydrocodone Bitart/Acetaminophen ([place] 10/325mg) 2 tab PO Q6HP PRN PRN Reason: Pain Last Admin: 02/13/19 07:13 Dose: 2 tab Documented by: Albuterol/Ipratropium (Duoneb) 3 ml NEB Q4HP PRN PRN Reason: Shortness Of Breath Amlodipine Besylate (Norvasc) 5 mg PO DAILY [facility] Ceftriaxone Sodium (Rocephin) 1 gm IV DAILY [facility] Last Admin: 02/12/19 21:15 Dose: 1 gm Documented by: Docusate Sodium (Colace) 100 mg PO BID [facility] Last Admin: 02/12/19 21:09 Dose: Not Given Documented by: Gabapentin (Neurontin) 100 mg PO BID [facility] Last Admin: 02/12/19 21:15 Dose: 100 mg Documented by: Pantoprazole Sodium 80 mg/ (Sodium Chloride) 100 mls @ 10 mls/hr IV Q10H [facility] Last Admin: 02/13/19 03:14 Dose: 8 mg/hr, 10 mls/hr Documented by: Potassium Chloride 40 meq/ (Dextrose) 520 mls @ 130 mls/hr IV UD PRN PRN Reason: Potassium < 3 Magnesium Sulfate (Magnesium Sulfate) 2 gm in 50 mls @ 50 mls/hr IV UD PRN PRN Reason: Magnesium </= 1.6 Sodium Chloride (Sodium Chloride 0.9%) 250 mls @ 0 mls/hr IV .Q0M [facility] Last Admin: 02/12/19 20:15 Dose: 10 mls/hr Documented by: Sodium Chloride (Sodium Chloride 0.9%) 250 mls @ 20 mls/hr IV .[id number] [facility] Stop: 02/13/19 18:59 Last Admin: 02/13/19 07:13 Dose: 20 mls/hr Documented by: Lactulose (Cephulac) 10 gm PO DAILYP PRN PRN Reason: Constipation Magnesium Hydroxide (Milk Of Magnesia) 30 ml PO PRN PRN PRN Reason: Constipation Metoprolol Tartrate (Lopressor) 5 mg IV Q2HP PRN PRN Reason: Tachyarrhythmias Nitroglycerin (Nitro-Dur) 0.1 mg TD BID [facility] Non-Formulary Medication (Metoprolol Succinate [Kapspargo Sprinkle]) 100 mg PO BID [facility] Last Admin: 02/12/19 21:08 Dose: Not Given Documented by: Ondansetron HCl (Zofran) 4 mg IV Q4HP PRN PRN Reason: Nausea And Vomiting Polyethylene Glycol (Miralax) 17 gm PO DAILYP PRN PRN Reason: Constipation Potassium Chloride (Kdur) 40 meq PO UD PRN PRN Reason: Potssium is 3-3.5 Potassium Chloride (Kdur) 40 meq PO UD PRN PRN Reason: Potassium < 3 Primidone (Mysoline) 50 mg PO BID [facility] Last Admin: 02/12/19 21:16 Dose: 50 mg Documented by: Promethazine HCl (Phenergan) 0 mg PO Q6HP PRN PRN Reason: Nausea And Vomiting Fluticasone/Salmeterol (Advair 250-50 Diskus) 1 puff INH BID [facility] Last Admin: 02/12/19 21:16 Dose: Not Given Documented by: Senna (Senokot) 2 tab PO HSP PRN PRN Reason: Constipation Sertraline HCl (Zoloft) 100 mg PO DAILY [facility] Sodium Biphosphate/Sodium Phosphate (Fleets Adult) 1 dose TN DAILYP PRN PRN Reason: Constipation Sodium Chloride (Saline Flush) 10 ml IV Q8 [facility] Last Admin: 02/13/19 05:07 Dose: Not Given Documented by: Torsemide (Demadex) 30 mg PO DAILY [facility] Medical - PN: A/P - Time Spent With Patient Total time spent is greater than 50% in coordination of care (as documented) at patient's floor/unit and/or counseling patient: - Narrative A/P Narrative: A: *GI bleed with hematemesis: *Anemia, acute on chronic from blood loss: -H&H 6.4<9.9 -2 PRBC (02/13) *UTI(GNB): *A flutter/fib: has been on eliquis/BB *h/o diastolic(III) CHF: *CKD III: *COPD/pulmonary fibrosis( not on home oxygen): *CAD/PVD: on ASA/statin *Hypothyroidism: *Essential tremor *Failure to thrive: *Mild dementia: *Depression: *chronic pain w/neuropathy: on yvon/norco P: -Dr. Sepulveda consulted for endoscopy -ppi gtt -prbc, monitor H&H -eliquis/ASA held -Fabioepluz elena, pending UC -cont other home cardiac meds -pt/ot -will return to SNF when medically cleared -ppx: SCD DNR Medical - PN: Qual - VTE Deep Vein Thrombosis/Pulmonary Embolism Present on Admission: No
[2019-02-13] MEDS ORDERED: SERTRALINE 100 MG TABLET PO SCH (09:00)
[2019-02-13] MEDS ORDERED: TORSEMIDE 10 MG TABLET PO SCH (09:00)
[2019-02-13] MEDS ORDERED: amLODIPine 5 MG TABLET PO SCH (09:00)
[2019-02-13] MEDS: GABAPENTIN 100 MG CAPSULE PO SCH ×2 (09:54→20:39)
[2019-02-13] MEDS: PRIMIDONE 50 MG TABLET PO SCH ×2 (09:54→20:38)
[2019-02-13] MEDS: DOCUSATE SODIUM 100 MG CAPSULE PO SCH ×2 (09:54→20:39)
[2019-02-13] MEDS: NITROGLYCERIN 0.1 MG/HR PATCH TD SCH ×2 (09:54→20:39)
[2019-02-13] MEDS: FLUTICASONE/SALMETEROL 250/50 INHALER #14 INH SCH ×2 (09:54→20:40)
[2019-02-13] MEDS: METOPROLOL SUCCINATE 50 MG TAB.XL.24H PO SCH ×2 (09:55→20:39)
[2019-02-13] MEDS: METOPROLOL SUCCINATE 100 MG PO SCH (10:42)
[2019-02-13] MEDS: cefTRIAXone 1 GM VIAL IV SCH (11:28)
--- NOTE | 2019-02-13 12:33 | General Surgery Consult Note ---
History of Present Illness Patient information: Note initiated : 02/13/19 at 12:28 pm Service Date, if different from initiated Date: [] Patient: Valeria Negron 78 y/o F admitted on 02/12/19 for Vomiting Blood. Chief Complaint: [] Reason for consult: abdominal pain Requesting physician: Magen Costello History of present illness: 78-year-old female with a 2 day history of abdominal pain with onset of emesis ON February 14.. The pain continued and she had repeated emesis, midday on 12 February. She just started feeling weak with malaise, lightheadedness, feeling. She has a prior history of esophagitis and history of GE junction stricture from chronic GERD. She had upper endoscopy with dilation in November and December 2018. The patient's admitting hemoglobin was 9.9. Her hemoglobin in November was 10.4. Hemoglobin today is 6.4. She has not had further emesis nor has she had melena. She is presently being transfused. The patient is on ELIQUIS for chronic a trial fibrillation with history of atrial fibrillation with Rapid ventricular response. she was admitted last evening and is clinically stable at this time. She was informed that we will wait until tomorrow to do her endoscopy because of her use of ELIQUIS. Review of Systems - Constitutional fatigue, malaise, weakness - EENT Nose, mouth and throat: abnormal hearing, dizziness - Breasts other (absent right breast) - Cardiovascular irregular heart rhythm, lightheadedness, palpatations, rapid heart rate, syncope - Respiratory cough, dyspnea on exertion, chest congestion, pain with cough - Gastrointestinal abdominal pain, coffee ground emesis, dysphagia, hematemesis, nausea - Genitourinary Genitourinary: dysuria, nocturia, urinary incontinence - Musculoskeletal abnormal gait, arthralgias, back pain, joint swelling, myalgias, neck pain, stiffness - Integumentary no new lesions, no pruritus, no rash - Neurological abnormal gait, abnormal hearing, dizziness, tremor(s), vertigo, weakness - Psychiatric abnormal sleep pattern, depression - Hematologic/Lymphatic easy bleeding, easy bruising, no lymphadenopathy - Allergic/Immunologic no tongue swelling, no throat swelling, no uticaria, no wheezing, no lip swelling Past History Past medical history: Diabetes mellitus. Chronic obstructive lung disease. Essential hypertension. Pulmonary fibrosis. Coronary artery disease. Aortic valve disease status post replacement. Diastolic congestive heart failure. Essential tremor. Right breast cancer. Chronic kidney disease. Early dementia. Peripheral vascular disease with bilateral carotid stenosis. Chronic low back pain. Chronic anticoagulant therapy Past surgical history: Coronary artery bypass graft 2. Bovine aortic valve replacement. Appendectomy Hysterectomy. Right mastectomy. Open treatment with internal fixation, left hip Past family history: Both parents due to coronary artery disease complications Past social history: Former smoker prior use of 1 pack per day and discontinued in February 2008. Left hip prosthesis which nursing care facility. Denies alcohol use Medications and Allergies Home Medications Medication Instructions Recorded Confirmed Type Apixaban [Eliquis] 2.5 mg PO BID 12/04/17 02/12/19 History Torsemide [Demadex] 30 mg PO DAILY 12/04/17 02/12/19 History Primidone [Mysoline] 50 mg PO BID 12/23/17 02/12/19 History Fluticasone/Salmeterol [Advair 1 puff INH BID #3 inhaler 12/26/17 02/12/19 Rx 250-50 Diskus] Ipratropium/Albuterol [Duoneb] 3 ml NEB Q4HP PRN #90 ampul.neb 12/26/17 02/12/19 Rx Metoprolol Succinate [[place] 100 mg PO BID 08/20/18 02/12/19 History Sprinkle] Acetaminophen [Acetaminophen Extra 1,000 mg PO Q6-8HP PRN 12/22/18 02/12/19 History Strength] Aripiprazole [Abilify] 2 mg PO HS 12/22/18 02/12/19 History Benzonatate 100 mg PO TID 12/22/18 02/12/19 History Cilostazol [Pletal] 50 mg PO BID 12/22/18 02/12/19 History Gabapentin [Neurontin] 100 mg PO BID 12/22/18 02/12/19 History HYDROcodone/APAP 10/325MG [[place] 2 tab PO Q6HP PRN 12/22/18 02/12/19 History 10-325Mg] Ibuprofen 400 - 600 mg PO Q4-6HP PRN 12/22/18 02/12/19 History Nitroglycerin [Nitro-Dur] 1 patch TOPICAL BID 12/22/18 02/12/19 History Ondansetron [Zofran ODT] 4 mg SL DAILY 12/22/18 02/12/19 History Sertraline [Zoloft] 100 mg PO DAILY 12/22/18 02/12/19 History amLODIPine [Norvasc] 5 mg PO DAILY 12/22/18 02/12/19 History Bisacodyl [Dulcolax] 10 mg RC PRN PRN 02/12/19 02/12/19 History Hydrochlorothiazide [[place]] 12.5 mg PO 3XW 02/12/19 02/12/19 History Magnesium Hydroxide [Milk of 400 mg PO PRN PRN 02/12/19 02/12/19 History Magnesia] Na Phos,M-B/Na Phos,Di-Ba [Fleet 118 ml RC PRN PRN 02/12/19 02/12/19 History Enema Extra] Ondansetron [Zofran ODT] 4 mg SL Q6H PRN 02/12/19 02/12/19 History Phenylephrine HCl/[place] Butter 1 each RC BID 02/12/19 02/12/19 History [Preparation H Suppository] Allergies Allergy/AdvReac Type Severity Reaction Status Date / Time levofloxacin [LEVOFLOXACIN] Allergy Mild RASH Verified 02/12/19 14:35 Exam Temp Pulse Resp BP Pulse Ox 97.8 F 50 L 16 112/59 95 02/13/19 07:34 02/12/19 23:55 02/13/19 07:34 02/13/19 07:34 02/13/19 07:34 - General physical appearance well developed, well nourished, no distress, chronically ill - Eyes PERRL, normal ocular movement - ENT normal pinna, normal nares, normal mucosa, no congestion, decreased hearing, dentures - Head Head exam IM: Present: atraumatic (full upper and lower dentures), normocephalic - Neck no masses, no bruits, trachea midline, no lymphadenopathy, no venous distension - Cardiovascular Cardiovascular exam IM: Present: bradycardia, irregular rhythm. Absent: JVD - Respiratory normal expansion, normal respiratory effort, clear to auscultation - Abdomen Abdomen: Present: soft, non tender, bowel sounds, distended (. Mild lower abdominal distention; active bowel sounds) Hernia: Present: none - Genitourinary Present: normal external genitalia - Integumentary Present: no rash, no growths, no abnormal pigmentation - Neurologic Present: normal coordination, normal sensation, other (. Resting tremor exacerbated with activity) - Musculoskeletal Present: other (, able to stand with assistance; minimal ability to ambulate without assistance) - Psychiatric Present: oriented to time, oriented to person, oriented to place, speech is nor mal, memory intact Results - Labs 02/13/19 04:00 02/13/19 04:00 Abnormal lab results 02/12/19 02/12/19 02/12/19 Range/Units 14:47 14:56 15:54 WBC 11.7 H (4.5-11.0) K/mcL RBC 3.18 L (4.00-5.20) M/mcL Hgb 9.9 L (12.0-15.0) g/dL Hct 30.3 L (36.0-48.0) % POC Hct 26.0 L (36.0-48.0) % RDW 18.5 H (11.5-14.5) % MPV (7.4-10.4) fL Gran % 84.7 H (38.0-78.0) % Lymph % (Auto) 8.7 L (15.5-49.0) % Gran # 9.9 H (1.8-8.0) K/mcL Lymph # (Auto) 1.0 L (1.5-4.8) K/mcL PT (11.9-14.5) sec INR (0.9-1.1) APTT (20-37) sec POC Total CO2 31 H (22-30) mmol/L POC BUN 48 H (8-23) mg/dl BUN 40 H (8-23) mg/dl Creatinine 1.6 H (0.6-1.1) mg/dl POC Creatinine 1.8 H (0.6-1.1) mg/dl Glucose (70-105) mg/dL Uric Acid (2.5-8.0) mg/dL Calcium (8.6-10.4) mg/dl POC WB Ioniz Calcium 0.98 L (1.16-1.32) mmol/L GGT (5-36) U/L AST 40 H (0-37) U/l Alkaline Phosphatase 159 H (39-117) U/L Lactate Dehydrogenase (94-250) U/L Albumin (3.2-5.2) gm/dL Globulin 4.2 H (2.2-3.7) gm/dL Albumin/Globulin Ratio 0.9 L (1.0-2.3) Urine Nitrate Pos A (NEG) Ur Leukocyte Esterase 500 A (NEG) /uL Urine RBC 15 H (0-1) /hpf Urine WBC 134 H (0-4) /hpf Urine Bacteria Mod A (0) /hpf Hyaline Casts 6 H (0-2) /lpf 02/12/19 02/13/19 02/13/19 Range/Units 17:05 04:00 04:00 WBC (4.5-11.0) K/mcL RBC 2.02 L (4.00-5.20) M/mcL Hgb 6.4 L* (12.0-15.0) g/dL Hct 19.5 L* (36.0-48.0) % POC Hct (36.0-48.0) % RDW 18.2 H (11.5-14.5) % MPV 7.3 L (7.4-10.4) fL Gran % (38.0-78.0) % Lymph % (Auto) (15.5-49.0) % Gran # (1.8-8.0) K/mcL Lymph # (Auto) 1.2 L (1.5-4.8) K/mcL PT 16.0 H (11.9-14.5) sec INR 1.3 H (0.9-1.1) APTT 40 H (20-37) sec POC Total CO2 (22-30) mmol/L POC BUN (8-23) mg/dl BUN (8-23) mg/dl Creatinine (0.6-1.1) mg/dl POC Creatinine (0.6-1.1) mg/dl Glucose (70-105) mg/dL Uric Acid (2.5-8.0) mg/dL Calcium (8.6-10.4) mg/dl POC WB Ioniz Calcium (1.16-1.32) mmol/L GGT (5-36) U/L AST (0-37) U/l Alkaline Phosphatase (39-117) U/L Lactate Dehydrogenase (94-250) U/L Albumin (3.2-5.2) gm/dL Globulin (2.2-3.7) gm/dL Albumin/Globulin Ratio (1.0-2.3) Urine Nitrate (NEG) Ur Leukocyte Esterase (NEG) /uL Urine RBC (0-1) /hpf Urine WBC (0-4) /hpf Urine Bacteria (0) /hpf Hyaline Casts (0-2) /lpf 02/13/19 Range/Units 04:00 WBC (4.5-11.0) K/mcL RBC (4.00-5.20) M/mcL Hgb (12.0-15.0) g/dL Hct (36.0-48.0) % POC Hct (36.0-48.0) % RDW (11.5-14.5) % MPV (7.4-10.4) fL Gran % (38.0-78.0) % Lymph % (Auto) (15.5-49.0) % Gran # (1.8-8.0) K/mcL Lymph # (Auto) (1.5-4.8) K/mcL PT (11.9-14.5) sec INR (0.9-1.1) APTT (20-37) sec POC Total CO2 (22-30) mmol/L POC BUN (8-23) mg/dl BUN 38 H (8-23) mg/dl Creatinine 1.6 H (0.6-1.1) mg/dl POC Creatinine (0.6-1.1) mg/dl Glucose 69 L (70-105) mg/dL Uric Acid 11.6 H (2.5-8.0) mg/dL Calcium 7.4 L (8.6-10.4) mg/dl POC WB Ioniz Calcium (1.16-1.32) mmol/L GGT 41 H (5-36) U/L AST (0-37) U/l Alkaline Phosphatase 123 H (39-117) U/L Lactate Dehydrogenase 322 H (94-250) U/L Albumin 2.9 L (3.2-5.2) gm/dL Globulin (2.2-3.7) gm/dL Albumin/Globulin Ratio 0.9 L (1.0-2.3) Urine Nitrate (NEG) Ur Leukocyte Esterase (NEG) /uL Urine RBC (0-1) /hpf Urine WBC (0-4) /hpf Urine Bacteria (0) /hpf Hyaline Casts (0-2) /lpf Diabetes panel 02/12/19 02/13/19 Range/Units 14:56 04:00 Sodium 136 142 (133-145) mmol/L Potassium 4.3 3.8 (3.3-5.1) mmol/L Chloride 96 104 (96-108) mmol/L Carbon Dioxide 27 26 (22-30) mmol/L BUN 40 H 38 H (8-23) mg/dl Creatinine 1.6 H 1.6 H (0.6-1.1) mg/dl Glucose 99 69 L (70-105) mg/dL Calcium 8.7 7.4 L (8.6-10.4) mg/dl AST 40 H 22 (0-37) U/l ALT 14 9 (0-40) U/l Alkaline Phosphatase 159 H 123 H (39-117) U/L Total Protein 7.9 6.0 (5.9-8.4) gm/dL Albumin 3.7 2.9 L (3.2-5.2) gm/dL Triglycerides 136 (<150) mg/dl Calcium panel 02/12/19 02/13/19 Range/Units 14:56 04:00 Calcium 8.7 7.4 L (8.6-10.4) mg/dl Phosphorus 3.9 (2.7-4.5) mg/dL Albumin 3.7 2.9 L (3.2-5.2) gm/dL Pituitary panel 02/12/19 02/13/19 Range/Units 14:56 04:00 Sodium 136 142 (133-145) mmol/L Potassium 4.3 3.8 (3.3-5.1) mmol/L Chloride 96 104 (96-108) mmol/L Carbon Dioxide 27 26 (22-30) mmol/L BUN 40 H 38 H (8-23) mg/dl Creatinine 1.6 H 1.6 H (0.6-1.1) mg/dl Glucose 99 69 L (70-105) mg/dL Calcium 8.7 7.4 L (8.6-10.4) mg/dl Adrenal panel 05/17/19 05/18/19 Range/Units 14:56 04:00 Sodium 136 142 (133-145) mmol/L Potassium 4.3 3.8 (3.3-5.1) mmol/L Chloride 96 104 (96-108) mmol/L Carbon Dioxide 27 26 (22-30) mmol/L BUN 40 H 38 H (8-23) mg/dl Creatinine 1.6 H 1.6 H (0.6-1.1) mg/dl Glucose 99 69 L (70-105) mg/dL Calcium 8.7 7.4 L (8.6-10.4) mg/dl Total Bilirubin 0.3 0.2 (0.0-1.0) mg/dL AST 40 H 22 (0-37) U/l ALT 14 9 (0-40) U/l Alkaline Phosphatase 159 H 123 H (39-117) U/L Total Protein 7.9 6.0 (5.9-8.4) gm/dL Albumin 3.7 2.9 L (3.2-5.2) gm/dL All other labs normal. 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
[2019-02-13] MEDS: ARIPIPRAZOLE 5 MG TABLET PO SCH (20:39)
[2019-02-13] MEDS: 0.9 % SODIUM CHLORIDE 250 ML IV SCH (23:06)
[2019-02-14] MEDS: PANTOPRAZOLE 80 MG in 0.9 % SODIUM CHLORIDE 100 ML IV SCH (00:24)
[2019-02-14] MEDS: HYDROcodone/APAP 10/325MG TABLET PO PRN ×3 (04:42→18:58)
[2019-02-14] MEDS: 0.9 % SODIUM CHLORIDE 10 ML SYRINGE IV SCH ×3 (05:23→22:00)
[2019-02-14 05:36] LABS: Blood Urea Nitrogen 32 mg/dl (8-23)
--- NOTE | 2019-02-14 07:52 | Internal Med Progress Note ---
Medical - PN: Subj Patient information: Note initiated : 02/14/19 at 7:49 am Service Date, if different from initiated Date: [] Patient: Valeria Negron a 78 y/o F admitted on 02/12/19 for Vomiting Blood. Chief Complaint: [] Interval history: Ms. Negron is a 78 year old F who presents from [facility] for 2 days of coffee-ground emesis. She reports that she is feeling fine Friday. sometime in the morning she vomited and report was that it was coffee-ground emesis patient reports that it was quite explosive and quite a bit. She did not have any further episodes that day. And then today she had another episode of coffee- ground emesis. Patient states that she felt weaker more tired the past couple days with some lightheadedness. Denies headache but has some chills she has some constipation denies melena. She has not occasional cough which is much improved from the past she is got chronic shortness of breath she has what she calls pleurisy for the past week where she has some chest wall discomfort when she coughs or sneezes. She feels a little lightheaded. Having some little bit of stomach discomfort in the left upper quadrant. She has extensive medical history including A. fib on Eliquis and Toprol with history of chronic kidney disease diastolic heart failure she had failure to thrive dementia COPD with pulmonary fibrosis coronary artery disease peripheral vascular disease hypothyroidism. She was told in the ER that she would likely need to go to [facility] because GI is not available at this time. But patient adamantly refused. At that time ED contacted Dr. Sepulveda who said he would be willing to perform endoscopy, on Friday likely. 02/13 No events overnight. Hemoglobin dropped overnight. No new complaints. Still feeling tired and weak. 02/14 Patient status post procedure. Diffuse gastritis. Sounds like patient's been taking ibuprofen at home. Will clarify with family. Patient sedated from procedure, family in room. Unable to gather review of systems given patient's sedation - Constitutional Vitals: Vital Signs Temp Pulse Resp BP Pulse Ox 97.9 F 60 20 152/75 94 02/14/19 04:00 02/14/19 04:00 02/14/19 04:00 02/14/19 04:00 02/14/19 04:00 Period Temp Pulse Resp BP Sys/Francisco Pulse Ox Last 24 Hr 97.7 F-98.1 F 56-62 16-20 128-161/75-90 90-95 Intake and Output 02/13/19 02/14/19 02/14/19 21:59 05:59 13:59 Intake Total 325 350 Output Total 1250 1300 Balance -925 -950 Weight 58.967 kg Intake & Output: Intake & Output 02/13/19 02/14/19 02/14/19 21:59 05:59 13:59 Intake Total 325 350 Output Total 1250 1300 Balance -925 -950 Weight 58.967 kg Intake: IV 350 Sodium Chloride 0.9% 250 ml @ 250 KVO IV .Q0M [facility] Rx#:[id number] Protonix 80 mg In Sodium 100 Chloride 0.9% 100 ml @ 8 MG/HR 10 mls/hr IV Q10H [facility] Rx#: [id number] Blood Product 325 Output: Urine Catheter Amount 1250 1300 Other: Urine Appearance Uretheral (Yuan) Clear Urine Color Uretheral (Yuan) Pale Exam: General: Sedated, No acute Distress Eyes/N/T: Head/Neck: neck supple, CV: Irregular, No murmurs, Pulm: diminished b/l, mild b/l fine rales Abd: soft, , +BS x4 Ext: no clubbing/cyanosis/edema Neuro: Sedated from procedure, Skin: warm/dry, pale Medical - PN: Obj Da - Labs CBC & Chem 7: 02/14/19 04:00 02/14/19 04:00 Labs: Abnormal Lab Results 02/14/19 02/14/19 02/13/19 04:00 04:00 15:50 WBC RBC Hgb 11.3 L 10.8 L Hct 34.1 L 32.6 L POC Hct RDW MPV Gran % Lymph % (Auto) Gran # Lymph # (Auto) PT INR APTT POC Total CO2 POC BUN BUN 32 H Creatinine 1.4 H POC Creatinine Glucose Uric Acid Calcium 7.6 L POC WB Ioniz Calcium GGT AST Alkaline Phosphatase Lactate Dehydrogenase Albumin Globulin Albumin/Globulin Ratio Urine Nitrate Ur Leukocyte Esterase Urine RBC Urine WBC Urine Bacteria Hyaline Casts 02/13/19 02/13/19 02/13/19 04:00 04:00 04:00 WBC RBC 2.02 L Hgb 6.4 L* Hct 19.5 L* POC Hct RDW 18.2 H MPV 7.3 L Gran % Lymph % (Auto) Gran # Lymph # (Auto) 1.2 L PT 16.0 H INR 1.3 H APTT POC Total CO2 POC BUN BUN 38 H Creatinine 1.6 H POC Creatinine Glucose 69 L Uric Acid 11.6 H Calcium 7.4 L POC WB Ioniz Calcium GGT 41 H AST Alkaline Phosphatase 123 H Lactate Dehydrogenase 322 H Albumin 2.9 L Globulin Albumin/Globulin Ratio 0.9 L Urine Nitrate Ur Leukocyte Esterase Urine RBC Urine WBC Urine Bacteria Hyaline Casts 02/12/19 02/12/19 02/12/19 17:05 15:54 14:56 WBC 11.7 H RBC 3.18 L Hgb 9.9 L Hct 30.3 L POC Hct 26.0 L RDW 18.5 H MPV Gran % 84.7 H Lymph % (Auto) 8.7 L Gran # 9.9 H Lymph # (Auto) 1.0 L PT INR APTT 40 H POC Total CO2 31 H POC BUN 48 H BUN 40 H Creatinine 1.6 H POC Creatinine 1.8 H Glucose Uric Acid Calcium POC WB Ioniz Calcium 0.98 L GGT AST 40 H Alkaline Phosphatase 159 H Lactate Dehydrogenase Albumin Globulin 4.2 H Albumin/Globulin Ratio 0.9 L Urine Nitrate Ur Leukocyte Esterase Urine RBC Urine WBC Urine Bacteria Hyaline Casts 02/12/19 14:47 WBC RBC Hgb Hct POC Hct RDW MPV Gran % Lymph % (Auto) Gran # Lymph # (Auto) PT INR APTT POC Total CO2 POC BUN BUN Creatinine POC Creatinine Glucose Uric Acid Calcium POC WB Ioniz Calcium GGT AST Alkaline Phosphatase Lactate Dehydrogenase Albumin Globulin Albumin/Globulin Ratio Urine Nitrate Pos A Ur Leukocyte Esterase 500 A Urine RBC 15 H Urine WBC 134 H Urine Bacteria Mod A Hyaline Casts 6 H Meds: Medications Acetaminophen (Tylenol) 1,000 mg PO Q6-8HP PRN PRN Reason: PAIN/FEVER > 101 Hydrocodone Bitart/Acetaminophen (Funk 10/325mg) 2 tab PO Q6HP PRN PRN Reason: Pain Last Admin: 02/14/19 04:42 Dose: 2 tab Documented by: Albuterol/Ipratropium (Duoneb) 3 ml NEB Q4HP PRN PRN Reason: Shortness Of Breath Amlodipine Besylate (Norvasc) 5 mg PO DAILY [facility] Last Admin: 02/13/19 09:55 Dose: Not Given Documented by: Ceftriaxone Sodium (Rocephin) 1 gm IV DAILY [facility] Last Admin: 02/13/19 11:28 Dose: 1 gm Documented by: Docusate Sodium (Colace) 100 mg PO BID [facility] Last Admin: 02/13/19 20:39 Dose: 100 mg Documented by: Gabapentin (Neurontin) 100 mg PO BID [facility] Last Admin: 02/13/19 20:39 Dose: 100 mg Documented by: Pantoprazole Sodium 80 mg/ (Sodium Chloride) 100 mls @ 10 mls/hr IV Q10H [facility] Last Admin: 02/14/19 00:24 Dose: 8 mg/hr, 10 mls/hr Documented by: Potassium Chloride 40 meq/ (Dextrose) 520 mls @ 130 mls/hr IV UD PRN PRN Reason: Potassium < 3 Magnesium Sulfate (Magnesium Sulfate) 2 gm in 50 mls @ 50 mls/hr IV UD PRN PRN Reason: Magnesium </= 1.6 Sodium Chloride (Sodium Chloride 0.9%) 250 mls @ 0 mls/hr IV .Q0M [facility] Last Admin: 02/13/19 23:06 Dose: 10 mls/hr Documented by: Lactulose (Cephulac) 10 gm PO DAILYP PRN PRN Reason: Constipation Magnesium Hydroxide (Milk Of Magnesia) 30 ml PO PRN PRN PRN Reason: Constipation Metoprolol Succinate (Toprol Xl) 100 mg PO BID [facility] Last Admin: 02/13/19 20:39 Dose: 100 mg Documented by: Metoprolol Tartrate (Lopressor) 5 mg IV Q2HP PRN PRN Reason: Tachyarrhythmias Nitroglycerin (Nitro-Dur) 0.1 mg TD BID [facility] Last Admin: 02/13/19 20:39 Dose: Not Given Documented by: Ondansetron HCl (Zofran) 4 mg IV Q4HP PRN PRN Reason: Nausea And Vomiting Polyethylene Glycol (Miralax) 17 gm PO DAILYP PRN PRN Reason: Constipation Potassium Chloride (Kdur) 40 meq PO UD PRN PRN Reason: Potssium is 3-3.5 Potassium Chloride (Kdur) 40 meq PO UD PRN PRN Reason: Potassium < 3 Primidone (Mysoline) 50 mg PO BID [facility] Last Admin: 02/13/19 20:38 Dose: 50 mg Documented by: Promethazine HCl (Phenergan) 0 mg PO Q6HP PRN PRN Reason: Nausea And Vomiting Fluticasone/Salmeterol (Advair 250-50 Diskus) 1 puff INH BID [facility] Last Admin: 02/13/19 20:40 Dose: Not Given Documented by: Senna (Senokot) 2 tab PO HSP PRN PRN Reason: Constipation Sertraline HCl (Zoloft) 100 mg PO DAILY [facility] Last Admin: 02/13/19 09:54 Dose: 100 mg Documented by: Sodium Biphosphate/Sodium Phosphate (Fleets Adult) 1 dose MO DAILYP PRN PRN Reason: Constipation Sodium Chloride (Saline Flush) 10 ml IV Q8 [facility] Last Admin: 02/14/19 05:23 Dose: Not Given Documented by: Torsemide (Demadex) 30 mg PO DAILY [facility] Last Admin: 02/13/19 09:54 Dose: 30 mg Documented by: Medical - PN: A/P - Time Spent With Patient Total time spent is greater than 50% in coordination of care (as documented) at patient's floor/unit and/or counseling patient: - Narrative A/P Narrative: A: *GI bleed w/hematemesis: 2/2 diffuse gastritis/superficial erosions, no active bleeding. has been on NSAIDS *Anemia, acute on chronic from blood loss: -H&H stable -2 PRBC (02/13) *UTI(E coli): *A flutter/fib: has been on eliquis/BB *h/o diastolic(III) CHF: *CKD III: *COPD/pulmonary fibrosis(not on home oxygen): *CAD/PVD with LLE stent 2017: on ASA/statin *HTN: *Hypothyroidism: *Essential tremor *Failure to thrive: *Mild dementia: *Depression: *chronic pain w/neuropathy: on yvon/norco P: -Dr. Sepulveda following for EGD today, f/u outpt for repeat EGD to -bid ppi -d/c NSAIDS -eliquis/ASA held, restart in 4 days -Rocephin to cefdinir on d/c, resistant to quinolones -cont other home cardiac meds -pt/ot -will return to SNF when medically cleared, likely in morning -ppx: SCD DNR Medical - PN: Qual - VTE Deep Vein Thrombosis/Pulmonary Embolism Present on Admission: No
[2019-02-14] MEDS ORDERED: fentaNYL 100 MCG/2 ML VIAL IV ONE (08:15)
[2019-02-14] MEDS ORDERED: diphenhydrAMINE 50 MG/ML VIAL IV ONE (08:15)
[2019-02-14] MEDS ORDERED: MIDAZOLAM 2 MG/2 ML VIAL IV ONE (08:15)
[2019-02-14] MEDS ORDERED: KETAMINE 100 MG/ML ML IV ONE (08:15)
[2019-02-14] MEDS ORDERED: PROPOFOL 200 MG/20 ML VIAL IV ONE (08:15)
--- NOTE | 2019-02-14 08:32 | Brief Operative Note ---
Date of procedure: 02/14/19 Pre-op diagnosis: UPPER GI BLEEDING Post-op diagnosis: other (SEVERE EROSIVE GASTRITIS WITHOUT ULCERATION) Procedure: EGD Grafts/Implants: No Anesthesia: MAC Findings: NORMAL ESOPHAGUS WITH MILD STENOSIS AT GE JUNCTION DIFFUSE SEVERE GASTRITIS WITH MULTIPLE SUPERFICIAL EROSIONS OF ENTIRE STOMACH OLD BLOOD IN STOMACH AND EVIDENCE OF OOZING FROM EROSIONS BUT NO ACTIVE BLEEDING OF FRESH BLOOD NO ULCERATION NOTED IN ESOPHAGUS ,STOMACH OR DUODENUM NO BLOOD IN DUODENUM Complications: none Surgeon: Paulette Sepulveda Specimens Removed/Pathology: none sent Condition: stable Disposition: PACU
[2019-02-14] MEDS ORDERED: ONDANSETRON 4 MG/2 ML VIAL IV PRN (08:53)
[2019-02-14] MEDS ORDERED: ACETAMINOPHEN 500 MG TABLET PO PRN (08:53)
[2019-02-14] MEDS ORDERED: LACTULOSE 20 GM/30 ML ORAL.SOL PO PRN (08:53)
[2019-02-14] MEDS ORDERED: PROMETHAZINE 25 MG TABLET PO PRN (08:53)
[2019-02-14] MEDS ORDERED: POTASSIUM CHLORIDE 40 MEQ in DEXTROSE 5% IN WATER 500 ML IV PRN (08:53)
[2019-02-14] MEDS ORDERED: POTASSIUM CHLORIDE 20 MEQ TABLET PO PRN ×2 (08:53)
[2019-02-14] MEDS ORDERED: FLEETS ADULT ENEMA PR PRN (08:53)
[2019-02-14] MEDS ORDERED: POLYETHYLENE GLYCOL 3350 17 GM PACKET PO PRN (08:53)
[2019-02-14] MEDS ORDERED: MAGNESIUM SULFATE 2 GM/50 ML BAG IV PRN (08:53)
[2019-02-14] MEDS ORDERED: 0.9 % SODIUM CHLORIDE 250 ML IV SCH (08:53)
[2019-02-14] MEDS ORDERED: METOPROLOL TARTRATE 5 MG/5 ML VIAL IV PRN (08:53)
[2019-02-14] MEDS ORDERED: MAGNESIUM HYDROXIDE 30 ML ORAL.SUSP PO PRN (08:53)
[2019-02-14] MEDS ORDERED: IPRATROPIUM/ALBUTEROL 3 ML AMPUL.NEB NEB PRN (08:53)
[2019-02-14] MEDS ORDERED: NITROGLYCERIN 0.1 MG/HR PATCH TD SCH (09:00)
[2019-02-14] MEDS ORDERED: PANTOPRAZOLE 40 MG VIAL IV ONE (09:15)
[2019-02-14] MEDS: FLUTICASONE/SALMETEROL 250/50 INHALER #14 INH SCH ×2 (09:17→20:20)
[2019-02-14] MEDS ORDERED: PANTOPRAZOLE 80 MG in 0.9 % SODIUM CHLORIDE 100 ML IV SCH (10:30)
[2019-02-14] MEDS ORDERED: LABETALOL 5 MG/ML ML IV PRN (10:32)
[2019-02-14] MEDS: cefTRIAXone 1 GM VIAL IV SCH (10:40)
--- NOTE | 2019-02-14 11:04 | Discharge Summary ---
Medical - DS: Prov Patient information: Note initiated : 02/14/19 at 10:59 am Service Date, if different from initiated Date: [] Patient: Valeria Negron 78 y/o F admitted on 02/12/19 for Vomiting Blood. Chief Complaint: [] Date of admission: 02/12/19 20:12 Discharge date: 02/15/19 Primary care physician: Rea Sethi Consults: 02/12/19 Consult to Physician [CONS] Stat Comment: Consulting Provider: Magen Costello Reason For Exam: Physician to Consult Consult to Physician [CONS] Stat Comment: Consulting Provider: Paulette Sepulveda Reason For Exam: Physician to Consult Medical - DS: Meds - Discharge Medications Prescriptions: Cefdinir 300 mg PO BID #14 cap Pantoprazole [Protonix] 40 mg PO BIDAC #60 tab Sucralfate [Carafate] 1 gm PO Q6 #1 oral.susp Active and Home Medications: Home Medications Apixaban [Eliquis] 2.5 mg PO BID 12/04/17 [History Confirmed 02/12/19 Last Taken 12/09/18] Torsemide [Demadex] 30 mg PO DAILY 12/04/17 [History Confirmed 02/12/19 Last Taken Unknown] Primidone [Mysoline] 50 mg PO BID 12/23/17 [History Confirmed 02/12/19 Last Taken Unknown] Fluticasone/Salmeterol [Advair 250-50 Diskus] 1 puff INH BID #3 inhaler 12/26/17 [Rx Confirmed 02/12/19 Last Taken Unknown] Ipratropium/Albuterol [Duoneb] 3 ml NEB Q4HP PRN #90 ampul.neb 12/26/17 [Rx Confirmed 02/12/19 Last Taken Unknown] Metoprolol Succinate [Kapspargo Sprinkle] 100 mg PO BID 08/20/18 [History Confirmed 02/12/19 Last Taken 12/10/18] Acetaminophen [Acetaminophen Extra Strength] 1,000 mg PO Q6-8HP PRN 12/22/18 [History Confirmed 02/12/19 Last Taken Unknown] Aripiprazole [Abilify] 2 mg PO HS 12/22/18 [History Confirmed 02/12/19 Last Taken Unknown] Benzonatate 100 mg PO TID 12/22/18 [History Confirmed 02/12/19 Last Taken Un known] Cilostazol [Pletal] 50 mg PO BID 12/22/18 [History Confirmed 02/12/19 Last Taken Unknown] Gabapentin [Neurontin] 100 mg PO BID 12/22/18 [History Confirmed 02/12/19 Last Taken Unknown] HYDROcodone/APAP 10/325MG [Opheim 10-325Mg] 2 tab PO Q6HP PRN 12/22/18 [History Confirmed 02/12/19 Last Taken Unknown] Ibuprofen 400 - 600 mg PO Q4-6HP PRN 12/22/18 [History Confirmed 02/12/19 Last Taken Unknown] Nitroglycerin [Nitro-Dur] 1 patch TOPICAL BID 12/22/18 [History Confirmed 02/12/19 Last Taken Unknown] Ondansetron [Zofran ODT] 4 mg SL DAILY 12/22/18 [History Confirmed 02/12/19 Last Taken Unknown] Sertraline [Zoloft] 100 mg PO DAILY 12/22/18 [History Confirmed 02/12/19 Last Taken Unknown] amLODIPine [Norvasc] 5 mg PO DAILY 12/22/18 [History Confirmed 02/12/19 Last Taken Unknown] Bisacodyl [Dulcolax] 10 mg RC PRN PRN 02/12/19 [History Confirmed 02/12/19 Last Taken Unknown] Hydrochlorothiazide [Oretic] 12.5 mg PO 3XW 02/12/19 [History Confirmed 02/12/19 Last Taken Unknown] Magnesium Hydroxide [Milk of Magnesia] 400 mg PO PRN PRN 02/12/19 [History Confirmed 02/12/19 Last Taken Unknown] Na Phos,M-B/Na Phos,Di-Ba [Fleet Enema Extra] 118 ml RC PRN PRN 02/12/19 [History Confirmed 02/12/19 Last Taken Unknown] Ondansetron [Zofran ODT] 4 mg SL Q6H PRN 02/12/19 [History Confirmed 02/12/19 Last Taken Unknown] Phenylephrine HCl/Boyd Butter [Preparation H Suppository] 1 each RC BID 02/12/19 [History Confirmed 02/12/19 Last Taken Unknown] Home Medications Apixaban [Eliquis] 2.5 mg PO BID 12/04/17 [History Confirmed 02/12/19 Last Taken 12/09/18] Torsemide [Demadex] 30 mg PO DAILY 12/04/17 [History Confirmed 02/12/19 Last Taken Unknown] Primidone [Mysoline] 50 mg PO BID 12/23/17 [History Confirmed 02/12/19 Last Taken Unknown] Fluticasone/Salmeterol [Advair 250-50 Diskus] 1 puff INH BID #3 inhaler 12/26/17 [Rx Confirmed 02/12/19 Last Taken Unknown] Ipratropium/Albuterol [Duoneb] 3 ml NEB Q4HP PRN #90 ampul.neb 12/26/17 [Rx Confirmed 02/12/19 Last Taken Unknown] Metoprolol Succinate [Kapspargo Sprinkle] 100 mg PO BID 08/20/18 [History Confirmed 02/12/19 Last Taken 12/10/18] Acetaminophen [Acetaminophen Extra Strength] 1,000 mg PO Q6-8HP PRN 12/22/18 [History Confirmed 02/12/19 Last Taken Unknown] Aripiprazole [Abilify] 2 mg PO HS 12/22/18 [History Confirmed 02/12/19 Last Taken Unknown] Benzonatate 100 mg PO TID 12/22/18 [History Confirmed 02/12/19 Last Taken Unknown] Gabapentin [Neurontin] 100 mg PO BID 12/22/18 [History Confirmed 02/12/19 Last Taken Unknown] HYDROcodone/APAP 10/325MG [Opheim 10-325Mg] 2 tab PO Q6HP PRN 12/22/18 [History Confirmed 02/12/19 Last Taken Unknown] Nitroglycerin [Nitro-Dur] 1 patch TOPICAL BID 12/22/18 [History Confirmed 02/12/19 Last Taken Unknown] Ondansetron [Zofran ODT] 4 mg SL DAILY 12/22/18 [History Confirmed 02/12/19 Last Taken Unknown] Sertraline [Zoloft] 100 mg PO DAILY 12/22/18 [History Confirmed 02/12/19 Last Taken Unknown] amLODIPine [Norvasc] 5 mg PO DAILY 12/22/18 [History Confirmed 02/12/19 Last Ta randy Unknown] Bisacodyl [Dulcolax] 10 mg RC PRN PRN 02/12/19 [History Confirmed 02/12/19 Last Taken Unknown] Hydrochlorothiazide [Oretic] 12.5 mg PO 3XW 02/12/19 [History Confirmed 02/12/19 Last Taken Unknown] Magnesium Hydroxide [Milk of Magnesia] 400 mg PO PRN PRN 02/12/19 [History Confirmed 02/12/19 Last Taken Unknown] Na Phos,M-B/Na Phos,Di-Ba [Fleet Enema Extra] 118 ml RC PRN PRN 02/12/19 [His tory Confirmed 02/12/19 Last Taken Unknown] Ondansetron [Zofran ODT] 4 mg SL Q6H PRN 02/12/19 [History Confirmed 02/12/19 Last Taken Unknown] Phenylephrine HCl/Boyd Butter [Preparation H Suppository] 1 each RC BID 02/12/19 [History Confirmed 02/12/19 Last Taken Unknown] Cefdinir 300 mg PO BID #14 cap 02/14/19 [Rx Last Taken Unknown] Sucralfate [Carafate] 1 gm PO Q6 #1 oral.susp 02/14/19 [Rx Last Taken Unknown] RESTART ELIQUIS IN 3 DAYS, NOT BEFORE. Medical - DS: Hosp Hospital course: Ms. Negron is a 78 year old F who presents from [facility] senior care facility for 2 days of coffee-ground emesis. She reports that she is feeling fine Friday. sometime in the morning she vomited and report was that it was coffee-ground emesis patient reports that it was quite explosive and quite a bit. She did not have any further episodes that day. And then today she had another episode of coffee- ground emesis. Patient states that she felt weaker more tired the past couple days with some lightheadedness. Denies headache but has some chills she has some constipation denies melena. She has not occasional cough which is much improved from the past she is got chronic shortness of breath she has what she calls pleurisy for the past week where she has some chest wall discomfort when she coughs or sneezes. She feels a little lightheaded. Having some little bit of stomach discomfort in the left upper quadrant. She has extensive medical history including A. fib on Eliquis and Toprol with history of chronic kidney disease diastolic heart failure she had failure to thrive dementia COPD with pulmonary fibrosis coronary artery disease peripheral vascular disease hypothyroidism. She was told in the ER that she would likely need to go to [facility] because GI is not available at this time. But patient adamantly refused. At that time ED contacted Dr. Sepulveda who said he would be willing to perform endoscopy, on Friday likely. 02/13 No events overnight. Hemoglobin dropped overnight. No new complaints. Still feeling tired and weak. 02/14 Patient status post procedure. Diffuse gastritis. Sounds like patient's been taking ibuprofen at home. Will clarify with family. Patient sedated from procedure, family in room. 02/15 No issues overnight. No bleeding reported. Patient doing well and happy to discharge today. Patient stable for discharge. Although patient is a high risk for readmission given her age and significant comorbidities and multiple hospitalizations Discharge diagnosis: Upper GI bleed from diffuse gastritis acute blood loss anemia Secondary discharge diagnosis: Chronic anemia E. coli UTI A. fib flutter diastolic heart failure chronic kidney disease COPD pulmonary fibrosis CAD peripheral vascular disease hypertension hypothyroidism essential tremor failure to thrive dementia depression chronic pain - Time Spent with Patient Total time spent providing and/or coordinating discharge services: Greater than 30 minutes Medical - DS: Exam - Constitutional Vitals: Vital Signs Temp Pulse Resp BP BP Pulse Ox 02/14/19 09:45 163/75 99 02/14/19 09:30 16 152/74 98 02/14/19 09:15 16 159/80 100 02/14/19 09:00 98.3 F 48 L 18 155/76 99 02/14/19 04:00 97.9 F 60 20 152/75 94 02/14/19 00:00 98.1 F 62 16 156/79 95 02/13/19 22:15 56 L 02/13/19 20:00 97.7 F 16 153/90 94 02/13/19 19:08 56 L 94 02/13/19 15:37 97.7 F 16 161/85 92 02/13/19 12:00 98.0 F 16 128/77 90 Intake and Output 02/13/19 02/14/19 02/14/19 21:59 05:59 13:59 Intake Total 325 350 Output Total 1250 1300 Balance -925 -950 Intake: IV 350 Sodium Chloride 0.9% 250 ml @ 250 KVO IV .Q0M [facility] Rx#:[id number] Protonix 80 mg In Sodium 100 Chloride 0.9% 100 ml @ 8 MG/HR 10 mls/hr IV Q10H [facility] Rx#: [id number] Blood Product 325 Output: Urine Catheter Amount 1250 1300 Other: Urine Appearance Uretheral (Yuan) Clear Urine Color Uretheral (Yuan) Pale Weight 58.967 kg Medical - DS: Data Labs on day of discharge: Labs from last 24 hours 02/14/19 02/14/19 02/13/19 04:00 04:00 15:50 Hgb 11.3 L 10.8 L Hct 34.1 L 32.6 L Sodium 140 Potassium 3.7 Chloride 99 Carbon Dioxide 25 Anion Gap 16.0 BUN 32 H Creatinine 1.4 H GFR Calculation 36 Glucose 71 Calcium 7.6 L Preliminary micro results at discharge 02/12/19 15:45 Blood Culture - Preliminary Blood 02/12/19 15:54 Blood Culture - Preliminary Blood Medical - DS: A/P - Patient/Caregiver Discharge Instructions Activity: as per physical therapy Diet: Cardiac Additional Instructions: RESTART ELIQUIS AND IN 3 DAYS, NOT BEFORE. f/u with Dr. Sepulveda's office to determine if he wants repeat EGD in several months Prescriptions: Cefdinir 300 mg PO BID #14 cap Pantoprazole [Protonix] 40 mg PO BIDAC #60 tab Sucralfate [Carafate] 1 gm PO Q6 #1 oral.susp - Follow up Plan Follow up with: Rea Sethi MD [Primary Care Provider] - Disposition: Xfer SNF Prognosis: Undetermined Rehab Potential: Fair I certify that the patient requires SNF services: Yes Overall status at discharge: patient is progressing back to baseline Medical - DS: Qual - VTE Deep Vein Thrombosis/Pulmonary Embolism Present on Admission: No
[2019-02-14] MEDS ORDERED: hydrALAZINE 20 MG/ML VIAL IV PRN (11:07)
[2019-02-14] MEDS: SUCRALFATE 1 GM/10 ML ORAL.SUSP PO SCH ×2 (11:19→17:28)
[2019-02-14] MEDS: amLODIPine 5 MG TABLET PO SCH (11:20)
[2019-02-14] MEDS: TORSEMIDE 10 MG TABLET PO SCH (11:20)
[2019-02-14] MEDS: PRIMIDONE 50 MG TABLET PO SCH ×2 (11:20→20:21)
[2019-02-14] MEDS: GABAPENTIN 100 MG CAPSULE PO SCH ×2 (11:21→20:21)
[2019-02-14] MEDS: SERTRALINE 100 MG TABLET PO SCH (11:24)
[2019-02-14] MEDS: DOCUSATE SODIUM 100 MG CAPSULE PO SCH ×2 (11:25→20:22)
[2019-02-14] MEDS: METOPROLOL SUCCINATE 50 MG TAB.XL.24H PO SCH ×2 (11:25→20:21)
[2019-02-14] MEDS: NITROGLYCERIN 0.1 MG/HR PATCH TD SCH (11:25)
[2019-02-14] MEDS: PANTOPRAZOLE 40 MG TABLET PO SCH (17:28)
[2019-02-14] MEDS ORDERED: SENNOSIDES 1 TABLET PO PRN (21:00)
[2019-02-14] MEDS ORDERED: ARIPIPRAZOLE 5 MG TABLET PO SCH (21:00)
[2019-02-15] MEDS: SUCRALFATE 1 GM/10 ML ORAL.SUSP PO SCH ×2 (00:41→05:26)
[2019-02-15] MEDS: HYDROcodone/APAP 10/325MG TABLET PO PRN (04:15)
[2019-02-15] MEDS: 0.9 % SODIUM CHLORIDE 10 ML SYRINGE IV SCH (05:26)
[2019-02-15] MEDS: PANTOPRAZOLE 40 MG TABLET PO SCH (07:26)
--- NOTE | 2019-02-15 07:27 | Operative Note ---
DATE OF OPERATION: 02/14/2019 PREOPERATIVE DIAGNOSIS: Upper GI bleeding. POSTOPERATIVE DIAGNOSIS: Severe erosive gastritis without ulceration and without active bleeding. PROCEDURE: Esophagogastroduodenoscopy. SURGEON: Paulette Sepulveda M.D. FINDINGS: 1. Normal esophagus with mild stenosis at GE junction. No ulceration noted. 2. Diffuse severe gastritis with multiple superficial erosions of entire stomach. 3. Old blood in stomach with evidence of oozing from the erosions, but no active bleeding or fresh blood. 4. No ulceration noted in the esophagus, stomach or duodenum. 5. No blood in duodenum. DESCRIPTION OF PROCEDURE: Under general anesthesia, the patient turned to the left lateral decubitus position. A bite block was placed. A time-out procedure was carried out. Scope was introduced through the bite block into the retropharynx and esophagus without difficulty. The esophagus was unremarkable. There appeared to be some abnormal peristaltic waves but otherwise appeared to be normal. There was no evidence of thrush as was seen on prior evaluations. There was smooth mild narrowing at the GE junction but the scope was able to pass without difficulty. The GE junction also opened appropriately. Upon entering the stomach, there were diffuse severe inflammatory changes involving the entire body of the stomach including fundus, antrum and body. There were multiple scattered superficial erosions in all areas of the stomach with some oozing of old blood from the erosions, but no active fresh bleeding. There were no ulcerations noted in the stomach on close at maximum dilation of the stomach. Pylorus was inflamed and thickened but opened appropriately. There was no channel ulceration. Duodenal bulb, second and third portions of the duodenum were normal. There was no inflammation in the duodenum. There was no blood in the duodenum. Scope was pulled back and retroflexed view was done. The aforementioned and severe inflammation and erosions were noted without evidence of ulceration. I elected not to do biopsies because the patient is on Eliquis. Since the GE junction was only minimally stenosed and opened appropriately, no dilation was carried out because of the presence of Eliquis. Air was suctioned from the stomach and the scope was removed. The patient tolerated the procedure well. RECOMMENDATIONS: Continue PPI therapy, can probably switch to q.12h., either oral or IV. Add sucralfate 1 gram 4 times daily. Continue to withhold Eliquis at this time and reevaluate the need for Eliquis in this very infirm elderly patient. LCS:pradeep Job ID: [id number] Doc ID: [id number] Paulette Sepulveda M.D.
[2019-02-15] MEDS: cefTRIAXone 1 GM VIAL IV SCH (09:31)
[2019-02-15] MEDS: TORSEMIDE 10 MG TABLET PO SCH (09:31)
[2019-02-15] MEDS: FLUTICASONE/SALMETEROL 250/50 INHALER #14 INH SCH (09:31)
[2019-02-15] MEDS: NITROGLYCERIN 0.1 MG/HR PATCH TD SCH (09:31)
[2019-02-15] MEDS: METOPROLOL SUCCINATE 50 MG TAB.XL.24H PO SCH (09:32)
[2019-02-15] MEDS: DOCUSATE SODIUM 100 MG CAPSULE PO SCH (09:32)
[2019-02-15] MEDS: GABAPENTIN 100 MG CAPSULE PO SCH (09:32)
[2019-02-15] MEDS: SERTRALINE 100 MG TABLET PO SCH (09:32)
[2019-02-15] MEDS: PRIMIDONE 50 MG TABLET PO SCH (09:32)
[2019-02-15] MEDS: amLODIPine 5 MG TABLET PO SCH (09:32)
== END 2019-02-15 11:12 | DRG 378 ==
LOC: ED 14:34 → ICU 20:12
PROVIDERS: ADMIT Internal Medicine; ATTEND Internal Medicine